=== PATIENT | male | born 1965 | race Caucasian/White ===

== ENCOUNTER 2016-08-30 11:19 | Emergency (ER) | payer OTHER ==
--- NOTE | 2016-08-30 14:33 | EDDOCDS ---
Nurse's Notes [facility] Name: Renaldo Syed Age: 51 yrs Sex: Male : 1965 Arrival Date: 08/30/2016 Time: 11:19 Bed PR Private MD: Other - Complete Info On Cds Diagnosis: Calcific tendinitis of left shoulder-or bursitis;Cervical disc disorder with radiculopathy, cervicothoracic region-affecting left arm Presentation: 08/30 11:25 Presenting complaint: Patient states: hurt for a long time- a while ago towels were hs1 dropped on it 7 mos while in [place]. Patient was supposed to have follow up with orthopedic doctor and they have cancelled apt 2 times. Patient concerned because they haven't rescheduled and pain is much worse. No imaging every reported by patient. Adult Sepsis Screening: The patient does not have new or worsening altered mentation. Patient's respiratory rate is less than 22. Systolic blood pressure is greater than 100. Patient has a qSOFA score of 0- Negative Sepsis Screen. Suicide/Homicide risk assessment- the patient denies having any suicidal and/or homicidal ideations and does not present with any other emotional, behavioral or mental health complaints. Status: Patient is not a insurance and financial services agent or dependent. Transition of care: patient was not received from another setting of care. 11:25 Acuity: BARBARA Level 4 hs1 11:25 Method Of Arrival: Walkin/Carried/Asstd hs1 Triage Assessment: 11:32 General: Appears uncomfortable, Behavior is appropriate for age, cooperative. Pain: hs1 Location: left hand and left arm Pain currently is 10 out of 10 on a pain scale. Pt Declines HIV testing. Neurological: No deficits noted. Respiratory: Airway is patent Respiratory effort is even, unlabored. Musculoskeletal: Range of motion limited in left shoulder. Historical: - Allergies: Acetaminophen (Hives); - Home Meds: 1. Toujeo SoloStar 300 unit/mL (1.5 mL) subcutaneous inpn 30 units in am and 25 units at night 2. oxycodone 30 mg Oral tab as needed ran out 2 days ago 3. depression medication unknown 4. Topamax 50 mg Oral tab 1 tab daily - PMHx: Diabetes - IDDM: controlled; hearniated discs; nueropathy; Migraines; - PSHx: none; - Social history: Smoking status: Patient uses tobacco products, heavy tobacco smoker. No barriers to communication noted, The patient speaks fluent Czech, Speaks appropriately for age. - Family history: Not pertinent. - : The pt / caregiver states he / she is not on anticoagulants. Home medication list is obtained from the patient. - Exposure Risk Screening:: None identified. Screenin:32 Screening information is obtained from the patient. Fall risk: No risks identified. mlb1 Assistance ADL's: requires no assistance with activities of daily living. Abuse/DV Screen: The patient / caregiver reports he/she is: not in a situation that causes fear, pain or injury. Nutritional screening: No deficits noted. Advance Directives: Currently, there is no health care proxy. home support is adequate. Assessment: 14:32 General: Appears in no apparent distress, Behavior is anxious, appropriate for age, mlb1 cooperative. Pain: Location: left arm Pain currently is 10 out of 10 on a pain scale. Musculoskeletal: Circulation, motion, and sensation intact Range of motion intact in all extremities. Vital Signs: 11:21 BP 128 / 88 RA Sitting (auto/reg); Pulse 83; Resp 18; Temp 98.1(O); Pulse Ox 100% on jrd R/A; Weight 96.62 kg (R); Height 6 ft. 0 in. (182.88 cm); Pain 10/10; 14:28 BP 147 / 84; Pulse 84; Resp 18; Temp 99.1(O); Pulse Ox 97% on R/A; Pain 10/10; ct3 11:21 Body Mass Index 28.89 (96.62 kg, 182.88 cm) [facility] Vitals: 11:21 Log In Time: August 30, 2016 at 11:00. [facility] ED Course: 11:20 Patient visited by Tj Santizo PCA. jrd 11:20 Patient moved to Waiting jrd 11:21 Other - Complete Info On Cds is Private Physician. jrd 11:23 Patient visited by Tj Santizo PCA. jrd 11:24 Patient moved to Pre RCE jrd 11:28 Triage Initiated hs1 12:52 Patient moved to Triage 2 ct3 13:10 Karen Craig PA-C is PHCP. dt4 13:10 Nithin Monterroso MD is Attending Physician. dt4 13:10 Patient visited by Karen Craig PA-C. dt4 13:49 Patient moved to TR1 ct3 13:59 Patient visited by Hui Lock PCA. ct3 14:18 [facility] is Referral Physician. dt4 14:19 [facility] Payment Agreement was scanned into [employer] and attached to record. mm15 14:21 Patient moved to PR1 / 25 ttb 14:29 Patient visited by Hui Lock PCA. ct3 14:32 No IV's were initiated during this patient's visit. No procedures done that require mlb1 assistance. 14:33 Patient visited by Aldo Balderas RN. mlb1 14:33 The patient / caregiver is instructed regarding the plan of care and ED course. mlb1 Order Results: There are currently no results for this order. Outcome: 14:19 Discharge ordered by Provider. dt4 14:32 Discharge Assessment: Patient awake, alert and oriented x 3. No cognitive and/or mlb1 functional deficits noted. Patient verbalized understanding of disposition instructions. patient administered narcotics - no. The following High Risk Discharge criteria are identified: None. Discharged to home ambulatory. Condition: good. Discharge instructions given to patient, Instructed on discharge instructions, follow up and referral plans. medication usage, Demonstrated understanding of instructions, medications, Pt was receptive of discharge instructions/ teaching. Prescriptions given X 2. No special radiology studies were completed. Property sent home with patient. 14:33 Patient left the ED. mlb1 Signatures: Aldo Balderas RN RN mlb1 Amanda Hawthorne RN RN hs1 Hui Lock PCA TRAVEL MANAGER ct3 Stella Caputo RN RN ttb Krystian Muñiz mm15 Karen Craig PA-C PA-C dt4 Tj Santzio PCA TRAVEL MANAGER jrd [facility] [place]
--- NOTE | 2016-08-30 14:33 | EDDOCDS ---
Physician Documentation [facility] Name: Renaldo Syed Age: 51 yrs Sex: Male : 1965 Arrival Date: 08/30/2016 Time: 11:19 Bed PR Private MD: Other - Complete Info On Cds Disposition: 08/30/16 14:19 Discharged to Home/Self Care. Impression: Calcific tendinitis of left shoulder - or bursitis, Cervical disc disorder with radiculopathy, cervicothoracic region - affecting left arm. - Condition is Stable. - Discharge Instructions: Cervical Radiculopathy, Calcific Tendinitis. - Prescriptions for Naprosyn 500 mg Oral Tablet - take 1 tablet by ORAL route every 12 hours As needed take with food; 30 tablet. Neurontin 300 mg Oral Capsule - take 1 capsule by ORAL route every 8 hours; 30 capsule. - Medication Reconciliation, Local Pharmacy Hours form. - Follow up: Emergency Department; When: As needed; Reason: Worsening of conditions. Follow up: [facility]; When: Call to arrange an appointment; Reason: Wound/Symptom Recheck, Recheck today's complaints, Continuance of care, To establish care. - Problem is new. - Symptoms are unchanged. Historical: - Allergies: Acetaminophen (Hives); - Home Meds: 1. Toujeo SoloStar 300 unit/mL (1.5 mL) subcutaneous inpn 30 units in am and 25 units at night 2. oxycodone 30 mg Oral tab as needed ran out 2 days ago 3. depression medication unknown 4. Topamax 50 mg Oral tab 1 tab daily - PMHx: Diabetes - IDDM: controlled; hearniated discs; nueropathy; Migraines; - PSHx: none; - Social history: Smoking status: Patient uses tobacco products, heavy tobacco smoker. No barriers to communication noted, The patient speaks fluent Azeri, Speaks appropriately for age. - Family history: Not pertinent. - : The pt / caregiver states he / she is not on anticoagulants. Home medication list is obtained from the patient. - Exposure Risk Screening:: None identified. Vital Signs: 08/30 11:21 BP 128 / 88 RA Sitting (auto/reg); Pulse 83; Resp 18; Temp 98.1(O); Pulse Ox 100% on jrd R/A; Weight 96.62 kg / 213.01 lbs (R); Height 6 ft. 0 in. (182.88 cm); Pain 10/10; 14:28 BP 147 / 84; Pulse 84; Resp 18; Temp 99.1(O); Pulse Ox 97% on R/A; Pain 10/10; ct3 11:21 Body Mass Index 28.89 (96.62 kg, 182.88 cm) jrd MDM: 13:44 Humerus Ordered. EDMS 14:06 Financial registration complete. lg 14:19 [facility] Payment Agreement was scanned into [employer] and attached to record. mm15 Signatures: Dispatcher [employer] EDMS Dewayne Lopez, Reg Reg Aldo Balderas RN RN mlb1 Amanda Hawthorne RN RN hs1 Krystian Muñiz mm15 Karen Craig PA-C PA-C dt4 The chart was reviewed and I authenticate all verbal orders and agree with the evaluation and treatment provided.Attachments: 14:19 [facility] Payment Agreement mm15 MTDD
--- NOTE | 2016-08-30 14:37 | REP ---
Left humerus: Two views. History: Left upper arm pain. Findings: Two views of the left humerus demonstrate normal alignment of the glenohumeral and acromioclavicular joints. No fracture or subluxation is seen. There is a large soft tissue calcific deposit superimposed on a greater tuberosity of the humeral head at the shoulder consistent with calcific tendonitis or bursitis. This is unchanged from the April 02, 2015 study of the shoulder. Impression: No acute bony abnormality. Large soft tissue calcific deposit again seen consistent with calcific tendonitis or bursitis. Signed by Elvis Francis MD 08/30/2016 03:06 P
--- NOTE | 2016-09-01 15:33 | EDDOCDS ---
Nurse's Notes [facility] Name: Renaldo Syed Age: 51 yrs Sex: Male : 1965 Arrival Date: 08/30/2016 Time: 11:19 Bed PR Private MD: Other - Complete Info On Cds Diagnosis: Calcific tendinitis of left shoulder-or bursitis;Cervical disc disorder with radiculopathy, cervicothoracic region-affecting left arm Presentation: 08/30 11:25 Presenting complaint: Patient states: hurt for a long time- a while ago towels were hs1 dropped on it 7 mos while in [place]. Patient was supposed to have follow up with orthopedic doctor and they have cancelled apt 2 times. Patient concerned because they haven't rescheduled and pain is much worse. No imaging every reported by patient. Adult Sepsis Screening: The patient does not have new or worsening altered mentation. Patient's respiratory rate is less than 22. Systolic blood pressure is greater than 100. Patient has a qSOFA score of 0- Negative Sepsis Screen. Suicide/Homicide risk assessment- the patient denies having any suicidal and/or homicidal ideations and does not present with any other emotional, behavioral or mental health complaints. Status: Patient is not a director of physiotherapy services or dependent. Transition of care: patient was not received from another setting of care. 11:25 Acuity: BARBARA Level 4 hs1 11:25 Method Of Arrival: Walkin/Carried/Asstd hs1 Triage Assessment: 11:32 General: Appears uncomfortable, Behavior is appropriate for age, cooperative. Pain: hs1 Location: left hand and left arm Pain currently is 10 out of 10 on a pain scale. Pt Declines HIV testing. Neurological: No deficits noted. Respiratory: Airway is patent Respiratory effort is even, unlabored. Musculoskeletal: Range of motion limited in left shoulder. Historical: - Allergies: Acetaminophen (Hives); - Home Meds: 1. Toujeo SoloStar 300 unit/mL (1.5 mL) subcutaneous inpn 30 units in am and 25 units at night 2. oxycodone 30 mg Oral tab as needed ran out 2 days ago 3. depression medication unknown 4. Topamax 50 mg Oral tab 1 tab daily - PMHx: Diabetes - IDDM: controlled; hearniated discs; nueropathy; Migraines; - PSHx: none; - Social history: Smoking status: Patient uses tobacco products, heavy tobacco smoker. No barriers to communication noted, The patient speaks fluent Nicaraguan, Speaks appropriately for age. - Family history: Not pertinent. - : The pt / caregiver states he / she is not on anticoagulants. Home medication list is obtained from the patient. - Exposure Risk Screening:: None identified. Screenin:32 Screening information is obtained from the patient. Fall risk: No risks identified. mlb1 Assistance ADL's: requires no assistance with activities of daily living. Abuse/DV Screen: The patient / caregiver reports he/she is: not in a situation that causes fear, pain or injury. Nutritional screening: No deficits noted. Advance Directives: Currently, there is no health care proxy. home support is adequate. Assessment: 14:32 General: Appears in no apparent distress, Behavior is anxious, appropriate for age, mlb1 cooperative. Pain: Location: left arm Pain currently is 10 out of 10 on a pain scale. Musculoskeletal: Circulation, motion, and sensation intact Range of motion intact in all extremities. Vital Signs: 11:21 BP 128 / 88 RA Sitting (auto/reg); Pulse 83; Resp 18; Temp 98.1(O); Pulse Ox 100% on jrd R/A; Weight 96.62 kg (R); Height 6 ft. 0 in. (182.88 cm); Pain 10/10; 14:28 BP 147 / 84; Pulse 84; Resp 18; Temp 99.1(O); Pulse Ox 97% on R/A; Pain 10/10; ct3 11:21 Body Mass Index 28.89 (96.62 kg, 182.88 cm) [facility] Vitals: 11:21 Log In Time: August 30, 2016 at 11:00. [facility] ED Course: 11:20 Patient visited by Tj Santizo PCA. jrd 11:20 Patient moved to Waiting jrd 11:21 Other - Complete Info On Cds is Private Physician. jrd 11:23 Patient visited by Tj Santizo PCA. jrd 11:24 Patient moved to Pre RCE jrd 11:28 Triage Initiated hs1 12:52 Patient moved to Triage 2 ct3 13:10 Karen Craig PA-C is PHCP. dt4 13:10 Nithin Monterroso MD is Attending Physician. dt4 13:10 Patient visited by Karen Craig PA-C. dt4 13:49 Patient moved to TR1 ct3 13:59 Patient visited by Hui Lock PCA. ct3 14:18 [facility] is Referral Physician. dt4 14:19 [facility] Payment Agreement was scanned into [employer] and attached to record. mm15 14:21 Patient moved to PR1 / 25 ttb 14:29 Patient visited by Hui Lock PCA. ct3 14:32 No IV's were initiated during this patient's visit. No procedures done that require mlb1 assistance. 14:33 Patient visited by lAdo Balderas RN. mlb1 14:33 The patient / caregiver is instructed regarding the plan of care and ED course. mlb1 14:40 Humerus Returned. EDMS 08/31 12:58 T-Sheet-- Draft Copy was scanned into [employer] and attached to record. gb 12:58 Radiology Report was scanned into [employer] and attached to record. gb Order Results: Radiology Order: Humerus Test: Humerus REASON FOR EXAMINATION: left upper arm pain; Left humerus: Two views.; ; History: Left upper arm pain.; ; Findings: Two views of the left humerus demonstrate normal alignment of the; glenohumeral and acromioclavicular joints. No fracture or subluxation is seen.; There is a large soft tissue calcific deposit superimposed on a greater; tuberosity of the humeral head at the shoulder consistent with calcific; tendonitis or bursitis. This is unchanged from the April 02, 2015 study of; the shoulder.; ; Impression:; ; No acute bony abnormality. Large soft tissue calcific deposit again seen; consistent with calcific tendonitis or bursitis.; ; ; Signed by; Elvis Francis MD 08/30/2016 03:06 P; Outcome: 08/30 14:19 Discharge ordered by Provider. dt4 14:32 Discharge Assessment: Patient awake, alert and oriented x 3. No cognitive and/or mlb1 functional deficits noted. Patient verbalized understanding of disposition instructions. patient administered narcotics - no. The following High Risk Discharge criteria are identified: None. Discharged to home ambulatory. Condition: good. Discharge instructions given to patient, Instructed on discharge instructions, follow up and referral plans. medication usage, Demonstrated understanding of instructions, medications, Pt was receptive of discharge instructions/ teaching. Prescriptions given X 2. No special radiology studies were completed. Property sent home with patient. 14:33 Patient left the ED. mlb1 Signatures: Dispatcher [employer] EDOR Zahraa Sanches, Reg Reg gb AndreyAldo watkins RN RN mlb1 Amanda Hawthorne RN RN hs1 Hui Lock, APPRENTICE PAINTER BRUSH APPRENTICE PAINTER BRUSH ct3 Stella Caputo RN RN ttb Krystian Muñiz mm15 Karen Craig, PAEnid PAGaelC dt4 Tj Santizo, APPRENTICE PAINTER BRUSH APPRENTICE PAINTER BRUSH jrd Chart Complete MTDD
--- NOTE | 2016-09-01 15:33 | EDDOCDS ---
Physician Documentation [facility] Name: Renaldo Syed Age: 51 yrs Sex: Male : 1965 Arrival Date: 08/30/2016 Time: 11:19 Bed PR Private MD: Other - Complete Info On Cds Disposition: 08/30/16 14:19 Discharged to Home/Self Care. Impression: Calcific tendinitis of left shoulder - or bursitis, Cervical disc disorder with radiculopathy, cervicothoracic region - affecting left arm. - Condition is Stable. - Discharge Instructions: Cervical Radiculopathy, Calcific Tendinitis. - Prescriptions for Naprosyn 500 mg Oral Tablet - take 1 tablet by ORAL route every 12 hours As needed take with food; 30 tablet. Neurontin 300 mg Oral Capsule - take 1 capsule by ORAL route every 8 hours; 30 capsule. - Medication Reconciliation, Local Pharmacy Hours form. - Follow up: Emergency Department; When: As needed; Reason: Worsening of conditions. Follow up: [facility]; When: Call to arrange an appointment; Reason: Wound/Symptom Recheck, Recheck today's complaints, Continuance of care, To establish care. - Problem is new. - Symptoms are unchanged. Historical: - Allergies: Acetaminophen (Hives); - Home Meds: 1. Toujeo SoloStar 300 unit/mL (1.5 mL) subcutaneous inpn 30 units in am and 25 units at night 2. oxycodone 30 mg Oral tab as needed ran out 2 days ago 3. depression medication unknown 4. Topamax 50 mg Oral tab 1 tab daily - PMHx: Diabetes - IDDM: controlled; hearniated discs; nueropathy; Migraines; - PSHx: none; - Social history: Smoking status: Patient uses tobacco products, heavy tobacco smoker. No barriers to communication noted, The patient speaks fluent Tajik, Speaks appropriately for age. - Family history: Not pertinent. - : The pt / caregiver states he / she is not on anticoagulants. Home medication list is obtained from the patient. - Exposure Risk Screening:: None identified. Vital Signs: 08/30 11:21 BP 128 / 88 RA Sitting (auto/reg); Pulse 83; Resp 18; Temp 98.1(O); Pulse Ox 100% on jrd R/A; Weight 96.62 kg / 213.01 lbs (R); Height 6 ft. 0 in. (182.88 cm); Pain 10/10; 14:28 BP 147 / 84; Pulse 84; Resp 18; Temp 99.1(O); Pulse Ox 97% on R/A; Pain 10/10; ct3 11:21 Body Mass Index 28.89 (96.62 kg, 182.88 cm) jrd MDM: 13:44 Humerus Ordered. EDMS 14:06 Financial registration complete. lg 14:19 [facility] Payment Agreement was scanned into [employer] and attached to record. mm15 08/31 12:58 T-Sheet-- Draft Copy was scanned into [employer] and attached to record. gb 12: Radiology Report was scanned into [employer] and attached to record. gb Signatures: Dispatcher [employer] EDID Zahraa Sanches, Reg Reg gb Dewayne Lopez, Reg Reg lg Aldo Balderas RN RN mlb1 Amanda Hawthorne RN RN hs1 Krystian Muñiz mm15 Karen Craig PA-C PAEnid dt4 The chart was reviewed and I authenticate all verbal orders and agree with the evaluation and treatment provided.Attachments: 08/30 14:19 [facility] Payment Agreement mm15 08/31 12:58 T-Sheet-- Draft Copy gb Chart Complete MTDD
--- NOTE | 2016-09-01 15:33 | EDDOCDS ---
Physician Documentation [facility] Name: Renaldo Syed Age: 51 yrs Sex: Male : 1965 Arrival Date: 08/30/2016 Time: 11:19 Bed PR Private MD: Other - Complete Info On Cds Disposition: 08/30/16 14:19 Discharged to Home/Self Care. Impression: Calcific tendinitis of left shoulder - or bursitis, Cervical disc disorder with radiculopathy, cervicothoracic region - affecting left arm. - Condition is Stable. - Discharge Instructions: Cervical Radiculopathy, Calcific Tendinitis. - Prescriptions for Naprosyn 500 mg Oral Tablet - take 1 tablet by ORAL route every 12 hours As needed take with food; 30 tablet. Neurontin 300 mg Oral Capsule - take 1 capsule by ORAL route every 8 hours; 30 capsule. - Medication Reconciliation, Local Pharmacy Hours form. - Follow up: Emergency Department; When: As needed; Reason: Worsening of conditions. Follow up: [facility]; When: Call to arrange an appointment; Reason: Wound/Symptom Recheck, Recheck today's complaints, Continuance of care, To establish care. - Problem is new. - Symptoms are unchanged. Historical: - Allergies: Acetaminophen (Hives); - Home Meds: 1. Toujeo SoloStar 300 unit/mL (1.5 mL) subcutaneous inpn 30 units in am and 25 units at night 2. oxycodone 30 mg Oral tab as needed ran out 2 days ago 3. depression medication unknown 4. Topamax 50 mg Oral tab 1 tab daily - PMHx: Diabetes - IDDM: controlled; hearniated discs; nueropathy; Migraines; - PSHx: none; - Social history: Smoking status: Patient uses tobacco products, heavy tobacco smoker. No barriers to communication noted, The patient speaks fluent Italian, Speaks appropriately for age. - Family history: Not pertinent. - : The pt / caregiver states he / she is not on anticoagulants. Home medication list is obtained from the patient. - Exposure Risk Screening:: None identified. Vital Signs: 08/30 11:21 BP 128 / 88 RA Sitting (auto/reg); Pulse 83; Resp 18; Temp 98.1(O); Pulse Ox 100% on jrd R/A; Weight 96.62 kg / 213.01 lbs (R); Height 6 ft. 0 in. (182.88 cm); Pain 10/10; 14:28 BP 147 / 84; Pulse 84; Resp 18; Temp 99.1(O); Pulse Ox 97% on R/A; Pain 10/10; ct3 11:21 Body Mass Index 28.89 (96.62 kg, 182.88 cm) jrd MDM: 13:44 Humerus Ordered. EDMS 14:06 Financial registration complete. lg 14:19 [facility] Payment Agreement was scanned into [employer] and attached to record. mm15 08/31 12:58 T-Sheet-- Draft Copy was scanned into [employer] and attached to record. gb 12: Radiology Report was scanned into [employer] and attached to record. gb Signatures: Dispatcher [employer] EDND Zahraa Sanches, Reg Reg gb Dewayne Lopez, Reg Reg lg Aldo Balderas RN RN mlb1 Amanda Hawthorne RN RN hs1 Krystian Muñiz mm15 Karen Craig PA-C PAEnid dt4 The chart was reviewed and I authenticate all verbal orders and agree with the evaluation and treatment provided.Attachments: 08/30 14:19 [facility] Payment Agreement mm15 08/31 12:58 T-Sheet-- Draft Copy gb Chart Complete MTDD
== END 2016-08-30 14:33 | disposition home or self-care (01) ==
LOC: M ED 11:19
DX: M54.12 Radiculopathy, cervical region (principal); M75.32 Calcific tendinitis of left shoulder; E10.9 Type 1 diabetes mellitus without complications; G43.909 Migraine, unspecified, not intractable, without status migrainosus; G62.9 Polyneuropathy, unspecified; M51.9 Unspecified thoracic, thoracolumbar and lumbosacral intervertebral disc disorder; Z79.899 Other long term (current) drug therapy; Z79.4 Long term (current) use of insulin; Z88.6 Allergy status to analgesic agent; F17.210 Nicotine dependence, cigarettes, uncomplicated

== ENCOUNTER 2018-08-10 11:46 | Emergency (ER) | payer OTHER ==
[~2018-08-10] VITALS: Ht 182.9 cm; Wt 104.5 kg
[2018-08-10] MEDS ORDERED: LEVOTAB10 (11:54)
[2018-08-10] MEDS ORDERED: BUPR300T34 (11:54)
[2018-08-10] MEDS ORDERED: TOUJ300I2 (11:54)
[2018-08-10 12:44] VITALS: BP 145/82
[2018-08-10] MEDS ORDERED: TRAM50TA2 PO (13:13)
[2018-08-10] MEDS ORDERED: KETO10TAB PO (13:13)
[2018-08-10] MEDS ORDERED: KETOROLAC TROMETHAMINE 10 MG TAB PO ONE (13:15)
[2018-08-10] MEDS ORDERED: MORPHINE 10 MG/ML 1ML VIAL (J2270) IM ONE (13:15)
== END 2018-08-10 13:42 | disposition home or self-care (01) ==
LOC: M ED 11:46
DX: M54.9 Dorsalgia, unspecified (principal); G89.29 Other chronic pain; I11.9 Hypertensive heart disease without heart failure; I25.10 Atherosclerotic heart disease of native coronary artery without angina pectoris; I25.2 Old myocardial infarction; G43.909 Migraine, unspecified, not intractable, without status migrainosus; Z95.5 Presence of coronary angioplasty implant and graft; Z88.8 Allergy status to other drugs, medicaments and biological substances; Z79.899 Other long term (current) drug therapy; Z79.4 Long term (current) use of insulin
CPT/HCPCS: 96372; 99283; J2270

== ENCOUNTER 2018-12-15 11:27 | Emergency (ER) | payer OTHER ==
[~2018-12-15] VITALS: Ht 182.9 cm; Wt 104.2 kg
[~2018-12-15 11:27] MED LIST: BUPR300T34; KETO10TAB PO; LEVOTAB10; TOUJ300I2 SC; TRAM50TA2 PO
[2018-12-15] MEDS ORDERED: KETOROLAC 30 MG/ML VIAL (J1885) IV ONE (12:30)
[2018-12-15] MEDS ORDERED: cefTRIAXone SOD 1 GM in D5W MINI-BAG PLUS 50 ML IV ONE (12:30)
[2018-12-15] MEDS ORDERED: ONDANSETRON 4MG/2ML VIAL (J2405) IV ONE (12:30)
[2018-12-15 12:32] LABS: BASO # 0.1 10^3/uL (0.0-0.2); BASO % 0.8 % (0.0-1.0); EOS # 0.2 10^3/uL (0.0-0.50); EOS % 2.2 % (0.0-3.0); HEMATOCRIT 45.5 % (42.0-52.0); HEMOGLOBIN 16.6 g/dl (13.5-17.5); LYMPH # 1.4 10^3/uL (1.5-4.5); LYMPH % 13.4 % (24.0-44.0); MEAN CORPUSCULAR HEMOGLOBIN 30.5 pg (27.0-33.0); MEAN CORPUSCULAR HGB CONC 36.5 g/dl (32.0-36.5); MEAN CORPUSCULAR VOLUME 83.6 fl (80.0-96.0); MONO # 0.7 10^3/uL (0.0-0.8); MONO % 6.6 % (0.0-5.0); NEUTROPHILS # 8.1 10^3/uL (1.8-7.7); NEUTROPHILS % 76.2 % (36.0-66.0); RED BLOOD COUNT 5.44 10^6/uL (4.30-6.10); WHITE BLOOD COUNT 10.6 10^3/uL (4.0-10.0)
[2018-12-15] MEDS ORDERED: VANCOMYCIN HCL 1,000 MG, VIAL MATE ADAPTER 1 EACH in D5W 250 ML IV ONE (13:00)
[2018-12-15 13:07] LABS: PLATELET COUNT, AUTOMATED 95 10^3/uL (150-450)
[2018-12-15 13:14] LABS: ALBUMIN 4.2 GM/DL (3.2-5.2); BILIRUBIN,DIRECT 0.3 MG/DL (0.0-0.2); BILIRUBIN,TOTAL 1.2 MG/DL (0.2-1.0); C REACTIVE PROTEIN QUANTITATIV 0.52 MG/DL (0.00-0.30); CALCIUM LEVEL 8.8 MG/DL (8.5-10.1); CREATININE FOR GFR 1.38 MG/DL (0.70-1.30); GLOMERULAR FILTRATION RATE 57.2 (>56); TOTAL PROTEIN 7.2 GM/DL (6.4-8.2)
[2018-12-15] MEDS ORDERED: NS 1,000 ML IV ONE ×2 (13:30→14:00)
[2018-12-15] MEDS ORDERED: MORPHINE 2 MG/ML 1ML SYRINGE (J2270) IV ONE (14:00)
[2018-12-15] MEDS ORDERED: oxyCODONE 5MG TAB PO ONE (17:30)
[2018-12-15 18:37] VITALS: BP 145/81
[2018-12-30] MEDS ORDERED: ASPI81TA26 PO (00:11)
[2018-12-30] MEDS ORDERED: METO25TA4 PO (00:17)
[2018-12-30] MEDS ORDERED: ATOR40TA75 PO (00:17)
[2019-01-16] MEDS ORDERED: OXYCO5TA PO (13:06)
== END 2018-12-15 18:57 | disposition home or self-care (01) ==
LOC: M ED 11:27
DX: S20.96XA Insect bite (nonvenomous) of unspecified parts of thorax, initial encounter (principal); Y92.9 Unspecified place or not applicable; Y93.9 Activity, unspecified; L03.90 Cellulitis, unspecified; E11.9 Type 2 diabetes mellitus without complications; I10 Essential (primary) hypertension; R51 Headache; F17.210 Nicotine dependence, cigarettes, uncomplicated; Z79.4 Long term (current) use of insulin
CPT/HCPCS: 80048; 80076; 83605; 85025; 85049; 85055; 86140; 87040; 96361; 96365; 96367; 96375; 99284; J0696; J1885; J2270; J2405; J3370

== ENCOUNTER 2018-12-26 08:08 | Inpatient (IN) | payer OTHER ==
[~2018-12-26] VITALS: Ht 182.9 cm; Wt 104.3 kg
[2018-12-26] MEDS ORDERED: NS 1,000 ML IV ONE ×4 (08:30→12:15)
[2018-12-26] MEDS ORDERED: ONDANSETRON 4MG/2ML VIAL (J2405) IV ONE (08:30)
[2018-12-26 08:52] LABS: BASO # 0.1 10^3/uL (0.0-0.2); BASO % 0.6 % (0.0-1.0); EOS % 0.2 % (0.0-3.0); HEMATOCRIT 44.5 % (42.0-52.0); LYMPH # 0.8 10^3/uL (1.5-4.5); LYMPH % 6.3 % (24.0-44.0); MEAN CORPUSCULAR HEMOGLOBIN 30.4 pg (27.0-33.0); MEAN CORPUSCULAR VOLUME 84.4 fl (80.0-96.0); MONO % 7.5 % (0.0-5.0); NEUTROPHILS # 10.9 10^3/uL (1.8-7.7); NEUTROPHILS % 84.6 % (36.0-66.0); RED BLOOD COUNT 5.27 10^6/uL (4.30-6.10); WHITE BLOOD COUNT 12.9 10^3/uL (4.0-10.0)
[2018-12-26] MEDS: MORPHINE 4 MG/ML 1ML VIAL/SYRINGE (J2270) IV PRN ×4 (08:53→21:34)
[2018-12-26 08:55] LABS: PLATELET COUNT, AUTOMATED 75 10^3/uL (150-450)
[2018-12-26 09:18] LABS: ALBUMIN 3.6 GM/DL (3.2-5.2); BILIRUBIN,DIRECT 0.3 MG/DL (0.0-0.2); BILIRUBIN,TOTAL 1.1 MG/DL (0.2-1.0); TOTAL PROTEIN 7.1 GM/DL (6.4-8.2)
[2018-12-26] MEDS ORDERED: ISOVUE-370 76% 100ML VIAL (Q9967) As Ordered ONE (09:18)
--- NOTE | 2018-12-26 09:38 | REP ---
CHEST, PORTABLE AP portable view of the chest was performed. There is no acute infiltrate or pulmonary edema. There is mild cardiomegaly. The mediastinal silhouette is unremarkable. Left costophrenic angle is not visualized. Electronically Signed by Neo Milton MD 12/30/2018 01:42 P
[2018-12-26] MEDS ORDERED: MORPHINE 4 MG/ML 1ML VIAL/SYRINGE (J2270) IV ONE (10:00)
--- NOTE | 2018-12-26 10:25 | REP ---
CT ABDOMEN AND PELVIS WITH IV CONTRAST: TECHNIQUE: Axial contrast enhanced images from the lung bases to the pubic symphysis using 100 mL Isovue 370 intravenous contrast material with multiplanar reformations. Visualized lung bases demonstrate no infiltrate. The liver demonstrates no mass. Multiple tiny gallstones are seen in the gallbladder without evidence of gallbladder wall edema or biliary dilatation. Spleen is unremarkable as are the adrenal glands and pancreas. There is on hydronephrosis bilaterally. There appears to be a small cyst in each kidney. There are several right intrarenal calculi less than 1 cm in diameter. There is mild atherosclerotic calcification of the abdominal aorta without aneurysm. There is no adenopathy, free air or free fluid. There is diffuse thickening of the ascending, transverse and descending colon compatible with colitis with mild surrounding pericolonic inflammation in the pericolonic fat. There also appears to be mild diffuse thickening of the terminal ileum. The appendix is not inflamed. Urinary bladder is unremarkable. No pelvic mass is seen. There are degenerative changes of the spine. IMPRESSION: Diffuse colitis involving the ascending, transverse and descending colon. There also appears to be thickening of the terminal ileum. No free air of free fluid. No evidence of appendicitis. Multiple tiny gallstones in the gallbladder without gallbladder wall edema or biliary dilatation. There are several subcentimeter intrarenal calculi within the right kidney without hydronephrosis bilaterally. Electronically Signed by Neo Milton MD 12/30/2018 01:43 P
[2018-12-26 10:56] LABS: VENOUS BASE EXCESS -3.8 (-2.0-2.0); VENOUS HCO3 21.4 MEQ/L (23.0-27.0); VENOUS O2 SATURATION 59.9 % (60.0-80.0); VENOUS PARTIAL PRESSURE CO2 39.4 mmHg (38.0-50.0); VENOUS PARTIAL PRESSURE O2 33.4 mmHg (30.0-50.0); VENOUS PH 7.352 UNITS (7.330-7.430); VENOUS STANDARD HCO3 20.4 MEQ/L; VENOUS TOTAL CO2 22.6 MEQ/L (24.0-28.0)
[2018-12-26 11:36] LABS: ACETONE/KETONE 5.74 MG/DL (<2.81); BLOOD UREA NITROGEN 12 MG/DL (7-18); CALCIUM LEVEL 7.2 MG/DL (8.5-10.1); CARBON DIOXIDE LEVEL 22 MEQ/L (21-32); CHLORIDE LEVEL 106 MEQ/L (98-107); CREATININE FOR GFR 1.23 MG/DL (0.70-1.30); GLOMERULAR FILTRATION RATE > 60.0 (>56); GLUCOSE, FASTING 253 MG/DL (70-100); POTASSIUM SERUM 3.8 MEQ/L (3.5-5.1); SODIUM LEVEL 137 MEQ/L (136-145)
[2018-12-26] MEDS: HumaLOG INSULIN (NovoLOG) PER UNIT SC SCH ×3 (12:00→21:00)
[2018-12-26] MEDS ORDERED: KETOROLAC 30 MG/ML VIAL (J1885) IV PRN (12:15)
[2018-12-26] MEDS: ENOXAPARIN 40 MG/0.4 ML SYRINGE (J1650) SC SCH (12:19)
[2018-12-26] MEDS: NS 1,000 ML IV SCH (12:22)
[2018-12-26] MEDS ORDERED: metroNIDAZOLE 500 MG in APPROPRIATE DILUENT 1 EA IV ONE (13:00)
[2018-12-26] MEDS ORDERED: GLUCAGON FOR INJ 1 MG VIAL (J1610) SC PRN (13:15)
[2018-12-26] MEDS ORDERED: DEXTROSE 50% 50 ML SYRINGE IV PRN (13:15)
[2018-12-26] MEDS ORDERED: GLUCOSE 4 GM CHEW TABLET PO PRN (13:15)
[2018-12-26] MEDS: PANTOPRAZOLE 40MG INJ (PROTONIX) (C9113) IV SCH (13:18)
[2018-12-26] MEDS: LEVEMIR (INSULIN DETEMIR) 1 UNITS/0.01ML SC SCH (13:29)
[2018-12-26 13:48] VITALS: BP 136/74
[2018-12-26] MEDS: CIPROFLOXACIN 400 MG in APPROPRIATE DILUENT 1 EA IV SCH (14:52)
[2018-12-26] MEDS: ONDANSETRON 4MG/2ML VIAL (J2405) IV PRN (21:34)
[2018-12-26] MEDS: metroNIDAZOLE 500 MG in APPROPRIATE DILUENT 1 EA IV SCH (21:34)
[2018-12-26 22:00] VITALS: BP 146/71
--- NOTE | 2018-12-26 22:21 | HPEPDOC ---
General Date of Admission Dec 26, 2018 at 12:01 Date of Service: Dec 26, 2018 Chief Complaint The patient is a 53-year-old male admitted with a reason for visit of Colitis Hyperglycemia. Source: Patient, RN/MD Severity: Moderate Associated Symptoms: Headaches, Nausea, Vomiting, Weakness History of Present Illness 53 year old male with PMH of Insulin dependent diabetes, Smoker, hypertension, hyperlipidemia, neuropathy, CAD with h/o AMI and stents in the past, migraines, chronic pain used to be on pain meds, anxiety/ADHD used to be on adderal moved to [facility] from [place] about 7 months ago and had been set up with a PCP in the [facility] however there was some issues regarding medications and he did not want to see the physician and so now has no PCP .Other than insulin he does not have any other medication at present. He presented to the ED with 7 days h/o abdominal pain diarrhea and about 5 days history of nausea and vomiting. The diarrhea is watery, without any blood in it. And he had been in the bathroom all night yesterday. His abdominal pain is crampy and sharp located all over the abdomen without any radiation. it s associated with nausea and vomiting. There is no hematemesis or yulisa or hematochezia. He has been unable to keep any food and liquids down. In the ED he had a ct abdomen which showed Diffuse colitis involving the ascending, transverse and descending colon. There also appears to be thickening of the terminal ileum. He was also hyperglycemic to 351. He was admitted for acute enterocolitis with hyperglycemia, dehydration. Home Medications Scheduled Insulin Glargine,Hum.rec.anlog (Juanita Mccloud) 300 Unit/Ml Inj, 55 UNITS SC DAILY, (Reported) PT STATES HE USES BID SOMETIMES, NOT SURE OF DOSE AND NEEDS NEW SCRIPT Allergies Coded Allergies: acetaminophen (Verified Allergy, Unknown, anaphylaxis, 12/15/18) Past Medical History Medical History Insulin dependent diabetes, hypertension, hyperlipidemia, neuropathy, CAD with h/o AMI and stents in the past, migraines, chronic pain used to be on pain meds, anxiety/ADHD Surgical History Cardiac stents Family History Significant Family History: Diabetes (mother) Social History * Smoker: current smoker, less than 1 pack/day Alcohol: Denies Drugs: denies A-FIB/CHADSVASC A-FIB History Current/History of A-Fib/PAF?: No Review of Systems Constitutional: Reports: Weakness, Fatigue; Denies: Chills, Fever, Night Sweats Eyes: Reports: Vision change (Has poor vision); Denies: Pain ENT: Reports: Head Aches Skin: Denies: Rash, Lesions, Breakdown Pulmonary: Denies: Dyspnea, Cough Cardiovascular: Denies: Chest Pain, Palpitations, Orthopnea, Paroxysmal Noc. Dyspnea, Lt Headedness Gastrointestinal: Reports: Nausea, Vomiting, Abdominal Pain, Diarrhea; Denies: Constipation, Melena, Hematochezia Genitourinary: Denies: Dysuria, Frequency, Incontinence, Retention Hematologic: Denies: Bruising, Bleeding Excessively Musculoskeletal: Reports: Leg Pain, Foot Pain Neurological: Denies: Weakness, Numbness, Change in speech, Confusion Psych: Reports: Anxiety Physical Examination General Exam: Positive: Alert, Cooperative, Moderate Distress Eye Exam: Positive: Conjunctiva & lids normal, EOMI; Negative: Sclera icteric ENT Exam: Positive: Atraumatic, Pharynx Normal Neck Exam: Positive: Supple; Negative: JVD, thyromegaly Chest Exam: Positive: Clear to auscultation, Normal air movement Heart Exam: Positive: Rate Normal, Regular Rhythm, Normal S1, Normal S2; Negative: Murmurs, Rubs Telemetry: Positive: No significant arrhythmia Abdomen Exam: Positive: BS Hypoactive (tinkling), Soft, Tenderness, Other (no guarding or rigidity or rebound tenderness) Extremity Exam: Negative: Clubbing, Cyanosis, Edema Skin Exam: Positive: Breakdown (some abrasions and superficial ulcers which looked like opened furuncles) Neuro Exam: Positive: Normal Speech, Strength at 5/5 X4 ext, Normal Tone, Sensation Intact Psych Exam: Positive: Anxiety, Memory Intact, Oriented x 3 Vital Signs Vital Signs Date Time Temp Pulse Resp B/P (MAP) Pulse Ox O2 Delivery O2 Flow Rate FiO2 12/26/18 21:34 20 12/26/18 13:48 98.0 78 136/74 (94) 97 12/26/18 13:30 Room Air Laboratory Data Labs 24H Laboratory Tests 2 12/26/18 08:20: Immature Granulocyte % (Auto) 0.8, White Blood Count 12.9H, Red Blood Count 5.27, Hemoglobin 16.0, Hematocrit 44.5, Mean Corpuscular Volume 84.4, Mean Corpuscular Hemoglobin 30.4, Mean Corpuscular Hemoglobin Concent 36.0, Red Cell Distribution Width 12.2, Platelet Count 75L, Neutrophils (%) (Auto) 84.6H, Ly mphocytes (%) (Auto) 6.3L, Monocytes (%) (Auto) 7.5H, Eosinophils (%) (Auto) 0.2, Basophils (%) (Auto) 0.6, Neutrophils # (Auto) 10.9H, Lymphocytes # (Auto) 0.8L, Monocytes # (Auto) 1.0H, Eosinophils # (Auto) 0.0, Basophils # (Auto) 0.1, Nucleated Red Blood Cells % (auto) 0.0, Immature Platelet Fraction 7.5, Urine Color YELLOW, Urine Appearance CLEAR, Urine pH 6.0, Urine Specific [place] 1.042, Urine Protein 1+H, Urine Glucose (UA) 3+H, Urine Ketones 1+H, Urine Blood 1+H, Urine Nitrite NEGATIVE, Urine Bilirubin NEGATIVE, Urine Urobilinogen 0.2, Urine Leukocyte Esterase NEGATIVE, Urine WBC (Auto) 0, Urine RBC (Auto) 0, Urine Hyaline Casts (Auto) 0, Urine Bacteria (Auto) NEGATIVE, Urine Squamous Epithelial Cells 0, Urine Mucus (Auto) SMALL, Urine Sperm (Auto) , Lactic Acid Level 1.3, Aspartate Amino Transf (AST/SGOT) 13, Alanine Aminotransferase (ALT/SGPT) 25, Alkaline Phosphatase 101, Total Bilirubin 1.1H, Direct Bilirubin 0.3H, Total Protein 7.1, Albumin 3.6, Albumin/Globulin Ratio 1.03, Lipase 214 12/26/18 08:37: POC Glucose (Misc Panel) 341H, POC Sodium (Misc Panel) 134L, POC Potassium (Misc Panel) 3.6, POC Chloride (Misc Panel) 100, POC Total CO2 (Misc Panel) 16.0L, POC Blood Urea Nitrogen (Misc Panel 13, POC Ionized Calcium (Misc Panel) 4.4L, POC Creatinine (Misc Panel) 1.2, POC Hematocrit (Misc Panel) 46.0 12/26/18 10:30: Blood Gas Bicarbonate Standard 20.4, Venous Blood pH 7.352, Venous Blood Partial Pressure CO2 39.4, Venous Blood Partial Pressure O2 33.4, Venous Blood Total Carbon Dioxide 22.6L, Venous Blood HCO3 21.4L, Venous Blood Oxygen Saturation 59.9L, Venous Blood Base Excess -3.8L, Anion Gap 9, Glomerular Filtration Rate > 60.0, Blood Urea Nitrogen 12, Creatinine 1.23, Sodium Level 137, Potassium Level 3.8, Chloride Level 106, Carbon Dioxide Level 22, Calcium Level 7.2L, B- Hydroxybutyrate 5.74H 12/26/18 13:24: Bedside Glucose (Misc Panel) 202H 12/26/18 16:52: Bedside Glucose (Misc Panel) 171H 12/26/18 20:44: Bedside Glucose (Misc Panel) 169H CBC/BMP Laboratory Tests 12/26/18 08:20 Red Blood Count 5.27, Mean Corpuscular Volume 84.4, Mean Corpuscular Hemoglobin 30.4, Mean Corpuscular Hemoglobin Concent 36.0, Red Cell Distribution Width 12.2, Neutrophils (%) (Auto) 84.6 H, Lymphocytes (%) (Auto) 6.3 L, Monocytes (%) (Auto) 7.5 H, Eosinophils (%) (Auto) 0.2, Basophils (%) (Auto) 0.6, Neutrophils # (Auto) 10.9 H, Lymphocytes # (Auto) 0.8 L, Monocytes # (Auto) 1.0 H, Eosinophils # (Auto) 0.0, Basophils # (Auto) 0.1 12/26/18 10:30 Calcium Level 7.2 L Microbiology Microbiology 12/26/18 Blood Culture, Received Pending 12/26/18 Blood Culture, Received Pending 12/26/18 Gastrointestinal Tract Panel (PCR), Received Pending 12/26/18 Gastrointestinal Tract Panel (PCR), Received Pending Assessment/Plan 53 year old male with PMH of Insulin diabetes, Smoker, hypertension, hyperlipidemia, neuropathy, CAD with h/o AMI and stents in the past, migraines, chronic pain used to be on pain meds, anxiety/ADHD used to be on adderal moved to [facility] from [place] about 7 months ago and had been set up with a PCP in the [facility] however there was some issues regarding medications and he did not want to see the physician and so now has no PCP .Other than insulin he does not have any other medication at present. He presented to the ED with 7 days h/o abdominal pain diarrhea and about 5 days history of nausea and vomiting. The diarrhea is watery, without any blood in it. And he had been in the bathroom all night yesterday. His abdominal pain is crampy and sharp located all over the abdomen without any radiation. it s associated with nausea and vomiting. There is no hematemesis or yulisa or hematochezia. He has been unable to keep any food and liquids down. In the ED he had a ct abdomen which showed Diffuse colitis involving the ascending, transverse and descending colon. There also appears to be thickening of the terminal ileum. He was also hyperglycemic to 351. He was admitted for acute enterocolitis with hyperglycemia, dehydration. Acute Enterocolitis GI panel cipro and flagyl IVF, clear liquids. Morphine, toradol, zofran Insulin dependent diabetes with hyperglycemia levemir , lispro as per sliding scale No DKA No acidosis in blood gas bicarb not low on repeat mild elevation in acetone probably from not eating much for past severeal days. initial low bicarb due to diarrhea and NAGMA. Dehydration will continue IVF. H/o hypertension now blood pressure normal probably due to hypovolemia and dehydration. Migraines. says having an attack will give toradol, zofran. CAD with h/o stents not on asa or plavix now. says was on ASA will start when able to take po. DVT prophylaxis ordered. Plan / VTE VTE Prophylaxis Ordered?: Yes TTAIANA WEBB MD Dec 26, 2018 22:21
[2018-12-27] MEDS: CIPROFLOXACIN 400 MG in APPROPRIATE DILUENT 1 EA IV SCH ×2 (01:14→14:08)
[2018-12-27] MEDS: oxyCODONE 5MG TAB PO PRN ×4 (01:15→23:15)
[2018-12-27] MEDS: MORPHINE 4 MG/ML 1ML VIAL/SYRINGE (J2270) IV PRN ×4 (02:21→18:15)
[2018-12-27] MEDS: metroNIDAZOLE 500 MG in APPROPRIATE DILUENT 1 EA IV SCH ×3 (03:57→20:08)
[2018-12-27] MEDS: NS 1,000 ML IV SCH ×2 (03:57→08:54)
[2018-12-27 06:00] VITALS: BP 151/77
[2018-12-27] MEDS: ONDANSETRON 4MG/2ML VIAL (J2405) IV PRN (06:37)
[2018-12-27 06:45] LABS: BASO # 0.1 10^3/uL (0.0-0.2); BASO % 0.6 % (0.0-1.0); EOS # 0.2 10^3/uL (0.0-0.50); EOS % 2.9 % (0.0-3.0); HEMATOCRIT 35.8 % (42.0-52.0); LYMPH # 1.5 10^3/uL (1.5-4.5); LYMPH % 18.9 % (24.0-44.0); MEAN CORPUSCULAR HEMOGLOBIN 30.4 pg (27.0-33.0); MEAN CORPUSCULAR HGB CONC 35.2 g/dl (32.0-36.5); MEAN CORPUSCULAR VOLUME 86.5 fl (80.0-96.0); MONO # 1.1 10^3/uL (0.0-0.8); NEUTROPHILS % 63.2 % (36.0-66.0); RED BLOOD COUNT 4.14 10^6/uL (4.30-6.10)
[2018-12-27 06:48] LABS: PLATELET COUNT, AUTOMATED 77 10^3/uL (150-450)
[2018-12-27 06:49] LABS: HEMOGLOBIN 12.6 g/dl (13.5-17.5)
[2018-12-27 07:04] LABS: BLOOD UREA NITROGEN 8 MG/DL (7-18); CALCIUM LEVEL 7.8 MG/DL (8.5-10.1); CARBON DIOXIDE LEVEL 23 MEQ/L (21-32); CHLORIDE LEVEL 109 MEQ/L (98-107); CREATININE FOR GFR 1.18 MG/DL (0.70-1.30); GLOMERULAR FILTRATION RATE > 60.0 (>56); GLUCOSE, FASTING 115 MG/DL (70-100); POTASSIUM SERUM 3.4 MEQ/L (3.5-5.1); SODIUM LEVEL 138 MEQ/L (136-145)
[2018-12-27] MEDS: HumaLOG INSULIN (NovoLOG) PER UNIT SC SCH ×4 (07:30→20:16)
[2018-12-27] MEDS: ENOXAPARIN 40 MG/0.4 ML SYRINGE (J1650) SC SCH (08:53)
[2018-12-27] MEDS: VANCOMYCIN ORAL SOL 250MG/5ML ORAL SYRINGE PO SCH ×3 (08:54→18:15)
[2018-12-27] MEDS: ASPIRIN 81 MG ENTERIC TAB PO SCH (08:54)
[2018-12-27] MEDS: LEVEMIR (INSULIN DETEMIR) 1 UNITS/0.01ML SC SCH (08:55)
--- NOTE | 2018-12-27 10:59 | IPNPDOC ---
Subjective Date Seen The patient was seen on 12/27/18. Subjective Chief Complaint/HPI Continues to have diarrhea, nausea and abdominal pain. , No bood in stools, continues to have severe headache which he thinks is his migraine. No appetite yet. Objective Physical Examination General Exam: Positive: Alert, Cooperative, Moderate Distress Eye Exam: Positive: Conjunctiva & lids normal, EOMI; Negative: Sclera icteric ENT Exam: Positive: Atraumatic, Pharynx Normal Neck Exam: Positive: Supple; Negative: JVD, thyromegaly Chest Exam: Positive: Clear to auscultation, Normal air movement Heart Exam: Positive: Rate Normal, Regular Rhythm, Normal S1, Normal S2; Negative: Murmurs, Rubs Telemetry: Positive: No significant arrhythmia Abdomen Exam: Positive: BS Hypoactive (tinkling), Soft, Tenderness, Other (no guarding or rigidity or rebound tenderness) Extremity Exam: Negative: Clubbing, Cyanosis, Edema Skin Exam: Positive: Breakdown (some abrasions and superficial ulcers which loo ked like opened furuncles) Neuro Exam: Positive: Normal Speech, Strength at 5/5 X4 ext, Normal Tone, Sensation Intact Psych Exam: Positive: Anxiety, Memory Intact, Oriented x 3 Assessment /Plan Assessment 53 year old male with PMH of Insulin diabetes, Smoker, hypertension, hyperlipidemia, neuropathy, CAD with h/o AMI and stents in the past, migraines, chronic pain used to be on pain meds, anxiety/ADHD used to be on adderal moved to [facility] from [place] about 7 months ago and had been set up with a PCP in the [facility] however there was some issues regarding medications and he did not want to see the physician and so now has no PCP .Other than insulin he does not have any other medication at present. He presented to the ED with 7 days h/o abdominal pain diarrhea and about 5 days history of nausea and vomiting. The diarrhea is watery, without any blood in it. And he had been in the bathroom all night yesterday. His abdominal pain is crampy and sharp located all over the abdomen without any radiation. it s associated with nausea and vomiting. There is no hematemesis or yulisa or hematochezia. He has been unable to keep any food and liquids down. In the ED he had a ct abdomen which showed Diffuse colitis involving the ascending, transverse and descending colon. There also appears to be thickening of the terminal ileum. He was also hyperglycemic to 351. He was admitted for acute enterocolitis with hyperglycemia, dehydration. Acute Enterocolitis GI panel : campylobacter and c diff po vancomycin cipro and flagyl IVF, clear liquids. Morphine, oxycodone zofran hypokalemia potassium in IVF. Insulin dependent diabetes with hyperglycemia levemir , lispro as per sliding scale Dehydration will continue IVF till eating po. H/o hypertension now blood pressure normal probably due to hypovolemia and dehydration. Migraines. says having an attack will give imitrex, toradol, benadryl and reglan once. CAD with h/o stents not on asa or plavix now. says was on ASA will start when able to take po. DVT prophylaxis ordered. Plan/VTE VTE Prophylaxis Ordered?: Yes VS, I&O, 24H, Fishbone Vital Signs/I&O Vital Signs Date Time Temp Pulse Resp B/P (MAP) Pulse Ox O2 Delivery O2 Flow Rate FiO2 12/27/18 09:25 20 12/27/18 06:00 98.0 72 151/77 (101) 98 12/26/18 13:30 Room Air I&O- Last 24 Hours up to 6 AM 12/27/18 06:00 Intake Total 4960 ml Output Total 650 ml Balance 4310 ml Laboratory Data 24H LABS Laboratory Tests 2 12/26/18 13:24: Bedside Glucose (Misc Panel) 202H 12/26/18 16:52: Bedside Glucose (Misc Panel) 171H 12/26/18 20:44: Bedside Glucose (Misc Panel) 169H 12/27/18 06:28: Immature Granulocyte % (Auto) 0.4, White Blood Count 8.0, Red Blood Count 4.14L, Hemoglobin 12.6#L, Hematocrit 35.8L, Mean Corpuscular Volume 86.5, Mean Corpuscular Hemoglobin 30.4, Mean Corpuscular Hemoglobin Concent 35.2, Red Cell Distribution Width 12.2, Platelet Count 77L, Neutrophils (%) (Auto) 63.2, Lympho cytes (%) (Auto) 18.9L, Monocytes (%) (Auto) 14.0H, Eosinophils (%) (Auto) 2.9, Basophils (%) (Auto) 0.6, Neutrophils # (Auto) 5.0, Lymphocytes # (Auto) 1.5, Monocytes # (Auto) 1.1H, Eosinophils # (Auto) 0.2, Basophils # (Auto) 0.1, Nucleated Red Blood Cells % (auto) 0.0, Anion Gap 6L, Glomerular Filtration Rate > 60.0, Blood Urea Nitrogen 8, Creatinine 1.18, Sodium Level 138, Potassium Level 3.4L, Chloride Level 109H, Carbon Dioxide Level 23, Calcium Level 7.8L CBC/BMP Laboratory Tests 12/27/18 06:28 Red Blood Count 4.14 L, Mean Corpuscular Volume 86.5, Mean Corpuscular H emoglobin 30.4, Mean Corpuscular Hemoglobin Concent 35.2, Red Cell Distribution Width 12.2, Neutrophils (%) (Auto) 63.2, Lymphocytes (%) (Auto) 18.9 L, Monocytes (%) (Auto) 14.0 H, Eosinophils (%) (Auto) 2.9, Basophils (%) (Auto) 0.6, Neutrophils # (Auto) 5.0, Lymphocytes # (Auto) 1.5, Monocytes # (Auto) 1.1 H, Eosinophils # (Auto) 0.2, Basophils # (Auto) 0.1, Calcium Level 7.8 L Microbiology Microbiology 12/26/18 Blood Culture - Preliminary, Resulted No growth after 24 hours . All specim... 12/26/18 Blood Culture - Preliminary, Resulted No growth after 24 hours . All specim... 12/26/18 Gastrointestinal Tract Panel (PCR) - Final, Complete Campylobacter Clostridium Difficile A/B TATIANA WEBB MD Dec 27, 2018 10:59
[2018-12-27] MEDS ORDERED: KETOROLAC 30 MG/ML VIAL (J1885) IV ONE (11:00)
[2018-12-27] MEDS ORDERED: METOCLOPRAMIDE INJ 10MG/2ML VIAL (J2765) IV ONE (11:00)
[2018-12-27] MEDS ORDERED: diphenhydrAMINE INJ 50MG/ML VIAL (J1200) IV ONE (11:00)
[2018-12-27] MEDS ORDERED: SUMAtriptan SUCCINATE 6 MG/0.5 ML VIAL SC ONE (12:00)
[2018-12-27] MEDS: PANTOPRAZOLE 40MG INJ (PROTONIX) (C9113) IV SCH (12:13)
[2018-12-27] MEDS: KCL 40MEQ in NS 1000ML 1,000 ML IV SCH ×2 (12:14→20:08)
[2018-12-27 14:00] VITALS: BP 138/73
[2018-12-27 22:00] VITALS: BP 146/69
[2018-12-28] MEDS: VANCOMYCIN ORAL SOL 250MG/5ML ORAL SYRINGE PO SCH ×5 (00:14→23:16)
[2018-12-28] MEDS: MORPHINE 4 MG/ML 1ML VIAL/SYRINGE (J2270) IV PRN ×4 (00:15→19:53)
[2018-12-28] MEDS: CIPROFLOXACIN 400 MG in APPROPRIATE DILUENT 1 EA IV SCH ×2 (01:11→14:36)
[2018-12-28] MEDS: metroNIDAZOLE 500 MG in APPROPRIATE DILUENT 1 EA IV SCH ×3 (05:36→22:39)
[2018-12-28] MEDS: KCL 40MEQ in NS 1000ML 1,000 ML IV SCH ×2 (05:37→14:37)
[2018-12-28 06:00] VITALS: BP 137/66
[2018-12-28 06:06] LABS: BASO # 0.1 10^3/uL (0.0-0.2); BASO % 0.9 % (0.0-1.0); EOS # 0.2 10^3/uL (0.0-0.50); EOS % 4.5 % (0.0-3.0); HEMATOCRIT 38.3 % (42.0-52.0); HEMOGLOBIN 13.2 g/dl (13.5-17.5); LYMPH # 1.3 10^3/uL (1.5-4.5); LYMPH % 25.2 % (24.0-44.0); MEAN CORPUSCULAR HEMOGLOBIN 29.9 pg (27.0-33.0); MEAN CORPUSCULAR HGB CONC 34.5 g/dl (32.0-36.5); MEAN CORPUSCULAR VOLUME 86.7 fl (80.0-96.0); MONO # 0.7 10^3/uL (0.0-0.8); MONO % 13.3 % (0.0-5.0); NEUTROPHILS # 2.9 10^3/uL (1.8-7.7); NEUTROPHILS % 55.3 % (36.0-66.0); PLATELET COUNT, AUTOMATED 106 10^3/uL (150-450); RED BLOOD COUNT 4.42 10^6/uL (4.30-6.10); WHITE BLOOD COUNT 5.3 10^3/uL (4.0-10.0)
[2018-12-28 06:19] LABS: BLOOD UREA NITROGEN 6 MG/DL (7-18); CALCIUM LEVEL 7.9 MG/DL (8.5-10.1); CARBON DIOXIDE LEVEL 25 MEQ/L (21-32); CHLORIDE LEVEL 111 MEQ/L (98-107); CREATININE FOR GFR 1.11 MG/DL (0.70-1.30); GLOMERULAR FILTRATION RATE > 60.0 (>56); GLUCOSE, FASTING 105 MG/DL (70-100); POTASSIUM SERUM 3.6 MEQ/L (3.5-5.1); SODIUM LEVEL 142 MEQ/L (136-145)
[2018-12-28] MEDS: LEVEMIR (INSULIN DETEMIR) 1 UNITS/0.01ML SC SCH (07:49)
[2018-12-28] MEDS: HumaLOG INSULIN (NovoLOG) PER UNIT SC SCH ×4 (08:44→21:00)
[2018-12-28] MEDS: ENOXAPARIN 40 MG/0.4 ML SYRINGE (J1650) SC SCH (08:45)
[2018-12-28] MEDS: ASPIRIN 81 MG ENTERIC TAB PO SCH (08:45)
[2018-12-28] MEDS ORDERED: PERCOCET 5MG/325MG TAB PO PRN (10:00)
--- NOTE | 2018-12-28 10:02 | IPNPDOC ---
Subjective Date Seen The patient was seen on 12/28/18. Subjective Chief Complaint/HPI Still having diarrhea, still says having severe abdominal pain and requiring IVF morphine every 4 hours on the dot. However says he would like to try some solid food. No fever or chills, no abdominal distension. Objective Physical Examination General Exam: Positive: Alert, Cooperative, Moderate Distress Eye Exam: Positive: Conjunctiva & lids normal, EOMI; Negative: Sclera icteric ENT Exam: Positive: Atraumatic, Pharynx Normal Neck Exam: Positive: Supple; Negative: JVD, thyromegaly Chest Exam: Positive: Clear to auscultation, Normal air movement Heart Exam: Positive: Rate Normal, Regular Rhythm, Normal S1, Normal S2; Negative: Murmurs, Rubs Telemetry: Positive: No significant arrhythmia Abdomen Exam: Positive: BS Hyperactive, Soft, Tenderness, Other (no guarding or rigidity or rebound tenderness) Extremity Exam: Negative: Clubbing, Cyanosis, Edema Skin Exam: Positive: Breakdown (some abrasions and superficial ulcers which looked like opened furuncles) Neuro Exam: Positive: Normal Speech, Strength at 5/5 X4 ext, Normal Tone, Sensation Intact Psych Exam: Positive: Anxiety, Memory Intact, Oriented x 3 Assessment /Plan Assessment 53 year old male with PMH of Insulin diabetes, Smoker, hypertension, hyp erlipidemia, neuropathy, CAD with h/o AMI and stents in the past, migraines, chronic pain used to be on pain meds, anxiety/ADHD used to be on adderal moved to [facility] from [place] about 7 months ago and had been set up with a PCP in the [facility] however there was some issues regarding medications and he did not want to see the physician and so now has no PCP .Other than insulin he does not have any other medication at present. He presented to the ED with 7 days h/o abdominal pain diarrhea and about 5 days history of nausea and vomiting. The diarrhea is watery, without any blood in it. And he had been in the bathroom all night yesterday. His abdominal pain is crampy and sharp located all over the abdomen without any radiation. it s associated with nausea and vomiting. There is no hematemesis or yulisa or hematochezia. He has been unable to keep any food and liquids down. In the ED he had a ct abdomen which showed Diffuse colitis involving the ascending, transverse and descending colon. There also appears to be thickening of the terminal ileum. He was also hyperglycemic to 351. He was admitted for acute enterocolitis with hyperglycemia, dehydration. Acute Enterocolitis GI panel : campylobacter and c diff po vancomycin cipro and flagyl Morphine, oxycodone zofran want to try solid food will give soft diet. If pain worsens then will go back to clear liquids. hypokalemia resolved. Insulin dependent diabetes with hyperglycemia levemir , lispro as per sliding scale Dehydration will continue IVF till eating po. H/o hypertension now blood pressure normal probably due to hypovolemia and dehydration. Migraines. says having an attack will give imitrex, toradol, benadryl and reglan once. CAD with h/o stents not on asa or plavix now. says was on ASA will start when able to take po. DVT prophylaxis ordered. Plan/VTE VTE Prophylaxis Ordered?: Yes VS, I&O, 24H, Fishbone Vital Signs/I&O Vital Signs Date Time Temp Pulse Resp B/P (MAP) Pulse Ox O2 Delivery O2 Flow Rate FiO2 12/28/18 06:15 19 12/28/18 06:00 96.9 66 137/66 (89) 98 12/26/18 13:30 Room Air I&O- Last 24 Hours up to 6 AM 12/28/18 06:00 Intake Total 4580 ml Output Total 2175 ml Balance 2405 ml Laboratory Data 24H LABS Laboratory Tests 2 12/27/18 11:34: Bedside Glucose (Misc Panel) 100 12/27/18 16:30: Bedside Glucose (Misc Panel) 111H 12/27/18 20:15: Bedside Glucose (Misc Panel) 137H 12/28/18 05:31: Immature Granulocyte % (Auto) 0.8, White Blood Count 5.3, Red Blood Count 4.42, Hemoglobin 13.2L, Hematocrit 38.3L, Mean Corpuscular Volume 86.7, Mean Corpuscular Hemoglobin 29.9, Mean Corpuscular Hemoglobin Concent 34.5, Red Cell Distribution Width 12.1, Platelet Count 106L, Neutrophils (%) (Auto) 55.3, Lymphocytes (%) (Auto) 25.2, Monocytes (%) (Auto) 13.3H, Eosinophils (%) (Auto) 4.5H, Basophils (%) (Auto) 0.9, Neutrophils # (Auto) 2.9, Lymphocytes # (Auto) 1.3L, Monocytes # (Auto) 0.7, Eosinophils # (Auto) 0.2, Basophils # (Auto) 0.1, Nucleated Red Blood Cells % (auto) 0.0, Anion Gap 6L, Glomerular Filtration Rate > 60.0, Blood Urea Nitrogen 6L, Creatinine 1.11, Sodium Level 142, Potassium Level 3.6, Chloride Level 111H, Carbon Dioxide Level 25, Calcium Level 7.9L CBC/BMP Laboratory Tests 12/28/18 05:31 Red Blood Count 4.42, Mean Corpuscular Volume 86.7, Mean Corpuscular Hemoglobin 29.9, Mean Corpuscular Hemoglobin Concent 34.5, Red Cell Distribution Width 12.1, Neutrophils (%) (Auto) 55.3, Lymphocytes (%) (Auto) 25.2, Monocytes (%) (Auto) 13.3 H, Eosinophils (%) (Auto) 4.5 H, Basophils (%) (Auto) 0.9, Neutrophils # (Auto) 2.9, Lymphocytes # (Auto) 1.3 L, Monocytes # (Auto) 0.7, Eosinophils # (Auto) 0.2, Basophils # (Auto) 0.1, Calcium Level 7.9 L Microbiology Microbiology 12/26/18 Blood Culture - Preliminary, Resulted No growth after 24 hours . All specim... 12/26/18 Blood Culture - Preliminary, Resulted No Growth after 48 hours. All Specime... 12/26/18 Gastrointestinal Tract Panel (PCR) - Final, Complete Campylobacter Clostridium Difficile A/B TATIANA WEBB MD Dec 28, 2018 10:02
[2018-12-28] MEDS: FAMOTIDINE 20 MG TAB PO SCH ×2 (10:45→22:39)
[2018-12-28 14:00] VITALS: BP 148/66
[2018-12-28] MEDS: PERCOCET 5MG/325MG TAB PO PRN ×2 (14:37→23:17)
[2018-12-28 22:00] VITALS: BP 141/83
[2018-12-29] MEDS: CIPROFLOXACIN 400 MG in APPROPRIATE DILUENT 1 EA IV SCH ×2 (02:26→14:26)
[2018-12-29] MEDS: KCL 40MEQ in NS 1000ML 1,000 ML IV SCH ×2 (02:26→09:51)
[2018-12-29] MEDS: metroNIDAZOLE 500 MG in APPROPRIATE DILUENT 1 EA IV SCH ×2 (04:01→12:56)
[2018-12-29] MEDS: VANCOMYCIN ORAL SOL 250MG/5ML ORAL SYRINGE PO SCH ×2 (05:20→12:56)
[2018-12-29] MEDS: PERCOCET 5MG/325MG TAB PO PRN (05:21)
[2018-12-29 06:00] VITALS: BP 146/66
[2018-12-29 06:26] LABS: BASO # 0.1 10^3/uL (0.0-0.2); BASO % 1.2 % (0.0-1.0); EOS # 0.3 10^3/uL (0.0-0.50); EOS % 5.1 % (0.0-3.0); HEMATOCRIT 39.1 % (42.0-52.0); HEMOGLOBIN 13.5 g/dl (13.5-17.5); LYMPH # 1.4 10^3/uL (1.5-4.5); LYMPH % 25.4 % (24.0-44.0); MEAN CORPUSCULAR HGB CONC 34.5 g/dl (32.0-36.5); MEAN CORPUSCULAR VOLUME 86.9 fl (80.0-96.0); MONO # 0.7 10^3/uL (0.0-0.8); MONO % 11.8 % (0.0-5.0); NEUTROPHILS # 3.1 10^3/uL (1.8-7.7); NEUTROPHILS % 55.3 % (36.0-66.0); PLATELET COUNT, AUTOMATED 141 10^3/uL (150-450); WHITE BLOOD COUNT 5.7 10^3/uL (4.0-10.0)
[2018-12-29 06:46] LABS: BLOOD UREA NITROGEN 7 MG/DL (7-18); CALCIUM LEVEL 8.3 MG/DL (8.5-10.1); CARBON DIOXIDE LEVEL 25 MEQ/L (21-32); CHLORIDE LEVEL 110 MEQ/L (98-107); CREATININE FOR GFR 1.03 MG/DL (0.70-1.30); GLOMERULAR FILTRATION RATE > 60.0 (>56); GLUCOSE, FASTING 169 MG/DL (70-100); POTASSIUM SERUM 4.2 MEQ/L (3.5-5.1); SODIUM LEVEL 140 MEQ/L (136-145)
[2018-12-29] MEDS: LEVEMIR (INSULIN DETEMIR) 1 UNITS/0.01ML SC SCH (07:20)
[2018-12-29] MEDS: HumaLOG INSULIN (NovoLOG) PER UNIT SC SCH ×2 (07:30→12:55)
[2018-12-29] MEDS: ASPIRIN 81 MG ENTERIC TAB PO SCH (09:15)
[2018-12-29] MEDS: FAMOTIDINE 20 MG TAB PO SCH (09:15)
[2018-12-29] MEDS: ENOXAPARIN 40 MG/0.4 ML SYRINGE (J1650) SC SCH (09:15)
[2018-12-29] MEDS: ONDANSETRON 4MG/2ML VIAL (J2405) IV PRN (09:18)
[2018-12-29] MEDS: MORPHINE 4 MG/ML 1ML VIAL/SYRINGE (J2270) IV PRN ×2 (09:59→14:49)
--- NOTE | 2018-12-29 11:15 | IPNPDOC ---
Subjective Date Seen The patient was seen on 12/29/18. Subjective Chief Complaint/HPI Still nauseous though no more vomiting, continues to have crampy abdominal pain though diarrhea has slowed down . Still unable to eat solid food. No fever or chills. Objective Physical Examination General Exam: Positive: Alert, Cooperative, Moderate Distress Eye Exam: Positive: Conjunctiva & lids normal, EOMI; Negative: Sclera icteric ENT Exam: Positive: Atraumatic, Pharynx Normal Neck Exam: Positive: Supple; Negative: JVD, thyromegaly Chest Exam: Positive: Clear to auscultation, Normal air movement Heart Exam: Positive: Rate Normal, Regular Rhythm, Normal S1, Normal S2; Negative: Murmurs, Rubs Abdomen Exam: Positive: BS Hyperactive, Soft, Tenderness, Other (no guarding or rigidity or rebound tenderness) Extremity Exam: Negative: Clubbing, Cyanosis, Edema Skin Exam: Positive: Breakdown (some abrasions and superficial ulcers which looked like opened furuncles) Neuro Exam: Positive: Normal Speech, Strength at 5/5 X4 ext, Normal Tone, Sensation Intact Psych Exam: Positive: Anxiety, Memory Intact, Oriented x 3 Assessment /Plan Assessment 53 year old male with PMH of Insulin diabetes, Smoker, hypertension, hyperlipidemia, neuropathy, CAD with h/o AMI and stents in the past, migraines, chronic pain used to be on pain meds, anxiety/ADHD used to be on adderal moved to [facility] from [place] about 7 months ago and had been set up with a PCP in the [facility] however there was some issues regarding medications and he did not want to see the physician and so now has no PCP .Other than insulin he does not have any other medication at present. He presented to the ED with 7 days h/o abdominal pain diarrhea and about 5 days history of nausea and vomiting. The diarrhea is watery, without any blood in it. And he had been in the bathroom all night yesterday. His abdominal pain is crampy and sharp located all over the abdomen without any radiation. it s associated with nausea and vomiting. There is no hematemesis or yulisa or hematochezia. He has been unable to keep any food and liquids down. In the ED he had a ct abdomen which showed Diffuse colitis involving the ascending, transverse and descending colon. There also appears to be thickening of the terminal ileum. He was also hyperglycemic to 351. He was admitted for acute enterocolitis with hyperglycemia, dehydration. Acute Enterocolitis GI panel : campylobacter and c diff po vancomycin cipro and flagyl Morphine, oxycodone zofran want to try solid food will give soft diet. If pain worsens then will go back to clear liquids. hypokalemia replaced. Insulin dependent diabetes with hyperglycemia levemir , lispro as per sliding scale Dehydration will continue IVF till eating po. H/o hypertension now blood pressure normal probably due to hypovolemia and dehydration. Migraines. acute attack resolved. CAD with h/o stents not on asa or plavix now. says was on ASA will start when able to take po. DVT prophylaxis ordered. Plan/VTE VTE Prophylaxis Ordered?: Yes VS, I&O, 24H, Fishbone Vital Signs/I&O Vital Signs Date Time Temp Pulse Resp B/P (MAP) Pulse Ox O2 Delivery O2 Flow Rate FiO2 12/29/18 10:09 18 12/29/18 06:00 98.1 61 146/66 (92) 100 12/26/18 13:30 Room Air I&O- Last 24 Hours up to 6 AM 12/29/18 06:00 Intake Total 1570 ml Output Total 3300 ml Balance -1730 ml Laboratory Data 24H LABS Laboratory Tests 2 12/28/18 12:08: Bedside Glucose (Misc Panel) 175H 12/28/18 16:49: Bedside Glucose (Misc Panel) 134H 12/28/18 20:37: Bedside Glucose (Misc Panel) 219H 12/29/18 05:53: Immature Granulocyte % (Auto) 1.2, White Blood Count 5.7, Red Blood Count 4.50, Hemoglobin 13.5, Hematocrit 39.1L, Mean Corpuscular Volume 86.9, Mean Corpuscular Hemoglobin 30.0, Mean Corpuscular Hemoglobin Concent 34.5, Red Cell Distribution Width 12.1, Platelet Count 141L, Neutrophils (%) (Auto) 55.3, Lymphocytes (%) (Auto) 25.4, Monocytes (%) (Auto) 11.8H, Eosinophils (%) (Auto) 5.1H, Basophils (%) (Auto) 1.2H, Neutrophils # (Auto) 3.1, Lymphocytes # (Auto) 1.4L, Monocytes # (Auto) 0.7, Eosinophils # (Auto) 0.3, Basophils # (Auto) 0.1, Nucleated Red Blood Cells % (auto) 0.0, Anion Gap 5L, Glomerular Filtration Rate > 60.0, Blood Urea Nitrogen 7, Creatinine 1.03, Sodium Level 140, Potassium Level 4.2, Chloride Level 110H, Carbon Dioxide Level 25, Calcium Level 8.3L CBC/BMP Laboratory Tests 12/29/18 05:53 Red Blood Count 4.50, Mean Corpuscular Volume 86.9, Mean Corpuscular Hemoglobin 30.0, Mean Corpuscular Hemoglobin Concent 34.5, Red Cell Distribution Width 12.1, Neutrophils (%) (Auto) 55.3, Lymphocytes (%) (Auto) 25.4, Monocytes (%) (Auto) 11.8 H, Eosinophils (%) (Auto) 5.1 H, Basophils (%) (Auto) 1.2 H, Neutrophils # (Auto) 3.1, Lymphocytes # (Auto) 1.4 L, Monocytes # (Auto) 0.7, Eosinophils # (Auto) 0.3, Basophils # (Auto) 0.1, Calcium Level 8.3 L Microbiology Microbiology 12/26/18 Blood Culture - Preliminary, Resulted No Growth after 72 hours. All specime... 12/26/18 Blood Culture - Preliminary, Resulted No Growth after 72 hours. All specime... 12/26/18 Gastrointestinal Tract Panel (PCR) - Final, Complete Campylobacter Clostridium Difficile A/B TATIANA WEBB MD Dec 29, 2018 11:14
[2018-12-29 14:00] VITALS: BP 150/73
[2018-12-29] MEDS ORDERED: AZIT500T2 PO (15:25)
[2018-12-29] MEDS ORDERED: VANC250C3 PO (15:25)
[2018-12-29] MEDS ORDERED: PERCOCET PO (15:25)
[2018-12-30] MEDS ORDERED: ASPI81TA26 PO (00:11)
[2018-12-30] MEDS ORDERED: METO25TA4 PO (00:17)
[2018-12-30] MEDS ORDERED: ATOR40TA75 PO (00:17)
--- NOTE | 2018-12-30 00:19 | DS.PDOC ---
Discharge Summary General Date of Admission Dec 26, 2018 at 12:01 Date of Discharge 03/31/19 Discharge Summary PROCEDURES PERFORMED DURING STAY: [None]. DISCHARGE DIAGNOSES: Camplylobacter enterocolitis c diff colitis. Insulin dependent diabetes with neuropathy CAD s/p stents obesity Hyperlipidemia Hypertension Migraines. COMPLICATIONS/CHIEF COMPLAINT: Colitis Hyperglycemia. HISTORY OF PRESENT ILLNESS: please history and physical HOSPITAL COURSE: 53 year old male with PMH of Insulin diabetes, Smoker, hypertension, hyperlipidemia, neuropathy, CAD with h/o AMI and stents in the past, migraines, chronic pain used to be on pain meds, anxiety/ADHD used to be on adderal moved to [facility] from [place] about 7 months ago and had been set up with a PCP in the [facility] however there was some issues regarding medications and he did not want to see the physician and so now has no PCP .Other than insulin he does not have any other medication at present. He presented to the ED with 7 days h/o abdominal pain diarrhea and about 5 days history of nausea and vomiting. The diarrhea is watery, without any blood in it. And he had been in the bathroom all night yesterday. His abdominal pain is crampy and sharp located all over the abdomen without any radiation. it s associated with nausea and vomiting. There is no hematemesis or yulisa or hematochezia. He has been unable to keep any food and liquids down. In the ED he had a ct abdomen which showed Diffuse colitis involving the ascending, transverse and descending colon. There also appears to be thickening of the terminal ileum. He was also hyperglycemic to 351. He was admitted for acute enterocolitis with hyperglycemia, dehydration. Today patient tolerated breakfast and regular lunch . However pateint continued to complain of abdominal pain and asking of percocet every 6 hours on maddi dot. In the afternoon he wanted to leave the hospital premises to smoke. I said he could not leave the hospital premises . [place] [facility] [place] or staff. However he was adamant about going out to smoke and so he signed out AMA. I sent prescriptions for antibiotics and pain meds to his preferred pharmacy. Acute Enterocolitis GI panel : campylobacter and c diff po vancomycin received 3 days of ciprofloxacin still with diarrhea and abdominal pain . Given azithromycin on discharge. percocet prn. tolerated lunch hypokalemia replaced. Insulin dependent diabetes with hyperglycemia continue home medication Dehydration resolved Hypertension ran out of meds will start on metoprolol due to his history of CAD and stents. Migraines. acute attack resolved. CAD with h/o stents started aspirin. No on statin or betablocker as he ran out. Does not have a primary at present. Will try to set him with one. He fought with his primary at [facility] so did not go back there will send a months supply to his pharmacy. DISCHARGE MEDICATIONS: Please see below. ALLERGIES: Please see below. PHYSICAL EXAMINATION ON DISCHARGE: VITAL SIGNS: Please see below. General Exam: Positive: Alert, Cooperative, Moderate Distress Eye Exam: Positive: Conjunctiva & lids normal, EOMI; Negative: Sclera icteric ENT Exam: Positive: Atraumatic, Pharynx Normal Neck Exam: Positive: Supple; Negative: JVD, thyromegaly Chest Exam: Positive: Clear to auscultation, Normal air movement Heart Exam: Positive: Rate Normal, Regular Rhythm, Normal S1, Normal S2; Negative: Murmurs, Rubs Abdomen Exam: Positive: BS Hyperactive, Soft, Tenderness, Other (no guarding or rigidity or rebound tenderness) Extremity Exam: Negative: Clubbing, Cyanosis, Edema Skin Exam: Positive: Breakdown (some abrasions and superficial ulcers which looked like opened furuncles) Neuro Exam: Positive: Normal Speech, Strength at 5/5 X4 ext, Normal Tone, Sensation Intact Psych Exam: Positive: Anxiety, Memory Intact, Oriented x 3 LABORATORY DATA: Please see below. ACTIVITY: [As tolerated]. DIET: Grant diet, low roughage, no fat. DISPOSITION: 07 Against Medical Advice. DISCHARGE INSTRUCTIONS: PMD in 2 weeks DISCHARGE CONDITION: [Stable]. TIME SPENT ON DISCHARGE: 40 minutes. Vital Signs/I&Os Vital Signs Date Time Temp Pulse Resp B/P (MAP) Pulse Ox O2 Delivery O2 Flow Rate FiO2 12/29/18 14:59 18 12/29/18 14:00 97.4 70 150/73 (98) 98 12/26/18 13:30 Room Air I&O- Last 24 Hours up to 6 AM 12/29/18 06:00 Intake Total 1570 ml Output Total 3300 ml Balance -1730 ml Laboratory Data Labs 24H Laboratory Tests 2 12/29/18 05:53: Immature Granulocyte % (Auto) 1.2, White Blood Count 5.7, Red Blood Count 4.50, Hemoglobin 13.5, Hematocrit 39.1L, Mean Corpuscular Volume 86.9, Mean Corpuscular Hemoglobin 30.0, Mean Corpuscular Hemoglobin Concent 34.5, Red Cell Distribution Width 12.1, Platelet Count 141L, Neutrophils (%) (Auto) 55.3, Lymphocytes (%) (Auto) 25.4, Monocytes (%) (Auto) 11.8H, Eosinophils (%) (Auto) 5.1H, Basophils (%) (Auto) 1.2H, Neutrophils # (Auto) 3.1, Lymphocytes # (Auto) 1.4L, Monocytes # (Auto) 0.7, Eosinophils # (Auto) 0.3, Basophils # (Auto) 0.1, Nucleated Red Blood Cells % (auto) 0.0, Anion Gap 5L, Glomerular Filtration Rate > 60.0, Blood Urea Nitrogen 7, Creatinine 1.03, Sodium Level 140, Potassium Level 4.2, Chloride Level 110H, Carbon Dioxide Level 25, Calcium Level 8.3L 12/29/18 11:42: Bedside Glucose (Misc Panel) 155H CBC/BMP Laboratory Tests 12/29/18 05:53 Red Blood Count 4.50, Mean Corpuscular Volume 86.9, Mean Corpuscular Hemoglobin 30.0, Mean Corpuscular Hemoglobin Concent 34.5, Red Cell Distribution Width 12.1, Neutrophils (%) (Auto) 55.3, Lymphocytes (%) (Auto) 25.4, Monocytes (%) (Auto) 11.8 H, Eosinophils (%) (Auto) 5.1 H, Basophils (%) (Auto) 1.2 H, Neutrophils # (Auto) 3.1, Lymphocytes # (Auto) 1.4 L, Monocytes # (Auto) 0.7, Eosinophils # (Auto) 0.3, Basophils # (Auto) 0.1, Calcium Level 8.3 L FSBS Laboratory Tests Test 12/29/18 11:42 Range/Units Bedside Glucose (Misc Panel) 155 70-105 MG/DL Microbiology Microbiology 12/26/18 Blood Culture - Preliminary, Resulted No Growth after 72 hours. All specime... 12/26/18 Blood Culture - Preliminary, Resulted No Growth after 72 hours. All specime... 12/26/18 Gastrointestinal Tract Panel (PCR) - Final, Complete Campylobacter Clostridium Difficile A/B Discharge Medications Scheduled Azithromycin (Azithromycin) 500 Mg Tablet, 1 TAB PO DAILY Insulin Glargine,Hum.rec.anlog ([place] Solostar) 300 Unit/Ml Inj, 55 UNITS SC DAILY, (Reported) PT STATES HE USES BID SOMETIMES, NOT SURE OF DOSE AND NEEDS NEW SCRIPT Vancomycin Hcl (Vancomycin HCl) 250 Mg Capsule, 250 MG PO QID Scheduled PRN Oxycodone/Acetaminophen (Oxycodone-Acetaminophen 5-325) 1 Each Tablet, 1-2 TAB PO Q12HP PRN for SEVERE PAIN (PS 8-10) Allergies Coded Allergies: acetaminophen (Verified Allergy, Unknown, anaphylaxis, 12/15/18) TATIANA WEBB MD Dec 30, 2018 00:19
== END 2018-12-29 15:15 | disposition left against medical advice (07) | DRG 248 ==
LOC: M ED 08:08 → M ED INP 12:01 → M MSPAV 13:49
PROVIDERS: ADMIT Internal Medicine Nephrology; ATTEND Internal Medicine Nephrology
DX: A04.5 Campylobacter enteritis (principal); E11.40 Type 2 diabetes mellitus with diabetic neuropathy, unspecified; E11.65 Type 2 diabetes mellitus with hyperglycemia; I25.10 Atherosclerotic heart disease of native coronary artery without angina pectoris; Z95.2 Presence of prosthetic heart valve; G43.909 Migraine, unspecified, not intractable, without status migrainosus; I10 Essential (primary) hypertension; E78.5 Hyperlipidemia, unspecified; E66.9 Obesity, unspecified; F17.200 Nicotine dependence, unspecified, uncomplicated; I25.2 Old myocardial infarction; Z79.4 Long term (current) use of insulin; E87.6 Hypokalemia; Z88.6 Allergy status to analgesic agent; E86.0 Dehydration; A04.72 Enterocolitis due to Clostridium difficile, not specified as recurrent

== ENCOUNTER 2019-01-11 03:22 | Inpatient (IN) | payer OTHER ==
[~2019-01-11] VITALS: Ht 182.9 cm; Wt 100.0 kg
[~2019-01-11 03:22] MED LIST changes: +ASPI81TA26 PO; +ATOR40TA75 PO; +AZIT500T2 PO; +METO25TA4 PO; +PERCOCET PO; +VANC250C3 PO
[2019-01-11] MEDS ORDERED: NS 1,000 ML IV ONE ×2 (06:30→08:15)
[2019-01-11] MEDS ORDERED: MORPHINE 4 MG/ML 1ML VIAL/SYRINGE (J2270) IV ONE (06:30)
[2019-01-11] MEDS ORDERED: ONDANSETRON 4MG/2ML VIAL (J2405) IV ONE (06:30)
[2019-01-11 07:28] LABS: VENOUS BASE EXCESS -3.1 (-2.0-2.0); VENOUS HCO3 16.8 MEQ/L (23.0-27.0); VENOUS O2 SATURATION 97.7 % (60.0-80.0); VENOUS PARTIAL PRESSURE O2 85.2 mmHg (30.0-50.0); VENOUS PH 7.543 UNITS (7.330-7.430); VENOUS STANDARD HCO3 21.9 MEQ/L; VENOUS TOTAL CO2 17.4 MEQ/L (24.0-28.0)
[2019-01-11 07:38] LABS: BASO # 0.1 10^3/uL (0.0-0.2); EOS # 0.2 10^3/uL (0.0-0.50); EOS % 2.6 % (0.0-3.0); HEMATOCRIT 38.4 % (42.0-52.0); LYMPH # 1.1 10^3/uL (1.5-4.5); LYMPH % 13.4 % (24.0-44.0); MEAN CORPUSCULAR HEMOGLOBIN 29.8 pg (27.0-33.0); MEAN CORPUSCULAR HGB CONC 36.5 g/dl (32.0-36.5); MEAN CORPUSCULAR VOLUME 81.7 fl (80.0-96.0); MONO # 0.7 10^3/uL (0.0-0.8); MONO % 8.1 % (0.0-5.0); NEUTROPHILS # 6.1 10^3/uL (1.8-7.7); WHITE BLOOD COUNT 8.2 10^3/uL (4.0-10.0)
[2019-01-11 08:02] LABS: ACETONE/KETONE 11.87 MG/DL (<2.81); ALBUMIN 3.3 GM/DL (3.2-5.2); ALT/SGPT 25 U/L (12-78); BILIRUBIN,DIRECT 0.2 MG/DL (0.0-0.2); BILIRUBIN,TOTAL 1.2 MG/DL (0.2-1.0); BLOOD UREA NITROGEN 17 MG/DL (7-18); CALCIUM LEVEL 8.4 MG/DL (8.5-10.1); CARBON DIOXIDE LEVEL 18 MEQ/L (21-32); CHLORIDE LEVEL 104 MEQ/L (98-107); CREATININE FOR GFR 1.11 MG/DL (0.70-1.30); GLOMERULAR FILTRATION RATE > 60.0 (>56); GLUCOSE, FASTING 331 MG/DL (70-100); LIPASE 426 U/L (73-393); POTASSIUM SERUM 3.3 MEQ/L (3.5-5.1); SODIUM LEVEL 135 MEQ/L (136-145); TOTAL PROTEIN 6.5 GM/DL (6.4-8.2)
[2019-01-11] MEDS ORDERED: KCL 10MEQ/100ML SWI (KRUN) 10 MEQ in APPROPRIATE DILUENT 1 EA IV ONE (08:15)
[2019-01-11] MEDS ORDERED: ISOVUE-370 76% 100ML VIAL (Q9967) As Ordered ONE (08:18)
[2019-01-11] MEDS ORDERED: METOCLOPRAMIDE INJ 10MG/2ML VIAL (J2765) IV ONE (08:45)
--- NOTE | 2019-01-11 09:04 | REP ---
CT of the abdomen and pelvis with IV contrast, without bowel contrast: Comparison is 12/26/2018. The visualized lung dillard are unremarkable. The hepatic parenchyma is homogeneous. There are gallbladder calculi as previously. There is no gallbladder wall thickening, pericholecystic fluid or biliary duct dilatation, as previously. The pancreas and spleen are normal size and unremarkable. The adrenals are unremarkable. There are nonobstructive right renal calculi. This is unchanged. There are small bilateral Bosniak type 1 simple renal cortical cysts bilaterally, unchanged. There are no renal masses. There is no hydronephrosis. The abdominal aorta is unremarkable. There is no periaortic adenopathy or mass. There is diffuse colonic wall thickening from cecum to rectosigmoid colon as previously compatible with colitis in the appropriate clinical setting. This is unchanged. There is no ascites. There is no mesenteric adenopathy. Pelvis: The appendix is unremarkable. The bladder is unremarkable. There is no pelvic adenopathy or ascites. Impression: Diffuse wall thickening of the colon from cecum to rectosigmoid colon compatible with colitis in the appropriate clinical setting. This is unchanged from the comparison study. There is no ascites or adenopathy. There are gallbladder calculi without evidence of acute cholecystitis or biliary duct dilatation. This is unchanged. There are nonobstructive right renal calculi. This is unchanged. There are bilateral renal cortical simple cysts. This is unchanged. Electronically Signed by Neo Barrera MD 01/11/2019 08:55 A
[2019-01-11 09:50] LABS: APPEARANCE, URINE CLEAR (CLEAR); BACTERIA, URINE AUTO NEGATIVE (NEGATIVE); BILIRUBIN, URINE AUTO NEGATIVE (NEGATIVE); BLOOD, URINE BLOOD NEGATIVE (NEGATIVE); COLOR, URINE YELLOW (YELLOW); GLUCOSE, URINE (UA) AUTO 3+ mg/dL (NEGATIVE); KETONE, URINE AUTO 1+ mg/dL (NEGATIVE); LEUKOCYTE ESTERASE, URINE AUTO NEGATIVE (NEGATIVE); NITRITE, URINE AUTO NEGATIVE (NEGATIVE); PROTEIN, URINE AUTO NEGATIVE (NEGATIVE); RBC, URINE AUTO 1 /HPF (0-3); SQUAMOUS EPITHELIAL CELL UR AU 0 /HPF (0-6); UROBILINOGEN, URINE AUTO 0.2 mg/dL (0.0-2.0); WBC, URINE AUTO 0 /HPF (0-3)
[2019-01-11] MEDS ORDERED: ATOR40TA75 PO (11:22)
[2019-01-11] MEDS ORDERED: METO25TA4 PO (11:22)
[2019-01-11] MEDS ORDERED: ASPI81TA26 PO (11:23)
[2019-01-11] MEDS ORDERED: DEXTROSE 50% 50 ML SYRINGE IV PRN (12:00)
[2019-01-11] MEDS ORDERED: MORPHINE 4 MG/ML 1ML VIAL/SYRINGE (J2270) IV PRN ×2 (12:00→19:15)
[2019-01-11] MEDS ORDERED: GLUCAGON FOR INJ 1 MG VIAL (J1610) SC PRN (12:00)
[2019-01-11] MEDS ORDERED: GLUCOSE 4 GM CHEW TABLET PO PRN (12:00)
[2019-01-11] MEDS ORDERED: ONDANSETRON 4MG/2ML VIAL (J2405) IV PRN (12:00)
--- NOTE | 2019-01-11 12:08 | HPEPDOC ---
[facility] Medical History & Physical Date of Admission Jan 11, 2019 Date of Service: Jan 11, 2019 History and Physical CHIEF COMPLAINT: Nausea/vomiting/abdominal pain HISTORY OF PRESENT ILLNESS: Patient is a 53 year old Male with PMH recent c.diff colitis, HTN, IDDM, HLD, CAD, Migraines and chronic pain presented to the ER complaining of severe nausea/vomiting and abdominal pain worsening for the past 2 days. He was admit renato earlier in the month for initial complaints and was treated for C. diff colitis but left AMA to go smoke and have not completed course of treatment for c. diff. He stated that symptoms was better when he went home initially but now symptoms had recurred. Also reports fever, chills, n/v in addition to non bloody diarrhea. Recently moved here but had not established with a PMD yet. BS also noted to be elevated, he did not take his insulin yesterday or today because he ran out of the needles for it. Used to be on Oxycodone for chronic pain but have been taken off of it. PAST MEDICAL HISTORY: Refer to [facility] PAST SURGICAL HISTORY: Stent placement. SOCIAL HISTORY: Smoke <1ppd. Denies alcohol or drug use. FAMILY HISTORY: Mother-DM. ALLERGIES: Please see below. REVIEW OF SYSTEMS: 10 point review of system negative except as stated in HPI HOME MEDICATIONS: Please see below. PHYSICAL EXAMINATION: General: Alert, mild distress. Eyes: Normal sclera, EOMI, SUNITHA HENT: Atraumatic, neck supple, moist mucous membranes Cardiovascular: Normal rate, normal rhythm. Pulmonary: Clear to auscultation b/l, no wheezing GI: Soft, mild generalized tenderness. BS normoactive. distended. Skin: Warm and dry Neuro: CN grossly intact. No focal deficits. Strengths equal b/l. Psych: oriented x 3 LABORATORY DATA: See below. IMAGING: CT abdomen/pelvis- Impression: Diffuse wall thickening of the colon from cecum to rectosigmoid colon compatible with colitis in the appropriate clinical setting. This is unchanged from the comparison study. There is no ascites or adenopathy. There are gallbladder calculi without evidence of acute cholecystitis or biliary duct dilatation. This is unchanged. There are nonobstructive right renal calculi. This is unchanged. There are bilateral renal cortical simple cysts. This is unchanged. MICROBIOLOGY: Please see below. ASSESSMENT AND PLAN: 1. Colitis - hx recent c. diff without treatment completion. - Start PO vancomycin. CT findings noted. - f/u GI panel. Consider adding fluoroquinolone as well. - contact isolation. - Pain control. 2. IDDM - BS elevated, no acidosis. - Repeat BMP stat. Levemir 40 units ordered for now and resume normal equivalent home dose tomorrow. - Accuchecks + ISS. 3. HTN - Resume home medications. 4. CAD - Resume home medications. - No chest pain. 5. Migraines and chronic pain - Will use opiate for the time given acute abdominal pain. - Will taper off prior to discharge. DVT ppx: Lovenox and SCD Code status: Full code Vital Signs Vital Signs Date Time Temp Pulse Resp B/P (MAP) Pulse Ox O2 Delivery O2 Flow Rate FiO2 01/11/19 08:37 82 98 01/11/19 08:30 128/56 (80) 01/11/19 07:23 16 01/11/19 04:05 99.2 Room Air Laboratory Data Labs 24H Laboratory Tests 2 01/11/19 05:43: Immature Granulocyte % (Auto) 0.9, White Blood Count 8.2, Red Blood Count 4.70, Hemoglobin 14.0, Hematocrit 38.4L, Mean Corpuscular Volume 81.7, Mean Corpuscular Hemoglobin 29.8, Mean Corpuscular Hemoglobin Concent 36.5, Red Cell Distribution Width 12.2, Platelet Count , Neutrophils (%) (Auto) 74.0H, Lymphocytes (%) (Auto) 13.4L, Monocytes (%) (Auto) 8.1H, Eosinophils (%) (Auto) 2.6, Basophils (%) (Auto) 1.0, Neutrophils # (Auto) 6.1, Lymphocytes # (Auto) 1.1L, Monocytes # (Auto) 0.7, Eosinophils # (Auto) 0.2, Basophils # (Auto) 0.1, Nucleated Red Blood Cells % (auto) 0.0, Anion Gap 13, Glomerular Filtration Rate > 60.0, Calcium Level 8.4L, Aspartate Amino Transf (AST/SGOT) 13, Alanine Aminotransferase (ALT/SGPT) 25, Alkaline Phosphatase 96, Total Bilirubin 1.2H, Direct Bilirubin 0.2, Total Protein 6.5, Albumin 3.3, Albumin/Globulin Ratio 1.03, Lipase 426H, B-Hydroxybutyrate 11.87H 01/11/19 07:19: Blood Gas Bicarbonate Standard 21.9, Venous Blood pH 7.543H, Venous Blood Partial Pressure CO2 20.0L, Venous Blood Partial Pressure O2 85.2H, Venous Blood Total Carbon Dioxide 17.4L, Venous Blood HCO3 16.8L, Venous Blood Oxygen Saturation 97.7H, Venous Blood Base Excess -3.1L 01/11/19 07:55: Bedside Glucose (Misc Panel) 349H 01/11/19 09:34: Bedside Glucose (Misc Panel) 262H 01/11/19 09:36: Urine Appearance CLEAR, Urine Color YELLOW, Urine pH 6.0, Urine Specific Bagley 1.030, Urine Protein NEGATIVE, Urine Glucose (UA) 3+H, Urine Ketones 1+H, Urine Urobilinogen 0.2, Urine Bilirubin NEGATIVE, Urine Leukocyte Esterase NEGATIVE, Urine Blood NEGATIVE, Urine Nitrite NEGATIVE, Urine WBC (Auto) 0, Urine RBC (Auto) 1, Urine Hyaline Casts (Auto) 0, Urine Bacteria (Auto) NEGATIVE, Urine Squamous Epithelial Cells 0, Urine Sperm (Auto) CBC/BMP Laboratory Tests 01/11/19 05:43 Red Blood Count 4.70, Mean Corpuscular Volume 81.7, Mean Corpuscular Hemoglobin 29.8, Mean Corpuscular Hemoglobin Concent 36.5, Red Cell Distribution Width 12.2, Neutrophils (%) (Auto) 74.0 H, Lymphocytes (%) (Auto) 13.4 L, Monocytes (%) (Auto) 8.1 H, Eosinophils (%) (Auto) 2.6, Basophils (%) (Auto) 1.0, Neutrophils # (Auto) 6.1, Lymphocytes # (Auto) 1.1 L, Monocytes # (Auto) 0.7, Eosinophils # (Auto) 0.2, Basophils # (Auto) 0.1 Microbiology Microbiology 01/11/19 Gastrointestinal Tract Panel (PCR), Received Pending Home Medications Scheduled Aspirin (Aspirin EC) 81 Mg Tablet.dr, 81 MG PO DAILY Atorvastatin Calcium (Atorvastatin Calcium) 40 Mg Tablet, 40 MG PO DAILY NEW MED, WAITING TO BE P/U Insulin Glargine,Hum.rec.anlog (Toujeo Max Solostar) 300 Unit/Ml Inj, 55 UNITS SC DAILY PT STATES WILL USE DAILY IN THE MORNING AND IF BS IS STILL HIGH A SECOND DOSE PRN Metoprolol Tartrate (Metoprolol Tartrate) 25 Mg Tablet, 25 MG PO BID NEW MED, WAITING TO BE P/U Allergies Coded Allergies: acetaminophen (Verified Allergy, Unknown, anaphylaxis, 12/15/18) A-FIB/CHADSVASC A-FIB History Current/History of A-Fib/PAF?: No MEL DE LA GARZA MD Jan 11, 2019 12:08
[2019-01-11] MEDS ORDERED: LEVEMIR (INSULIN DETEMIR) 1 UNITS/0.01ML SC ONE (12:15)
[2019-01-11 13:15] VITALS: BP 128/72
[2019-01-11] MEDS: HumaLOG INSULIN (NovoLOG) PER UNIT SC SCH ×3 (13:36→21:00)
[2019-01-11 13:37] LABS: BLOOD UREA NITROGEN 13 MG/DL (7-18); CALCIUM LEVEL 7.8 MG/DL (8.5-10.1); CARBON DIOXIDE LEVEL 19 MEQ/L (21-32); CHLORIDE LEVEL 108 MEQ/L (98-107); CREATININE FOR GFR 1.02 MG/DL (0.70-1.30); GLOMERULAR FILTRATION RATE > 60.0 (>56); GLUCOSE, FASTING 301 MG/DL (70-100); POTASSIUM SERUM 3.4 MEQ/L (3.5-5.1); SODIUM LEVEL 136 MEQ/L (136-145)
[2019-01-11] MEDS: ASPIRIN 81 MG ENTERIC TAB PO SCH (13:37)
[2019-01-11] MEDS: VANCOMYCIN ORAL SOL 250MG/5ML ORAL SYRINGE PO SCH ×3 (16:18→23:44)
[2019-01-11] MEDS: oxyCODONE 5MG TAB PO PRN (16:23)
[2019-01-11 18:00] VITALS: BP 128/71
[2019-01-11] MEDS: METOPROLOL TART 25 MG TABLET PO SCH (20:44)
[2019-01-11] MEDS: MORPHINE 4 MG/ML 1ML VIAL/SYRINGE (J2270) IV PRN (20:44)
[2019-01-11 22:00] VITALS: BP 134/65
[2019-01-12 02:00] VITALS: BP 110/57
[2019-01-12] MEDS: VANCOMYCIN ORAL SOL 250MG/5ML ORAL SYRINGE PO SCH ×4 (05:08→23:15)
[2019-01-12] MEDS: oxyCODONE 5MG TAB PO PRN ×3 (05:09→18:55)
[2019-01-12 06:00] VITALS: BP 130/72
[2019-01-12 06:47] LABS: HEMATOCRIT 38.3 % (42.0-52.0); HEMOGLOBIN 13.5 g/dl (13.5-17.5); MEAN CORPUSCULAR HEMOGLOBIN 29.7 pg (27.0-33.0); MEAN CORPUSCULAR HGB CONC 35.2 g/dl (32.0-36.5); MEAN CORPUSCULAR VOLUME 84.4 fl (80.0-96.0); RED BLOOD COUNT 4.54 10^6/uL (4.30-6.10); WHITE BLOOD COUNT 5.2 10^3/uL (4.0-10.0)
[2019-01-12 06:48] LABS: PLATELET COUNT, AUTOMATED 98 10^3/uL (150-450)
[2019-01-12 07:07] LABS: BLOOD UREA NITROGEN 10 MG/DL (7-18); CALCIUM LEVEL 8.2 MG/DL (8.5-10.1); CARBON DIOXIDE LEVEL 23 MEQ/L (21-32); CHLORIDE LEVEL 108 MEQ/L (98-107); CREATININE FOR GFR 0.87 MG/DL (0.70-1.30); GLOMERULAR FILTRATION RATE > 60.0 (>56); GLUCOSE, FASTING 114 MG/DL (70-100); POTASSIUM SERUM 3.2 MEQ/L (3.5-5.1); SODIUM LEVEL 139 MEQ/L (136-145)
[2019-01-12] MEDS ORDERED: POTASSIUM CHLORIDE 10 MEQ SR TABLET PO ONE (09:00)
[2019-01-12] MEDS: ENOXAPARIN 40 MG/0.4 ML SYRINGE (J1650) SC SCH (09:00)
[2019-01-12] MEDS: HumaLOG INSULIN (NovoLOG) PER UNIT SC SCH ×4 (09:03→21:10)
[2019-01-12] MEDS: ATORVASTATIN 20 MG TAB PO SCH (09:03)
[2019-01-12] MEDS: LEVEMIR (INSULIN DETEMIR) 1 UNITS/0.01ML SC SCH (09:03)
[2019-01-12] MEDS: ASPIRIN 81 MG ENTERIC TAB PO SCH (09:04)
[2019-01-12] MEDS: METOPROLOL TART 25 MG TABLET PO SCH ×2 (09:04→21:09)
[2019-01-12 10:00] VITALS: BP 114/61
--- NOTE | 2019-01-12 12:20 | IPNPDOC ---
Date Seen The patient was seen on 01/12/19. Progress Note SUBJECTIVE: Patient still complains of abdominal pain and generalized pain. Has been asking for pain medications as much as he could. Otherwise no acute events overnight. OBJECTIVE PHYSICAL EXAMINATION: VITAL SIGNS: Please see below. General: Alert, mild distress. Eyes: Normal sclera, EOMI, SUNITHA HENT: Atraumatic, neck supple, moist mucous membranes Cardiovascular: Normal rate, normal rhythm. Pulmonary: Clear to auscultation b/l, no wheezing GI: Soft, mild generalized tenderness. BS normoactive. distended. Skin: Warm and dry Neuro: CN grossly intact. No focal deficits. Strengths equal b/l. Psych: oriented x 3 LABORATORY DATA, IMAGING STUDIES, MICROBIOLOGY: Please see below. ASSESSMENT AND PLAN: 1. Colitis - hx recent c. diff without treatment completion. - GI + C. diff and EPEC. - Start PO vancomycin and supportive care. CT findings noted. - contact isolation. - Pain control. 2. IDDM - BS elevated, no acidosis. - Repeat BMP stat. Levemir 40 units ordered for now and resume normal equivalent home dose tomorrow. - Accuchecks + ISS. 3. HTN - Resume home medications. 4. CAD - Resume home medications. - No chest pain. 5. Migraines and chronic pain - Will use opiate for the time given acute abdominal pain. - Will taper off prior to discharge. DVT ppx: Lovenox and SCD Code status: Full code VS, I&O, 24H, Fishbone Vital Signs/I&O Vital Signs Date Time Temp Pulse Resp B/P (MAP) Pulse Ox O2 Delivery O2 Flow Rate FiO2 01/12/19 12:06 18 01/12/19 10:00 97.0 73 114/61 (78) 97 01/11/19 04:05 Room Air I&O- Last 24 Hours up to 6 AM 01/12/19 06:00 Intake Total 3700 ml Balance 3700 ml Laboratory Data 24H LABS Laboratory Tests 2 01/11/19 12:50: Anion Gap 9, Glomerular Filtration Rate > 60.0, Blood Urea Nitrogen 13, Creatinine 1.02, Sodium Level 136, Potassium Level 3.4L, Chloride Level 108H, Carbon Dioxide Level 19L, Calcium Level 7.8L 01/11/19 13:10: Bedside Glucose (Misc Panel) 293H 01/11/19 18:11: Bedside Glucose (Misc Panel) 204H 01/11/19 20:06: Bedside Glucose (Misc Panel) 192H 01/12/19 06:11: Nucleated Red Blood Cells % (auto) 0.0, Immature Platelet Fraction 6.8, Anion Gap 8, Glomerular Filtration Rate > 60.0, Blood Urea Nitrogen 10, Creatinine 0.87, Sodium Level 139, Potassium Level 3.2L, Chloride Level 108H, Carbon Dioxide Level 23, Calcium Level 8.2L 01/12/19 11:42: Bedside Glucose (Misc Panel) 255H CBC/BMP Laboratory Tests 01/11/19 12:50 Calcium Level 7.8 L 01/12/19 06:11 Calcium Level 8.2 L, Red Blood Count 4.54, Mean Corpuscular Volume 84.4, Mean Corpuscular Hemoglobin 29.7, Mean Corpuscular Hemoglobin Concent 35.2, Red Cell Distribution Width 12.5 Microbiology Microbiology 01/11/19 Gastrointestinal Tract Panel (PCR) - Final, Complete Clostridium Difficile A/B Enteropathogenic E.coli MEL DE LA GARZA MD Jan 12, 2019 12:20
[2019-01-12 14:00] VITALS: BP 112/62
[2019-01-12 18:00] VITALS: BP 121/60
[2019-01-12 22:00] VITALS: BP 155/65
[2019-01-12] MEDS: MORPHINE 4 MG/ML 1ML VIAL/SYRINGE (J2270) IV PRN (23:15)
[2019-01-13 02:00] VITALS: BP 116/84
[2019-01-13] MEDS: oxyCODONE 5MG TAB PO PRN ×2 (03:27→12:29)
[2019-01-13] MEDS: VANCOMYCIN ORAL SOL 250MG/5ML ORAL SYRINGE PO SCH ×3 (05:34→17:41)
[2019-01-13 06:00] VITALS: BP 109/60
[2019-01-13 06:21] LABS: HEMATOCRIT 40.9 % (42.0-52.0); HEMOGLOBIN 14.5 g/dl (13.5-17.5); MEAN CORPUSCULAR HEMOGLOBIN 30.3 pg (27.0-33.0); MEAN CORPUSCULAR HGB CONC 35.5 g/dl (32.0-36.5); MEAN CORPUSCULAR VOLUME 85.4 fl (80.0-96.0); PLATELET COUNT, AUTOMATED 123 10^3/uL (150-450); RED BLOOD COUNT 4.79 10^6/uL (4.30-6.10); WHITE BLOOD COUNT 6.2 10^3/uL (4.0-10.0)
[2019-01-13 06:42] LABS: BLOOD UREA NITROGEN 10 MG/DL (7-18); CALCIUM LEVEL 8.4 MG/DL (8.5-10.1); CARBON DIOXIDE LEVEL 25 MEQ/L (21-32); CHLORIDE LEVEL 106 MEQ/L (98-107); CREATININE FOR GFR 0.96 MG/DL (0.70-1.30); GLOMERULAR FILTRATION RATE > 60.0 (>56); GLUCOSE, FASTING 174 MG/DL (70-100); POTASSIUM SERUM 3.7 MEQ/L (3.5-5.1); SODIUM LEVEL 137 MEQ/L (136-145)
[2019-01-13] MEDS: LEVEMIR (INSULIN DETEMIR) 1 UNITS/0.01ML SC SCH (08:14)
[2019-01-13] MEDS: ENOXAPARIN 40 MG/0.4 ML SYRINGE (J1650) SC SCH (08:15)
[2019-01-13] MEDS: HumaLOG INSULIN (NovoLOG) PER UNIT SC SCH ×4 (08:15→21:02)
[2019-01-13] MEDS: METOPROLOL TART 25 MG TABLET PO SCH ×2 (08:15→21:01)
[2019-01-13] MEDS: ATORVASTATIN 20 MG TAB PO SCH (08:15)
[2019-01-13] MEDS: ASPIRIN 81 MG ENTERIC TAB PO SCH (08:15)
[2019-01-13 10:00] VITALS: BP 136/78
--- NOTE | 2019-01-13 13:34 | IPNPDOC ---
Date Seen The patient was seen on 01/13/19. Progress Note SUBJECTIVE: Patient reports finally feeling better today. Abdominal pain persistent but better than prior. Asked for nicotine patch here and upon discharge to help with smoking cessation. OBJECTIVE PHYSICAL EXAMINATION: VITAL SIGNS: Please see below. General: Alert, mild distress. Eyes: Normal sclera, EOMI, SUNITHA HENT: Atraumatic, neck supple, moist mucous membranes Cardiovascular: Normal rate, normal rhythm. Pulmonary: Clear to auscultation b/l, no wheezing GI: Soft, mild generalized tenderness. BS normoactive. distended. Skin: Warm and dry Neuro: CN grossly intact. No focal deficits. Strengths equal b/l. Psych: oriented x 3 LABORATORY DATA, IMAGING STUDIES, MICROBIOLOGY: Please see below. ASSESSMENT AND PLAN: 1. Colitis - hx recent c. diff without treatment completion. - GI + C. diff and EPEC. - Start PO vancomycin and supportive care. CT findings noted. - contact isolation. - Pain control. 2. IDDM - c/w home dose Levemir. - Accuchecks + ISS. 3. HTN - Resume home medications. 4. CAD - Resume home medications. - No chest pain. 5. Migraines and chronic pain - Will use opiate for the time given acute abdominal pain. - Will taper off prior to discharge. DVT ppx: Lovenox and SCD Code status: Full code VS, I&O, 24H, Fishbone Vital Signs/I&O Vital Signs Date Time Temp Pulse Resp B/P (MAP) Pulse Ox O2 Delivery O2 Flow Rate FiO2 01/13/19 12:29 18 01/13/19 10:00 96.7 64 136/78 (97) 97 01/11/19 04:05 Room Air I&O- Last 24 Hours up to 6 AM 01/13/19 06:00 Intake Total 2040 ml Output Total 700 ml Balance 1340 ml Laboratory Data 24H LABS Laboratory Tests 2 01/12/19 16:44: Bedside Glucose (Misc Panel) 313H 01/12/19 20:16: Bedside Glucose (Misc Panel) 257H 01/13/19 06:04: Nucleated Red Blood Cells % (auto) 0.0, Anion Gap 6L, Glomerular Filtration Rate > 60.0, Blood Urea Nitrogen 10, Creatinine 0.96, Sodium Level 137, Potassium Level 3.7, Chloride Level 106, Carbon Dioxide Level 25, Calcium Level 8.4L 01/13/19 12:00: Bedside Glucose (Misc Panel) 315H CBC/BMP Laboratory Tests 01/13/19 06:04 Red Blood Count 4.79, Mean Corpuscular Volume 85.4, Mean Corpuscular Hemoglobin 30.3, Mean Corpuscular Hemoglobin Concent 35.5, Red Cell Distribution Width 12.4, Calcium Level 8.4 L Microbiology Microbiology 01/11/19 Gastrointestinal Tract Panel (PCR) - Final, Complete Clostridium Difficile A/B Enteropathogenic E.coli MEL DE LA GARZA MD Jan 13, 2019 13:34
[2019-01-13 14:00] VITALS: BP 147/74
[2019-01-13] MEDS: NICOTINE 14 MG/24 HR TRANSDERMAL TD SCH (16:14)
[2019-01-13 18:00] VITALS: BP 141/76
[2019-01-13 22:00] VITALS: BP 125/73
[2019-01-14] MEDS: VANCOMYCIN ORAL SOL 250MG/5ML ORAL SYRINGE PO SCH ×4 (00:22→18:11)
[2019-01-14] MEDS: oxyCODONE 5MG TAB PO PRN ×4 (00:44→20:55)
[2019-01-14 02:00] VITALS: BP 123/74
[2019-01-14 06:00] VITALS: BP 146/76
[2019-01-14 06:27] LABS: HEMATOCRIT 41.1 % (42.0-52.0); HEMOGLOBIN 14.2 g/dl (13.5-17.5); MEAN CORPUSCULAR HEMOGLOBIN 29.2 pg (27.0-33.0); MEAN CORPUSCULAR HGB CONC 34.5 g/dl (32.0-36.5); MEAN CORPUSCULAR VOLUME 84.6 fl (80.0-96.0); PLATELET COUNT, AUTOMATED 148 10^3/uL (150-450); RED BLOOD COUNT 4.86 10^6/uL (4.30-6.10); WHITE BLOOD COUNT 6.4 10^3/uL (4.0-10.0)
[2019-01-14 06:54] LABS: BLOOD UREA NITROGEN 12 MG/DL (7-18); CALCIUM LEVEL 8.8 MG/DL (8.5-10.1); CARBON DIOXIDE LEVEL 27 MEQ/L (21-32); CHLORIDE LEVEL 106 MEQ/L (98-107); CREATININE FOR GFR 1.08 MG/DL (0.70-1.30); GLOMERULAR FILTRATION RATE > 60.0 (>56); GLUCOSE, FASTING 187 MG/DL (70-100); POTASSIUM SERUM 3.8 MEQ/L (3.5-5.1); SODIUM LEVEL 139 MEQ/L (136-145)
[2019-01-14] MEDS: ATORVASTATIN 20 MG TAB PO SCH (08:15)
[2019-01-14] MEDS: ASPIRIN 81 MG ENTERIC TAB PO SCH (08:15)
[2019-01-14] MEDS: METOPROLOL TART 25 MG TABLET PO SCH ×2 (08:16→20:54)
[2019-01-14] MEDS: NICOTINE 14 MG/24 HR TRANSDERMAL TD SCH (08:16)
[2019-01-14] MEDS: ENOXAPARIN 40 MG/0.4 ML SYRINGE (J1650) SC SCH (08:16)
[2019-01-14] MEDS: LEVEMIR (INSULIN DETEMIR) 1 UNITS/0.01ML SC SCH (08:17)
[2019-01-14] MEDS: HumaLOG INSULIN (NovoLOG) PER UNIT SC SCH ×4 (08:17→20:54)
[2019-01-14 10:00] VITALS: BP 133/75
--- NOTE | 2019-01-14 11:39 | IPNPDOC ---
Date Seen The patient was seen on 01/14/19. Progress Note SUBJECTIVE: Patient states that he is in pain again today. Back pain and abdominal pain, back pain is normally chronic. No other complaints, no acute events reported. OBJECTIVE PHYSICAL EXAMINATION: VITAL SIGNS: Please see below. General: Alert, mild distress. Eyes: Normal sclera, EOMI, SUNITHA HENT: Atraumatic, neck supple, moist mucous membranes Cardiovascular: Normal rate, normal rhythm. Pulmonary: Clear to auscultation b/l, no wheezing GI: Soft, mild generalized tenderness. BS normoactive. distended. Skin: Warm and dry Neuro: CN grossly intact. No focal deficits. Strengths equal b/l. Psych: oriented x 3 LABORATORY DATA, IMAGING STUDIES, MICROBIOLOGY: Please see below. ASSESSMENT AND PLAN: 1. Colitis - hx recent c. diff without treatment completion. - GI + C. diff and EPEC. - Start PO vancomycin and supportive care. CT findings noted. - contact isolation. - Pain control. 2. IDDM - c/w home dose Levemir. - Accuchecks + ISS. 3. HTN - Resume home medications. 4. CAD - Resume home medications. - No chest pain. 5. Migraines and chronic pain - Will use opiate for the time given acute abdominal pain. - Will taper off prior to discharge. DVT ppx: Lovenox and SCD Code status: Full code VS, I&O, 24H, Fishbone Vital Signs/I&O Vital Signs Date Time Temp Pulse Resp B/P (MAP) Pulse Ox O2 Delivery O2 Flow Rate FiO2 01/14/19 10:00 97.6 60 18 133/75 (94) 97 01/11/19 04:05 Room Air I&O- Last 24 Hours up to 6 AM 01/14/19 06:00 Intake Total 1820 ml Balance 1820 ml Laboratory Data 24H LABS Laboratory Tests 2 01/13/19 12:00: Bedside Glucose (Misc Panel) 315H 01/13/19 17:15: Bedside Glucose (Misc Panel) 241H 01/13/19 20:27: Bedside Glucose (Misc Panel) 270H 01/14/19 05:57: Nucleated Red Blood Cells % (auto) 0.0, Anion Gap 6L, Glomerular Filtration Rate > 60.0, Blood Urea Nitrogen 12, Creatinine 1.08, Sodium Level 139, Potassium Level 3.8, Chloride Level 106, Carbon Dioxide Level 27, Calcium Level 8.8 CBC/BMP Laboratory Tests 01/14/19 05:57 Red Blood Count 4.86, Mean Corpuscular Volume 84.6, Mean Corpuscular Hemoglobin 29.2, Mean Corpuscular Hemoglobin Concent 34.5, Red Cell Distribution Width 12.6, Calcium Level 8.8 Microbiology Microbiology 01/11/19 Gastrointestinal Tract Panel (PCR) - Final, Complete Clostridium Difficile A/B Enteropathogenic E.coli MEL DE LA GARZA MD Jan 14, 2019 11:39
[2019-01-14 14:00] VITALS: BP 134/74
[2019-01-14 18:00] VITALS: BP 142/83
[2019-01-14] MEDS: MORPHINE 4 MG/ML 1ML VIAL/SYRINGE (J2270) IV PRN (18:11)
[2019-01-14 22:00] VITALS: BP 139/75
[2019-01-15] MEDS: VANCOMYCIN ORAL SOL 250MG/5ML ORAL SYRINGE PO SCH ×4 (00:22→17:39)
[2019-01-15 02:00] VITALS: BP 132/70
[2019-01-15 06:00] VITALS: BP 137/74
[2019-01-15 06:32] LABS: HEMATOCRIT 39.3 % (42.0-52.0); HEMOGLOBIN 13.9 g/dl (13.5-17.5); MEAN CORPUSCULAR HEMOGLOBIN 29.8 pg (27.0-33.0); MEAN CORPUSCULAR HGB CONC 35.4 g/dl (32.0-36.5); MEAN CORPUSCULAR VOLUME 84.2 fl (80.0-96.0); PLATELET COUNT, AUTOMATED 154 10^3/uL (150-450); RED BLOOD COUNT 4.67 10^6/uL (4.30-6.10); WHITE BLOOD COUNT 6.9 10^3/uL (4.0-10.0)
[2019-01-15 06:58] LABS: BLOOD UREA NITROGEN 11 MG/DL (7-18); CALCIUM LEVEL 8.4 MG/DL (8.5-10.1); CARBON DIOXIDE LEVEL 26 MEQ/L (21-32); CHLORIDE LEVEL 106 MEQ/L (98-107); CREATININE FOR GFR 1.01 MG/DL (0.70-1.30); GLOMERULAR FILTRATION RATE > 60.0 (>56); GLUCOSE, FASTING 168 MG/DL (70-100); POTASSIUM SERUM 3.5 MEQ/L (3.5-5.1); SODIUM LEVEL 138 MEQ/L (136-145)
[2019-01-15] MEDS: oxyCODONE 5MG TAB PO PRN ×2 (11:19→17:39)
[2019-01-15] MEDS: ATORVASTATIN 20 MG TAB PO SCH (11:19)
[2019-01-15] MEDS: METOPROLOL TART 25 MG TABLET PO SCH ×2 (11:19→21:18)
[2019-01-15] MEDS: ASPIRIN 81 MG ENTERIC TAB PO SCH (11:19)
[2019-01-15] MEDS: ENOXAPARIN 40 MG/0.4 ML SYRINGE (J1650) SC SCH (11:20)
[2019-01-15] MEDS: LEVEMIR (INSULIN DETEMIR) 1 UNITS/0.01ML SC SCH (11:21)
[2019-01-15] MEDS: NICOTINE 14 MG/24 HR TRANSDERMAL TD SCH (11:21)
[2019-01-15] MEDS: HumaLOG INSULIN (NovoLOG) PER UNIT SC SCH ×4 (11:22→21:19)
[2019-01-15] MEDS ORDERED: VANC125C3 PO (13:11)
--- NOTE | 2019-01-15 13:18 | IPNPDOC ---
Date Seen The patient was seen on 01/15/19. Progress Note SUBJECTIVE: Patient reports still having pain, overall better than on presentation but has intermittent episodes of pain still. BS fluctuates throughout the day but has been running high on regular diet. Increased home dose 55 units to 65 units Lantus-> Levemir. OBJECTIVE PHYSICAL EXAMINATION: VITAL SIGNS: Please see below. General: Alert, mild distress. Eyes: Normal sclera, EOMI, SUNITHA HENT: Atraumatic, neck supple, moist mucous membranes Cardiovascular: Normal rate, normal rhythm. Pulmonary: Clear to auscultation b/l, no wheezing GI: Soft, mild generalized tenderness. BS normoactive. distended. Skin: Warm and dry Neuro: CN grossly intact. No focal deficits. Strengths equal b/l. Psych: oriented x 3 LABORATORY DATA, IMAGING STUDIES, MICROBIOLOGY: Please see below. ASSESSMENT AND PLAN: 1. Colitis - hx recent c. diff without treatment completion. - GI + C. diff and EPEC. - Start PO vancomycin and supportive care. CT findings noted. - contact isolation. - Pain control. 2. IDDM - Lantus 55 units daily home dose. Increased to 65 units daily here of levemir. - Accuchecks + ISS. 3. HTN - Resume home medications. 4. CAD - Resume home medications. - No chest pain. 5. Migraines and chronic pain - Will use opiate for the time given acute abdominal pain. - Will taper off prior to discharge. DVT ppx: Lovenox and SCD Code status: Full code VS, I&O, 24H, Fishbone Vital Signs/I&O Vital Signs Date Time Temp Pulse Resp B/P (MAP) Pulse Ox O2 Delivery O2 Flow Rate FiO2 01/15/19 11:19 20 01/15/19 11:19 64 137/74 01/15/19 06:00 97.4 98 01/11/19 04:05 Room Air I&O- Last 24 Hours up to 6 AM 01/15/19 06:00 Intake Total 1840 ml Balance 1840 ml Laboratory Data 24H LABS Laboratory Tests 2 01/14/19 16:34: Bedside Glucose (Misc Panel) 237H 01/14/19 20:11: Bedside Glucose (Misc Panel) 282H 01/15/19 05:47: Nucleated Red Blood Cells % (auto) 0.0, Anion Gap 6L, Glomerular Filtration Rate > 60.0, Blood Urea Nitrogen 11, Creatinine 1.01, Sodium Level 138, Potassium Level 3.5, Chloride Level 106, Carbon Dioxide Level 26, Calcium Level 8.4L 01/15/19 11:42: Bedside Glucose (Misc Panel) 330H CBC/BMP Laboratory Tests 01/15/19 05:47 Red Blood Count 4.67, Mean Corpuscular Volume 84.2, Mean Corpuscular Hemoglobin 29.8, Mean Corpuscular Hemoglobin Concent 35.4, Red Cell Distribution Width 12.3, Calcium Level 8.4 L Microbiology Microbiology 01/11/19 Gastrointestinal Tract Panel (PCR) - Final, Complete Clostridium Difficile A/B Enteropathogenic E.coli MEL DE LA GARZA MD Jan 15, 2019 13:18
--- NOTE | 2019-01-15 13:22 | IPNPDOC ---
Date Seen The patient was seen on 01/15/19. Progress Note SUBJECTIVE: Patient states that he feels well. Continues to deny any complaints. Was cleared by Psych yesterday, 1:1 sitter discontinued. OBJECTIVE PHYSICAL EXAMINATION: General: No acute distress, Alert. Eyes: Normal sclera, EOMI, SUNITHA HENT: Atraumatic, neck supple, moist mucous membranes Cardiovascular: Normal rate, normal rhythm. Pulmonary: Clear to auscultation b/l, no wheezing GI: Soft, nontender, nondistended Skin: Warm and dry Neuro: CN grossly intact. No focal deficits. Strengths equal b/l. Psych: oriented x 3 LABORATORY DATA, IMAGING STUDIES, MICROBIOLOGY: Please see below. IMAGING: IMPRESSION: Progressive necrotizing pneumonia right upper lobe. Improved left lower lobe consolidation. 9 mm spiculated nodule right lower lobe unchanged. There is a smaller spiculated nodule elsewhere in the right lower lobe 6 mm in diameter also unchanged. There is no CT evidence of pulmonary embolus. There is mediastinal and right hilar lymphadenopathy, probably reactive. Biopsy pathology- Left lung mass, CT guided core biopsies: Several fibrotic soft tissue cores with entrapped alveolar structures and mixed inflammatory infiltrates, likely represent an inflammatory pseudotumor. See note. ASSESSMENT AND PLAN: 1. Pneumonia - RUL necrosis likely 2/2 Pneumonia, aspiration PNA suspected given chronic heavy alcohol use. - Few Mycobacterium noted on AFB sputum. In setting of no recent travel history or known TB exposure, findings may also be atypical mycobacterium. - Quantiferon negative. Pending PCR, was sent to state lab. - Airborne isolation at this time. - HIV negative. - c/w Levaquin for now. 2. Chronic alcohol and drug - [facility] protocol. Monitor for withdrawal. - Nicotine patch. 3. Hyponatremia - resolved after 1 day of low rate IVF resuscitation. - Likely hypotonic hypovolemic hyponatremia. - Serum osmo 276. - Appear dry and malnourished, heavy alcohol use. - Encourage fluid intake. 4. Depression/SI - Psych cleared. No active SI. - can be discharged home once medically cleared. VS, I&O, 24H, Fishbone Vital Signs/I&O Vital Signs Date Time Temp Pulse Resp B/P (MAP) Pulse Ox O2 Delivery O2 Flow Rate FiO2 01/15/19 11:19 20 01/15/19 11:19 64 137/74 01/15/19 06:00 97.4 98 01/11/19 04:05 Room Air I&O- Last 24 Hours up to 6 AM 01/15/19 05:59 Intake Total 1790 ml Balance 1790 ml Laboratory Data 24H LABS Laboratory Tests 2 01/14/19 16:34: Bedside Glucose (Misc Panel) 237H 01/14/19 20:11: Bedside Glucose (Misc Panel) 282H 01/15/19 05:47: Nucleated Red Blood Cells % (auto) 0.0, Anion Gap 6L, Glomerular Filtration Rate > 60.0, Blood Urea Nitrogen 11, Creatinine 1.01, Sodium Level 138, Potassium Level 3.5, Chloride Level 106, Carbon Dioxide Level 26, Calcium Level 8.4L 01/15/19 11:42: Bedside Glucose (Misc Panel) 330H CBC/BMP Laboratory Tests 01/15/19 05:47 Red Blood Count 4.67, Mean Corpuscular Volume 84.2, Mean Corpuscular Hemoglobin 29.8, Mean Corpuscular Hemoglobin Concent 35.4, Red Cell Distribution Width 12 .3, Calcium Level 8.4 L Microbiology Microbiology 01/11/19 Gastrointestinal Tract Panel (PCR) - Final, Complete Clostridium Difficile A/B Enteropathogenic E.coli MEL DE LA GARZA MD Jan 15, 2019 13:22
[2019-01-15] MEDS ORDERED: LEVEMIR (INSULIN DETEMIR) 1 UNITS/0.01ML SC ONE (13:30)
[2019-01-15 14:00] VITALS: BP 126/62
[2019-01-15] MEDS: MORPHINE 4 MG/ML 1ML VIAL/SYRINGE (J2270) IV PRN ×2 (15:39→21:30)
[2019-01-15 22:00] VITALS: BP 138/62
[2019-01-16] MEDS: VANCOMYCIN ORAL SOL 250MG/5ML ORAL SYRINGE PO SCH ×3 (00:15→12:00)
[2019-01-16 06:00] VITALS: BP 132/60
[2019-01-16] MEDS: MORPHINE 4 MG/ML 1ML VIAL/SYRINGE (J2270) IV PRN (06:18)
[2019-01-16] MEDS ORDERED: LEVEMIR (INSULIN DETEMIR) 1 UNITS/0.01ML SC SCH (09:00)
[2019-01-16] MEDS: HumaLOG INSULIN (NovoLOG) PER UNIT SC SCH ×3 (09:22→12:02)
[2019-01-16] MEDS: ASPIRIN 81 MG ENTERIC TAB PO SCH (09:22)
[2019-01-16] MEDS: ATORVASTATIN 20 MG TAB PO SCH (09:22)
[2019-01-16] MEDS: ENOXAPARIN 40 MG/0.4 ML SYRINGE (J1650) SC SCH (09:23)
[2019-01-16] MEDS: NICOTINE 14 MG/24 HR TRANSDERMAL TD SCH (09:23)
[2019-01-16 09:24] VITALS: BP 134/68
[2019-01-16] MEDS: METOPROLOL TART 25 MG TABLET PO SCH (09:24)
[2019-01-16 09:37] LABS: HEMATOCRIT 39.5 % (42.0-52.0); HEMOGLOBIN 13.9 g/dl (13.5-17.5); MEAN CORPUSCULAR HEMOGLOBIN 29.1 pg (27.0-33.0); MEAN CORPUSCULAR HGB CONC 35.2 g/dl (32.0-36.5); MEAN CORPUSCULAR VOLUME 82.6 fl (80.0-96.0); PLATELET COUNT, AUTOMATED 174 10^3/uL (150-450); RED BLOOD COUNT 4.78 10^6/uL (4.30-6.10); WHITE BLOOD COUNT 8.2 10^3/uL (4.0-10.0)
[2019-01-16 09:58] LABS: BLOOD UREA NITROGEN 11 MG/DL (7-18); CALCIUM LEVEL 8.6 MG/DL (8.5-10.1); CARBON DIOXIDE LEVEL 26 MEQ/L (21-32); CHLORIDE LEVEL 105 MEQ/L (98-107); CREATININE FOR GFR 1.07 MG/DL (0.70-1.30); GLOMERULAR FILTRATION RATE > 60.0 (>56); GLUCOSE, FASTING 223 MG/DL (70-100); POTASSIUM SERUM 3.7 MEQ/L (3.5-5.1); SODIUM LEVEL 138 MEQ/L (136-145)
[2019-01-16] MEDS: oxyCODONE 5MG TAB PO PRN (12:03)
[2019-01-16] MEDS ORDERED: OXYCO5TA PO (13:06)
[2019-01-16] MEDS ORDERED: NICO21DI37 TOP (14:04)
--- NOTE | 2019-01-16 22:40 | IPNPDOC ---
Subjective Date Seen The patient was seen on 01/16/19. Subjective Chief Complaint/HPI 53m with chronic back pain p/w recurrent c diff colitis. Pt reports he has been improving but his pain is only controlled with iv morphine and not oxycodone. He reports he wants to leave now. He is not interested in having the morphine reordered he just wants to leave. General: Reports: Normal Appetite; Denies: Chills, Night Sweats, Fatigue, Malaise Constitutional: Denies: Chills, Fever, Night Sweats Eyes: Denies: Pain, Vision change ENT: Denies: Head Aches, Ear Pain, Dysphagia Skin: Denies: Rash, Lesions, Breakdown Pulmonary: Denies: Dyspnea, Cough Cardiovascular: Denies: Chest Pain, Palpitations, Orthopnea, Paroxysmal Noc. Dyspnea, Lt Headedness Gastrointestinal: Reports: Abdominal Pain, Diarrhea Genitourinary: Denies: Dysuria, Frequency, Incontinence, Retention Hematologic: Denies: Bruising, Bleeding Excessively Musculoskeletal: Reports: Back Pain Neurological: Denies: Weakness, Numbness, Change in speech, Confusion Psych: Reports: Mood Normal; Denies: Depression, Memory Issues Objective Physical Examination General Exam: Positive: Alert, No Acute Distress; Negative: Cooperative Eye Exam: Positive: PERRLA, Conjunctiva & lids normal, EOMI; Negative: Sclera icteric ENT Exam: Positive: Atraumatic, Mucous membr. moist/pink, Pharynx Normal Neck Exam: Positive: Supple; Negative: JVD, thyromegaly Chest Exam: Positive: Clear to auscultation, Normal air movement Heart Exam: Positive: Rate Normal, Regular Rhythm, Normal S1, Normal S2; Negative: Murmurs, Rubs Abdomen Exam: Positive: Normal bowel sounds, Soft; Negative: Tenderness, Hepatospenomegaly Extremity Exam: Positive: Normal pulses; Negative: Clubbing, Cyanosis, Edema Skin Exam: Positive: Nl turgor and temperature; Negative: Rash, Breakdown Neuro Exam: Positive: Normal Gait, Normal Speech, Cranial Nerves 3-12 NL, Refle xes 2+ Psych Exam: Positive: Mental status NL, Mood NL, Oriented x 3 Assessment /Plan Assessment 53m p/w recurrent c diff due to noncompliance with vanco after long discussion with pt we agreed that he would be discharged today Vancomycin is waiting at his pharmacy of choice which was confirmed by nursing he requests 30 mg oxycodone as he used to take I advised him I am not comfortable with this and suggested he find a pain mgmt doctor in the mean time I have given him a five day supply of 10mg oxycodone pt dced home Plan/VTE VTE Prophylaxis Ordered?: No (dced) VS, I&O, 24H, Fishbone Vital Signs/I&O Vital Signs Date Time Temp Pulse Resp B/P (MAP) Pulse Ox O2 Delivery O2 Flow Rate FiO2 01/16/19 09:24 77 134/68 01/16/19 06:28 17 01/16/19 06:00 97.0 97 01/11/19 04:05 Room Air I&O- Last 24 Hours up to 6 AM 01/16/19 06:00 Intake Total 2330 ml Balance 2330 ml Laboratory Data 24H LABS Laboratory Tests 2 01/16/19 08:46: Bedside Glucose (Misc Panel) 148H 01/16/19 09:18: Nucleated Red Blood Cells % (auto) 0.0, Anion Gap 7L, Glomerular Filtration Rate > 60.0, Blood Urea Nitrogen 11, Creatinine 1.07, Sodium Level 138, Potassium Level 3.7, Chloride Level 105, Carbon Dioxide Level 26, Calcium Level 8.6 01/16/19 11:28: Bedside Glucose (Misc Panel) 423H CBC/BMP Laboratory Tests 01/16/19 09:18 Red Blood Count 4.78, Mean Corpuscular Volume 82.6, Mean Corpuscular Hemoglobin 29.1, Mean Corpuscular Hemoglobin Concent 35.2, Red Cell Distribution Width 12.2, Calcium Level 8.6 Microbiology Microbiology 01/11/19 Gastrointestinal Tract Panel (PCR) - Final, Complete Clostridium Difficile A/B Enteropathogenic E.coli DEANNA CAPONE MD Jan 16, 2019 22:40
== END 2019-01-16 14:41 | disposition home or self-care (01) | DRG 248 ==
LOC: M ED 03:22 → M ED INP 11:50 → M MSPAV 13:08
PROVIDERS: ADMIT Student in an Organized Health Care Education/Training Program; ATTEND Hospitalist
DX: A04.72 Enterocolitis due to Clostridium difficile, not specified as recurrent (principal); E11.40 Type 2 diabetes mellitus with diabetic neuropathy, unspecified; I10 Essential (primary) hypertension; I25.10 Atherosclerotic heart disease of native coronary artery without angina pectoris; Z79.4 Long term (current) use of insulin; G43.909 Migraine, unspecified, not intractable, without status migrainosus; Z79.82 Long term (current) use of aspirin; Z88.6 Allergy status to analgesic agent

== ENCOUNTER 2019-01-21 10:29 | Emergency (ER) | payer OTHER ==
[~2019-01-21] VITALS: Ht 182.9 cm; Wt 99.8 kg
[~2019-01-21 10:29] MED LIST changes: -AZIT500T2 PO; +AZIT500T5 PO; -BUPR300T34; +BUPR300T92; +NICO21DI37 TOP; +OXYCO5TA PO; +VANC125C3 PO
[2019-01-21] MEDS ORDERED: ALBUTEROL SULFATE 2.5 MG/0.5 ML INH NEB SOLN INH ONE (11:45)
--- NOTE | 2019-01-21 11:49 | REP ---
REASON: Dyspnea. COMPARISON: None. There is cardiomegaly. The lung dillard are clear and the pleural angles are sharp. The imaged osseous structures are within normal limits. IMPRESSION: Cardiomegaly without evidence of acute cardiopulmonary disease. Electronically Signed by Javan Solorio DO 01/21/2019 04:08 P
[2019-01-21 11:55] LABS: BASO # 0.1 10^3/uL (0.0-0.2); BASO % 1.1 % (0.0-1.0); EOS # 0.4 10^3/uL (0.0-0.50); EOS % 3.8 % (0.0-3.0); HEMOGLOBIN 14.4 g/dl (13.5-17.5); LYMPH # 1.9 10^3/uL (1.5-4.5); LYMPH % 18.6 % (24.0-44.0); MEAN CORPUSCULAR HGB CONC 35.1 g/dl (32.0-36.5); MEAN CORPUSCULAR VOLUME 85.4 fl (80.0-96.0); MONO # 0.8 10^3/uL (0.0-0.8); MONO % 7.8 % (0.0-5.0); NEUTROPHILS # 6.9 10^3/uL (1.8-7.7); NEUTROPHILS % 67.5 % (36.0-66.0); PLATELET COUNT, AUTOMATED 166 10^3/uL (150-450); WHITE BLOOD COUNT 10.2 10^3/uL (4.0-10.0)
[2019-01-21] MEDS ORDERED: oxyCODONE 5MG TAB PO ONE ×2 (12:15→12:30)
[2019-01-21 12:30] LABS: BLOOD UREA NITROGEN 9 MG/DL (7-18); CALCIUM LEVEL 9.3 MG/DL (8.5-10.1); CARBON DIOXIDE LEVEL 25 MEQ/L (21-32); CHLORIDE LEVEL 105 MEQ/L (98-107); CK-MB VALUE MASS < 1.0 NG/ML (<3.6); CPK CREATINE PHOSPHOKINASE 130 U/L (39-308); CREATININE FOR GFR 1.22 MG/DL (0.70-1.30); GLOMERULAR FILTRATION RATE > 60.0 (>56); GLUCOSE, FASTING 307 MG/DL (70-100); MB/CK RELATIVE INDEX 0.77 (< OR =4); POTASSIUM SERUM 3.9 MEQ/L (3.5-5.1); SODIUM LEVEL 137 MEQ/L (136-145); TROPONIN I < 0.02 NG/ML (< 0.10)
[2019-01-21] MEDS ORDERED: NS 1,000 ML IV ONE (12:30)
[2019-01-21] MEDS ORDERED: ISOVUE-370 76% 100ML VIAL (Q9967) As Ordered ONE (12:36)
--- NOTE | 2019-01-21 13:42 | REP ---
Clinical: Acute shortness of breath with elevated D-dimer levels. Technique: Axial contrast enhanced images from the thoracic inlet to the upper abdomen with multiplanar re-formations using pulmonary embolus protocol. 100 ml Isovue 370 intravenous contrast material administered without complication. Findings: Satisfactory enhancement of the pulmonary vasculature is achieved and no filling defects are identified to suggest pulmonary embolus. Thoracic aorta is normal and without aneurysm or dissection. Heart and pericardium grossly unremarkable. Bilateral lung dillard are clear and without acute consolidation, effusion, or pneumothorax. Tracheobronchial tree is patent. No adenopathy. Musculoskeletal structures without focal osseous abnormality. Impression: No evidence for pulmonary embolus. No acute mediastinal or pleuroparenchymal process appreciated. Electronically Signed by Jian Looney MD 01/21/2019 01:34 P
--- NOTE | 2019-01-21 14:01 | ECGEPIP ---
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 Order Number: [id number] Reading MD: Goran Multani Measurements Intervals [place] Rate: 77 P: 52 VT: 157 QRS: QRSD: 101 T: 14 QT: 405 QTc: 461 Interpretive Statements SINUS RHYTHM NONSPECIFIC T-WAVE ABNORMALITY which represents interval change from tracing done 04-02-15 Prolonged QT interval Delayed anterior R wave progression Electronically Signed on 01-21-2019 14:01:41 EDT by Goran Multani
[2019-01-21] MEDS ORDERED: ASPI81TA85 PO (14:03)
[2019-01-21] MEDS ORDERED: OXYC10TA12 PO (14:03)
[2019-01-21] MEDS ORDERED: METO25TA4 PO (14:03)
[2019-01-21] MEDS ORDERED: ATOR40TA75 PO (14:03)
[2019-01-21] MEDS ORDERED: [UNRECOGNIZED DRUG - CODE] XX (14:03)
[2019-01-21] MEDS ORDERED: BENZ200C70 PO (14:03)
[2019-01-21 14:10] VITALS: BP 156/83
== END 2019-01-21 14:35 | disposition home or self-care (01) ==
LOC: M ED 10:29
DX: R05 Cough (principal); R06.02 Shortness of breath; I10 Essential (primary) hypertension; E11.9 Type 2 diabetes mellitus without complications; K21.9 Gastro-esophageal reflux disease without esophagitis; Z95.5 Presence of coronary angioplasty implant and graft; Z79.899 Other long term (current) drug therapy; Z79.4 Long term (current) use of insulin; Z79.01 Long term (current) use of anticoagulants; Z88.8 Allergy status to other drugs, medicaments and biological substances; Z87.891 Personal history of nicotine dependence
CPT/HCPCS: 36415; 71046; 71275; 80048; 82550; 82553; 85025; 85379; 93005; 94640; 99284; Q9967

== ENCOUNTER 2019-01-27 10:08 | Inpatient (IN) | payer OTHER ==
[~2019-01-27] VITALS: Ht 182.9 cm; Wt 100.5 kg
[~2019-01-27 10:08] MED LIST changes: +ASPI81TA85 PO; +AZIT500T2 PO; -AZIT500T5 PO; +BENZ200C70 PO; +BUPR300T34; -BUPR300T92; +OXYC10TA12 PO; +[UNRECOGNIZED DRUG - CODE] XX
[2019-01-27] MEDS ORDERED: ASPIRIN 81 MG CHEW TABLET PO ONE (10:30)
[2019-01-27 11:06] LABS: BASO # 0.1 10^3/uL (0.0-0.2); EOS # 0.3 10^3/uL (0.0-0.50); EOS % 3.2 % (0.0-3.0); HEMATOCRIT 39.5 % (42.0-52.0); HEMOGLOBIN 14.1 g/dl (13.5-17.5); LYMPH # 1.5 10^3/uL (1.5-4.5); MEAN CORPUSCULAR HEMOGLOBIN 30.3 pg (27.0-33.0); MEAN CORPUSCULAR HGB CONC 35.7 g/dl (32.0-36.5); MEAN CORPUSCULAR VOLUME 84.8 fl (80.0-96.0); MONO # 0.6 10^3/uL (0.0-0.8); MONO % 6.8 % (0.0-5.0); NEUTROPHILS # 6.2 10^3/uL (1.8-7.7); NEUTROPHILS % 71.2 % (36.0-66.0); PLATELET COUNT, AUTOMATED 114 10^3/uL (150-450); RED BLOOD COUNT 4.66 10^6/uL (4.30-6.10); WHITE BLOOD COUNT 8.7 10^3/uL (4.0-10.0)
[2019-01-27 11:15] LABS: INR 1.05; PROTHROMBIN TIME 13.4 SECONDS (11.8-14.0)
[2019-01-27 11:17] LABS: PARTIAL THROMBOPLASTIN TIME 72.8 SECONDS (25.0-38.4)
--- NOTE | 2019-01-27 11:37 | REP ---
CHEST, TWO VIEWS: Two views of the chest are performed and compared to a prior study 01/21/2019. There is no acute infiltrate or pulmonary edema. The heart is not enlarged. The mediastinal silhouette is unchanged. There are mild degenerative changes of the spine. IMPRESSION: No acute pulmonary disease. Electronically Signed by Neo Milton MD 01/28/2019 09:44 A
[2019-01-27 11:43] LABS: ALBUMIN 3.7 GM/DL (3.2-5.2); ALT/SGPT 28 U/L (12-78); BILIRUBIN,DIRECT 0.3 MG/DL (0.0-0.2); BILIRUBIN,TOTAL 1.2 MG/DL (0.2-1.0); BLOOD UREA NITROGEN 10 MG/DL (7-18); CALCIUM LEVEL 8.3 MG/DL (8.5-10.1); CARBON DIOXIDE LEVEL 23 MEQ/L (21-32); CHLORIDE LEVEL 103 MEQ/L (98-107); CK-MB VALUE MASS 1.1 NG/ML (<3.6); CPK CREATINE PHOSPHOKINASE 98 U/L (39-308); CREATININE FOR GFR 1.36 MG/DL (0.70-1.30); FREE T4 1.07 NG/DL (0.76-1.46); GLOMERULAR FILTRATION RATE 58.1 (>56); GLUCOSE, FASTING 477 MG/DL (70-100); LIPASE 190 U/L (73-393); MB/CK RELATIVE INDEX 1.12 (< OR =4); POTASSIUM SERUM 3.7 MEQ/L (3.5-5.1); SODIUM LEVEL 137 MEQ/L (136-145); TOTAL PROTEIN 6.9 GM/DL (6.4-8.2); TROPONIN I < 0.02 NG/ML (< 0.10)
[2019-01-27] MEDS ORDERED: ISOVUE-370 76% 100ML VIAL (Q9967) As Ordered ONE ×2 (11:52→12:02)
[2019-01-27] MEDS ORDERED: HumuLIN R (REGULAR) INSULIN (NovoLIN R) **100U/ML** PER UNIT IV ONE (12:00)
[2019-01-27] MEDS ORDERED: oxyCODONE 5MG TAB PO ONE (12:00)
--- NOTE | 2019-01-27 12:45 | REP ---
CT ANGIOGRAM CHEST: TECHNIQUE: Axial contrast enhanced images from the thoracic inlet to the upper abdomen using 100 mL Isovue 370 intravenous contrast material with multiplanar reformations. There is a filling defect in the pulmonary arterial branch supplying the apical segment of the right upper lobe, consistent with a focal pulmonary embolism. No other pulmonary emboli are seen. The thoracic aorta is normal in caliber with no dissection. The heart is normal in size. No significant mediastinal, hilar, or chest wall lymphadenopathy is seen. There is no pleural or pericardial effusion. No infiltrate is seen in either lung. Visualized upper abdominal structures are unremarkable. There are mild degenerative changes of the spine. IMPRESSION: Focal pulmonary embolism in the pulmonary artery branch supplying the apical segment of the right upper lobe. No other acute findings. Electronically Signed by Neo Milton MD 01/28/2019 09:53 A
[2019-01-27] MEDS ORDERED: OXYC-517 PO (12:49)
[2019-01-27] MEDS ORDERED: NICO1DIS11 TD (12:49)
[2019-01-27] MEDS ORDERED: VANC125C3 PO (12:49)
[2019-01-27] MEDS ORDERED: BENZ200C70 PO (12:49)
[2019-01-27] MEDS ORDERED: BENZONATATE 100 MG CAP PO PRN (14:45)
[2019-01-27] MEDS ORDERED: DEXTROSE 50% 50 ML SYRINGE IV PRN (15:00)
[2019-01-27] MEDS ORDERED: GLUCOSE 4 GM CHEW TABLET PO PRN (15:00)
[2019-01-27] MEDS ORDERED: NICOTINE 21MG/24HR 1 EA TRANSDERMAL TD ONE (15:00)
[2019-01-27] MEDS ORDERED: LEVEMIR (INSULIN DETEMIR) 1 UNITS/0.01ML SC ONE (15:00)
[2019-01-27] MEDS ORDERED: GLUCAGON FOR INJ 1 MG VIAL (J1610) SC PRN (15:00)
--- NOTE | 2019-01-27 15:51 | HPEPDOC ---
General Date of Admission Jan 27, 2019 at 14:34 Date of Service: Jan 27, 2019 Chief Complaint The patient is a 53-year-old male admitted with a reason for visit of Chronic Pain,Pulmonary Embolism. History of Present Illness 53m hx diabetes, chronic back pain (formerly on 30mg oxycodone, then weaned off and switched to medical marijuana over a year ago, currently not taking anything), recent admissions for c diff colitis, discharged with a short supply of oxycodone, now presents back to the ER apparently for chest pain. In the ED a repeat CTA was performed and is read as a possible small segmental pe. Pt reports no new symptoms. He has his chronic back pain, his chronic headaches, and pleuritic pain when he coughs that has been present for weeks and is what prompted the CTA last week. He reports he came to the ER because he finished the prescription for oxycodone and was unable to get it refilled. Home Medications Scheduled Aspirin (Aspirin EC) 81 Mg Tablet.dr, 81 MG PO DAILY, (Reported) Atorvastatin Calcium (Atorvastatin Calcium) 40 Mg Tablet, 40 MG PO DAILY, (Reported) Insulin Glargine,Hum.rec.anlog (Toujeo Max Solostar) 300 Unit/Ml Inj, 55 UNITS SC DAILY, (Reported) Metoprolol Tartrate (Metoprolol Tartrate) 25 Mg Tablet, 25 MG PO BID, (Reported) Nicotine (Nicotine Patch) 21 Mg/24 Hr Patch.td24, 21 MG TD DAILY, (Reported) Vancomycin Hcl (Vancomycin HCl) 125 Mg Capsule, 125 MG PO QID, (Reported) Scheduled PRN Benzonatate (Benzonatate) 200 Mg Capsule, 200 MG PO TID PRN for COUGH, (Reported) Oxycodone HCl (Oxycodone HCl) 5 Mg Tablet, 10 MG PO Q6H PRN for PAIN, (Reported) Allergies Coded Allergies: acetaminophen (Verified Allergy, Unknown, anaphylaxis, 12/15/18) Past Medical History Medical History diabetes, c diff, chronic pain Family History Significant Family History: No pertinent family hx Social History * Smoker: quit less than 1 year Alcohol: Denies Drugs: denies A-FIB/CHADSVASC A-FIB History Current/History of A-Fib/PAF?: No Current PO Anticoag Therapy: Yes Review of Systems Constitutional: Reports: Fatigue; Denies: Chills, Fever, Night Sweats Eyes: Denies: Pain, Vision change ENT: Reports: Head Aches; Denies: Ear Pain, Dysphagia Skin: Denies: Rash, Lesions, Breakdown Pulmonary: Reports: Cough, Pleuritic Chest Pain; Denies: Dyspnea Cardiovascular: Denies: Chest Pain, Palpitations, Orthopnea, Paroxysmal Noc. Dyspnea, Lt Headedness Gastrointestinal: Denies: Nausea, Vomiting, Abdominal Pain, Diarrhea Genitourinary: Denies: Dysuria, Frequency, Incontinence, Retention Hematologic: Denies: Bruising, Bleeding Excessively Musculoskeletal: Reports: Back Pain; Denies: Neck Pain, Joint Pain, Muscle Pain, Spasms Neurological: Denies: Weakness, Numbness, Change in speech, Confusion Psych: Reports: Mood Normal; Denies: Depression, Memory Issues Physical Examination General Exam: Positive: Alert, Cooperative, No Acute Distress Eye Exam: Positive: PERRLA, Conjunctiva & lids normal, EOMI; Negative: Sclera icteric ENT Exam: Positive: Atraumatic, Mucous membr. moist/pink, Pharynx Normal Neck Exam: Positive: Supple; Negative: JVD, thyromegaly Chest Exam: Positive: Clear to auscultation, Normal air movement Heart Exam: Positive: Rate Normal, Regular Rhythm, Normal S1, Normal S2; Negative: Murmurs, Rubs Abdomen Exam: Positive: Normal bowel sounds, Soft; Negative: Tenderness, Hepatospenomegaly Extremity Exam: Positive: Normal pulses; Negative: Clubbing, Cyanosis, Edema Skin Exam: Positive: Nl turgor and temperature; Negative: Breakdown, Lesion Neuro Exam: Positive: Normal Gait, Normal Speech, Cranial Nerves 3-12 NL, Reflexes 2+ Psych Exam: Positive: Mental status NL, Mood NL, Oriented x 3 Vital Signs Vital Signs Date Time Temp Pulse Resp B/P (MAP) Pulse Ox O2 Delivery O2 Flow Rate FiO2 01/27/19 14:15 69 123/62 (82) 98 Room Air 01/27/19 12:46 20 01/27/19 10:30 96.9 Laboratory Data Labs 24H Laboratory Tests 2 01/27/19 10:45: Immature Granulocyte % (Auto) 0.8, White Blood Count 8.7, Red Blood Count 4.66, Hemoglobin 14.1, Hematocrit 39.5L, Mean Corpuscular Volume 84.8, Mean Corpuscular Hemoglobin 30.3, Mean Corpuscular Hemoglobin Concent 35.7, Red Cell Distribution Width 12.8, Platelet Count 114L, Neutrophils (%) (Auto) 71.2H, Lymphocytes (%) (Auto) 17.0L, Monocytes (%) (Auto) 6.8H, Eosinophils (%) (Auto) 3.2H, Basophils (%) (Auto) 1.0, Neutrophils # (Auto) 6.2, Lymphocytes # (Auto) 1.5, Monocytes # (Auto) 0.6, Eosinophils # (Auto) 0.3, Basophils # (Auto) 0.1, Nucleated Red Blood Cells % (auto) 0.0, Prothrombin Time 13.4, Prothromb Time International Ratio 1.05, Activated Partial Thromboplast Time 72.8H, Anion Gap 11, Glomerular Filtration Rate 58.1, Calcium Level 8.3L, Aspartate Amino Transf (AST/SGOT) 18, Alanine Aminotransferase (ALT/SGPT) 28, Alkaline Phosphatase 111, Total Bilirubin 1.2H, Direct Bilirubin 0.3H, Total Creatine Kinase 98, Creatine Kinase MB 1.1, Creatine Kinase MB Relative Index 1.12, Troponin I < 0.02, Total Protein 6.9, Albumin 3.7, Albumin/Globulin Ratio 1.16, Lipase 190, Thyroid Stimulating Hormone (TSH) 1.950, Free Thyroxine 1.07 01/27/19 13:13: Bedside Glucose (Misc Panel) 366H CBC/BMP Laboratory Tests 01/27/19 10:45 Red Blood Count 4.66, Mean Corpuscular Volume 84.8, Mean Corpuscular Hemoglobin 30.3, Mean Corpuscular Hemoglobin Concent 35.7, Red Cell Distribution Width 12.8, Neutrophils (%) (Auto) 71.2 H, Lymphocytes (%) (Auto) 17.0 L, Monocytes (%) (Auto) 6.8 H, Eosinophils (%) (Auto) 3.2 H, Basophils (%) (Auto) 1.0, Neutrophils # (Auto) 6.2, Lymphocytes # (Auto) 1.5, Monocytes # (Auto) 0.6, Eosinophils # (Auto) 0.3, Basophils # (Auto) 0.1 Assessment/Plan 53m p/w possible segmental pe segmental PE will start eliquis unclear if his symptoms are attributable to this especially with the negative CTA last week no evidence of heart strain hemodynamically stable PESI class 1 will consult pulmonary regarding continuing treatment Pain concern patient is exhibiting drug seeking behavior will continue oral pain meds only for now pain management to consult discussed with FLEET DISPATCH MANAGER Leanne Diabetes poorly controlled nonadherent to insulin regimen diabetic diet finger sticks sliding scale continue long acting likely needs prandial C diff continue vanco orally Plan / VTE VTE Prophylaxis Ordered?: Yes DEANNA CAPONE MD Jan 27, 2019 15:51
[2019-01-27] MEDS: APIXABAN 5 MG TAB (ELIQUIS) PO SCH ×2 (16:20→20:53)
[2019-01-27] MEDS: ATORVASTATIN 20 MG TAB PO SCH (16:20)
[2019-01-27] MEDS: oxyCODONE 5MG TAB PO PRN ×2 (16:20→20:57)
--- NOTE | 2019-01-27 16:50 | ECGEPIP ---
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
[2019-01-27] MEDS: HumaLOG INSULIN (NovoLOG) PER UNIT SC SCH (17:50)
[2019-01-27] MEDS: VANCOMYCIN ORAL SOL 250MG/5ML ORAL SYRINGE PO SCH ×2 (18:00→23:38)
[2019-01-27 18:15] VITALS: BP 137/75
[2019-01-27] MEDS: METOPROLOL TART 25 MG TABLET PO SCH (20:53)
[2019-01-27 22:00] VITALS: BP 143/71
[2019-01-28] MEDS: oxyCODONE 5MG TAB PO PRN ×5 (01:29→23:25)
[2019-01-28] MEDS: guaiFENesin/CODEINE SYRUP 5 ML UDC PO SCH ×2 (01:58→05:50)
[2019-01-28] MEDS: VANCOMYCIN ORAL SOL 250MG/5ML ORAL SYRINGE PO SCH ×4 (05:58→23:24)
[2019-01-28 06:00] VITALS: BP 124/73
[2019-01-28 06:04] LABS: HEMATOCRIT 40.7 % (42.0-52.0); HEMOGLOBIN 14.1 g/dl (13.5-17.5); MEAN CORPUSCULAR HEMOGLOBIN 29.6 pg (27.0-33.0); MEAN CORPUSCULAR HGB CONC 34.6 g/dl (32.0-36.5); MEAN CORPUSCULAR VOLUME 85.5 fl (80.0-96.0); PLATELET COUNT, AUTOMATED 111 10^3/uL (150-450); RED BLOOD COUNT 4.76 10^6/uL (4.30-6.10); WHITE BLOOD COUNT 8.2 10^3/uL (4.0-10.0)
[2019-01-28 06:30] LABS: BLOOD UREA NITROGEN 11 MG/DL (7-18); CALCIUM LEVEL 8.4 MG/DL (8.5-10.1); CARBON DIOXIDE LEVEL 26 MEQ/L (21-32); CHLORIDE LEVEL 108 MEQ/L (98-107); CREATININE FOR GFR 1.13 MG/DL (0.70-1.30); GLOMERULAR FILTRATION RATE > 60.0 (>56); GLUCOSE, FASTING 141 MG/DL (70-100); POTASSIUM SERUM 3.3 MEQ/L (3.5-5.1); SODIUM LEVEL 136 MEQ/L (136-145)
[2019-01-28] MEDS: HumaLOG INSULIN (NovoLOG) PER UNIT SC SCH ×3 (07:28→18:01)
[2019-01-28] MEDS ORDERED: POTASSIUM CHLORIDE 10 MEQ SR TABLET PO ONE (07:30)
[2019-01-28] MEDS: ASPIRIN 81 MG ENTERIC TAB PO SCH (07:39)
[2019-01-28] MEDS: ATORVASTATIN 20 MG TAB PO SCH (07:39)
[2019-01-28] MEDS: APIXABAN 5 MG TAB (ELIQUIS) PO SCH ×2 (07:39→20:43)
[2019-01-28] MEDS: METOPROLOL TART 25 MG TABLET PO SCH ×2 (07:40→20:43)
[2019-01-28 08:00] VITALS: BP 120/72
[2019-01-28 08:02] LABS: MAGNESIUM LEVEL 1.9 MG/DL (1.8-2.4)
[2019-01-28] MEDS: guaiFENesin/CODEINE SYRUP 5 ML UDC PO PRN ×2 (08:44→20:43)
--- NOTE | 2019-01-28 10:27 | IPNPDOC ---
Text Note Date of Service The patient was seen on 01/28/19. NOTE Subjective: Patient seen and examined at bedside. Complains of headache, sore throat, chest pain, abdominal pain, leg pain, foot pain, productive cough and shortness of breath. He states all his pains are chronic. Objective: General: NAD, lying comfortably in bed HEENT: NC/AT, EOMI, PERRL Lungs: CTA B/L Heart: +S1S2, RRR Abd: obese, soft, NT, +BS Ext: no edema A/P: 53m PMHx diabetes, chronic back pain (formerly on 30mg oxycodone, then weaned off and switched to medical marijuana over a year ago, currently not taking anything), recent admissions for c diff colitis, discharged with a short supply of oxycodone, returns to ER for chest pain. In the ED repeat CTA read as a possible small segmental PE. Pt reports no new symptoms. He has his chronic back pain, his chronic headaches, and pleuritic pain when he coughs that has been present for weeks and is what prompted the CTA last week. He reports he came to the ER because he finished the prescription for oxycodone and was unable to get it refilled. #PE - pulm c/s pending - a/c with Eliquis - LE dopplers pending #chronic pain - concern patient is exhibiting drug seeking behavior - pain management c/s pending #hypokalemia - replete as needed, check mag #DLP - statin therapy, aspirin #hyperbilirubinemia - continue to follow #IDDM - poorly controlled - nonadherent to insulin regimen - carb consistent diet #C diff - continue vanco orally #nicotine abuse - nicotine replacement therapy #non-compliance #DVT prophylaxis - as above on Eliquis VS,Fishbone, I+O VS, Fishbone, I+O Laboratory Tests 01/27/19 10:45 Red Blood Count 4.66, Mean Corpuscular Volume 84.8, Mean Corpuscular Hemoglobin 30.3, Mean Corpuscular Hemoglobin Concent 35.7, Red Cell Distribution Width 12.8, Neutrophils (%) (Auto) 71.2 H, Lymphocytes (%) (Auto) 17.0 L, Monocytes (%) (Auto) 6.8 H, Eosinophils (%) (Auto) 3.2 H, Basophils (%) (Auto) 1.0, Neutrophils # (Auto) 6.2, Lymphocytes # (Auto) 1.5, Monocytes # (Auto) 0.6, Eosinophils # (Auto) 0.3, Basophils # (Auto) 0.1 01/28/19 05:14 Red Blood Count 4.76, Mean Corpuscular Volume 85.5, Mean Corpuscular Hemoglobin 29.6, Mean Corpuscular Hemoglobin Concent 34.6, Red Cell Distribution Width 12.9, Calcium Level 8.4 L Vital Signs Date Time Temp Pulse Resp B/P (MAP) Pulse Ox O2 Delivery O2 Flow Rate FiO2 01/28/19 07:40 60 120/72 01/28/19 06:29 18 01/28/19 06:00 97.5 99 01/27/19 17:45 Room Air I&O- Last 24 Hours up to 6 AM 01/28/19 06:00 Intake Total 365 ml Output Total 300 ml Balance 65 ml PAULA SENA MD Jan 28, 2019 10:27
[2019-01-28 10:54] LABS: ALBUMIN 3.3 GM/DL (3.2-5.2); ALT/SGPT 24 U/L (12-78); BILIRUBIN,DIRECT 0.2 MG/DL (0.0-0.2); BILIRUBIN,TOTAL 0.7 MG/DL (0.2-1.0); TOTAL PROTEIN 6.7 GM/DL (6.4-8.2)
[2019-01-28 14:00] VITALS: BP 134/78
--- NOTE | 2019-01-28 17:28 | CR ---
DATE OF CONSULTATION: 01/28/2019 REFERRING PHYSICIAN: Dr. Dean HISTORY OF PRESENT ILLNESS: Renaldo is a 53-year-old gentleman who was admitted for cough and pain yesterday. History of recent admission for and treated for colitis. Continues to have generalized body pain. Chief area of pain is abdomen with radiation into the lower back area. Pain is aggravated with coughing. He is agitated but pleasant. Feels as though there is confusion on his diagnosis. He is back and forth to this area with most recent return a few months ago. Reporting chronic lower extremity neuropathy type complaints. History of insulin-dependent diabetes mellitus. Finds medicine somewhat helpful at reducing his pain, that is currently receiving, which is oxycodone 10 mg every 4 hours as needed. Vague historian. He may have been receiving narcotic pain medicines as recent as 3 or 4 months ago in [place]. PAST MEDICAL HISTORY: Diabetes. Clostridium difficile. Chronic pain. SOCIAL HISTORY: States he quit smoking 3 weeks ago. Denies illicit drug use. Not clear on his current living situation. Denies use of alcohol. REVIEW OF SYSTEMS: Reporting normal urination and bowel movements. Otherwise 11-point review of systems as stated in HPI. PHYSICAL EXAMINATION: Awake, alert, frustrated at times during interview. Vital signs: Temperature 97.6, pulse 64, respirations 18, blood pressure 134/78, oxygen saturation is 100%. Cardiac: S1, S2, normal rate and rhythm. Respiratory: Lung sounds with some wheezing and rhonchi throughout. Abdomen is tender with palpation all x4 quadrants. Bowel sounds present times four quadrants. Extremities: Free moving. No edema. Reports decreased sensation to light touch lower extremities and feet. Lower extremities warm to touch. Normal coloration. ASSESSMENT: 1. Chronic low back pain. 2. Acute abdominal pain. PLAN: The patient's main problem is getting established with primary care and keeping followup appointments. I did advise him that nobody would be prescribing any narcotic or recommending chronic narcotic pain medication without being established with a primary care provider. He seems a bit like it is not his fault. Possibly [facility] could evaluate for needs in the community to help assist him with appointments. I would recommend a trial of gabapentin 300 mg twice a day. Recommend a trial of tramadol 50 mg two tablets twice a day. Recommend changing oxycodone to 5 mg strength and using this every 6 hours as needed for severe pain episodes only. Thank you for allowing us to evaluate your patient, Renaldo Syed. If you have any questions or concerns, please do not hesitate to contact me. Sincerely, Leanne Shell, Family Nurse Practitioner [facility]
--- NOTE | 2019-01-28 18:26 | CR ---
DATE OF CONSULTATION: 01/28/[address] Dean to evaluate Mr. Syed for pulmonary embolism. NOTE: The resident on the pulmonary service first went up to evaluate Mr. Syed. Resident, Dr. Karley Romero, went to evaluate the patient after she had extensively reviewed the reports. When she went into the room, she tried ask him questions which she did not want to answer stating it was in his chart and he did not see why he needed to answer questions more than one time. He refused to allow her to examine him. He asked her to leave the room. When I went up to evaluate exam as the attending on the pulmonary service, once I introduced myself, he refused to even answer a question. He just stared straight ahead. I told him that the reason pulmonary was consulted was to make certain that we felt that this was a true pulmonary emboli (PE), as well as to help determine whether further evaluation was necessary and whether this was a provoked or unprovoked deep vein thrombosis (DVT). This would alter along recommendation would be for anticoagulation. I discussed this with him, he still refused to answer. I explain that we would asked different questions then the admitting provider because again we are trying to determine whether it was provoked or unprovoked. He again refused to answer. I discussed with him that in that case we could not offer any recommendations and that I would speak to his primary attending and that their options would be to consider a hematology consult, no consult or transfer him to another facility where he may accept a pulmonary consultation. He simply said after that I want to speak to my doctor. The interaction with me was not hostile, but it was clear that he was not going to offer any information or allow a consultation to be done. He was rude to the resident physician. At this point, the pulmonary service will sign off. I do not feel it is appropriate to reconsult this given interaction with two individual providers at two different times with similar refusal of the consultation. I had reviewed his CT pulmonary angiogram 01/27/2019 with the resident and I agree with radiology's read. I discussed the above information with Dr. Jain. I recommended he may want to consider doing bilateral lower extremity Dopplers to make certain there is no further clot. At this point, I cannot give him any direction as to whether this is considered an unprovoked or provoked PE. Given no further information, it has to be considered an unprovoked PE, which would be lifetime anticoagulation. At the very least, he needs 3 months of anticoagulation, and then a decision can be made at that point as to whether or not lifetime is indicated. Again, he could consider a hematology consultation or possibly transfer to another facility if pulmonary consultation was indicated. I also discussed with him the pulmonary service would sign off at this time. edited: 01/29/2019 0754 jad ACE
--- NOTE | 2019-01-28 19:22 | REP ---
Duplex extremity venous ultrasound: Bilateral lower extremities. History: Evaluate for DVT. Findings: The deep veins are anechoic and fully compressible from the groin to the popliteal fossa in the left and right lower extremity. Color flow imaging is homogeneous. Spectral Doppler interrogation demonstrates intact respiratory variation in flow and normal manual augmentation of flow. There is no evidence of deep vein thrombosis. Impression: Negative bilateral lower extremity duplex venous ultrasound. No evidence of deep vein thrombosis. Electronically Signed by Elvis Francis MD 01/28/2019 07:14 P
[2019-01-28] MEDS ORDERED: HumaLOG INSULIN (NovoLOG) PER UNIT SC SCH (21:00)
[2019-01-28 22:00] VITALS: BP 125/66
[2019-01-29] MEDS: VANCOMYCIN ORAL SOL 250MG/5ML ORAL SYRINGE PO SCH (05:29)
[2019-01-29] MEDS: oxyCODONE 5MG TAB PO PRN (05:35)
[2019-01-29 06:00] VITALS: BP 124/62
[2019-01-29] MEDS ORDERED: GABAPENTIN 300 MG CAP PO SCH (09:00)
[2019-01-29 09:58] LABS: HEMOGLOBIN 13.9 g/dl (13.5-17.5); MEAN CORPUSCULAR HEMOGLOBIN 29.7 pg (27.0-33.0); MEAN CORPUSCULAR HGB CONC 34.8 g/dl (32.0-36.5); MEAN CORPUSCULAR VOLUME 85.5 fl (80.0-96.0); PLATELET COUNT, AUTOMATED 100 10^3/uL (150-450); RED BLOOD COUNT 4.68 10^6/uL (4.30-6.10)
[2019-01-29] MEDS ORDERED: oxyCODONE 5MG TAB PO PRN (10:00)
[2019-01-29 10:07] LABS: DRVV SCREEN 204.4 SEC
[2019-01-29 10:22] LABS: PTT LUPUS TYPE ANTICOAG SCREEN 4.9 (0-1.2)
[2019-01-29] MEDS: APIXABAN 5 MG TAB (ELIQUIS) PO SCH (10:25)
[2019-01-29] MEDS: ATORVASTATIN 20 MG TAB PO SCH (10:25)
[2019-01-29] MEDS: ASPIRIN 81 MG ENTERIC TAB PO SCH (10:25)
[2019-01-29 10:26] VITALS: BP 124/62
[2019-01-29] MEDS: METOPROLOL TART 25 MG TABLET PO SCH (10:26)
[2019-01-29] MEDS: HumaLOG INSULIN (NovoLOG) PER UNIT SC SCH (10:27)
[2019-01-29] MEDS ORDERED: TRAM50TA2 PO (10:28)
[2019-01-29] MEDS ORDERED: GABA-843 PO (10:28)
[2019-01-29] MEDS ORDERED: OXYCO5TA PO (10:28)
[2019-01-29] MEDS ORDERED: ELIQ5TAB PO (10:28)
[2019-01-29 10:30] LABS: BLOOD UREA NITROGEN 10 MG/DL (7-18); CALCIUM LEVEL 8.2 MG/DL (8.5-10.1); CARBON DIOXIDE LEVEL 26 MEQ/L (21-32); CHLORIDE LEVEL 103 MEQ/L (98-107); GLOMERULAR FILTRATION RATE > 60.0 (>56); GLUCOSE, FASTING 310 MG/DL (70-100); SODIUM LEVEL 137 MEQ/L (136-145)
[2019-01-29] MEDS ORDERED: traMADol 50 MG TAB PO PRN (10:30)
[2019-01-29 10:32] LABS: DRVV CONFIRM 70.9 SEC; LUPUS CONFIRM RATIO 1.8
[2019-01-29 10:36] LABS: NORMALIZED RATIO 2.72 (0.00-1.20)
[2019-01-29] MEDS: guaiFENesin/CODEINE SYRUP 5 ML UDC PO PRN (10:40)
--- NOTE | 2019-01-29 15:44 | DS.PDOC ---
Discharge Summary General Date of Admission Jan 27, 2019 at 14:34 Date of Discharge 01/29/19 Specialist/Consultants Involve: Luly AGUILA MD Specialist/Consultants Involve Leanne Shell Discharge Summary PROCEDURES PERFORMED DURING STAY: [None]. ADMITTING DIAGNOSES: 1. PE SECONDARY DIAGNOSES: 1. Chronic pain 2. DLP 3. IDDM 4. CDiff 5. nicotine abuse 6. non-compliance COMPLICATIONS/CHIEF COMPLAINT: Chronic Pain,Pulmonary Embolism. HISTORY OF PRESENT ILLNESS: 53 yo male with PMHx diabetes, chronic back pain (formerly on 30mg oxycodone, then weaned off and switched to medical marijuana over a year ago, currently not taking anything), recent admissions for c diff colitis, discharged with a short supply of oxycodone, returned to ER for chest pain. In the ED repeat CTA read as a possible small segmental PE. Pt reported no new symptoms. He has chronic back pain, chronic headaches, and pleuritic pain when he coughs that has been present for weeks and is what prompted the CTA last week. He reported he came to the ER because he finished the prescription for oxycodone and was unable to get it refilled. HOSPITAL COURSE: Patient admitted for further evaluation and treatment. Seen in consultation by pulmonology for DVT, but patient refused examination. Also seen by pain management, with further adjustments to his pain medications. No other significant events while inpatient. Discharged home with outpatient follow up. DISCHARGE MEDICATIONS: Please see below. ALLERGIES: Please see below. PHYSICAL EXAMINATION ON DISCHARGE: VITAL SIGNS: Please see below. General: NAD, lying comfortably in bed HEENT: NC/AT, EOMI, PERRL Lungs: CTA B/L Heart: +S1S2, RRR Abd: obese, soft, NT, +BS Ext: no edema LABORATORY DATA: Please see below. ACTIVITY: [As tolerated]. DIET: carb consistent DISPOSITION: 01 Home, Self-Care. DISCHARGE INSTRUCTIONS: 1. Follow up PCP in 3-5 days - follow up results of laboratory studies. 2. Follow up pain management as scheduled. 3. Follow up pulmonology in 3-10 days or as scheduled. DISCHARGE CONDITION: [Stable]. TIME SPENT ON DISCHARGE: 35 minutes. Vital Signs/I&Os Vital Signs Date Time Temp Pulse Resp B/P (MAP) Pulse Ox O2 Delivery O2 Flow Rate FiO2 01/29/19 11:12 16 01/29/19 10:26 58 124/62 01/29/19 06:00 98.6 98 01/27/19 17:45 Room Air I&O- Last 24 Hours up to 6 AM 01/29/19 06:00 Intake Total 1660 ml Balance 1660 ml Laboratory Data Labs 24H Laboratory Tests 2 01/28/19 16:27: Lupus Anticoag Normalized Ratio 2.72H, Lupus Anticoag DRVVT Screen Ratio 4.9H 01/28/19 16:50: Bedside Glucose (Misc Panel) 266H 01/28/19 20:30: Bedside Glucose (Misc Panel) 319H 01/29/19 06:21: Bedside Glucose (Misc Panel) 253H 01/29/19 09:43: Nucleated Red Blood Cells % (auto) 0.0, Anion Gap 8, Glomerular Filtration Rate > 60.0, Blood Urea Nitrogen 10, Creatinine 1.20, Sodium Level 137, Potassium Level 4.0#, Chloride Level 103, Carbon Dioxide Level 26, Calcium Level 8.2L 01/29/19 11:50: Bedside Glucose (Misc Panel) 312H CBC/BMP Laboratory Tests 01/29/19 09:43 Red Blood Count 4.68, Mean Corpuscular Volume 85.5, Mean Corpuscular Hemoglobin 29.7, Mean Corpuscular Hemoglobin Concent 34.8, Red Cell Distribution Width 13.0, Calcium Level 8.2 L FSBS Laboratory Tests Test 01/28/19 16:50 01/28/19 20:30 01/29/19 06:21 01/29/19 11:50 Range/Units Bedside Glucose (Misc Panel) 266 319 253 312 70-105 MG/DL Discharge Medications Scheduled Apixaban (Eliquis) 5 Mg Tablet, 10 MG PO BID Aspirin (Aspirin EC) 81 Mg Tablet.dr, 81 MG PO DAILY, (Reported) Atorvastatin Calcium (Atorvastatin Calcium) 40 Mg Tablet, 40 MG PO DAILY, (Reported) Gabapentin (Gabapentin) 300 Mg Capsule, 300 MG PO BID Insulin Glargine,Hum.rec.anlog (Toujeo Max Solostar) 300 Unit/Ml Inj, 55 UNITS SC DAILY, (Reported) Metoprolol Tartrate (Metoprolol Tartrate) 25 Mg Tablet, 25 MG PO BID, (Reported) Nicotine (Nicotine Patch) 21 Mg/24 Hr Patch.td24, 21 MG TD DAILY, (Reported) Vancomycin Hcl (Vancomycin HCl) 125 Mg Capsule, 125 MG PO QID, (Reported) Scheduled PRN Benzonatate (Benzonatate) 200 Mg Capsule, 200 MG PO TID PRN for COUGH, (R eported) Oxycodone HCl (Oxycodone HCl) 5 Mg Tablet, 5 MG PO Q6H PRN for PAIN Tramadol HCl (Tramadol HCl) 50 Mg Tablet, 100 MG PO Q12HP PRN for PAIN Allergies Coded Allergies: acetaminophen (Verified Allergy, Unknown, anaphylaxis, 12/15/18) PAULA SENA MD Jan 29, 2019 15:44
== END 2019-01-29 12:03 | disposition home or self-care (01) | DRG 134 ==
LOC: M ED 11:06 → M ED INP 14:34 → M MSPAV 18:18
PROVIDERS: ADMIT Hospitalist; ATTEND Internal Medicine
DX: I26.99 Other pulmonary embolism without acute cor pulmonale (principal); E11.65 Type 2 diabetes mellitus with hyperglycemia; M54.5 Low back pain; R51 Headache; G89.29 Other chronic pain; E80.6 Other disorders of bilirubin metabolism; E87.6 Hypokalemia; R07.81 Pleurodynia; Z79.82 Long term (current) use of aspirin; Z79.4 Long term (current) use of insulin; Z79.899 Other long term (current) drug therapy; Z88.6 Allergy status to analgesic agent; Z87.891 Personal history of nicotine dependence; Z91.14 Patient's other noncompliance with medication regimen

== ENCOUNTER → 2019-02-28 | Outpatient (REF) | payer OTHER ==
[~2019-02-28] MED LIST changes: +ELIQ5TAB PO; +GABA-843 PO; +NICO1DIS11 TD; +OXYC-517 PO
== END ==
LOC: M SFHCPLAZ 13:34
PROVIDERS: ATTEND Family Medicine
DX: M54.5 Low back pain (principal)

== ENCOUNTER 2019-04-16 18:32 | Emergency (ER) | payer OTHER ==
[~2019-04-16] VITALS: Ht 182.9 cm; Wt 98.2 kg
[2019-04-16 18:33] VITALS: BP 139/66
[2019-04-16] MEDS ORDERED: LIDOCAINE 5% (LIDODERM) PATCH TD ONE (19:15)
[2019-04-16] MEDS: KETOROLAC 60 MG/2 ML VIAL (J1885) IM ONE ×2 (19:22→19:30)
[2019-04-16] MEDS ORDERED: **NOTE PATIENT COMMENT** MISC XX SCH (21:00)
== END 2019-04-16 20:31 | disposition home or self-care (01) ==
LOC: M ED 18:32
DX: M54.9 Dorsalgia, unspecified (principal); G89.29 Other chronic pain; E11.9 Type 2 diabetes mellitus without complications; I10 Essential (primary) hypertension; F17.200 Nicotine dependence, unspecified, uncomplicated; Z79.4 Long term (current) use of insulin; Z79.82 Long term (current) use of aspirin; Z79.899 Other long term (current) drug therapy; Z88.8 Allergy status to other drugs, medicaments and biological substances

== ENCOUNTER 2019-05-13 13:03 | Inpatient (IN) | payer OTHER ==
[~2019-05-13] VITALS: Ht 182.9 cm; Wt 93.7 kg
[~2019-05-13 13:03] MED LIST changes: -AZIT500T2 PO; +AZIT500T5 PO
[2019-05-13] MEDS ORDERED: BASA100I (13:13)
[2019-05-13] MEDS ORDERED: NS 1,000 ML IV ONE (13:30)
[2019-05-13] MEDS ORDERED: HumuLIN R (REGULAR) INSULIN (NovoLIN R) **100U/ML** PER UNIT IV ONE (13:30)
[2019-05-13 13:44] LABS: VENOUS BASE EXCESS -1.5 (-2.0-2.0); VENOUS HCO3 22.2 MEQ/L (23.0-27.0); VENOUS O2 SATURATION 87.7 % (60.0-80.0); VENOUS PARTIAL PRESSURE CO2 34.8 mmHg (38.0-50.0); VENOUS PARTIAL PRESSURE O2 52.5 mmHg (30.0-50.0); VENOUS PH 7.423 UNITS (7.330-7.430); VENOUS TOTAL CO2 23.3 MEQ/L (24.0-28.0)
[2019-05-13 13:50] LABS: BASO # 0.1 10^3/uL (0.0-0.2); BASO % 0.9 % (0.0-1.0); EOS # 0.2 10^3/uL (0.0-0.5); EOS % 2.2 % (0.0-3.0); HEMATOCRIT 41.9 % (42.0-52.0); HEMOGLOBIN 15.6 g/dl (13.5-17.5); LYMPH # 1.5 10^3/uL (1.5-5.0); LYMPH % 16.2 % (24.0-44.0); MEAN CORPUSCULAR HEMOGLOBIN 30.6 pg (27.0-33.0); MEAN CORPUSCULAR VOLUME 82.2 fl (80.0-96.0); MONO # 0.6 10^3/uL (0.0-0.8); MONO % 6.1 % (0.0-5.0); NEUTROPHILS # 6.6 10^3/uL (1.5-8.5); NEUTROPHILS % 73.6 % (36.0-66.0)
[2019-05-13 14:14] LABS: OSMOLALITY SERUM 308 MOSM/KG (275-295)
[2019-05-13 14:15] LABS: MEAN CORPUSCULAR HGB CONC 37.2 g/dl (32.0-36.5)
[2019-05-13 14:16] LABS: PLATELET COUNT, AUTOMATED 20 10^3/uL (150-450)
[2019-05-13 14:28] LABS: ACETONE/KETONE 1.77 MG/DL (<2.81); ALBUMIN 3.9 GM/DL (3.2-5.2); ALT/SGPT 22 U/L (12-78); BILIRUBIN,DIRECT 0.3 MG/DL (0.0-0.2); BILIRUBIN,TOTAL 1.3 MG/DL (0.2-1.0); BLOOD UREA NITROGEN 14 MG/DL (7-18); CALCIUM LEVEL 8.8 MG/DL (8.5-10.1); CARBON DIOXIDE LEVEL 25 MEQ/L (21-32); CHLORIDE LEVEL 100 MEQ/L (98-107); CK-MB VALUE MASS 1.5 NG/ML (<3.6); CPK CREATINE PHOSPHOKINASE 81 U/L (39-308); CREATININE FOR GFR 1.31 MG/DL (0.70-1.30); GLOMERULAR FILTRATION RATE > 60.0 (>56); GLUCOSE, FASTING 559 MG/DL (70-100); LIPASE 342 U/L (73-393); MB/CK RELATIVE INDEX 1.85 (< OR =4); PHOSPHORUS LEVEL 2.9 MG/DL (2.5-4.9); POTASSIUM SERUM 3.9 MEQ/L (3.5-5.1); SODIUM LEVEL 133 MEQ/L (136-145); TOTAL PROTEIN 7.3 GM/DL (6.4-8.2); TROPONIN I < 0.02 NG/ML (< 0.10)
[2019-05-13] MEDS ORDERED: PERCOCET 5MG/325MG TAB PO ONE (14:30)
--- NOTE | 2019-05-13 14:41 | ECGEPIP ---
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
[2019-05-13] MEDS ORDERED: oxyCODONE 5MG TAB PO ONE (14:45)
--- NOTE | 2019-05-13 15:30 | REP ---
CHEST, SINGLE VIEW: Single view of the chest is performed and compared to prior study of 01/27/2019. There is no acute infiltrate. There is mild cardiomegaly. Mediastinal silhouette is unremarkable and unchanged. IMPRESSION: No acute infiltrate or pulmonary edema. Mild cardiomegaly. Electronically Signed by Neo Milton MD 05/14/2019 12:27 P
[2019-05-13] MEDS ORDERED: OXYC-517 PO (15:39)
[2019-05-13] MEDS ORDERED: ELIQ5TAB PO (15:40)
[2019-05-13] MEDS ORDERED: MORPHINE 2 MG/ML 1ML VIAL (J2270) IV ONE (16:00)
[2019-05-13] MEDS ORDERED: ONDANSETRON 4MG/2ML VIAL (J2405) IV ONE (16:00)
[2019-05-13 16:40] LABS: VENOUS BASE EXCESS -1.7 (-2.0-2.0); VENOUS HCO3 23.3 MEQ/L (23.0-27.0); VENOUS O2 SATURATION 82.8 % (60.0-80.0); VENOUS PARTIAL PRESSURE CO2 40.6 mmHg (38.0-50.0); VENOUS PARTIAL PRESSURE O2 48.3 mmHg (30.0-50.0); VENOUS PH 7.377 UNITS (7.330-7.430); VENOUS STANDARD HCO3 22.7 MEQ/L; VENOUS TOTAL CO2 24.6 MEQ/L (24.0-28.0)
[2019-05-13] MEDS ORDERED: HumaLOG INSULIN (NovoLOG) PER UNIT SC SCH ×2 (17:30→21:00)
[2019-05-13] MEDS ORDERED: LEVEMIR (INSULIN DETEMIR) 1 UNITS/0.01ML SC SCH (18:15)
[2019-05-13] MEDS ORDERED: GLUCOSE 4 GM CHEW TABLET PO PRN (18:15)
[2019-05-13] MEDS ORDERED: oxyCODONE 5MG TAB PO PRN (18:15)
[2019-05-13] MEDS ORDERED: DEXTROSE 50% 50 ML SYRINGE IV PRN (18:15)
[2019-05-13] MEDS ORDERED: GLUCAGON FOR INJ 1 MG VIAL (J1610) SC PRN (18:15)
[2019-05-13] MEDS ORDERED: MORPHINE 4 MG/ML 1ML VIAL/SYRINGE (J2270) IV PRN (18:15)
--- NOTE | 2019-05-13 18:19 | HPEPDOC ---
[facility] Medical History & Physical Date of Admission May 13, 2019 Date of Service: May 13, 2019 History and Physical CHIEF COMPLAINT: hyperglycemia HISTORY OF PRESENT ILLNESS: Patient is a 54M with PMH IDDM, chronic back pain, c. diff colitis, CAD, chronic migraine, DVT/PE on Eliquis was sent into the ER when found to have hyperglycemia in 600-700s. Patient reported that his Toujeo that he have been taking for many years is no longer by his insurance and he has been working with his PMD to adjust to a new regimen but it did not make him feel good and unable to obtain an insulin that works therefore he has not been taking a regimen that makes him feel sick but cannot remember what it was. In ER, he was also found to have a platelet of 20 but denies any complaints of bleeding. He complains of of chronic back pain and headache but otherwise reported no other complaints. PAST MEDICAL HISTORY: Refer to [facility] PAST SURGICAL HISTORY: Stents placement SOCIAL HISTORY: Denies tobacco, alcohol or illicit drug use. FAMILY HISTORY: Mother- DM ALLERGIES: Please see below. REVIEW OF SYSTEMS: 10 point review of system negative except as stated in HPI HOME MEDICATIONS: Please see below. PHYSICAL EXAMINATION: General: No acute distress, Alert Eyes: Normal sclera, EOMI, SUNITHA HENT: Atraumatic, neck supple, moist mucous membranes Cardiovascular: Normal rate, normal rhythm. Pulmonary: Clear to auscultation b/l, no wheezing GI: Soft, nontender, nondistended Skin: Warm and dry Neuro: CN grossly intact. No focal deficits. Strengths equal b/l. Psych: oriented x 3 LABORATORY DATA: See below. IMAGING: CXR- IMPRESSION: No acute infiltrate or pulmonary edema. Mild cardiomegaly. MICROBIOLOGY: Please see below. ASSESSMENT AND PLAN: 1. IDDM - BS elevated, no acidosis. - Repeat BMP stat. Levemir 40 units ordered for now and resume normal equivalent home dose tomorrow. - Accuchecks + ISS. 2. Thrombocytopenia - Platelet 20 on presentation. Noted to have been low 70s-160s. - Repeat Platelet level to r/o platelet clumping and lab error. - No recent viral illness, no changes in medications recently to suggest medication induced. - No evidence of bleeding. Patient hesitant about testing for HIV, wants to see what the repeat levels are first. - Hematology/Oncology consulted. Suspicious for possible rheumatological etiology. Recent rheum workup in January + ELBA and cardiolipin IgG and IgM. - F/u repeat levels. Consider Rheum consult. 3. HTN - Resume home medications. 4. CAD - Resume home medications. - No chest pain. 5. Migraines and chronic pain - Will use opiate for the time given acute abdominal pain. - Will taper off prior to discharge. 6. DVT/PE - Will resume Eliquis at this time as patient has no evidence of bleeding and recent history of clots. 7. Chronic back pain and Migraine - Has been on multiple different medications, reportedly on oxycodone at home. - start oxycodone 5mg PRN for pain with morphine for breakthrough. DVT ppx: Eliquis and SCD Code status: Full code Vital Signs Vital Signs Date Time Temp Pulse Resp B/P (MAP) Pulse Ox O2 Delivery O2 Flow Rate FiO2 05/13/19 17:03 79 05/13/19 17:02 20 05/13/19 16:33 98 05/13/19 16:15 156/73 (100) 05/13/19 13:03 96.8 Room Air Laboratory Data Labs 24H Laboratory Tests 2 05/13/19 13:12: Bedside Glucose (Misc Panel) > 600*H 05/13/19 13:23: Bedside Glucose (Misc Panel) > 600*H 05/13/19 13:34: Immature Granulocyte % (Auto) 1.0, Neutrophils (%) (Auto) 73.6H, Lymphocytes (%) (Auto) 16.2L, Monocytes (%) (Auto) 6.1H, Eosinophils (%) (Auto) 2.2, Basophils (%) (Auto) 0.9, Neutrophils # (Auto) 6.6, Lymphocytes # (Auto) 1.5, Monocytes # (Auto) 0.6, Eosinophils # (Auto) 0.2, Basophils # (Auto) 0.1, Nucleated Red Blood Cells % (auto) 0.0, Immature Platelet Fraction 15.2H, Blood Gas Bicarbonate Standard 23.0, Venous Blood pH 7.423, Venous Blood Partial Pressure CO2 34.8L, Venous Blood Partial Pressure O2 52.5H, Venous Blood Total Carbon Dioxide 23.3L, Venous Blood HCO3 22.2L, Venous Blood Oxygen Saturation 87.7H, Venous Blood Base Excess -1.5, Anion Gap 8, Glomerular Filtration Rate > 60.0, Osmolality 308H, Calcium Level 8.8, Phosphorus Level 2.9, Magnesium Level 2.0, Total Bilirubin 1.3H, Direct Bilirubin 0.3H, Aspartate Amino Transf (AST/SGOT) 9, Alanine Aminotransferase (ALT/SGPT) 22, Alkaline Phosphatase 123H, Total Creatine Kinase 81, Creatine Kinase MB 1.5, Creatine Kinase MB Relative Index 1. 85, Troponin I < 0.02, Total Protein 7.3, Albumin 3.9, Albumin/Globulin Ratio 1.15, Lipase 342, B-Hydroxybutyrate 1.77 05/13/19 14:41: Bedside Glucose (Misc Panel) 343H 05/13/19 16:03: Bedside Glucose (Misc Panel) 339H 05/13/19 16:29: Blood Gas Bicarbonate Standard 22.7, Venous Blood pH 7.377, Venous Blood Partial Pressure CO2 40.6, Venous Blood Partial Pressure O2 48.3, Venous Blood Total Carbon Dioxide 24.6, Venous Blood HCO3 23.3, Venous Blood Oxygen Saturation 82.8H, Venous Blood Base Excess -1.7 05/13/19 16:30: Urine Color STRAW, Urine Appearance CLEAR, Urine pH 7.0, Urine Specific [place] 1.030, Urine Protein NEGATIVE, Urine Glucose (UA) 3+H, Urine Ketones NEGATIVE, Urine Blood 2+H, Urine Nitrite NEGATIVE, Urine Bilirubin NEGATIVE, Urine Urobilinogen 0.2, Urine Leukocyte Esterase NEGATIVE, Urine WBC (Auto) 0, Urine RBC (Auto) 30H, Urine Hyaline Casts (Auto) 0, Urine Bacteria (Auto) NEGATIVE, Urine Squamous Epithelial Cells 0, Urine Sperm (Auto) 05/13/19 17:10: Bedside Glucose (Misc Panel) 290H CBC/BMP Laboratory Tests 05/13/19 13:34 Microbiology Microbiology 05/13/19 Blood Culture, Received Pending 05/13/19 Blood Culture, Received Pending Home Medications Scheduled Apixaban (Eliquis) 5 Mg Tablet, 5 MG PO BID Aspirin (Aspirin EC) 81 Mg Tablet.dr, 81 MG PO DAILY Insulin Glargine,Hum.rec.anlog (Toujeo Max Solostar) 300 Unit/Ml Inj, 55 UNITS SC DAILY Scheduled PRN Oxycodone HCl (Oxycodone HCl) 5 Mg Tablet, 10 MG PO Q6H PRN for PAIN Allergies Coded Allergies: acetaminophen (Verified Allergy, Severe, anaphylaxis, 04/16/19) A-FIB/CHADSVASC A-FIB History Current/History of A-Fib/PAF?: No MEL DE LA GARZA MD May 13, 2019 18:19
[2019-05-13 19:18] LABS: BASO # 0.1 10^3/uL (0.0-0.2); EOS # 0.3 10^3/uL (0.0-0.5); EOS % 3.1 % (0.0-3.0); HEMATOCRIT 37.6 % (42.0-52.0); HEMOGLOBIN 13.7 g/dl (13.5-17.5); LYMPH # 2.5 10^3/uL (1.5-5.0); LYMPH % 27.3 % (24.0-44.0); MEAN CORPUSCULAR HGB CONC 36.4 g/dl (32.0-36.5); MEAN CORPUSCULAR VOLUME 82.3 fl (80.0-96.0); MONO # 0.6 10^3/uL (0.0-0.8); MONO % 6.1 % (0.0-5.0); NEUTROPHILS # 5.7 10^3/uL (1.5-8.5); NEUTROPHILS % 61.7 % (36.0-66.0); RED BLOOD COUNT 4.57 10^6/uL (4.30-6.10); WHITE BLOOD COUNT 9.2 10^3/uL (4.0-10.0)
[2019-05-13 19:38] LABS: HEMOGLOBIN A1c 11.2 %
[2019-05-13 19:40] LABS: PLATELET COUNT, AUTOMATED 23 10^3/uL (150-450)
[2019-05-13 22:58] VITALS: BP 175/84
--- NOTE | 2019-05-14 07:46 | DS.PDOC ---
Discharge Summary General Date of Admission May 13, 2019 at 18:00 Date of Discharge 05/14/19 Discharge Summary AMA NOTE /DISCHARGE SUMMARY ADMITTING DIAGNOSES: 1. IDDM 2. Thrombocytopenia 3. HTN 4. CAD 5. Migraines 6. DVT/PE 7. Chronic backpain DISCHARGE DIAGNOSES: 1. IDDM 2. Thrombocytopenia 3. HTN 4. CAD 5. Migraines 6. DVT/PE 7. Chronic backpain HOSPITAL COURSE: Patient is 54M was sent to the hospital for hyperglycemia as BS was noted to be in 600-700s range due to recent medication changes. He was also found to be thrombocytopenia with platelet of 20 on admission and was admitted for further evaluation and BS control. He noted to have left AMA shortly after admission overnight, unsure what exactly happened but suspect that it may be due to pain medications not getting the dose he wants. Vital Signs/I&Os Vital Signs Date Time Temp Pulse Resp B/P (MAP) Pulse Ox O2 Delivery O2 Flow Rate FiO2 05/13/19 22:58 97.8 76 18 175/84 (114) 97 Room Air Laboratory Data Labs 24H Laboratory Tests 2 05/13/19 13:12: Bedside Glucose (Misc Panel) > 600*H 05/13/19 13:23: Bedside Glucose (Misc Panel) > 600*H 05/13/19 13:34: Immature Granulocyte % (Auto) 1.0, Neutrophils (%) (Auto) 73.6H, Lymphocytes (%) (Auto) 16.2L, Monocytes (%) (Auto) 6.1H, Eosinophils (%) (Auto) 2.2, Basophils (%) (Auto) 0.9, Neutrophils # (Auto) 6.6, Lymphocytes # (Auto) 1.5, Monocytes # (Auto) 0.6, Eosinophils # (Auto) 0.2, Basophils # (Auto) 0.1, Nucleated Red Blood Cells % (auto) 0.0, Immature Platelet Fraction 15.2H, Blood Gas Bicarbonate Standard 23.0, Venous Blood pH 7.423, Venous Blood Partial Pressure CO2 34.8L, Venous Blood Partial Pressure O2 52.5H, Venous Blood Total Carbon Dioxide 23.3L, Venous Blood HCO3 22.2L, Venous Blood Oxygen Saturation 87.7H, Venous Blood Base Excess -1.5, Anion Gap 8, Glomerular Filtration Rate > 60.0, Estimated Mean Plasma Glucose 275H, Hemoglobin A1c 11.2, Osmolality 308H, Calcium Level 8.8, Phosphorus Level 2.9, Magnesium Level 2.0, Total Bilirubin 1.3H, Direct Bilirubin 0.3H, Aspartate Amino Transf (AST/SGOT) 9, Alanine Aminotransferase (ALT/SGPT) 22, Alkaline Phosphatase 123H, Total Creatine Kinase 81, Creatine Kinase MB 1.5, Creatine Kinase MB Relative Index 1.85, Troponin I < 0.02, Total Protein 7.3, Albumin 3.9, Albumin/Globulin Ratio 1.15, Lipase 342, B-Hydroxybutyrate 1.77 05/13/19 14:41: Bedside Glucose (Misc Panel) 343H 05/13/19 16:03: Bedside Glucose (Misc Panel) 339H 05/13/19 16:29: Blood Gas Bicarbonate Standard 22.7, Venous Blood pH 7.377, Venous Blood Partial Pressure CO2 40.6, Venous Blood Partial Pressure O2 48.3, Venous Blood Total Carbon Dioxide 24.6, Venous Blood HCO3 23.3, Venous Blood Oxygen Saturation 82.8H, Venous Blood Base Excess -1.7 05/13/19 16:30: Urine Color STRAW, Urine Appearance CLEAR, Urine pH 7.0, Urine Specific [place] 1.030, Urine Protein NEGATIVE, Urine Glucose (UA) 3+H, Urine Ketones NEGATIVE, Urine Blood 2+H, Urine Nitrite NEGATIVE, Urine Bilirubin NEGATIVE, Urine Urobilinogen 0.2, Urine Leukocyte Esterase NEGATIVE, Urine WBC (Auto) 0, Urine RBC (Auto) 30H, Urine Hyaline Casts (Auto) 0, Urine Bacteria (Auto) NEGATIVE, Urine Squamous Epithelial Cells 0, Urine Sperm (Auto) 05/13/19 17:10: Bedside Glucose (Misc Panel) 290H 05/13/19 18:15: Bedside Glucose (Misc Panel) 288H 05/13/19 19:03: Immature Granulocyte % (Auto) 0.8, Neutrophils (%) (Auto) 61.7, Lymphocytes (%) (Auto) 27.3, Monocytes (%) (Auto) 6.1H, Eosinophils (%) (Auto) 3.1H, Basophils (%) (Auto) 1.0, Neutrophils # (Auto) 5.7, Lymphocytes # (Auto) 2.5, Monocytes # (Auto) 0.6, Eosinophils # (Auto) 0.3, Basophils # (Auto) 0.1, Nucleated Red Blood Cells % (auto) 0.0 05/13/19 22:49: Bedside Glucose (Misc Panel) 237H CBC/BMP Laboratory Tests 05/13/19 13:34 05/13/19 19:03 FSBS Laboratory Tests Test 05/13/19 13:12 05/13/19 13:23 05/13/19 14:41 05/13/19 16:03 Range/Units Bedside Glucose (Misc Panel) > 600 > 600 343 339 70-105 MG/DL Test 05/13/19 17:10 05/13/19 18:15 05/13/19 22:49 Range/Units Bedside Glucose (Misc Panel) 290 288 237 70-105 MG/DL Microbiology Microbiology 05/13/19 Blood Culture, Received Pending 05/13/19 Blood Culture, Received Pending Discharge Medications Scheduled Apixaban (Eliquis) 5 Mg Tablet, 5 MG PO BID, (Reported) Aspirin (Aspirin EC) 81 Mg Tablet.dr, 81 MG PO DAILY, (Reported) Insulin Glargine,Hum.rec.anlog (Toujeo Max Solostar) 300 Unit/Ml Inj, 55 UNITS SC DAILY, (Reported) Scheduled PRN Oxycodone HCl (Oxycodone HCl) 5 Mg Tablet, 10 MG PO Q6H PRN for PAIN, (Reported) Allergies Coded Allergies: acetaminophen (Verified Allergy, Severe, anaphylaxis, 04/16/19) MEL DE LA GARZA MD May 14, 2019 07:45
[2019-05-14] MEDS ORDERED: ASPIRIN 81 MG ENTERIC TAB PO SCH (09:00)
== END 2019-05-13 23:10 | disposition left against medical advice (07) | DRG 420 ==
LOC: M ED 13:03 → M ED INP 18:00 → M MS4PR 22:50
PROVIDERS: ADMIT Student in an Organized Health Care Education/Training Program; ATTEND Student in an Organized Health Care Education/Training Program
DX: E11.65 Type 2 diabetes mellitus with hyperglycemia (principal); D69.6 Thrombocytopenia, unspecified; I10 Essential (primary) hypertension; I25.10 Atherosclerotic heart disease of native coronary artery without angina pectoris; G43.909 Migraine, unspecified, not intractable, without status migrainosus; M54.5 Low back pain; Z91.018 Allergy to other foods; Z86.711 Personal history of pulmonary embolism; Z86.718 Personal history of other venous thrombosis and embolism; Z79.82 Long term (current) use of aspirin; Z79.4 Long term (current) use of insulin; Z88.8 Allergy status to other drugs, medicaments and biological substances; Z88.6 Allergy status to analgesic agent

== ENCOUNTER 2019-06-23 09:34 | Emergency (ER) | payer OTHER ==
[~2019-06-23] VITALS: Ht 182.9 cm; Wt 95.0 kg
[~2019-06-23 09:34] MED LIST changes: +BASA100I
[2019-06-23] MEDS ORDERED: ATOR40TA75 (09:53)
[2019-06-23] MEDS ORDERED: METO1TAB87 (09:53)
[2019-06-23] MEDS ORDERED: CYCL10TA (09:53)
[2019-06-23] MEDS ORDERED: AMIT10TA (09:53)
[2019-06-23] MEDS ORDERED: MORPHINE 10 MG/ML 1ML VIAL (J2270) IM ONE (10:15)
[2019-06-23 10:45] LABS: HEMATOCRIT 47.1 % (42.0-52.0); HEMOGLOBIN 16.3 g/dl (13.5-17.5); MEAN CORPUSCULAR HEMOGLOBIN 29.7 pg (27.0-33.0); MEAN CORPUSCULAR HGB CONC 34.6 g/dl (32.0-36.5); MEAN CORPUSCULAR VOLUME 85.8 fl (80.0-96.0); RED BLOOD COUNT 5.49 10^6/uL (4.30-6.10); WHITE BLOOD COUNT 7.3 10^3/uL (4.0-10.0)
[2019-06-23 10:51] LABS: PLATELET COUNT, AUTOMATED 21 10^3/uL (150-450)
[2019-06-23 10:56] LABS: APPEARANCE, URINE CLEAR (CLEAR); BACTERIA, URINE AUTO NEGATIVE (NEGATIVE); BILIRUBIN, URINE AUTO NEGATIVE (NEGATIVE); BLOOD, URINE BLOOD 1+ (NEGATIVE); COLOR, URINE YELLOW (YELLOW); GLUCOSE, URINE (UA) AUTO 3+ mg/dL (NEGATIVE); KETONE, URINE AUTO NEGATIVE (NEGATIVE); LEUKOCYTE ESTERASE, URINE AUTO NEGATIVE (NEGATIVE); MUCUS, URINE SMALL (NEGATIVE); NITRITE, URINE AUTO NEGATIVE (NEGATIVE); PROTEIN, URINE AUTO 1+ mg/dL (NEGATIVE); RBC, URINE AUTO 4 /HPF (0-3); SPECIFIC GRAVITY URINE AUTO 1.023 (1.002-1.035); SQUAMOUS EPITHELIAL CELL UR AU 0 /HPF (0-6); UROBILINOGEN, URINE AUTO 0.2 mg/dL (0.0-2.0); WBC, URINE AUTO 3 /HPF (0-3)
--- NOTE | 2019-06-23 10:56 | REP ---
Clinical: Trauma. Technique: Frontal view of the chest with four views of the left hemithorax. Findings: Frontal view of the chest demonstrates no acute cardiopulmonary process. Multiple views of the left hemithorax demonstrates no obvious acute rib fracture or pathology. Impression: Normal left rib series Electronically Signed by Jian Looney MD 06/23/2019 10:47 A
[2019-06-23 11:03] LABS: BLOOD UREA NITROGEN 12 MG/DL (7-18); CALCIUM LEVEL 8.9 MG/DL (8.5-10.1); CARBON DIOXIDE LEVEL 25 MEQ/L (21-32); CHLORIDE LEVEL 105 MEQ/L (98-107); CREATININE FOR GFR 1.17 MG/DL (0.70-1.30); GLOMERULAR FILTRATION RATE > 60.0 (>56); GLUCOSE, FASTING 237 MG/DL (70-100); POTASSIUM SERUM 4.2 MEQ/L (3.5-5.1); SODIUM LEVEL 140 MEQ/L (136-145)
[2019-06-23 11:23] LABS: INR 1.05; PROTHROMBIN TIME 13.4 SECONDS (11.8-14.0)
[2019-06-23] MEDS ORDERED: NS 1,000 ML IV ONE (11:30)
[2019-06-23] MEDS: HYDROMORPHONE HCL 0.5 MG/ 0.5 ML SYRINGE (J1170 PER 1) IV PRN ×2 (11:36→12:06)
[2019-06-23 11:46] LABS: ALBUMIN 4.1 GM/DL (3.2-5.2); ALT/SGPT 30 U/L (12-78); BILIRUBIN,DIRECT 0.3 MG/DL (0.0-0.2); BILIRUBIN,TOTAL 1.3 MG/DL (0.2-1.0); TOTAL PROTEIN 7.6 GM/DL (6.4-8.2)
[2019-06-23] MEDS ORDERED: ISOVUE-370 76% 100ML VIAL (Q9967) As Ordered ONE (12:02)
--- NOTE | 2019-06-23 12:35 | REP ---
Clinical: Trauma. Technique: Axial contrast enhanced images from the lung bases to the pubic symphysis using 100 ml Isovue 370 intravenous contrast material with coronal and sagittal re-formations. Comparison: 12/26/2018. Findings: Lung bases are clear. Visualized heart and pericardium normal. No evidence for solid organ injury. Liver, spleen, pancreas, and bilateral adrenal glands are normal. Cholelithiasis noted without acute cholecystitis. Kidneys demonstrate few bilateral cysts and nonobstructing right renal calculi up to 5 mm. The enteric system is without obstruction or acute inflammatory process. Normal terminal ileum and appendix identified in the right lower quadrant. Scattered sigmoid diverticula noted without acute diverticulitis. Pelvis demonstrates normal bladder and age appropriate prostate/seminal vesicles. No ascites. No free air. No adenopathy. Abdominal aorta and vasculature without evidence for injury. Musculoskeletal structures demonstrate degenerative changes without evidence for acute injury Impression: 1. No evidence for solid organ injury or acute abdominopelvic pathology. 2. Cholelithiasis. 3. Nephrolithiasis and few bilateral renal cysts. 4. Sigmoid diverticula without acute diverticulitis. 5. No ascites. No free air. No adenopathy. No focal stranding. Electronically Signed by Jian Looney MD 06/23/2019 12:27 P
--- NOTE | 2019-06-23 12:39 | REP ---
Clinical: Trauma. Technique: Axial contrast enhanced images from the thoracic inlet to the upper abdomen with coronal and sagittal re-formations using 100 ml Isovue 370 intravenous contrast material. Comparison: 01/27/2019. Findings: The bilateral lung dillard are well-aerated and clear. No consolidation/contusion, effusion, or pneumothorax. No significant nodule or mass lesion. Tracheobronchial tree is patent. Mediastinum demonstrates normal thoracic aorta and pulmonary vasculature. Atherosclerotic changes to the coronary arteries noted without cardiomegaly or pericardial effusion. No significant axillary, hilar, or mediastinal adenopathy. Musculoskeletal structures are intact without evidence for acute injury. Impression: No acute mediastinal or pleuroparenchymal process. No evidence for acute thoracic trauma/injury. Electronically Signed by Jian Looney MD 06/23/2019 12:30 P
[2019-06-23 12:56] VITALS: BP 145/77
[2019-06-23 13:51] LABS: PLTBLUE- EDTA FREE CALC 9 K/mm3 (172-450)
[2019-06-23 13:52] LABS: PLTBLUE- EDTA FREE MACHINE 8 10^3/uL (172-450)
== END 2019-06-23 14:09 | disposition left against medical advice (07) ==
LOC: M ED 09:34
DX: R07.81 Pleurodynia (principal); D69.6 Thrombocytopenia, unspecified; Z53.21 Procedure and treatment not carried out due to patient leaving prior to being seen by health care provider; W01.10XA Fall on same level from slipping, tripping and stumbling with subsequent striking against unspecified object, initial encounter; Y92.9 Unspecified place or not applicable; Y93.9 Activity, unspecified; Y99.9 Unspecified external cause status; E11.9 Type 2 diabetes mellitus without complications; I25.10 Atherosclerotic heart disease of native coronary artery without angina pectoris; I10 Essential (primary) hypertension; Z86.711 Personal history of pulmonary embolism; F17.200 Nicotine dependence, unspecified, uncomplicated; K80.20 Calculus of gallbladder without cholecystitis without obstruction; N20.0 Calculus of kidney; N28.1 Cyst of kidney, acquired; K57.30 Diverticulosis of large intestine without perforation or abscess without bleeding; Z79.82 Long term (current) use of aspirin; Z79.01 Long term (current) use of anticoagulants; Z79.4 Long term (current) use of insulin; Z79.899 Other long term (current) drug therapy; Z88.6 Allergy status to analgesic agent
CPT/HCPCS: 71101; 71260; 74177; 80048; 80076; 81001; 85027; 85049; 85055; 85610; 85730; 86850; 86870; 86900; 86901; 96361; 96372; 96374; 99283; J1170; J2270; Q9967

== ENCOUNTER → 2019-07-04 | Outpatient (CLI) | payer OTHER ==
[~2019-07-04] MED LIST changes: +AMIT10TA; +ATOR40TA75; +CYCL10TA; +METO1TAB87
--- NOTE | 2019-07-05 02:27 | ECWPNPC ---
PATIENT NAME: ELIZABETH REED : 1965 GENDER: MALE VISIT DATE: 07/04/2019 DISCHARGE DATE: 07/04/19 0000 VISIT LOCKED DATE TIME: PHYSICIAN: JESSICA AARON RESOURCE: JESSICA AARON REASON FOR APPOINTMENT 1. CHRONIC PAIN- CAN''T SEE WELL, NEEDS HELP W/ PACKET, CAME EARLY HISTORY OF PRESENT ILLNESS NEW PATIENT CONSULT: 54 Y/O MALE REFERRED BY MARVIN GRIGGS DO,[facility] GME RESIDENT TO EVALUATE CHRONIC PAIN.HE IS ASKING FOR ADDERAL AND PAIN MEDICATIONS.STATES HE IS OUT OF MEDICATION-OXYCODONE 5MG PRESCRIBED BY [facility] HE HAS BEEN OVERTAKING BECAUSE THEY DONT WORK ONE AT A TIME.WAS SEEN IN ER AT BEGINING OF THE MONTH AND SIGNED HIMSELF OUT AMA BECAUSE HE HAS DOGS AT HOME A NOONE TO TAKE CARE OF THEM.HE STATES HE HAS ABNORMAL BLOOD TEST THAT THEY WANTED TO ADMIT HIM FOR .HE DOESNT HAVE ANY PLANS ON FOLLOWING UP WITH THIS.BECAME FRUSTRATED WHEN I INFORMED HIM THAT I WOULDNT BE PRESCRIBING MEDIATIONS TODAY I DIDNT FEEL HE WAS MEDICALLY STABLE.INFORMED HIM THAT I WOULDNT RECOMMEND USING NARCOTIC PAIN MEDICATION BUT COULD LOOK AT ALTENATIVES TO NARCOTICS ONCE HE IS MEDICALLY STABLE.INFORMED HIM THAT I DONT PRESCRIBE ADDERALL.HE STAES HE DOESNT WANT ANY INJECTIONS OR TRIALS WITH NON NARCOTIC PAIN MEDICATION.TALKED BRIEFLY ABOUT [facility] WHICH HE STATES HE IS NOT INTERESTED IN A REFFERAL AND WILL TALK TO HIS DOCTOR.AT THIS POINT PATIENT STATES "THIS IS A WASTE OF TIME" AND WALKED OUT OF CLINIC. WHEN DID YOUR PAIN FIRST START? . BRIEFLY DESCRIBE HOW YOUR PAIN STARTED? . HOW DOES YOUR PAIN CHANGE WITH TIME? . DOES YOUR PAIN AWAKEN YOU FROM SLEEP? . HOW MANY HOURS OF SLEEP DO YOU NORMALLY GET? . ANY DIAGNOSTIC TESTING? . FACILITY WHERE TESTS WERE DONE? ____. PAIN TREATMENT TREATMENT YES CANCER HAVE YOU EVER HAD ANY TYPE OF CANCER?NO NO. PAIN SCREENING: PATIENT HAS A COMPLAINT OF ACUTE OR CHRONIC PAIN :YES FALL RISK SCREENING: SCREENING : NO FALLS IN THE PAST YEAR. [place] INVENTORY: QUESTIONNAIRE ASSESSEDTBD SCORE VALUE CALCULATED TBD CURRENT MEDICATIONS TAKING TOCOMFORT PATEL SOLOSTAR 300 UNIT/ML SOLUTION PEN-INJECTOR DIRECTED SUBCUTANEOUS 57 UNITS ONCE A DAY TAKING OXYCODONE HCL 5 MG TABLET 1 TABLET NEEDED ORALLY EVERY 6 HRS FOR SEVERE PAIN MDD: 20 MG, NOTES: STATES HE IS OUT NOT-TAKING ASPIRIN 81 81 MG TABLET DELAYED RELEASE 1 TABLET ORALLY ONCE A DAY NOT-TAKING BD PEN NEEDLE MICRO U/F 32G X 6 MM MISCELLANEOUS DIRECTED DIRECTED DIRECTED NOT-TAKING OXYCODONE HCL 5 MG CAPSULE 1 CAPSULE NEEDED ORALLY EVERY 6 HRS NEEDED FOR SEVERE PAIN NOT-TAKING BASAGLAR KWIKPEN 100 UNIT/ML SOLUTION PEN-INJECTOR 55 UNITS SUBCUTANEOUS EVERY NIGHT NOT-TAKING AMITRIPTYLINE HCL 10 MG TABLET 1 TABLET AT BEDTIME ORALLY ONCE A DAY NOT-TAKING CYCLOBENZAPRINE HCL 10 MG TABLET 1 TABLET NEEDED ORALLY THREE TIMES A DAY UNKNOWN ELIQUIS 5 MG TABLET DIRECTED ORALLY TWICE PER DAY UNKNOWN ATORVASTATIN CALCIUM 40 MG TABLET 1 TABLET ORALLY ONCE A DAY UNKNOWN GABAPENTIN 300 MG CAPSULE 1 CAPSULE ORALLY TWICE A DAY UNKNOWN METOPROLOL TARTRATE 25 MG TABLET 1 TABLET WITH FOOD ORALLY TWICE A DAY UNKNOWN NICOTINE STEP 1 21 MG/24HR PATCH 24 HOUR 1 PATCH TO SKIN TRANSDERMAL ONCE A DAY UNKNOWN VANCOMYCIN HCL 125 MG CAPSULE 1 CAPSULE ORALLY EVERY 6 HRS UNKNOWN BENZONATATE 200 MG CAPSULE 1 CAPSULE ORALLY THREE TIMES A DAY UNKNOWN LIPITOR 80 MG TABLET 1 TABLET ORALLY ONCE A DAY UNKNOWN TRAMADOL HCL 50 MG TABLET 1 TABLET NEEDED ORALLY EVERY 6 HOURS UNKNOWN METFORMIN HCL 500 MG TABLET 1 TABLET WITH A MEAL ORALLY TWICE A DAY UNKNOWN TRULICITY 0.75 MG/0.5ML SOLUTION PEN-INJECTOR DIRECTED SUBCUTANEOUS ONCE A WEEK UNKNOWN ONETOUCH TEST - MEDICATION LIST REVIEWED AND RECONCILED WITH THE PATIENT PAST MEDICAL HISTORY CHRONIC PAIN SYNDROME - LOW BACK AND NECK DIABETES WITH DIABETIC NEUROPATHY HTN CAD 4 CARDIAC STENTS HEADACHES NARCOTIC DEPENDENCE QUESTION RECENT SUBSEGMENTAL PE ALLERGIES TYLENOL: TOUNGE SWELLING, RASH SURGICAL HISTORY CARDIAC STENTS-2013 FAMILY HISTORY FATHER: 63 YRS, DIAGNOSED WITH OTHER SPECIFIED CONDITIONS INFLUENCING HEALTH STATUS MOTHER: ALIVE, DIABETES 2 SON(S) , 1 DAUGHTER(S) . FATHER: OF CAD AT AGE 62PATERNAL GP: CAD IN 40SMOTHER: DM, PACEMAKERSISTER: STROKES MULTIPLESISTER: DMSON BLOOD CLOT LEG. SOCIAL HISTORY GENERAL: TOBACCO USE ARE YOU A:CURRENT SMOKER ARE YOU INTERESTED IN QUITTING?NOT READY TO QUIT COUNSELED THE PATIENT ON SMOKING EFFECTS, EDUCATION [id number]/10/2019 HOW MANY CIGARETTES A DAY DO YOU SMOKE?6-10 HOW SOON AFTER YOU WAKE UP DO YOU SMOKE YOUR FIRST CIGARETTE?6-30 MIN HOW OFTEN DO YOU SMOKE CIGARETTES?EVERY DAY PATIENT COUNSELED ON THE DANGERS OF TOBACCO USE AND URGED TO QUIT:07/01/2019 SMOKING CESSATION INFORMATION GIVEN06/06/2019 VAPORNO E-CIGARETTENO HIV / HEP-C SCREENING HIV TEST OFFERED TO PATIENT:YES DATE OFFERED:01/31/2019 TEST ACCEPTED:NO HEP-C TEST OFFERED TO PATIENT:YES DATE OFFERED:01/31/2019 REASON:PATIENT DECLINED TEST ACCEPTED:NO REASON:PATIENT DECLINED BROCHURE PROVIDED TO PATIENTYES OTHERS AT HOME: NONE. HOUSING: OWNS HOME. EDUCATION LEVEL OF EDUCATION:NOT FINISHED HIGH SCHOOL DIET: REGULAR. LANGUAGE LANGUAGES SPOKEN:KAZAKH DOMESTIC VIOLENCE STATUS:SINGLE DO YOU FEEL SAFE IN YOUR ENVIRONMENT?YES RECREATIONAL DRUG USE DRUG USE?NO PATIENT DENIES ABUSE OR MISSUSED OF ANY MEDICATION DENIES PATIENT DENIES USE OF ANY ILLEGAL SUBSTANCE INCLUDING MARIJUANA OR COCAINE DENIES EXERCISE: NO REGULAR EXERCISE. PATIENT: ____. LEARNING BARRIERS / SPECIAL NEEDS HEARING IMPAIRED?NO VISION IMPAIRED?NO PAIN CLINIC PFS, CLERGY, PUBLIC HEALTH REFERRALS PFS REFERRAL NEEDED?NO CLERGY REFERRAL NEEDED?NO PUBLIC HEALTH REFERRAL NEEDED?NO WAS THE PROVIDER NOTIFIED OF ANY PERTINENT INFO?YES HAS THE PATIENT BEEN EDUCATED REGARDING HIS/HER PLAN OF CARE?YES HAS THE PATIENT BEEN EDUCATED REGARDING PAIN, THE RISK FOR PAIN, THE IMPORTANCE OF EFFECTIVE PAIN MANAGEMENT, AND THE PAIN ASSESSMENT PROCESS?YES CLERGY REFERRAL NEEDED?NO WAS THE PROVIDER NOTIFIED OF ANY PERTINENT INFO?NO PFS REFERRAL NEEDED?NO PUBLIC HEALTH REFERRAL NEEDED?NO LATEX QUESTIONNAIRE LATEX ALLERGY : HAVE YOU EVER DEVELOPED ANY TYPE OF REACTION AFTER HANDLING LATEX PRODUCTS SUCH RUBBER GLOVES, CONDOMS, DIAPHRAGMS, BALLOONS, SOCKS, OR UNDERWEAR?NO LATEX ALLERGY : HAVE YOU EVER DEVELOPED ANY TYPE OF REACTION DURING OR AFTER DENTAL APPOINTMENT, VAGINAL/RECTAL EXAMINATION, SURGICAL PROCEDURE, OR ANY OTHER EXPOSURE?NO LATEX RISK : HAVE YOU EVER HAD ANY DIFFICULTY BREATHING OR HIVES AFTER EATING OR HANDLING ANY FRUITS, OR VEGETABLES; SUCH KIWI, BANANAS, STONE FRUITS, OR CHESTNUTSNO LATEX RISK : DO YOU HAVE A PREVIOUS PERSONAL HISTORY OF MORE THAN NINE SURGERIES, SPINA BIFIDA, OR REPEATED CATHERIZATIONS? NO LATEX RISK : ARE YOU FREQUENTLY EXPOSED TO LATEX PRODUCTS IN YOUR OCCUPATION?NO DATE ASKED : 07/01/2019 CAFFEINE CAFFEINE USE?YES HOW OFTEN AND HOW MUCH? 2-3 CUPS PER DAY ADVANCE DIRECTIVE ADVANCE DIRECTIVE DISCUSSED WITH PATIENT:NO PATIENT STATES HE HAS NO ADVANCED DIRECTIVES AND DECLINES INFORMATION AT THIS TIME 07/01/19 1442 [facility] VOODOO VOODOO NO TEMPLE BELIEFS THAT WOULD IMPACT HEALTH CARE. MARITAL STATUS: - BUT HAS NOT SEEN IN 13 YEARS. ALCOHOL SCREENING DID YOU HAVE A DRINK CONTAINING ALCOHOL IN THE PAST YEAR?YES HOW OFTEN DID YOU HAVE A DRINK CONTAINING ALCOHOL IN THE PAST YEAR?NEVER (0 POINTS) HOW MANY DRINKS DID YOU HAVE ON A TYPICAL DAY WHEN YOU WERE DRINKING IN THE PAST YEAR?1 OR 2 (0 POINTS) HOW OFTEN DID YOU HAVE SIX OR MORE DRINKS ON ONE OCCASION IN THE PAST YEAR?NEVER (0 POINTS) POINTS0 INTERPRETATIONNEGATIVE OCCUPATION: DISABLED. SEXUAL HX HAD SEX IN THE LAST 12 MONTHS (VAGINAL, ORAL, OR ANAL)?NO HAVE YOU EVER HAD AN STD?NO AT LEAST 1 PACK A DAY SINCE AGE 16PRE APPOINTMENT PHONE CALL COMPLETED 07/01/19 1442 [facility]. HOSPITALIZATION/MAJOR DIAGNOSTIC PROCEDURE PE AND CDIFF 01/2019 HYPERGLYCEMIA 05/13/19 SEEN IN ER AT [facility] LEFT AMA 06/23/19 REVIEW OF SYSTEMS REVIEWED BY: PROVIDER: . CONSTITUTIONAL: ANY CHANGE IN YOUR MEDICAL CONDITION? NO . CHILLS NO . FEVER NO . INFECTION: DO YOU HAVE NEW INFECTIONS? NO . DO YOU HAVE HISTORY OF MRSA? NO . MUSCULOSKELETAL: ANY NEW PATTERNS OF PAIN OR NUMBNESS? BOTH ARMS AND FEET GO NUMB . SYTEMIC LUPUS NO . GASTROENTEROLOGY: ANY NEW CHANGE IN BOWEL CONTROL? NO . BARRETTS ESOPHAGUS NO . CIRRHOSIS NO . HEPATITIS NO . LIVER FAILURE NO . ACID REFLUX NO . UNEXPLAINED WEIGHT LOSS NO . GENITOURINARY: ANY NEW CHANGE IN BLADDER CONTROL? NO . IS THERE A CHANCE YOU COULD BE ? NO . HEMATOLOGY/LYMPH: DO YOU TAKE ANY BLOOD THINNERS? (FOR EXAMPLE- COUMADIN, PLAVIX, AGGRENOX, PLATEL, PRADAXA, OR XARELTO) ELEQUIS IS ON LIST BUT PT IS NOT SURE HE IS STILL TAKING . WHEN WAS YOUR LAST DOSE? DATE: TIME: . LOW PLATELET COUNT NO . SICKLE CELL DISEASE NO . VON WILLIEBRANDS NO . FACTOR V LEIDEN NO . THALLASEMIA NO . ANEMIA NO . EASY BRUISING NO . NEUROLOGY: HAVE YOU FALLEN IN THE PAST 12 MONTHS? PT STATES HE FALLS ALL THE TIME 2 WEEK AGO IN ER . ANY NEW EXTREMITY NUMBNESS OR WEAKNESS? NO . HEAD INJURY NO . DEMENTIA NO . CEREBRAL PALSY NO . MULTIPLE SCLEROSIS NO . DIZZINESS NO . HEADACHE NO . STROKES NO . VERTIGO NO . CARDIOLOGY: DO YOU HAVE A PACEMAKER OR DEFIBRILLATOR? NO . ANGINA NO . HEART ATTACK PT STATES HE HAS 4 STENTS IN HEART FROM 2013 . HEART SURGERY NO . CONGESTIVE HEART FAILURE/FLUID OVERLOAD NO . CHEST PAIN NO . HIGH BLOOD PRESSURE NO . IRREGULAR HEART BEAT NO . RESPIRATORY: HAVE YOU BEEN SICK IN THE PAST WEEK? NO . FEVER NO . FLU LIKE SYMPTOMS? NO . CPAP NO . BYPAP NO . ASTHMA NO . EMPHYSEMA NO . CHRONIC LUNG DISEASES NO . SHORTNESS OF BREATH ON EXERTION NO . DO YOU USE ANY TYPE OF TOBACCO (SMOKE, SMOKELESS, CHEW)? YES . COUGH NO . SNORING NO . INTEGUMENTARY: DO YOU HAVE ANY RASHES OR OPEN SORES? NO . ALLERGIC/IMMUNO: ARE YOU ALLERGIC TO IV DYE? NO . ANY NEW ALLERGIES? NO . PSYCHIATRIC: DO YOU HAVE THOUGHTS OF HURTING YOURSELF OR SOMEONE ELSE? NO . ARE YOU ABUSED, NEGLECTED, OR IN AN UNSAFE ENVIRONMENT? NO . ENDOCRINOLOGY: ARE YOU DIABETIC? YES PT STATES HE SEES "DOUBLE BECAUSE OF DIABETES" . THYROID DISORDER NO . OTHER: DO YOU NEED ANY PRESCRIPTIONS? PT IS STATING HE IS OUT OF MEDICATIONS AND WAS "TOLD WHEN I COME HERE I WILL GET 10MG OXY'S THT IS THE ONLY THING THAT WORKS" . IF YES, PLEASE LIST: ____ . ANY NEW PROBLEMS WITH YOUR MEDICATIONS? NO . WHEN DID YOU LAST EAT? ____ . WHEN DID YOU LAST DRINK? ____ . WHAT DID YOU LAST DRINK? ____ . NAME OF PERSON DRIVING YOU HOME? ____ . DO YOU HAVE ANY OTHER QUESTIONS OR CONCERNS NO . VITAL SIGNS WT 232.4 LBS, HT 72 IN, BMI 31.52 INDEX, BP 155/81 MM HG, HR 83 /MIN, RR 20 /MIN, TEMP 96.9 F, OXYGEN SAT % 99%, SAFE IN ENV? (Y/N) YES, NA INITIALS [place] 10:07. ASSESSMENTS OTHER CHRONIC PAIN - G89.29 (PRIMARY) PROCEDURE CODES FA211 ESTABILISHED PATIENT [facility] CHARGE DISPOSITION & COMMUNICATION FOLLOW UP LEFT WITHOUT CHECKING OUT ELECTRONICALLY SIGNED BY JESSICA CHIN, ELSY ON 07/04/2019 AT 11:05 AM EST DISCLAIMER : THIS IS A VISIT SUMMARY EXTRACTED FROM THE [employer] CHART. IT IS NOT A COPY OF THE [employer] PROGRESS NOTE. MALKA
== END ==
LOC: M PAIN 10:30
PROVIDERS: ATTEND Nurse Practitioner Family
DX: G89.29 Other chronic pain (principal); E11.40 Type 2 diabetes mellitus with diabetic neuropathy, unspecified; I10 Essential (primary) hypertension; F17.210 Nicotine dependence, cigarettes, uncomplicated; Z88.6 Allergy status to analgesic agent; Z91.81 History of falling; Z79.4 Long term (current) use of insulin; Z79.899 Other long term (current) drug therapy

== ENCOUNTER 2020-01-07 10:10 | Emergency (ER) | payer OTHER ==
[~2020-01-07] VITALS: Ht 182.9 cm; Wt 97.1 kg
[~2020-01-07 10:10] MED LIST changes: -ASPI81TA85 PO; +ASPI81TA86 PO; -BUPR300T34; +BUPR300T92; +CYCL-707; -CYCL10TA
[2020-01-07 10:41] LABS: BASO # 0.1 10^3/uL (0.0-0.2); BASO % 0.9 % (0.0-1.0); EOS # 0.2 10^3/uL (0.0-0.5); EOS % 2.3 % (0.0-3.0); HEMATOCRIT 50.6 % (42.0-52.0); HEMOGLOBIN 18.3 g/dl (13.5-17.5); LYMPH # 1.9 10^3/uL (1.5-5.0); LYMPH % 18.9 % (24.0-44.0); MEAN CORPUSCULAR HEMOGLOBIN 29.8 pg (27.0-33.0); MEAN CORPUSCULAR HGB CONC 36.2 g/dl (32.0-36.5); MEAN CORPUSCULAR VOLUME 82.3 fl (80.0-96.0); MONO # 0.7 10^3/uL (0.0-0.8); MONO % 6.6 % (0.0-5.0); NEUTROPHILS % 70.4 % (36.0-66.0); RED BLOOD COUNT 6.15 10^6/uL (4.30-6.10)
[2020-01-07 10:47] LABS: PLATELET COUNT, AUTOMATED 61 10^3/uL (150-450)
[2020-01-07] MEDS ORDERED: NS 1,000 ML IV ONE (11:00)
[2020-01-07 11:09] LABS: ALBUMIN 4.1 GM/DL (3.2-5.2); ALT/SGPT 30 U/L (12-78); BILIRUBIN,DIRECT 0.2 MG/DL (0.0-0.2); BILIRUBIN,TOTAL 1.1 MG/DL (0.2-1.0); BLOOD UREA NITROGEN 16 MG/DL (7-18); CALCIUM LEVEL 8.8 MG/DL (8.5-10.1); CARBON DIOXIDE LEVEL 21 MEQ/L (21-32); CHLORIDE LEVEL 105 MEQ/L (98-107); CREATININE FOR GFR 1.14 MG/DL (0.70-1.30); GLOMERULAR FILTRATION RATE > 60.0 (>56); GLUCOSE, FASTING 404 MG/DL (70-100); LIPASE 140 U/L (73-393); POTASSIUM SERUM 3.9 MEQ/L (3.5-5.1); SODIUM LEVEL 135 MEQ/L (136-145); TOTAL PROTEIN 7.8 GM/DL (6.4-8.2)
[2020-01-07] MEDS ORDERED: ONDANSETRON 4MG/2ML VIAL IV ONE (11:15)
[2020-01-07] MEDS ORDERED: MORPHINE 4 MG/ML 1ML VIAL/SYRINGE (J2270) IV ONE (11:15)
--- NOTE | 2020-01-07 12:35 | REP ---
CT ABDOMEN AND PELVIS WITHOUT IV OR ORAL CONTRAST: Renal stone protocol. HISTORY: Left flank pain. Comparison CT study June 23, 2019. CT FINDINGS: Preliminary digital fruit grading supervisor radiograph demonstrates an unremarkable bowel gas pattern. The lung bases are clear on axial CT images. The liver and spleen are homogeneous in texture. There are small faintly calcified gallstones layering in the dependent portion the gallbladder. No abnormality is noted in the pancreas. Normal adrenal glands are seen. No retroperitoneal mass or adenopathy is observed. There is a 2.0 cm cyst in the right kidney. There is an intrarenal calculus 5 mm in diameter in the right lower pole. No hydronephrosis is seen. No left renal calculus is seen. There are multiple other smaller calcifications in the upper pole collecting system of the right kidney. There is one additional 6-7 mm calculus in the upper pole collecting system. No ureteral stone is seen. No bladder calculus is observed. There are dystrophic calcifications in the prostate gland. Seminal vesicles are unremarkable. Small and large intestinal bowel loops are unremarkable. A normal appendix is seen in the right lower quadrant. IMPRESSION: Intrarenal nephrolithiasis right kidney without hydronephrosis. No ureteral calculus on either side. There are dystrophic calcifications in the prostate. There is a small right renal cyst measuring 2.0 cm in diameter. Otherwise negative. Electronically Signed by Elvis Francis MD 01/07/2020 05:13 P
[2020-01-07] MEDS ORDERED: LIDOCAINE 5% (LIDODERM) PATCH TD ONE (13:00)
[2020-01-07 14:10] VITALS: BP 156/65
[2020-01-07 14:25] LABS: HEMOGLOBIN A1c 10.5 %
[2020-01-07] MEDS ORDERED: **NOTE PATIENT COMMENT** MISC XX SCH (21:00)
== END 2020-01-07 14:27 | disposition left against medical advice (07) ==
LOC: M ED 10:10
DX: R10.9 Unspecified abdominal pain (principal); R51 Headache; N20.0 Calculus of kidney; E11.65 Type 2 diabetes mellitus with hyperglycemia; G89.29 Other chronic pain; Z53.21 Procedure and treatment not carried out due to patient leaving prior to being seen by health care provider; N42.0 Calculus of prostate; I25.2 Old myocardial infarction; N28.1 Cyst of kidney, acquired; I11.9 Hypertensive heart disease without heart failure; K21.9 Gastro-esophageal reflux disease without esophagitis; E78.5 Hyperlipidemia, unspecified; E11.21 Type 2 diabetes mellitus with diabetic nephropathy; Z95.5 Presence of coronary angioplasty implant and graft; K52.9 Noninfective gastroenteritis and colitis, unspecified; M54.5 Low back pain; Z86.711 Personal history of pulmonary embolism; Z86.718 Personal history of other venous thrombosis and embolism; F32.9 Major depressive disorder, single episode, unspecified; F17.200 Nicotine dependence, unspecified, uncomplicated; Z79.01 Long term (current) use of anticoagulants; Z79.82 Long term (current) use of aspirin; Z79.4 Long term (current) use of insulin; Z79.899 Other long term (current) drug therapy; Z88.6 Allergy status to analgesic agent
CPT/HCPCS: 74176; 80048; 80076; 81001; 83036; 83690; 85025; 85049; 85055; 87086; 96361; 96374; 96375; 99283; J2270; J2405

== ENCOUNTER → 2020-02-19 | Outpatient (REF) | payer OTHER ==
[2020-04-02 08:21] LABS: BASO # 0.1 10^3/uL (0.0-0.2); BASO % 1.2 % (0.0-1.0); EOS # 0.2 10^3/uL (0.0-0.5); EOS % 3.1 % (0.0-3.0); HEMATOCRIT 44.9 % (42.0-52.0); HEMOGLOBIN 15.1 g/dl (13.5-17.5); LYMPH # 1.7 10^3/uL (1.5-5.0); LYMPH % 24.1 % (24.0-44.0); MEAN CORPUSCULAR HEMOGLOBIN 29.8 pg (27.0-33.0); MEAN CORPUSCULAR HGB CONC 33.6 g/dl (32.0-36.5); MEAN CORPUSCULAR VOLUME 88.6 fl (80.0-96.0); MONO # 0.6 10^3/uL (0.0-0.8); MONO % 8.6 % (0.0-5.0); NEUTROPHILS # 4.2 10^3/uL (1.5-8.5); NEUTROPHILS % 61.1 % (36.0-66.0); RED BLOOD COUNT 5.07 10^6/uL (4.30-6.10); WHITE BLOOD COUNT 6.9 10^3/uL (4.0-10.0)
[2020-04-02 08:22] LABS: PLATELET COUNT, AUTOMATED 37 10^3/uL (150-450)
[2020-04-02 11:16] LABS: ALBUMIN 3.8 GM/DL (3.2-5.2); ALT/SGPT 22 U/L (12-78); BLOOD UREA NITROGEN 9 MG/DL (7-18); CALCIUM LEVEL 8.7 MG/DL (8.5-10.1); CARBON DIOXIDE LEVEL 27 MEQ/L (21-32); CHLORIDE LEVEL 107 MEQ/L (98-107); CHOLESTEROL LEVEL 186 MG/DL (<200); CREATININE FOR GFR 1.08 MG/DL (0.70-1.30); GLOMERULAR FILTRATION RATE > 60.0 (>56); GLUCOSE, FASTING 176 MG/DL (70-100); HDL CHOLESTEROL 30 MG/DL (>40); LDL CHOLESTEROL 92 MG/DL (<100); NON-HDL-C 156 MG/DL; POTASSIUM SERUM 5.9 MEQ/L (3.5-5.1); SODIUM LEVEL 139 MEQ/L (136-145); TOTAL 25(OH) VITAMIN D 29.1 NG/ML (30.0-100.0); TOTAL PROTEIN 7.4 GM/DL (6.4-8.2); TRIGLYCERIDES LEVEL 320 MG/DL (<150)
[2020-04-02 11:52] LABS: HEMOGLOBIN A1c 10.5 %
== END ==
LOC: M LAB REF 15:52
PROVIDERS: ATTEND Physician Assistant
DX: G44.89 Other headache syndrome (principal); E78.5 Hyperlipidemia, unspecified; I25.10 Atherosclerotic heart disease of native coronary artery without angina pectoris; R39.11 Hesitancy of micturition; E11.65 Type 2 diabetes mellitus with hyperglycemia; H53.9 Unspecified visual disturbance

== ENCOUNTER → 2020-02-24 | Outpatient (REF) | payer OTHER ==
[2020-04-07 11:02] LABS: MAU/CREAT RATIO 87.9 MCG/MG (0.0-30.0)
== END ==
LOC: M LAB REF 07:23
PROVIDERS: ATTEND Physician Assistant
DX: E78.5 Hyperlipidemia, unspecified (principal); R39.11 Hesitancy of micturition; H53.9 Unspecified visual disturbance; G44.89 Other headache syndrome

== ENCOUNTER → 2020-04-15 | Outpatient (REF) | payer OTHER, MEDICAID | LOC: M LAB REF 19:03 | PROVIDERS: ATTEND Physician Assistant | DX: E78.5 Hyperlipidemia, unspecified (principal); I25.10 Atherosclerotic heart disease of native coronary artery without angina pectoris; R39.11 Hesitancy of micturition; E11.65 Type 2 diabetes mellitus with hyperglycemia; H53.9 Unspecified visual disturbance; G44.89 Other headache syndrome ==

== ENCOUNTER → 2020-08-11 | Outpatient (REF) | payer OTHER, MEDICAID ==
[~2020-08-11] MED LIST changes: +GABA-282 PO; -GABA-843 PO
== END ==
LOC: M LAB REF 15:45
PROVIDERS: ATTEND Family Medicine Addiction Medicine
DX: M54.5 Low back pain (principal)

== ENCOUNTER → 2020-12-16 | Outpatient (REF) | payer OTHER, MEDICAID ==
[~2020-12-16] MED LIST changes: -AMIT10TA; +AMIT10TA7
== END ==
LOC: M LAB REF 15:56
PROVIDERS: ATTEND Physician Assistant
DX: Z51.81 Encounter for therapeutic drug level monitoring (principal); Z79.891 Long term (current) use of opiate analgesic

== ENCOUNTER → 2021-05-18 | Outpatient (CLI) | payer MEDICAID, OTHER ==
--- NOTE | 2021-05-18 16:50 | REP ---
INDICATION: PLEURODYNIA. COMPARISON: 06/23/2019 TECHNIQUE: Four views of the left ribs with frontal view of the chest FINDINGS: The frontal view of the chest is unchanged from the prior exam showing cardiomegaly but no evidence of acute cardiopulmonary disease. Multiple views of the left ribs show a fracture of the 5th rib representing a change from the prior exam. No additional fractures are identified. IMPRESSION: Left 5th rib fracture. Frontal view of the chest unchanged from the prior exam. <Electronically signed by Javan Solorio > 05/18/21 [id number]
== END ==
LOC: M RAD 12:07
PROVIDERS: ATTEND Physician Assistant
DX: S22.31XA Fracture of one rib, right side, initial encounter for closed fracture (principal); X58.XXXA Exposure to other specified factors, initial encounter; Y92.9 Unspecified place or not applicable; Y99.9 Unspecified external cause status; Y93.9 Activity, unspecified

== ENCOUNTER 2021-05-26 07:36 | Inpatient (IN) | payer OTHER ==
[~2021-05-26] VITALS: Ht 182.9 cm; Wt 94.6 kg
[2021-05-26] MEDS ORDERED: ONDANSETRON 4MG/2ML VIAL IV ONE (08:00)
[2021-05-26] MEDS: MORPHINE 4 MG/ML 1ML VIAL/SYRINGE (J2270) IV PRN ×2 (08:13→08:56)
[2021-05-26] MEDS: NS 1,000 ML IV SCH ×2 (08:16→13:25)
[2021-05-26 08:22] LABS: BASO # 0.1 10^3/uL (0.0-0.2); BASO % 0.6 % (0.0-1.0); EOS # 0.2 10^3/uL (0.0-0.5); EOS % 1.3 % (0.0-3.0); HEMATOCRIT 46.3 % (42.0-52.0); HEMOGLOBIN 16.8 g/dl (13.5-17.5); LYMPH # 1.6 10^3/uL (1.5-5.0); LYMPH % 11.3 % (24.0-44.0); MEAN CORPUSCULAR HEMOGLOBIN 29.8 pg (27.0-33.0); MEAN CORPUSCULAR HGB CONC 36.3 g/dl (32.0-36.5); MEAN CORPUSCULAR VOLUME 82.1 fl (80.0-96.0); MONO # 0.8 10^3/uL (0.0-0.8); MONO % 5.9 % (2.0-8.0); NEUTROPHILS # 11.4 10^3/uL (1.5-8.5); NEUTROPHILS % 80.4 % (36.0-66.0); PLATELET COUNT, AUTOMATED 106 10^3/uL (150-450); RED BLOOD COUNT 5.64 10^6/uL (4.30-6.10); WHITE BLOOD COUNT 14.2 10^3/uL (4.0-10.0)
[2021-05-26 08:52] LABS: ALBUMIN 3.9 GM/DL (3.2-5.2); ALT/SGPT 25 U/L (12-78); BILIRUBIN,DIRECT 0.3 MG/DL (0.0-0.2); BILIRUBIN,TOTAL 1.5 MG/DL (0.2-1.0); BLOOD UREA NITROGEN 15 MG/DL (7-18); CALCIUM LEVEL 8.9 MG/DL (8.5-10.1); CARBON DIOXIDE LEVEL 18 MEQ/L (21-32); CHLORIDE LEVEL 107 MEQ/L (98-107); CREATININE FOR GFR 1.21 MG/DL (0.70-1.30); GLOMERULAR FILTRATION RATE > 60.0 (>56); GLUCOSE, FASTING 347 MG/DL (70-100); LIPASE 295 U/L (73-393); NT-PRO BNP 79 PG/ML (<125); POTASSIUM SERUM 3.3 MEQ/L (3.5-5.1); SODIUM LEVEL 136 MEQ/L (136-145); TOTAL PROTEIN 7.5 GM/DL (6.4-8.2)
[2021-05-26] MEDS ORDERED: LIDOCAINE 5% (LIDODERM) PATCH TD SCH (09:00)
[2021-05-26] MEDS ORDERED: ISOVUE-370 76% 100ML VIAL As Ordered ONE (09:05)
[2021-05-26] MEDS: HYDROMORPHONE HCL 0.5 MG/ 0.5 ML SYRINGE (J1170 PER 1) IV PRN ×2 (10:15→12:37)
[2021-05-26] MEDS ORDERED: HumuLIN R (REGULAR) INSULIN (NovoLIN R) **100U/ML** PER UNIT IV ONE (11:00)
[2021-05-26] MEDS ORDERED: METOCLOPRAMIDE INJ 10MG/2ML VIAL (J2765 PER 1) IV ONE (14:30)
[2021-05-26 15:32] LABS: RSV AMPLIFICATION NEGATIVE (NEGATIVE)
[2021-05-26] MEDS ORDERED: ONDANSETRON 4MG/2ML VIAL IV PRN (15:35)
[2021-05-26] MEDS ORDERED: DEXTROSE 50% 50 ML SYRINGE IV PRN (15:35)
[2021-05-26] MEDS ORDERED: POTASSIUM CHLORIDE 10MEQ SR TABLET PO ONE (15:35)
[2021-05-26] MEDS ORDERED: MORPHINE 2 MG/ML 1ML VIAL (J2270) IV PRN (15:35)
[2021-05-26] MEDS ORDERED: GLUCOSE 4GM CHEW TABLET PO PRN (15:35)
[2021-05-26] MEDS ORDERED: NS 1,000 ML IV SCH (15:35)
[2021-05-26] MEDS ORDERED: MAALOX 30 ML SUSP *UDC PO PRN (15:35)
[2021-05-26] MEDS ORDERED: GLUCAGON INJ 1MG VIAL SC PRN (15:35)
[2021-05-26] MEDS ORDERED: MOM 30ML SUSPENSION UDC PO PRN (15:35)
[2021-05-26] MEDS ORDERED: HOME MED LIST COMPLETE! XX SCH (16:15)
[2021-05-26] MEDS ORDERED: ADDE30TA PO (16:15)
[2021-05-26] MEDS ORDERED: ADDE10TA PO (16:15)
[2021-05-26] MEDS ORDERED: ADME100I SC (16:15)
[2021-05-26] MEDS ORDERED: TERA1CAP3 PO (16:15)
[2021-05-26] MEDS ORDERED: OXYC20TA2 PO (16:15)
[2021-05-26] MEDS ORDERED: NITR0.4S14 SL (16:15)
[2021-05-26] MEDS ORDERED: ATOR1TAB21 PO (16:15)
[2021-05-26] MEDS ORDERED: cefTRIAXone SOD 1 GM in D5W MINI-BAG PLUS 50 ML IV SCH (17:00)
[2021-05-26] MEDS ORDERED: NITROGLYCERIN 0.4 MG SUBL TABLET SL PRN (17:10)
[2021-05-26] MEDS ORDERED: HumaLOG INSULIN (NovoLOG) PER UNIT SC SCH ×2 (17:30→21:00)
[2021-05-26 18:00] VITALS: BP 125/59
[2021-05-26] MEDS ORDERED: metroNIDAZOLE 500 MG in IV 1 EA IV SCH (18:00)
[2021-05-26] MEDS ORDERED: APIXABAN 5 MG TAB (ELIQUIS) PO SCH (21:00)
[2021-05-26] MEDS ORDERED: **NOTE PATIENT COMMENT** MISC XX SCH (21:00)
[2021-05-26] MEDS ORDERED: DOCUSATE SODIUM 100MG CAPSULE PO SCH (21:00)
[2021-05-27] MEDS ORDERED: LEVEMIR (INSULIN DETEMIR) 1 UNITS/0.01ML SC SCH (09:00)
[2021-05-27] MEDS ORDERED: ATORVASTATIN 20 MG TAB PO SCH (09:00)
[2021-05-27] MEDS ORDERED: AMPHETAMINE/DEXTROAMPHETAMINE 5 MG *ER* CAPSULE (ADDERALL XR) PO SCH (09:00)
[2021-05-27] MEDS ORDERED: ASPIRIN 81MG ENTERIC TABLET PO SCH (09:00)
[2021-05-27] MEDS ORDERED: TERAZOSIN 1 MG CAP PO SCH (09:00)
[2021-05-27] MEDS ORDERED: ADDERALL 5 MG TAB PO SCH (16:00)
== END 2021-05-26 18:44 | disposition left against medical advice (07) | DRG 249 ==
LOC: M ED 07:36 → M ED INP 15:32 → UNDODISIN 15:32 → M ED INP 15:52
PROVIDERS: ADMIT Internal Medicine; ATTEND Internal Medicine
DX: R19.7 Diarrhea, unspecified (principal); D69.6 Thrombocytopenia, unspecified; R11.2 Nausea with vomiting, unspecified; E11.9 Type 2 diabetes mellitus without complications; S22.32XA Fracture of one rib, left side, initial encounter for closed fracture; I10 Essential (primary) hypertension; G43.909 Migraine, unspecified, not intractable, without status migrainosus; I25.10 Atherosclerotic heart disease of native coronary artery without angina pectoris; Z95.2 Presence of prosthetic heart valve; Z86.718 Personal history of other venous thrombosis and embolism; Z86.711 Personal history of pulmonary embolism; Z79.01 Long term (current) use of anticoagulants; M54.50 Low back pain, unspecified; W18.30XA Fall on same level, unspecified, initial encounter; Y92.009 Unspecified place in unspecified non-institutional (private) residence as the place of occurrence of the external cause; Z79.899 Other long term (current) drug therapy; Z79.82 Long term (current) use of aspirin; Z88.6 Allergy status to analgesic agent

== ENCOUNTER → 2022-09-06 | Outpatient (REF) | payer OTHER ==
[~2022-09-06] MED LIST changes: +ADDE10TA PO; +ADDE30TA PO; +ADME100I SC; +ATOR1TAB21 PO; +NITR0.4S14 SL; +OXYC20TA2 PO; +TERA1CAP3 PO
[2022-09-09 06:08] LABS: CREATININE, URINE 19.4 mg/dL (20.0-300.0)
== END ==
LOC: M LAB REF 16:17
PROVIDERS: ATTEND Physician Assistant
DX: Z79.899 Other long term (current) drug therapy (principal)

== ENCOUNTER 2022-09-19 11:15 | Inpatient (IN) | payer OTHER ==
[~2022-09-19] VITALS: Ht 182.9 cm; Wt 100.1 kg
[2022-09-19 12:04] LABS: BASO # 0.1 10^3/uL (0.0-0.2); BASO % 0.9 % (0.0-1.0); EOS # 0.3 10^3/uL (0.0-0.5); EOS % 2.3 % (0.0-3.0); HEMOGLOBIN 15.8 g/dl (13.5-17.5); LYMPH # 1.8 10^3/uL (1.5-5.0); MEAN CORPUSCULAR HEMOGLOBIN 29.6 pg (27.0-33.0); MEAN CORPUSCULAR HGB CONC 35.9 g/dl (32.0-36.5); MEAN CORPUSCULAR VOLUME 82.6 fl (80.0-96.0); MONO # 0.8 10^3/uL (0.0-0.8); MONO % 6.9 % (2.0-8.0); NEUTROPHILS # 8.2 10^3/uL (1.5-8.5); NEUTROPHILS % 73.4 % (36.0-66.0); RED BLOOD COUNT 5.33 10^6/uL (4.30-6.10); WHITE BLOOD COUNT 11.2 10^3/uL (4.0-10.0)
[2022-09-19 12:05] LABS: PLATELET COUNT, AUTOMATED 40 10^3/uL (150-450)
[2022-09-19 12:32] LABS: LIPASE 192 U/L (12-53)
[2022-09-19 12:36] LABS: ALBUMIN 3.8 G/DL (3.2-5.2); ALKALINE PHOSPHATASE 103 U/L (46-116); ALT/SGPT 20 U/L (7.0-40); AST/SGOT 10 U/L (<34); BILIRUBIN,DIRECT 0.3 MG/DL (<0.4); BILIRUBIN,TOTAL 1.1 MG/DL (0.3-1.2); BLOOD UREA NITROGEN 16 MG/DL (9-23); CALCIUM LEVEL 9.3 MG/DL (8.5-10.1); CARBON DIOXIDE LEVEL 24 MMOL/L (20-31); CHLORIDE LEVEL 102 MMOL/L (98-107); CREATININE FOR GFR 1.12 MG/DL (0.70-1.30); GLOMERULAR FILTRATION RATE > 60.0 (>56); POTASSIUM SERUM 3.8 MMOL/L (3.5-5.1); SODIUM LEVEL 134 MMOL/L (136-145)
[2022-09-19 12:38] LABS: GLUCOSE, FASTING 535 MG/DL (60-100)
[2022-09-19] MEDS ORDERED: HumuLIN R (REGULAR) INSULIN (NovoLIN R) **100U/ML** PER UNIT IV ONE (13:10)
[2022-09-19] MEDS ORDERED: MORPHINE 4 MG/ML 1ML VIAL IV ONE ×4 (13:10→19:15)
[2022-09-19] MEDS ORDERED: NS 1,000 ML IV ONE (13:10)
[2022-09-19] MEDS ORDERED: ONDANSETRON 4MG 2ML VIAL IV ONE (13:10)
[2022-09-19] MEDS ORDERED: MORPHINE 10 MG/ML 1ML VIAL IM ONE (13:30)
[2022-09-19 13:33] LABS: VENOUS BASE EXCESS -3.9 (-2.0-2.0); VENOUS HCO3 19.3 MEQ/L (23.0-27.0); VENOUS O2 SATURATION 94.2 % (60.0-80.0); VENOUS PARTIAL PRESSURE CO2 30.8 mmHg (38.0-50.0); VENOUS PARTIAL PRESSURE O2 68.2 mmHg (30.0-50.0); VENOUS PH 7.414 UNITS (7.330-7.430); VENOUS STANDARD HCO3 21.2 MEQ/L; VENOUS TOTAL CO2 20.2 MEQ/L (24.0-28.0)
[2022-09-19] MEDS ORDERED: ISOVUE-370 76% 100ML VIAL As Ordered ONE (14:01)
[2022-09-19 14:16] LABS: ETHYL ALCOHOL (ETHANOL) 0.004 % (0.000-0.010)
[2022-09-19 14:18] LABS: ACETONE/KETONE 0.3 MMOL/L (0.02-0.27); PHOSPHORUS LEVEL 3.3 MG/DL (2.5-4.9)
[2022-09-19 14:21] LABS: HEMOGLOBIN A1c 11.2 % (4.0-6.0)
[2022-09-19 14:22] LABS: CK-MB VALUE MASS 2.1 NG/ML (<3.6); MB/CK RELATIVE INDEX 1.72 (< OR =4)
[2022-09-19 15:26] LABS: TOTAL PROTEIN 6.9 G/DL (5.7-8.2)
[2022-09-19 15:54] LABS: CK-MB VALUE MASS 1.4 NG/ML (<3.6); MB/CK RELATIVE INDEX 1.72 (< OR =4)
[2022-09-19 17:01] LABS: RSV AMPLIFICATION NEGATIVE (NEGATIVE)
[2022-09-19] MEDS ORDERED: ALBU8.5H PO (17:41)
[2022-09-19] MEDS ORDERED: HYDR12.55 PO (17:41)
[2022-09-19] MEDS ORDERED: STEG5TAB PO (17:41)
[2022-09-19] MEDS ORDERED: GABA-1171 PO (17:43)
[2022-09-19] MEDS ORDERED: NYST-13 TOP (17:43)
[2022-09-19] MEDS ORDERED: NYST1POW9 TOP (17:43)
[2022-09-19] MEDS ORDERED: LR 1,000 ML IV SCH (17:45)
[2022-09-19] MEDS ORDERED: MED REC COMMENT (17:46)
[2022-09-19] MEDS ORDERED: GLUCAGON INJ 1MG VIAL SC PRN (17:50)
[2022-09-19] MEDS ORDERED: GLUCOSE 4GM CHEW TABLET PO PRN (17:50)
[2022-09-19] MEDS ORDERED: DEXTROSE 50% 50ML SYRINGE IV PRN (17:50)
[2022-09-19] MEDS ORDERED: HOME MED LIST COMPLETE! XX SCH (17:50)
[2022-09-19] MEDS ORDERED: ALBUTEROL 90 MCG/ACT 8GM HFA INHALER INH PRN (18:00)
[2022-09-19] MEDS ORDERED: INSULIN LISPRO (NovoLOG) PER UNIT SC SCH (18:00)
[2022-09-19] MEDS ORDERED: CIPROFLOXACIN 400 MG in IV 1 EA IV SCH (18:00)
[2022-09-19] MEDS ORDERED: NITROGLYCERIN 0.4MG SUBL TABLET SL PRN (18:00)
[2022-09-19] MEDS ORDERED: ONDANSETRON 4MG 2ML VIAL IV SCH (19:00)
[2022-09-19 19:07] LABS: ERYTHROCYTE SEDIMENTATION RATE 11 mm/hr (0-20)
[2022-09-19 19:14] LABS: HEPATITIS B SURFACE ANTIGEN NEGATIVE (NEGATIVE)
[2022-09-19 19:27] LABS: HIV 1&2 SCREEN CENTAUR NEGATIVE (NEGATIVE)
[2022-09-19 19:35] LABS: HEPATITIS B CORE ANTIBODY IGM NEGATIVE (NEGATIVE)
[2022-09-19] MEDS ORDERED: MORPHINE 4 MG/ML 1ML VIAL IV PRN (20:00)
[2022-09-19] MEDS ORDERED: metroNIDAZOLE 500 MG in IV 1 EA IV SCH (20:00)
[2022-09-19] MEDS ORDERED: LEVEMIR (INSULIN DETEMIR) 1 UNITS/0.01ML SC SCH (21:00)
[2022-09-19] MEDS ORDERED: GABAPENTIN 100 MG CAP PO SCH (21:00)
[2022-09-19] MEDS ORDERED: LACTOBACILLUS ACIDOPHILUS CAP (BACID) PO SCH (21:00)
[2022-09-19 21:29] VITALS: BP 148/72
[2022-09-20] MEDS ORDERED: TERAZOSIN 1 MG CAP PO SCH (09:00)
[2022-09-20] MEDS ORDERED: ATORVASTATIN 20 MG TAB PO SCH (09:00)
[2022-09-20] MEDS ORDERED: APIXABAN 5 MG TAB (ELIQUIS) PO SCH (09:00)
[2022-09-20] MEDS ORDERED: ADDERALL 5 MG TAB PO SCH (09:00)
== END 2022-09-19 22:50 | disposition left against medical advice (07) | DRG 282 ==
LOC: M ED 11:15 → M ED INP 17:55 → M PCU 21:20
PROVIDERS: ADMIT Internal Medicine; ATTEND Internal Medicine
DX: K85.90 Acute pancreatitis without necrosis or infection, unspecified (principal); E11.51 Type 2 diabetes mellitus with diabetic peripheral angiopathy without gangrene; D69.6 Thrombocytopenia, unspecified; E11.65 Type 2 diabetes mellitus with hyperglycemia; G43.909 Migraine, unspecified, not intractable, without status migrainosus; I25.10 Atherosclerotic heart disease of native coronary artery without angina pectoris; I25.2 Old myocardial infarction; Z95.2 Presence of prosthetic heart valve; J45.909 Unspecified asthma, uncomplicated; Z79.01 Long term (current) use of anticoagulants; M54.59 Other low back pain; F90.9 Attention-deficit hyperactivity disorder, unspecified type; Z86.711 Personal history of pulmonary embolism; Z86.718 Personal history of other venous thrombosis and embolism; A09 Infectious gastroenteritis and colitis, unspecified; I10 Essential (primary) hypertension; Z79.899 Other long term (current) drug therapy; Z79.82 Long term (current) use of aspirin; Z79.4 Long term (current) use of insulin; Z88.6 Allergy status to analgesic agent; F17.200 Nicotine dependence, unspecified, uncomplicated

== ENCOUNTER → 2022-10-16 | Outpatient (REF) | payer OTHER ==
[~2022-10-16] MED LIST changes: +ALBU8.5H PO; +GABA-1171 PO; +HYDR12.55 PO; +MED REC COMMENT; +NYST-13 TOP; +NYST1POW9 TOP; +STEG5TAB PO
[2022-10-16 16:59] LABS: LIPASE 77 U/L (12-53)
[2022-10-16 17:01] LABS: AMYLASE 49 U/L (30-118)
[2022-10-16 17:06] LABS: BASO # 0.1 10^3/uL (0.0-0.2); BASO % 1.1 % (0.0-1.0); EOS # 0.2 10^3/uL (0.0-0.5); EOS % 2.3 % (0.0-3.0); HEMATOCRIT 47.1 % (42.0-52.0); HEMOGLOBIN 16.1 g/dl (13.5-17.5); LYMPH # 1.7 10^3/uL (1.5-5.0); LYMPH % 21.3 % (24.0-44.0); MEAN CORPUSCULAR HEMOGLOBIN 28.8 pg (27.0-33.0); MEAN CORPUSCULAR HGB CONC 34.2 g/dl (32.0-36.5); MEAN CORPUSCULAR VOLUME 84.3 fl (80.0-96.0); MONO # 0.7 10^3/uL (0.0-0.8); MONO % 8.3 % (2.0-8.0); NEUTROPHILS # 5.4 10^3/uL (1.5-8.5); NEUTROPHILS % 66.6 % (36.0-66.0); RED BLOOD COUNT 5.59 10^6/uL (4.30-6.10); WHITE BLOOD COUNT 8.2 10^3/uL (4.0-10.0)
[2022-10-16 17:16] LABS: ALBUMIN 4.4 G/DL (3.2-5.2); ALKALINE PHOSPHATASE 125 U/L (46-116); ALT/SGPT 25 U/L (7.0-40); AST/SGOT 14 U/L (<34); BILIRUBIN,TOTAL 1.5 MG/DL (0.3-1.2); BLOOD UREA NITROGEN 13 MG/DL (9-23); CALCIUM LEVEL 9.2 MG/DL (8.5-10.1); CARBON DIOXIDE LEVEL 27 MMOL/L (20-31); CHLORIDE LEVEL 98 MMOL/L (98-107); CHOLESTEROL LEVEL 214 MG/DL (<200); CREATININE FOR GFR 1.08 MG/DL (0.70-1.30); GLOMERULAR FILTRATION RATE > 60.0 (>56); GLUCOSE, FASTING 459 MG/DL (60-100); HDL CHOLESTEROL 38.9 MG/DL (>40); LDL CHOLESTEROL 116.1 MG/DL (<100); NON-HDL-C 175.1 MG/DL; POTASSIUM SERUM 4.1 MMOL/L (3.5-5.1); SODIUM LEVEL 133 MMOL/L (136-145); TOTAL PROTEIN 7.7 G/DL (5.7-8.2); TRIGLYCERIDES LEVEL 295 MG/DL (<150)
[2022-10-16 17:17] LABS: PLATELET COUNT, AUTOMATED 49 10^3/uL (150-450)
[2022-10-16 17:54] LABS: CREATININE, URINE 55.4 MG/DL
[2022-10-16 18:18] LABS: MAU/CREAT RATIO 772.5 MCG/MG (0.0-30.0)
== END ==
LOC: M LAB REF 16:17
PROVIDERS: ATTEND Physician Assistant
DX: E11.40 Type 2 diabetes mellitus with diabetic neuropathy, unspecified (principal); K85.90 Acute pancreatitis without necrosis or infection, unspecified; K52.9 Noninfective gastroenteritis and colitis, unspecified

== ENCOUNTER → 2023-01-11 | Outpatient (REF) | payer OTHER ==
[2023-01-11 18:18] LABS: CREATININE, URINE 123.3 MG/DL; MAU/CREAT RATIO 267.6 MCG/MG (0.0-30.0)
== END ==
LOC: M LAB REF 16:22
PROVIDERS: ATTEND Physician Assistant
DX: E11.65 Type 2 diabetes mellitus with hyperglycemia (principal)

== ENCOUNTER 2023-03-17 08:18 | Emergency (ER) | payer OTHER ==
[~2023-03-17] VITALS: Ht 182.9 cm; Wt 90.1 kg
[2023-03-17 08:18] VITALS: TEMP 98.2
[2023-03-17 09:11] LABS: BASO # 0.1 10^3/uL (0.0-0.2); BASO % 0.9 % (0.0-1.0); EOS # 0.3 10^3/uL (0.0-0.5); EOS % 2.6 % (0.0-3.0); HEMOGLOBIN 11.9 g/dl (13.5-17.5); LYMPH # 1.9 10^3/uL (1.5-5.0); LYMPH % 18.8 % (24.0-44.0); MEAN CORPUSCULAR HEMOGLOBIN 29.3 pg (27.0-33.0); MEAN CORPUSCULAR HGB CONC 36.1 g/dl (32.0-36.5); MEAN CORPUSCULAR VOLUME 81.3 fl (80.0-96.0); MONO # 0.7 10^3/uL (0.0-0.8); MONO % 7.2 % (2.0-8.0); NEUTROPHILS % 68.5 % (36.0-66.0); PLATELET COUNT, AUTOMATED 105 10^3/uL (150-450); RED BLOOD COUNT 4.06 10^6/uL (4.30-6.10); WHITE BLOOD COUNT 10.2 10^3/uL (4.0-10.0)
[2023-03-17 09:23] LABS: INR 1.01
[2023-03-17 09:24] LABS: PARTIAL THROMBOPLASTIN TIME 43.2 SECONDS (24.8-34.2)
[2023-03-17 09:28] LABS: THYROID STIMULATING HORMONE 2.712 uIU/ML (0.55-4.78)
[2023-03-17 09:29] LABS: FREE T4 1.05 NG/DL (0.89-1.76)
[2023-03-17 09:32] LABS: ALKALINE PHOSPHATASE 91 U/L (46-116); ALT/SGPT 13 U/L (7.0-40); AST/SGOT 38 U/L (<34); BILIRUBIN,DIRECT 0.2 MG/DL (<0.4); BILIRUBIN,TOTAL 0.7 MG/DL (0.3-1.2); BLOOD UREA NITROGEN 10 MG/DL (9-23); CALCIUM LEVEL 8.5 MG/DL (8.5-10.1); CARBON DIOXIDE LEVEL 22 MMOL/L (20-31); CHLORIDE LEVEL 102 MMOL/L (98-107); CK-MB VALUE MASS < 1.0 NG/ML (<3.6); CPK CREATINE PHOSPHOKINASE 90 U/L (46-171); CREATININE FOR GFR 0.97 MG/DL (0.70-1.30); GLOMERULAR FILTRATION RATE > 60.0 (>56); GLUCOSE, FASTING 434 MG/DL (60-100); LIPASE 80 U/L (12-53); MB/CK RELATIVE INDEX 1.11 (< OR =4); POTASSIUM SERUM 4.1 MMOL/L (3.5-5.1); SODIUM LEVEL 135 MMOL/L (136-145); TOTAL PROTEIN 6.1 G/DL (5.7-8.2)
[2023-03-17] MEDS: MORPHINE 4 MG/ML 1ML VIAL IV PRN ×2 (09:54→10:48)
[2023-03-17 10:39] VITALS: BP 153/85
[2023-03-17 11:38] LABS: MB/CK RELATIVE INDEX 1.78 (< OR =4)
[2023-03-17] MEDS ORDERED: ISOVUE-370 76% 100ML VIAL As Ordered ONE (12:26)
[2023-03-17] MEDS ORDERED: KETOROLAC 30 MG/ML 1ML VIAL IV ONE (14:10)
[2023-03-17] MEDS ORDERED: oxyCODONE 5MG TAB PO ONE (14:10)
[2023-03-17 15:11] VITALS: O2SAT 98
== END 2023-03-17 15:14 | disposition home or self-care (01) ==
LOC: M ED 08:18
DX: R07.89 Other chest pain (principal); K80.20 Calculus of gallbladder without cholecystitis without obstruction; I25.10 Atherosclerotic heart disease of native coronary artery without angina pectoris; I25.2 Old myocardial infarction; E11.9 Type 2 diabetes mellitus without complications; F90.9 Attention-deficit hyperactivity disorder, unspecified type; Z95.5 Presence of coronary angioplasty implant and graft; Z86.711 Personal history of pulmonary embolism; Z86.718 Personal history of other venous thrombosis and embolism; F17.200 Nicotine dependence, unspecified, uncomplicated; K76.0 Fatty (change of) liver, not elsewhere classified; R16.1 Splenomegaly, not elsewhere classified; Z79.82 Long term (current) use of aspirin; Z79.4 Long term (current) use of insulin; Z79.899 Other long term (current) drug therapy; Z88.6 Allergy status to analgesic agent
CPT/HCPCS: 70450; 71045; 71275; 72125; 80048; 80076; 82550; 82553; 83690; 84439; 84443; 85025; 85610; 85730; 93005; 93041; 94760; 96374; 96375; 96376; 99285; J1885; Q9967

== ENCOUNTER 2023-05-02 12:31 | Emergency (ER) | payer OTHER ==
[~2023-05-02] VITALS: Ht 182.9 cm; Wt 86.8 kg
[~2023-05-02 12:31] MED LIST changes: +ASPE4PAD TOP; +MENT118S2 TP; +METH-1165 PO; +REGL10TA6 PO
[2023-05-02 13:26] LABS: BASO # 0.1 10^3/uL (0.0-0.2); BASO % 0.8 % (0.0-1.0); EOS # 0.1 10^3/uL (0.0-0.5); EOS % 0.9 % (0.0-3.0); HEMATOCRIT 35.5 % (42.0-52.0); LYMPH # 1.3 10^3/uL (1.5-5.0); LYMPH % 16.5 % (24.0-44.0); MEAN CORPUSCULAR HEMOGLOBIN 29.7 pg (27.0-33.0); MEAN CORPUSCULAR VOLUME 81.2 fl (80.0-96.0); MONO # 0.7 10^3/uL (0.0-0.8); MONO % 8.4 % (2.0-8.0); NEUTROPHILS # 5.7 10^3/uL (1.5-8.5); PLATELET COUNT, AUTOMATED 102 10^3/uL (150-450); RED BLOOD COUNT 4.37 10^6/uL (4.30-6.10); WHITE BLOOD COUNT 7.8 10^3/uL (4.0-10.0)
[2023-05-02 13:28] LABS: MEAN CORPUSCULAR HGB CONC 36.6 g/dl (32.0-36.5)
[2023-05-02] MEDS ORDERED: NITROGLYCERIN 0.4MG SUBL TABLET SL PRN (13:30)
[2023-05-02] MEDS ORDERED: ASPIRIN 81MG CHEW TABLET PO ONE (13:30)
[2023-05-02] MEDS ORDERED: HumuLIN R (REGULAR) INSULIN (NovoLIN R) **100U/ML** PER UNIT IV ONE (13:30)
[2023-05-02] MEDS: MORPHINE 4 MG/ML 1ML VIAL IV PRN ×2 (13:41→14:13)
[2023-05-02] MEDS ORDERED: ISOVUE-370 76% 100ML VIAL As Ordered ONE (13:42)
[2023-05-02 13:53] LABS: CK-MB VALUE MASS < 1.0 NG/ML (<3.6)
[2023-05-02 13:54] LABS: ETHYL ALCOHOL (ETHANOL) < 0.003 % (0.000-0.010)
[2023-05-02 13:55] LABS: ACETAMINOPHEN LEVEL < 2.0 UG/ML (10.0-20.0); SALICYLATE LEVEL < 3.0 MG/DL (<30)
[2023-05-02 13:57] LABS: THYROID STIMULATING HORMONE 0.482 uIU/ML (0.55-4.78)
[2023-05-02 14:06] LABS: HEMOGLOBIN A1c 11.5 % (4.0-6.0)
[2023-05-02 14:06] LABS: ALBUMIN 3.6 G/DL (3.2-5.2); ALKALINE PHOSPHATASE 94 U/L (46-116); ALT/SGPT 10 U/L (7.0-40); AST/SGOT 14 U/L (<34); BILIRUBIN,DIRECT 0.5 MG/DL (<0.4); BILIRUBIN,TOTAL 1.7 MG/DL (0.3-1.2); BLOOD UREA NITROGEN 14 MG/DL (9-23); CALCIUM LEVEL 8.7 MG/DL (8.5-10.1); CARBON DIOXIDE LEVEL 26 MMOL/L (20-31); CHLORIDE LEVEL 95 MMOL/L (98-107); CPK CREATINE PHOSPHOKINASE 55 U/L (46-171); CREATININE FOR GFR 0.98 MG/DL (0.70-1.30); GLOMERULAR FILTRATION RATE > 60.0 (>56); GLUCOSE, FASTING 419 MG/DL (60-100); MB/CK RELATIVE INDEX 1.81 (< OR =4); POTASSIUM SERUM 4.5 MMOL/L (3.5-5.1); SODIUM LEVEL 127 MMOL/L (136-145); TOTAL PROTEIN 6.8 G/DL (5.7-8.2)
[2023-05-02 14:10] LABS: INR 1.18; PROTHROMBIN TIME 14.7 SECONDS (12.5-14.5)
[2023-05-02 14:12] LABS: PARTIAL THROMBOPLASTIN TIME 82.4 SECONDS (24.8-34.2)
[2023-05-02] MEDS ORDERED: hydroCHLOROthiazide 12.5 MG CAPSULE PO ONE (14:15)
[2023-05-02] MEDS ORDERED: lisinopriL 5 MG TAB PO ONE (14:15)
[2023-05-02 14:17] VITALS: BP 160/70
[2023-05-02 14:36] LABS: RSV AMPLIFICATION NEGATIVE (NEGATIVE)
[2023-05-02] MEDS ORDERED: LISI5TAB11 (14:41)
[2023-05-02] MEDS ORDERED: OXYMETAZOLINE 0.05% NASAL SPRAY (AFRIN) ONE (14:50)
[2023-05-02] MEDS ORDERED: KETOROLAC 30 MG/ML 1ML VIAL IV ONE (14:50)
[2023-05-02 15:07] LABS: CK-MB VALUE MASS < 1.0 NG/ML (<3.6)
[2023-05-02 15:09] LABS: CPK CREATINE PHOSPHOKINASE 53 U/L (46-171); MB/CK RELATIVE INDEX 1.88 (< OR =4)
[2023-05-02 15:15] VITALS: BP 153/70; O2SAT 100
[2023-05-02 15:36] VITALS: TEMP 97.2
== END 2023-05-02 15:38 | disposition home or self-care (01) ==
LOC: M ED 12:31
DX: R07.9 Chest pain, unspecified (principal); H65.01 Acute serous otitis media, right ear; R51.9 Headache, unspecified; R00.1 Bradycardia, unspecified; I44.4 Left anterior fascicular block; E11.9 Type 2 diabetes mellitus without complications; I10 Essential (primary) hypertension; E78.5 Hyperlipidemia, unspecified; I25.2 Old myocardial infarction; K21.9 Gastro-esophageal reflux disease without esophagitis; F90.9 Attention-deficit hyperactivity disorder, unspecified type; Z86.718 Personal history of other venous thrombosis and embolism; Z87.442 Personal history of urinary calculi; Z79.01 Long term (current) use of anticoagulants; Z88.6 Allergy status to analgesic agent; Z79.52 Long term (current) use of systemic steroids; Z79.02 Long term (current) use of antithrombotics/antiplatelets; Z79.891 Long term (current) use of opiate analgesic; Z79.811 Long term (current) use of aromatase inhibitors; Z79.4 Long term (current) use of insulin; Z79.899 Other long term (current) drug therapy
CPT/HCPCS: 70450; 71045; 71275; 80047; 80048; 80076; 80143; 82077; 82140; 82550; 82553; 83036; 83605; 84443; 85025; 85610; 85730; 87631; 93005; 93041; 94760; 96374; 96375; 99284; J1815; J1885; Q9967

== ENCOUNTER 2023-05-05 14:27 | Inpatient (IN) | payer OTHER ==
[2023-05-05] VITALS (10 sets, daily range): BP systolic 101–159; BP diastolic 57–73; TEMP 97; O2SAT 100
[~2023-05-05] VITALS: Ht 170.2 cm; Wt 86.8 kg
[2023-05-05] MEDS: PANTOPRAZOLE 40MG VIAL IV SCH (09:00)
[~2023-05-05 14:27] MED LIST changes: +LISI5TAB11
[2023-05-05] MEDS ORDERED: LORazepam 2 MG/ML 1ML VIAL IV STA (15:15)
[2023-05-05] MEDS ORDERED: ISOVUE-370 76% 100ML VIAL As Ordered ONE (15:23)
[2023-05-05] MEDS ORDERED: LABETALOL 100MG/20ML VIAL As Ordered ONE (15:27)
[2023-05-05] MEDS ORDERED: levETIRAcetam INJection 1,000 MG in D5W 100 ML IV ONE (15:30)
[2023-05-05 15:43] LABS: BASO # 0.1 10^3/uL (0.0-0.2); BASO % 0.6 % (0.0-1.0); EOS # 0.2 10^3/uL (0.0-0.5); EOS % 1.7 % (0.0-3.0); HEMATOCRIT 37.3 % (42.0-52.0); HEMOGLOBIN 13.5 g/dl (13.5-17.5); LYMPH # 1.4 10^3/uL (1.5-5.0); LYMPH % 16.1 % (24.0-44.0); MEAN CORPUSCULAR HEMOGLOBIN 29.7 pg (27.0-33.0); MEAN CORPUSCULAR HGB CONC 36.2 g/dl (32.0-36.5); MEAN CORPUSCULAR VOLUME 82.2 fl (80.0-96.0); MONO # 0.6 10^3/uL (0.0-0.8); MONO % 6.4 % (2.0-8.0); NEUTROPHILS # 6.5 10^3/uL (1.5-8.5); NEUTROPHILS % 74.7 % (36.0-66.0); PLATELET COUNT, AUTOMATED 122 10^3/uL (150-450); RED BLOOD COUNT 4.54 10^6/uL (4.30-6.10); WHITE BLOOD COUNT 8.7 10^3/uL (4.0-10.0)
[2023-05-05] MEDS ORDERED: SUCCINYLCHOLINE INJ 200MG/10ML VIAL IV ONE (15:55)
[2023-05-05] MEDS ORDERED: propofoL 1,000 MG in IV 1 EA IV SCH (15:55)
[2023-05-05] MEDS ORDERED: ETOMIDATE INJ 20MG/10ML VIAL IV ONE (15:55)
[2023-05-05 16:09] LABS: ALBUMIN 3.8 G/DL (3.2-5.2); ALKALINE PHOSPHATASE 87 U/L (46-116); ALT/SGPT 10 U/L (7.0-40); AST/SGOT < 8 U/L (<34); BILIRUBIN,DIRECT 0.4 MG/DL (<0.4); BILIRUBIN,TOTAL 1.4 MG/DL (0.3-1.2); BLOOD UREA NITROGEN 15 MG/DL (9-23); CALCIUM LEVEL 8.9 MG/DL (8.5-10.1); CARBON DIOXIDE LEVEL 26 MMOL/L (20-31); CHLORIDE LEVEL 99 MMOL/L (98-107); CK-MB VALUE MASS 1.2 NG/ML (<3.6); CPK CREATINE PHOSPHOKINASE 76 U/L (46-171); CREATININE FOR GFR 1.09 MG/DL (0.70-1.30); GLOMERULAR FILTRATION RATE > 60.0 (>56); GLUCOSE, FASTING 333 MG/DL (60-100); MB/CK RELATIVE INDEX 1.57 (< OR =4); POTASSIUM SERUM 3.8 MMOL/L (3.5-5.1); SODIUM LEVEL 132 MMOL/L (136-145)
[2023-05-05 16:10] LABS: RSV AMPLIFICATION NEGATIVE (NEGATIVE)
[2023-05-05 16:13] LABS: THYROID STIMULATING HORMONE 0.853 uIU/ML (0.55-4.78)
[2023-05-05] MEDS ORDERED: MIDAZOLAM 100MG/100ML-0.9%NACL 100 MG in IV 1 EA IV SCH ×2 (16:35→18:00)
[2023-05-05 16:49] LABS: ABG BASE EXCESS -4.2 (-2.0-2.0); ABG HCO3 19.6 MMOL/L (22.0-26.0); ABG PARTIAL PRESSURE CO2 32.3 mmHg (35.0-45.0); ABG PARTIAL PRESSURE O2 210.8 mmHg (75.0-100.0); ABG TOTAL CO2 20.6 MMOL/L (22.0-29.0); ABG pH (ARTERIAL) 7.402 UNITS (7.350-7.450)
[2023-05-05 17:12] LABS: AMPHETAMINES LEVEL URINE NEGATIVE (NEGATIVE); BARBITURATES URINE NEGATIVE (NEGATIVE); BENZODIAZEPINES URINE NEGATIVE (NEGATIVE); COCAINE METABOLITE URINE NEGATIVE (NEGATIVE)
[2023-05-05 17:13] LABS: CANNABINOIDS URINE NEGATIVE (NEGATIVE); METHADONE URINE NEGATIVE (NEGATIVE); OPIATES URINE NEGATIVE (NEGATIVE); PHENCYCLIDINE URINE NEGATIVE (NEGATIVE)
[2023-05-05] MEDS ORDERED: NITR0.4S14 SL (17:45)
[2023-05-05] MEDS ORDERED: METH-1165 PO (17:45)
[2023-05-05] MEDS ORDERED: LIDO1ADH10 TOP (17:45)
[2023-05-05] MEDS ORDERED: METO10TA2 PO (17:45)
[2023-05-05] MEDS ORDERED: MENT118S2 TOP (17:45)
[2023-05-05] MEDS ORDERED: STEG5TAB PO (17:45)
[2023-05-05] MEDS ORDERED: MED HIST COMMENT (17:48)
[2023-05-05] MEDS ORDERED: HOME MED LIST COMPLETE! XX SCH (17:50)
[2023-05-05] MEDS ORDERED: NS 1,000 ML IV ONE (18:00)
[2023-05-05] MEDS: propofoL 1,000 MG in IV 1 EA IV SCH ×3 (18:29→23:45)
[2023-05-05] MEDS: APIXABAN 5 MG TAB (ELIQUIS) PO SCH (23:45)
[2023-05-06] VITALS (50 sets, daily range): BP systolic 82–167; BP diastolic 50–71; TEMP 96.2–98; O2SAT 98–100
[2023-05-06] MEDS: propofoL 1,000 MG in IV 1 EA IV SCH ×9 (05:39→22:52)
[2023-05-06 05:50] LABS: ABG BASE EXCESS 0.5 (-2.0-2.0); ABG HCO3 24.6 MMOL/L (22.0-26.0); ABG O2 SATURATION 99.2 % (95.0-99.0); ABG PARTIAL PRESSURE CO2 37.6 mmHg (35.0-45.0); ABG PARTIAL PRESSURE O2 174.4 mmHg (75.0-100.0); ABG TOTAL CO2 25.7 MMOL/L (22.0-29.0); ABG pH (ARTERIAL) 7.433 UNITS (7.350-7.450)
[2023-05-06 05:56] LABS: BASO # 0.1 10^3/uL (0.0-0.2); BASO % 0.8 % (0.0-1.0); EOS # 0.2 10^3/uL (0.0-0.5); EOS % 1.8 % (0.0-3.0); HEMATOCRIT 35.7 % (42.0-52.0); HEMOGLOBIN 12.5 g/dl (13.5-17.5); LYMPH # 1.3 10^3/uL (1.5-5.0); LYMPH % 14.5 % (24.0-44.0); MEAN CORPUSCULAR HEMOGLOBIN 29.3 pg (27.0-33.0); MEAN CORPUSCULAR VOLUME 83.8 fl (80.0-96.0); MONO # 0.7 10^3/uL (0.0-0.8); MONO % 7.9 % (2.0-8.0); NEUTROPHILS # 6.8 10^3/uL (1.5-8.5); NEUTROPHILS % 74.7 % (36.0-66.0); PLATELET COUNT, AUTOMATED 116 10^3/uL (150-450); RED BLOOD COUNT 4.26 10^6/uL (4.30-6.10); WHITE BLOOD COUNT 9.1 10^3/uL (4.0-10.0)
[2023-05-06 06:04] LABS: INR 1.13; PROTHROMBIN TIME 14.2 SECONDS (12.5-14.5)
[2023-05-06 06:09] LABS: CK-MB VALUE MASS 1.2 NG/ML (<3.6)
[2023-05-06 06:12] LABS: ALBUMIN 3.5 G/DL (3.2-5.2); ALKALINE PHOSPHATASE 78 U/L (46-116); ALT/SGPT < 9 U/L (7.0-40); AST/SGOT 12 U/L (<34); BILIRUBIN,TOTAL 1.1 MG/DL (0.3-1.2); BLOOD UREA NITROGEN 13 MG/DL (9-23); CALCIUM LEVEL 8.5 MG/DL (8.5-10.1); CARBON DIOXIDE LEVEL 25 MMOL/L (20-31); CHLORIDE LEVEL 103 MMOL/L (98-107); CPK CREATINE PHOSPHOKINASE 55 U/L (46-171); CREATININE FOR GFR 0.98 MG/DL (0.70-1.30); GLOMERULAR FILTRATION RATE > 60.0 (>56); GLUCOSE, FASTING 287 MG/DL (60-100); PHOSPHORUS LEVEL 3.7 MG/DL (2.5-4.9); POTASSIUM SERUM 3.8 MMOL/L (3.5-5.1); SODIUM LEVEL 137 MMOL/L (136-145); TOTAL PROTEIN 6.4 G/DL (5.7-8.2)
[2023-05-06 06:23] LABS: MAGNESIUM LEVEL 2.1 MG/DL (1.8-2.4)
[2023-05-06 06:29] LABS: MB/CK RELATIVE INDEX 2.18 (< OR =4)
[2023-05-06] MEDS: APIXABAN 5 MG TAB (ELIQUIS) PO SCH ×2 (08:34→20:02)
[2023-05-06] MEDS: PANTOPRAZOLE 40MG VIAL IV SCH (08:35)
[2023-05-06] MEDS ORDERED: NS 1,000 ML IV ONE ×2 (14:30→16:05)
[2023-05-06] MEDS: NS 1,000 ML IV SCH (17:07)
[2023-05-07] VITALS (38 sets, daily range): BP systolic 117–190; BP diastolic 59–112; TEMP 97–100.6; O2SAT 88–100
[2023-05-07] MEDS: NS 1,000 ML IV SCH ×3 (03:03→23:12)
[2023-05-07] MEDS: propofoL 1,000 MG in IV 1 EA IV SCH ×3 (03:03→12:43)
[2023-05-07 04:47] LABS: BASO # 0.1 10^3/uL (0.0-0.2); BASO % 0.5 % (0.0-1.0); EOS # 0.1 10^3/uL (0.0-0.5); EOS % 1.1 % (0.0-3.0); HEMOGLOBIN 12.1 g/dl (13.5-17.5); LYMPH # 1.5 10^3/uL (1.5-5.0); LYMPH % 14.4 % (24.0-44.0); MEAN CORPUSCULAR HEMOGLOBIN 29.5 pg (27.0-33.0); MEAN CORPUSCULAR HGB CONC 34.6 g/dl (32.0-36.5); MEAN CORPUSCULAR VOLUME 85.4 fl (80.0-96.0); MONO # 0.9 10^3/uL (0.0-0.8); NEUTROPHILS # 7.8 10^3/uL (1.5-8.5); NEUTROPHILS % 74.7 % (36.0-66.0); PLATELET COUNT, AUTOMATED 111 10^3/uL (150-450); WHITE BLOOD COUNT 10.4 10^3/uL (4.0-10.0)
[2023-05-07 05:52] LABS: ABG BASE EXCESS -2.2 (-2.0-2.0); ABG HCO3 22.7 MMOL/L (22.0-26.0); ABG O2 SATURATION 98.8 % (95.0-99.0); ABG PARTIAL PRESSURE CO2 39.6 mmHg (35.0-45.0); ABG STANDARD HCO3 22.7 MMOL/L. (22.0-26.0); ABG pH (ARTERIAL) 7.377 UNITS (7.350-7.450)
[2023-05-07 05:57] LABS: ALBUMIN 2.8 G/DL (3.2-5.2); ALKALINE PHOSPHATASE 66 U/L (46-116); ALT/SGPT < 9 U/L (7.0-40); AST/SGOT 16 U/L (<34); BILIRUBIN,TOTAL 1.3 MG/DL (0.3-1.2); BLOOD UREA NITROGEN 13 MG/DL (9-23); CALCIUM LEVEL 7.8 MG/DL (8.5-10.1); CARBON DIOXIDE LEVEL 24 MMOL/L (20-31); CHLORIDE LEVEL 107 MMOL/L (98-107); CREATININE FOR GFR 0.96 MG/DL (0.70-1.30); GLOMERULAR FILTRATION RATE > 60.0 (>56); GLUCOSE, FASTING 205 MG/DL (60-100); POTASSIUM SERUM 3.4 MMOL/L (3.5-5.1); SODIUM LEVEL 139 MMOL/L (136-145); TOTAL PROTEIN 5.5 G/DL (5.7-8.2)
[2023-05-07 05:58] LABS: MAGNESIUM LEVEL 1.9 MG/DL (1.8-2.4)
[2023-05-07] MEDS ORDERED: POTASSIUM CHLORIDE 10% LIQ 20MEQ/15ML UDC PO ONE (06:35)
[2023-05-07] MEDS: APIXABAN 5 MG TAB (ELIQUIS) PO SCH ×2 (08:10→19:10)
[2023-05-07] MEDS: PANTOPRAZOLE 40MG VIAL IV SCH (08:10)
[2023-05-07] MEDS: hydrALAZINE 20MG/ML 1ML VIAL IV PRN ×2 (09:56→15:06)
[2023-05-07] MEDS ORDERED: KETOROLAC 30 MG/ML 1ML VIAL IV ONE ×2 (10:10→23:05)
[2023-05-07] MEDS ORDERED: ACETAMINOPHEN *IV* 1,000 MG in IV 1 EA IV ONE (11:00)
[2023-05-07] MEDS: IPRATROPIUM 0.5MG/ALBUTEROL 2.5MG INH SOL UD 3ML (DUONEB) NEB SCH ×4 (11:33→23:17)
[2023-05-07] MEDS ORDERED: ASPIRIN 300 MG SUPP PR ONE (12:20)
[2023-05-07] MEDS ORDERED: ENALAPRILAT INJ 2.5MG/2ML VIAL IV ONE (13:00)
[2023-05-07] MEDS ORDERED: ENALAPRILAT INJ 2.5MG/2ML VIAL IV PRN (16:20)
[2023-05-07] MEDS: KETOROLAC 30 MG/ML 1ML VIAL IV PRN (16:54)
[2023-05-07] MEDS ORDERED: INSULIN LISPRO (NovoLOG) PER UNIT SC SCH (17:30)
[2023-05-07] MEDS: PIPERACILLIN/TAZOBACTAM SOD 3.375 GM in D5W MINI-BAG PLUS 50 ML IV SCH (17:40)
[2023-05-07] MEDS ORDERED: GLUCAGON INJ 1MG VIAL SC PRN (18:20)
[2023-05-07] MEDS ORDERED: GLUCOSE 4GM CHEW TABLET PO PRN (18:20)
[2023-05-07] MEDS ORDERED: DEXTROSE 50% 50ML SYRINGE IV PRN (18:20)
[2023-05-07] MEDS: MORPHINE 2 MG/ML 1ML VIAL IV PRN (18:47)
[2023-05-07] MEDS: INSULIN LISPRO (NovoLOG) PER UNIT SC SCH ×2 (18:55→23:11)
[2023-05-08] VITALS (8 sets, daily range): BP systolic 116–154; BP diastolic 56–76; TEMP 97.9–99.5; O2SAT 95–98
[2023-05-08] MEDS: MORPHINE 2 MG/ML 1ML VIAL IV PRN ×2 (00:57→08:35)
[2023-05-08] MEDS: PIPERACILLIN/TAZOBACTAM SOD 3.375 GM in D5W MINI-BAG PLUS 50 ML IV SCH (01:20)
[2023-05-08] MEDS: IPRATROPIUM 0.5MG/ALBUTEROL 2.5MG INH SOL UD 3ML (DUONEB) NEB SCH ×5 (03:29→20:27)
[2023-05-08 04:45] LABS: BASO # 0.1 10^3/uL (0.0-0.2); BASO % 0.5 % (0.0-1.0); EOS # 0.1 10^3/uL (0.0-0.5); EOS % 0.9 % (0.0-3.0); HEMATOCRIT 32.4 % (42.0-52.0); HEMOGLOBIN 11.3 g/dl (13.5-17.5); LYMPH # 1.5 10^3/uL (1.5-5.0); MEAN CORPUSCULAR HEMOGLOBIN 29.4 pg (27.0-33.0); MEAN CORPUSCULAR HGB CONC 34.9 g/dl (32.0-36.5); MEAN CORPUSCULAR VOLUME 84.2 fl (80.0-96.0); MONO # 0.7 10^3/uL (0.0-0.8); MONO % 6.1 % (2.0-8.0); NEUTROPHILS # 9.2 10^3/uL (1.5-8.5); NEUTROPHILS % 79.2 % (36.0-66.0); PLATELET COUNT, AUTOMATED 136 10^3/uL (150-450); RED BLOOD COUNT 3.85 10^6/uL (4.30-6.10); WHITE BLOOD COUNT 11.6 10^3/uL (4.0-10.0)
[2023-05-08 05:32] LABS: ALBUMIN 2.7 G/DL (3.2-5.2); ALKALINE PHOSPHATASE 64 U/L (46-116); ALT/SGPT < 9 U/L (7.0-40); AST/SGOT 14 U/L (<34); BILIRUBIN,TOTAL 1.4 MG/DL (0.3-1.2); BLOOD UREA NITROGEN 16 MG/DL (9-23); CARBON DIOXIDE LEVEL 21 MMOL/L (20-31); CHLORIDE LEVEL 112 MMOL/L (98-107); GLOMERULAR FILTRATION RATE > 60.0 (>56); GLUCOSE, FASTING 183 MG/DL (60-100); MAGNESIUM LEVEL 1.8 MG/DL (1.8-2.4); POTASSIUM SERUM 3.2 MMOL/L (3.5-5.1); SODIUM LEVEL 143 MMOL/L (136-145); TOTAL PROTEIN 5.3 G/DL (5.7-8.2)
[2023-05-08] MEDS: KETOROLAC 30 MG/ML 1ML VIAL IV PRN ×2 (05:50→17:52)
[2023-05-08] MEDS: INSULIN LISPRO (NovoLOG) PER UNIT SC SCH ×4 (06:25→21:00)
[2023-05-08] MEDS ORDERED: KCL 10MEQ/100ML SWI (KRUN) 10 MEQ in IV 1 EA IV SCH (07:00)
[2023-05-08] MEDS: GABAPENTIN 100 MG CAP PO SCH ×3 (09:00→20:41)
[2023-05-08] MEDS ORDERED: ENOXAPARIN 80MG/0.8ML SYRINGE (J1650 PER 10MG) SC SCH (09:00)
[2023-05-08] MEDS ORDERED: ASPIRIN 300 MG SUPP PR SCH (09:00)
[2023-05-08] MEDS ORDERED: POTASSIUM CHLORIDE 10MEQ SR TABLET PO ONE ×2 (10:30→13:00)
[2023-05-08] MEDS: PIPERACILLIN/TAZOBACTAM SOD 4.5 GM in D5W MINI-BAG PLUS 50 ML IV SCH ×3 (10:55→23:24)
[2023-05-08] MEDS: PANTOPRAZOLE 40MG VIAL IV SCH (10:55)
[2023-05-08] MEDS ORDERED: ENOXAPARIN 100MG/1ML SYRINGE (J1650 PER 10MG) SC SCH (11:10)
[2023-05-08] MEDS: ASPIRIN 81MG ENTERIC TABLET PO SCH (12:17)
[2023-05-08] MEDS: oxyCODONE 5MG TAB PO PRN ×2 (12:17→20:42)
[2023-05-08] MEDS: ENOXAPARIN 40MG/0.4ML SYRINGE (J1650 PER 10MG) SC SCH (12:18)
[2023-05-08] MEDS: ATORVASTATIN 20 MG TAB PO SCH (13:36)
[2023-05-08] MEDS: hydroCHLOROthiazide 12.5 MG CAPSULE PO SCH (13:36)
[2023-05-08] MEDS: ADDERALL 5 MG TAB PO SCH (14:41)
[2023-05-08] MEDS: TERAZOSIN 1 MG CAP PO SCH (16:09)
[2023-05-09] MEDS: IPRATROPIUM 0.5MG/ALBUTEROL 2.5MG INH SOL UD 3ML (DUONEB) NEB SCH ×7 (04:00→23:21)
[2023-05-09] MEDS: PIPERACILLIN/TAZOBACTAM SOD 4.5 GM in D5W MINI-BAG PLUS 50 ML IV SCH (05:27)
[2023-05-09] MEDS: oxyCODONE 5MG TAB PO PRN ×3 (05:27→23:45)
[2023-05-09 06:06] LABS: HEMATOCRIT 30.4 % (42.0-52.0); HEMOGLOBIN 10.4 g/dl (13.5-17.5); MEAN CORPUSCULAR HEMOGLOBIN 29.1 pg (27.0-33.0); MEAN CORPUSCULAR HGB CONC 34.2 g/dl (32.0-36.5); MEAN CORPUSCULAR VOLUME 85.2 fl (80.0-96.0); PLATELET COUNT, AUTOMATED 155 10^3/uL (150-450); RED BLOOD COUNT 3.57 10^6/uL (4.30-6.10); WHITE BLOOD COUNT 6.1 10^3/uL (4.0-10.0)
[2023-05-09 06:32] LABS: ALBUMIN 2.6 G/DL (3.2-5.2); ALKALINE PHOSPHATASE 58 U/L (46-116); ALT/SGPT < 9 U/L (7.0-40); AST/SGOT 11 U/L (<34); BILIRUBIN,TOTAL 0.7 MG/DL (0.3-1.2); BLOOD UREA NITROGEN 13 MG/DL (9-23); CALCIUM LEVEL 8.1 MG/DL (8.5-10.1); CARBON DIOXIDE LEVEL 23 MMOL/L (20-31); CHLORIDE LEVEL 107 MMOL/L (98-107); CREATININE FOR GFR 1.12 MG/DL (0.70-1.30); GLOMERULAR FILTRATION RATE > 60.0 (>56); GLUCOSE, FASTING 281 MG/DL (60-100); POTASSIUM SERUM 3.7 MMOL/L (3.5-5.1); SODIUM LEVEL 138 MMOL/L (136-145); TOTAL PROTEIN 5.2 G/DL (5.7-8.2)
[2023-05-09 06:34] VITALS: BP 175/80; TEMP 97.9; O2SAT 96
[2023-05-09] MEDS: METOCLOPRAMIDE 10MG TAB PO PRN (08:28)
[2023-05-09] MEDS: methocarbamoL 750 MG TAB PO SCH ×3 (08:29→21:01)
[2023-05-09] MEDS: hydroCHLOROthiazide 12.5 MG CAPSULE PO SCH (08:29)
[2023-05-09] MEDS: AUGMENTIN 875 MG TAB PO SCH ×2 (08:29→21:01)
[2023-05-09] MEDS: ASPIRIN 81MG ENTERIC TABLET PO SCH (08:29)
[2023-05-09] MEDS: TERAZOSIN 1 MG CAP PO SCH (08:29)
[2023-05-09] MEDS: ADDERALL 5 MG TAB PO SCH ×2 (08:29→12:51)
[2023-05-09] MEDS: LEVEMIR (INSULIN DETEMIR) 1 UNITS/0.01ML SC SCH (08:30)
[2023-05-09] MEDS: PANTOPRAZOLE 40MG VIAL IV SCH (08:30)
[2023-05-09] MEDS: INSULIN LISPRO (NovoLOG) PER UNIT SC SCH ×4 (08:30→20:37)
[2023-05-09] MEDS: ATORVASTATIN 20 MG TAB PO SCH (08:30)
[2023-05-09] MEDS: GABAPENTIN 100 MG CAP PO SCH ×3 (08:30→21:00)
[2023-05-09] MEDS: ENOXAPARIN 40MG/0.4ML SYRINGE (J1650 PER 10MG) SC SCH (08:31)
[2023-05-09] MEDS ORDERED: LEVEMIR (INSULIN DETEMIR) 1 UNITS/0.01ML SC SCH ×2 (09:00→21:00)
[2023-05-09] MEDS ORDERED: amLODIPine 5 MG TAB PO SCH (09:00)
[2023-05-09] MEDS ORDERED: ASPIRIN 81MG CHEW TABLET PO SCH (09:00)
[2023-05-09] MEDS ORDERED: SUMAtriptan SUCCINATE 6MG/0.5ML VIAL SC ONE (10:00)
[2023-05-09 11:25] VITALS: BP 168/86
[2023-05-09 14:45] VITALS: BP 170/86; TEMP 98.1; O2SAT 95
[2023-05-09] MEDS ORDERED: amLODIPine 5 MG TAB PO ONE (15:05)
[2023-05-09 15:44] VITALS: BP 170/86
[2023-05-09 20:04] VITALS: BP 180/98; TEMP 97.5; O2SAT 96
[2023-05-09] MEDS ORDERED: RAMELTEON 8 MG TAB (ROZEREM) PO SCH (21:00)
[2023-05-10] MEDS: IPRATROPIUM 0.5MG/ALBUTEROL 2.5MG INH SOL UD 3ML (DUONEB) NEB SCH ×2 (03:39→07:33)
[2023-05-10] MEDS: METOCLOPRAMIDE 10MG TAB PO PRN (05:06)
[2023-05-10] MEDS: KETOROLAC 30 MG/ML 1ML VIAL IV PRN (05:06)
[2023-05-10 05:43] LABS: HEMATOCRIT 34.8 % (42.0-52.0); MEAN CORPUSCULAR HEMOGLOBIN 29.1 pg (27.0-33.0); MEAN CORPUSCULAR HGB CONC 34.5 g/dl (32.0-36.5); MEAN CORPUSCULAR VOLUME 84.3 fl (80.0-96.0); PLATELET COUNT, AUTOMATED 202 10^3/uL (150-450); RED BLOOD COUNT 4.13 10^6/uL (4.30-6.10); WHITE BLOOD COUNT 5.7 10^3/uL (4.0-10.0)
[2023-05-10 06:08] LABS: ALBUMIN 3.1 G/DL (3.2-5.2); ALKALINE PHOSPHATASE 68 U/L (46-116); ALT/SGPT < 9 U/L (7.0-40); AST/SGOT 15 U/L (<34); BILIRUBIN,TOTAL 0.7 MG/DL (0.3-1.2); BLOOD UREA NITROGEN 8 MG/DL (9-23); CALCIUM LEVEL 8.6 MG/DL (8.5-10.1); CARBON DIOXIDE LEVEL 26 MMOL/L (20-31); CHLORIDE LEVEL 104 MMOL/L (98-107); GLOMERULAR FILTRATION RATE > 60.0 (>56); GLUCOSE, FASTING 118 MG/DL (60-100); POTASSIUM SERUM 3.6 MMOL/L (3.5-5.1); SODIUM LEVEL 138 MMOL/L (136-145); TOTAL PROTEIN 6.1 G/DL (5.7-8.2)
[2023-05-10 06:17] VITALS: BP 175/92; TEMP 97.7; O2SAT 96
[2023-05-10] MEDS ORDERED: AMLO1TAB25 PO (07:10)
[2023-05-10] MEDS ORDERED: HYDR-3490 PO (07:10)
[2023-05-10] MEDS ORDERED: AMOX875T2 PO (07:12)
[2023-05-10] MEDS: LEVEMIR (INSULIN DETEMIR) 1 UNITS/0.01ML SC SCH (08:49)
[2023-05-10] MEDS: PANTOPRAZOLE 40MG VIAL IV SCH (08:49)
[2023-05-10] MEDS: INSULIN LISPRO (NovoLOG) PER UNIT SC SCH ×2 (08:49→12:33)
[2023-05-10] MEDS: TERAZOSIN 1 MG CAP PO SCH (08:50)
[2023-05-10] MEDS: ENOXAPARIN 40MG/0.4ML SYRINGE (J1650 PER 10MG) SC SCH (08:50)
[2023-05-10] MEDS: ADDERALL 5 MG TAB PO SCH ×2 (08:51→12:32)
[2023-05-10] MEDS: ASPIRIN 81MG ENTERIC TABLET PO SCH (08:51)
[2023-05-10] MEDS: GABAPENTIN 100 MG CAP PO SCH (08:51)
[2023-05-10 08:52] VITALS: BP 131/71
[2023-05-10] MEDS: methocarbamoL 750 MG TAB PO SCH (08:52)
[2023-05-10] MEDS: AUGMENTIN 875 MG TAB PO SCH (08:52)
[2023-05-10] MEDS: ATORVASTATIN 20 MG TAB PO SCH (08:52)
[2023-05-10] MEDS ORDERED: CADEXOMER IODINE 10GM (IODOSORB) GEL TOP SCH (09:00)
[2023-05-10] MEDS ORDERED: SUMAtriptan SUCCINATE 6MG/0.5ML VIAL SC ONE (09:00)
[2023-05-10] MEDS ORDERED: amLODIPine 5 MG TAB PO SCH (09:00)
== END 2023-05-10 13:05 | disposition home or self-care (01) | DRG 53 ==
LOC: M ED 14:27 → M ED INP 17:14 → M ICU 19:08 → M MS5PR 05-08 13:52
PROVIDERS: ADMIT Internal Medicine Critical Care Medicine; ATTEND Internal Medicine Critical Care Medicine
PROC: 0BH17EZ Insertion of Endotracheal Airway into Trachea, Via Natural or Artificial Opening (ICD-10-PCS; principal; 2023-05-05)
PROC: 5A1945Z Respiratory Ventilation, 24-96 Consecutive Hours (ICD-10-PCS; 2023-05-05)
DX: G40.909 Epilepsy, unspecified, not intractable, without status epilepticus (principal); J69.0 Pneumonitis due to inhalation of food and vomit; D69.6 Thrombocytopenia, unspecified; I25.10 Atherosclerotic heart disease of native coronary artery without angina pectoris; I25.2 Old myocardial infarction; Z95.5 Presence of coronary angioplasty implant and graft; E11.9 Type 2 diabetes mellitus without complications; Z86.711 Personal history of pulmonary embolism; F19.90 Other psychoactive substance use, unspecified, uncomplicated; Z86.718 Personal history of other venous thrombosis and embolism; E87.6 Hypokalemia; F17.210 Nicotine dependence, cigarettes, uncomplicated; I10 Essential (primary) hypertension; G43.909 Migraine, unspecified, not intractable, without status migrainosus; M54.9 Dorsalgia, unspecified; G89.29 Other chronic pain; F90.9 Attention-deficit hyperactivity disorder, unspecified type; Z79.01 Long term (current) use of anticoagulants; Z79.82 Long term (current) use of aspirin; Z79.4 Long term (current) use of insulin; Z79.899 Other long term (current) drug therapy; Z88.8 Allergy status to other drugs, medicaments and biological substances; Z20.822 Contact with and (suspected) exposure to COVID-19

== ENCOUNTER 2023-06-25 12:32 | Emergency (ER) | payer MEDICAID, OTHER ==
[~2023-06-25 12:32] MED LIST changes: +AMLO1TAB25 PO; +AMOX875T2 PO; +HYDR-3490 PO; +LIDO1ADH10 TOP; +MED HIST COMMENT; +MENT118S2 TOP; +METO10TA2 PO
[2023-06-25 13:38] LABS: BASO # 0.1 10^3/uL (0.0-0.2); BASO % 0.7 % (0.0-1.0); EOS # 0.2 10^3/uL (0.0-0.5); HEMATOCRIT 37.1 % (42.0-52.0); HEMOGLOBIN 13.2 g/dl (13.5-17.5); LYMPH # 1.4 10^3/uL (1.5-5.0); LYMPH % 18.9 % (24.0-44.0); MEAN CORPUSCULAR HEMOGLOBIN 29.5 pg (27.0-33.0); MEAN CORPUSCULAR HGB CONC 35.6 g/dl (32.0-36.5); MEAN CORPUSCULAR VOLUME 82.8 fl (80.0-96.0); MONO # 0.5 10^3/uL (0.0-0.8); MONO % 7.1 % (2.0-8.0); NEUTROPHILS # 5.3 10^3/uL (1.5-8.5); RED BLOOD COUNT 4.48 10^6/uL (4.30-6.10); WHITE BLOOD COUNT 7.5 10^3/uL (4.0-10.0)
[2023-06-25 14:01] LABS: ALBUMIN 3.7 G/DL (3.2-5.2); ALKALINE PHOSPHATASE 85 U/L (46-116); ALT/SGPT 15 U/L (7.0-40); AST/SGOT 11 U/L (<34); BILIRUBIN,DIRECT 0.4 MG/DL (<0.4); BILIRUBIN,TOTAL 1.2 MG/DL (0.3-1.2); BLOOD UREA NITROGEN 12 MG/DL (9-23); CALCIUM LEVEL 8.7 MG/DL (8.5-10.1); CARBON DIOXIDE LEVEL 29 MMOL/L (20-31); CHLORIDE LEVEL 103 MMOL/L (98-107); CK-MB VALUE MASS < 1.0 NG/ML (<3.6); CPK CREATINE PHOSPHOKINASE 67 U/L (46-171); CREATININE FOR GFR 0.92 MG/DL (0.70-1.30); GLOMERULAR FILTRATION RATE > 60.0 (>56); GLUCOSE, FASTING 216 MG/DL (60-100); MB/CK RELATIVE INDEX 1.49 (< OR =4); POTASSIUM SERUM 3.8 MMOL/L (3.5-5.1); SODIUM LEVEL 136 MMOL/L (136-145); TOTAL PROTEIN 6.7 G/DL (5.7-8.2)
[2023-06-25 14:03] LABS: FREE T4 1.05 NG/DL (0.89-1.76); THYROID STIMULATING HORMONE 0.709 uIU/ML (0.55-4.78)
[2023-06-25 14:05] LABS: INR 1.09; PROTHROMBIN TIME 13.8 SECONDS (12.5-14.5)
[2023-06-25 14:07] LABS: PARTIAL THROMBOPLASTIN TIME 84.7 SECONDS (24.8-34.2)
[2023-06-25 14:10] LABS: RSV AMPLIFICATION NEGATIVE (NEGATIVE)
[2023-06-25 14:15] LABS: PLATELET COUNT, AUTOMATED 98 10^3/uL (150-450)
[2023-06-25] MEDS ORDERED: ONDANSETRON 4MG 2ML VIAL IV ONE (15:40)
[2023-06-25] MEDS ORDERED: MORPHINE 4 MG/ML 1ML VIAL IV ONE (15:40)
[2023-06-25] MEDS ORDERED: NS 1,000 ML IV ONE (15:40)
[2023-06-25] MEDS ORDERED: ISOVUE-370 76% 100ML VIAL As Ordered ONE (15:51)
[2023-06-25 16:11] LABS: LIPASE 46 U/L (12-53)
[2023-06-25 16:56] LABS: CK-MB VALUE MASS < 1.0 NG/ML (<3.6)
[2023-06-25 16:58] LABS: CPK CREATINE PHOSPHOKINASE 54 U/L (46-171); MB/CK RELATIVE INDEX 1.85 (< OR =4)
[2023-06-25] MEDS ORDERED: ONDA4TAB6 PO (17:43)
[2023-06-25] MEDS ORDERED: OMEP40CA4 PO (17:44)
[2023-06-25] MEDS ORDERED: oxyCODONE 5MG TAB PO ONE (17:50)
[2023-06-25 17:56] VITALS: BP 211/89; TEMP 98.2; O2SAT 99
== END 2023-06-25 18:33 | disposition home or self-care (01) ==
LOC: M ED 12:32
DX: R11.10 Vomiting, unspecified (principal); R07.9 Chest pain, unspecified; M54.50 Low back pain, unspecified; I10 Essential (primary) hypertension; R00.1 Bradycardia, unspecified; I44.4 Left anterior fascicular block; I25.2 Old myocardial infarction; E78.5 Hyperlipidemia, unspecified; E11.9 Type 2 diabetes mellitus without complications; F17.200 Nicotine dependence, unspecified, uncomplicated; Z88.6 Allergy status to analgesic agent; Z87.442 Personal history of urinary calculi; Z79.52 Long term (current) use of systemic steroids; Z79.891 Long term (current) use of opiate analgesic; Z79.83 Long term (current) use of bisphosphonates; Z79.899 Other long term (current) drug therapy
CPT/HCPCS: 70450; 71045; 71275; 72125; 74177; 80048; 80076; 82550; 82553; 83690; 84439; 84443; 85025; 85049; 85055; 85610; 85730; 87631; 93005; 93041; 94760; 96361; 96374; 99285; J2405; Q9967

== ENCOUNTER → 2023-08-29 | Outpatient (REF) | payer OTHER ==
[~2023-08-29] MED LIST changes: +OMEP40CA4 PO; +ONDA4TAB6 PO
[2023-08-29 17:35] LABS: CREATININE, URINE 60.2 MG/DL
[2023-08-29 17:36] LABS: MAU/CREAT RATIO 599.6 MCG/MG (0.0-30.0)
== END ==
LOC: M LAB REF 16:31
PROVIDERS: ATTEND Physician Assistant
DX: E11.40 Type 2 diabetes mellitus with diabetic neuropathy, unspecified (principal); Z79.899 Other long term (current) drug therapy

== ENCOUNTER → 2024-02-22 | Outpatient (CLI) | payer OTHER ==
[~2024-02-22] MED LIST changes: +BUPR-597; -BUPR300T92; +ONDA-282 PO; -ONDA4TAB6 PO
[2024-02-22 12:44] LABS: HEMATOCRIT 39.4 % (42.0-52.0); HEMOGLOBIN 13.9 g/dl (13.5-17.5); MEAN CORPUSCULAR HEMOGLOBIN 29.8 pg (27.0-33.0); MEAN CORPUSCULAR HGB CONC 35.3 g/dl (32.0-36.5); MEAN CORPUSCULAR VOLUME 84.4 fl (80.0-96.0); RED BLOOD COUNT 4.67 10^6/uL (4.30-6.10); WHITE BLOOD COUNT 5.7 10^3/uL (4.0-10.0)
[2024-02-22 12:49] LABS: PLATELET COUNT, AUTOMATED 89 10^3/uL (150-450)
[2024-02-22 13:03] LABS: HEMOGLOBIN A1c 6.2 % (4.0-6.0)
[2024-02-22 13:05] LABS: CREATININE, URINE 153.7 MG/DL
[2024-02-22 13:20] LABS: ALBUMIN 3.6 G/DL (3.2-5.2); BILIRUBIN,TOTAL 1.2 MG/DL (0.3-1.2); CALCIUM LEVEL 8.8 MG/DL (8.5-10.1); CHOLESTEROL RISK RATIO 5.13 (<5); CREATININE FOR GFR 1.46 MG/DL (0.70-1.30); GLOMERULAR FILTRATION RATE 52.6 (>56); HDL CHOLESTEROL 32.5 MG/DL (>40); LDL CHOLESTEROL 99.9 MG/DL (<100); NON-HDL-C 134.5 MG/DL; POTASSIUM SERUM 4.1 MMOL/L (3.5-5.1); TOTAL PROTEIN 6.4 G/DL (5.7-8.2)
[2024-02-22 13:20] LABS: MAU/CREAT RATIO 822.3 MCG/MG (0.0-30.0)
== END ==
LOC: M LAB 12:03
PROVIDERS: ATTEND Physician Assistant
DX: E11.65 Type 2 diabetes mellitus with hyperglycemia (principal); R10.9 Unspecified abdominal pain; R63.4 Abnormal weight loss

== ENCOUNTER 2024-03-07 16:37 | Emergency (ER) | payer OTHER ==
[2024-03-07] MEDS ORDERED: ISOVUE-370 76% 100ML VIAL As Ordered ONE (16:46)
[2024-03-07] MEDS ORDERED: VALT1TAB PO (17:49)
[2024-03-07] MEDS ORDERED: PRED10TA2 PO (17:49)
[2024-03-07] MEDS ORDERED: CLOP75TA99 PO (17:49)
[2024-03-07] MEDS ORDERED: ATOR1TAB21 PO (17:49)
[2024-03-07] MEDS ORDERED: ADME100I SC (17:49)
[2024-03-07] MEDS ORDERED: OMEP40CA4 PO (17:49)
[2024-03-07] MEDS ORDERED: AMLO1TAB25 PO (17:49)
[2024-03-07] MEDS ORDERED: TOUJ300I2 SC (17:49)
[2024-03-07] MEDS ORDERED: ASPI81TA26 PO (17:49)
[2024-03-07 17:59] LABS: BASO # 0.1 10^3/uL (0.0-0.2); BASO % 1.1 % (0.0-1.0); EOS # 0.3 10^3/uL (0.0-0.5); EOS % 3.9 % (0.0-3.0); HEMATOCRIT 37.7 % (42.0-52.0); HEMOGLOBIN 13.4 g/dl (13.5-17.5); LYMPH # 2.1 10^3/uL (1.5-5.0); LYMPH % 28.9 % (24.0-44.0); MEAN CORPUSCULAR HEMOGLOBIN 29.5 pg (27.0-33.0); MEAN CORPUSCULAR HGB CONC 35.5 g/dl (32.0-36.5); MONO # 0.7 10^3/uL (0.0-0.8); NEUTROPHILS # 4.1 10^3/uL (1.5-8.5); NEUTROPHILS % 56.7 % (36.0-66.0); PLATELET COUNT, AUTOMATED 149 10^3/uL (150-450); RED BLOOD COUNT 4.54 10^6/uL (4.30-6.10); WHITE BLOOD COUNT 7.2 10^3/uL (4.0-10.0)
[2024-03-07 18:06] LABS: INR 1.1; PARTIAL THROMBOPLASTIN TIME 98.8 SECONDS (24.8-34.2); PROTHROMBIN TIME 13.9 SECONDS (12.5-14.5)
[2024-03-07 18:11] VITALS: BP 176/78; TEMP 98.1; O2SAT 97
== END 2024-03-07 18:15 | disposition left against medical advice (07) ==
LOC: M ED 16:37
DX: G51.0 Bell's palsy (principal); I67.9 Cerebrovascular disease, unspecified; R00.1 Bradycardia, unspecified; I25.2 Old myocardial infarction; I10 Essential (primary) hypertension; E11.9 Type 2 diabetes mellitus without complications; E78.5 Hyperlipidemia, unspecified; F90.9 Attention-deficit hyperactivity disorder, unspecified type; K21.9 Gastro-esophageal reflux disease without esophagitis; F17.200 Nicotine dependence, unspecified, uncomplicated; F10.90 Alcohol use, unspecified, uncomplicated; Z86.711 Personal history of pulmonary embolism; Z87.442 Personal history of urinary calculi; Z88.6 Allergy status to analgesic agent; Z79.84 Long term (current) use of oral hypoglycemic drugs; Z79.52 Long term (current) use of systemic steroids; Z79.02 Long term (current) use of antithrombotics/antiplatelets; Z79.899 Other long term (current) drug therapy; Z53.9 Procedure and treatment not carried out, unspecified reason
CPT/HCPCS: 36415; 70450; 70496; 70498; 71045; 80047; 85025; 85610; 85730; 86618; 93005; 93041; 94760; 99285; Q9967

== ENCOUNTER 2024-05-03 06:04 | Emergency (ER) | payer OTHER ==
[~2024-05-03] VITALS: Ht 182.9 cm; Wt 81.8 kg
[~2024-05-03 06:04] MED LIST changes: +CLOP75TA99 PO; +GABA-1172 PO; -GABA-282 PO; +PRED10TA2 PO; +VALT1TAB PO; +VANC250C10 PO; -VANC250C3 PO
[2024-05-03 07:15] LABS: BASO # 0.1 10^3/uL (0.0-0.2); BASO % 0.6 % (0.0-1.0); EOS % 0.3 % (0.0-3.0); HEMOGLOBIN 11.9 g/dl (13.5-17.5); LYMPH % 10.6 % (24.0-44.0); MEAN CORPUSCULAR HEMOGLOBIN 29.1 pg (27.0-33.0); MEAN CORPUSCULAR VOLUME 83.1 fl (80.0-96.0); MONO # 0.7 10^3/uL (0.0-0.8); MONO % 7.8 % (2.0-8.0); NEUTROPHILS # 7.6 10^3/uL (1.5-8.5); NEUTROPHILS % 80.3 % (36.0-66.0); RED BLOOD COUNT 4.09 10^6/uL (4.30-6.10); WHITE BLOOD COUNT 9.5 10^3/uL (4.0-10.0)
[2024-05-03 07:31] LABS: PLATELET COUNT, AUTOMATED 99 10^3/uL (150-450)
[2024-05-03 07:34] LABS: CK-MB VALUE MASS 6.6 NG/ML (<3.6)
[2024-05-03 07:39] LABS: ETHYL ALCOHOL (ETHANOL) 0.004 % (0.000-0.010)
[2024-05-03 07:41] LABS: SALICYLATE LEVEL < 3.0 MG/DL (<30)
[2024-05-03 07:45] LABS: ALBUMIN 3.7 G/DL (3.2-5.2); ALKALINE PHOSPHATASE 90 U/L (46-116); ALT/SGPT 17 U/L (7.0-40); AST/SGOT 20 U/L (<34); BILIRUBIN,DIRECT 0.3 MG/DL (<0.4); BILIRUBIN,TOTAL 0.8 MG/DL (0.3-1.2); BLOOD UREA NITROGEN 18 MG/DL (9-23); CALCIUM LEVEL 9.4 MG/DL (8.3-10.6); CARBON DIOXIDE LEVEL 24 MMOL/L (20-31); CHLORIDE LEVEL 111 MMOL/L (98-107); CREATININE FOR GFR 1.59 MG/DL (0.70-1.30); GLOMERULAR FILTRATION RATE 47.5 (>49); GLUCOSE, FASTING 183 MG/DL (74-106); POTASSIUM SERUM 3.7 MMOL/L (3.5-5.1); SODIUM LEVEL 142 MMOL/L (136-145); TOTAL PROTEIN 6.5 G/DL (5.7-8.2)
[2024-05-03 07:55] LABS: LIPASE 41 U/L (12-53)
[2024-05-03] MEDS ORDERED: ISOVUE-370 76% 100ML VIAL As Ordered ONE (08:04)
[2024-05-03 08:15] LABS: CPK CREATINE PHOSPHOKINASE 313 U/L (46-171)
[2024-05-03 08:32] LABS: CK-MB VALUE MASS 8.1 NG/ML (<3.6)
[2024-05-03 08:34] LABS: MB/CK RELATIVE INDEX 2.58 (< OR =4)
[2024-05-03] MEDS ORDERED: CLOPIDOGREL 75 MG TAB PO SCH (09:00)
[2024-05-03] MEDS: ASPIRIN 81MG ENTERIC TABLET PO SCH (09:00)
[2024-05-03] MEDS ORDERED: ADDERALL 5 MG TAB PO ONE (09:15)
[2024-05-03] MEDS ORDERED: oxyCODONE 20MG CR TAB PO ONE (09:15)
[2024-05-03] MEDS ORDERED: oxyCODONE 10 MG CR TAB PO ONE (09:25)
[2024-05-03] MEDS: ADDERALL 5 MG TAB PO ONE (09:37)
[2024-05-03] MEDS: ASPIRIN 81MG CHEW TABLET PO ONE (09:37)
[2024-05-03] MEDS: oxyCODONE 5MG TAB PO ONE (09:38)
[2024-05-03] MEDS: GABAPENTIN 100 MG CAP PO ONE (09:40)
[2024-05-03 10:26] LABS: INR 1.12; PARTIAL THROMBOPLASTIN TIME 67.9 SECONDS (24.8-34.2); PROTHROMBIN TIME 14.1 SECONDS (12.5-14.5)
[2024-05-03 10:35] LABS: AMPHETAMINES LEVEL URINE NEGATIVE (NEGATIVE); BARBITURATES URINE NEGATIVE (NEGATIVE); BENZODIAZEPINES URINE NEGATIVE (NEGATIVE); COCAINE METABOLITE URINE NEGATIVE (NEGATIVE); METHADONE URINE NEGATIVE (NEGATIVE)
[2024-05-03 10:36] LABS: CANNABINOIDS URINE NEGATIVE (NEGATIVE); PHENCYCLIDINE URINE NEGATIVE (NEGATIVE)
[2024-05-03 10:37] LABS: CK-MB VALUE MASS 8.1 NG/ML (<3.6)
[2024-05-03 10:38] LABS: MB/CK RELATIVE INDEX 2.4 (< OR =4)
[2024-05-03 10:39] LABS: OPIATES URINE POSITIVE (NEGATIVE)
[2024-05-03] MEDS: INSULIN LISPRO (NovoLOG) PER UNIT SC SCH ×2 (12:00→21:36)
[2024-05-03] MEDS ORDERED: ASPI-226 PO (12:00)
[2024-05-03] MEDS ORDERED: AMLO1TAB25 PO (12:11)
[2024-05-03] MEDS ORDERED: TOUJ300I2 SC (12:11)
[2024-05-03] MEDS ORDERED: TOPI-21 PO (12:11)
[2024-05-03] MEDS ORDERED: INSUHUMDS SC (12:11)
[2024-05-03] MEDS ORDERED: OMEP40CA5 PO (12:11)
[2024-05-03] MEDS ORDERED: ADDE30TA PO (12:11)
[2024-05-03] MEDS ORDERED: CLOP75TA99 PO (12:11)
[2024-05-03] MEDS ORDERED: ATOR80TA59 PO (12:11)
[2024-05-03] MEDS ORDERED: HOME MED LIST COMPLETE! XX SCH (12:15)
[2024-05-03] MEDS: ONDANSETRON 4MG 2ML VIAL IV ONE (12:39)
[2024-05-03] MEDS ORDERED: GLUCAGON INJ 1MG VIAL SC PRN (13:50)
[2024-05-03] MEDS ORDERED: CARVedilol 3.125 MG TAB PO ONE (13:50)
[2024-05-03] MEDS ORDERED: ALBUTEROL 90 MCG/ACT 8GM HFA INHALER INH PRN (13:50)
[2024-05-03] MEDS ORDERED: GLUCOSE 4 GM CHEW PO PRN (13:50)
[2024-05-03] MEDS ORDERED: HEPARIN SOD (PORCINE) 5000UNITS/ML 1ML VIAL/SYRINGE SC SCH (14:05)
[2024-05-03] MEDS: ATORVASTATIN 20 MG TAB PO SCH (14:33)
[2024-05-03] MEDS: ADDERALL 5 MG TAB PO SCH (14:33)
[2024-05-03] MEDS: OMEPRAZOLE 20MG CAP PO SCH (14:34)
[2024-05-03] MEDS: TOPIRAMATE (TopAMAX) 25 MG TAB PO SCH (14:34)
[2024-05-03] MEDS: CARVedilol 6.25 MG TAB PO SCH (14:46)
[2024-05-03] MEDS ORDERED: LORazepam 2 MG TAB PO PRN (16:15)
[2024-05-03] MEDS: GABAPENTIN 100 MG CAP PO SCH (16:33)
[2024-05-03] MEDS: oxyCODONE 5MG TAB PO PRN (16:33)
[2024-05-03] MEDS: MULTIVITAMINS/MINERALS THERAP 1 TAB PO SCH (18:06)
[2024-05-03] MEDS: FOLIC ACID 1MG TAB PO SCH (18:06)
[2024-05-03] MEDS: ONDANSETRON 4MG 2ML VIAL IV PRN (18:09)
[2024-05-03] MEDS: NS 1,000 ML IV SCH (19:27)
[2024-05-03] MEDS: THIAMINE 100 MG TAB PO SCH (21:36)
[2024-05-03] MEDS: APIXABAN 5 MG TAB (ELIQUIS) PO SCH (21:36)
[2024-05-04] MEDS ORDERED: amLODIPine 5 MG TAB PO SCH (09:00)
[2024-05-04] MEDS: ADDERALL 5 MG TAB PO SCH (09:40)
[2024-05-04] MEDS: amLODIPine 5 MG TAB PO SCH (09:40)
[2024-05-04] MEDS: LEVEMIR (INSULIN DETEMIR) 1 UNITS/0.01ML SC SCH (09:43)
[2024-05-04] MEDS: DEXTROSE 50% 50ML SYRINGE IV PRN (12:35)
[2024-05-05 10:54] VITALS: BP 143/72
[2024-05-05] MEDS: LEVEMIR (INSULIN DETEMIR) 1 UNITS/0.01ML SC SCH (10:56)
[2024-05-05 11:02] VITALS: BP 143/72; TEMP 98.1; O2SAT 97
[2024-05-05] MEDS ORDERED: ASPI-226 PO (13:10)
[2024-05-05] MEDS ORDERED: AMLO1TAB25 PO (13:10)
[2024-05-05] MEDS ORDERED: CARV6.25 PO (13:10)
[2024-05-05] MEDS ORDERED: ATOR80TA59 PO (13:10)
[2024-05-05] MEDS ORDERED: TOUJ300I2 SC (13:10)
[2024-05-05] MEDS ORDERED: ELIQ5TAB PO (13:10)
== END 2024-05-05 13:30 | disposition home or self-care (01) ==
LOC: EDBD 06:04 → M ED 06:04
DX: R07.9 Chest pain, unspecified (principal); I44.4 Left anterior fascicular block; E11.65 Type 2 diabetes mellitus with hyperglycemia; F90.9 Attention-deficit hyperactivity disorder, unspecified type; G40.909 Epilepsy, unspecified, not intractable, without status epilepticus; N18.9 Chronic kidney disease, unspecified; G43.909 Migraine, unspecified, not intractable, without status migrainosus; M54.50 Low back pain, unspecified; F10.10 Alcohol abuse, uncomplicated; Z79.52 Long term (current) use of systemic steroids; Z79.82 Long term (current) use of aspirin; Z79.02 Long term (current) use of antithrombotics/antiplatelets; Z79.4 Long term (current) use of insulin; Z79.899 Other long term (current) drug therapy; Z86.79 Personal history of other diseases of the circulatory system; Z86.711 Personal history of pulmonary embolism; Z88.6 Allergy status to analgesic agent
CPT/HCPCS: 70544; 70547; 70551; 71045; 71275; 80048; 80076; 80143; 80307; 82077; 82550; 82553; 83690; 84484; 85025; 85049; 85055; 85610; 85730; 93005; 93041; 94760; 96374; 96375; 96376; 97161; 97530; 99285; J1815; J2405; Q9967

== ENCOUNTER 2024-05-08 21:47 | Observation (INO) | payer OTHER ==
[~2024-05-08] VITALS: Ht 182.9 cm; Wt 81.5 kg
[~2024-05-08 21:47] MED LIST changes: +ASPI-226 PO; +ATOR80TA59 PO; +CARV6.25 PO; +INSUHUMDS SC; +OMEP40CA5 PO; +TOPI-21 PO
[2024-05-08 22:31] LABS: VENOUS BASE EXCESS -3.7 (-2.0-2.0); VENOUS O2 SATURATION 90.4 % (60.0-80.0); VENOUS PARTIAL PRESSURE CO2 37.1 mmHg (38.0-50.0); VENOUS PARTIAL PRESSURE O2 58.4 mmHg (30.0-50.0); VENOUS PH 7.371 UNITS (7.330-7.430); VENOUS STANDARD HCO3 21.2 MMOL/L; VENOUS TOTAL CO2 22.2 MMOL/L (24.0-28.0)
[2024-05-08 22:37] LABS: BASO # 0.1 10^3/uL (0.0-0.2); BASO % 1.1 % (0.0-1.0); EOS # 0.3 10^3/uL (0.0-0.5); EOS % 4.7 % (0.0-3.0); HEMOGLOBIN 12.3 g/dl (13.5-17.5); LYMPH # 2.4 10^3/uL (1.5-5.0); LYMPH % 32.5 % (24.0-44.0); MEAN CORPUSCULAR HEMOGLOBIN 29.5 pg (27.0-33.0); MEAN CORPUSCULAR HGB CONC 35.1 g/dl (32.0-36.5); MEAN CORPUSCULAR VOLUME 83.9 fl (80.0-96.0); MONO # 0.7 10^3/uL (0.0-0.8); MONO % 9.7 % (2.0-8.0); NEUTROPHILS # 3.8 10^3/uL (1.5-8.5); NEUTROPHILS % 51.9 % (36.0-66.0); PLATELET COUNT, AUTOMATED 129 10^3/uL (150-450); RED BLOOD COUNT 4.17 10^6/uL (4.30-6.10); WHITE BLOOD COUNT 7.3 10^3/uL (4.0-10.0)
[2024-05-08 23:47] LABS: ALBUMIN 3.6 G/DL (3.2-5.2); BILIRUBIN,DIRECT 0.4 MG/DL (<0.4); BILIRUBIN,TOTAL 1.1 MG/DL (0.3-1.2); CALCIUM LEVEL 8.9 MG/DL (8.3-10.6); CREATININE FOR GFR 1.43 MG/DL (0.70-1.30); ETHYL ALCOHOL (ETHANOL) 0.004 % (0.000-0.010); GLOMERULAR FILTRATION RATE 53.7 (>49); POTASSIUM SERUM 3.5 MMOL/L (3.5-5.1); THYROID STIMULATING HORMONE 4.193 uIU/ML (0.55-4.78); TOTAL PROTEIN 6.7 G/DL (5.7-8.2)
[2024-05-08] MEDS: IPRATROPIUM 0.5MG/ALBUTEROL 2.5MG INH SOL UD 3ML (DUONEB) NEB ONE ×2 (23:48)
[2024-05-08 23:59] LABS: CK-MB VALUE MASS 3.2 NG/ML (<3.6)
[2024-05-09 00:05] LABS: MB/CK RELATIVE INDEX 1.33 (< OR =4)
[2024-05-09] MEDS ORDERED: ISOVUE-370 76% 100ML VIAL As Ordered ONE (00:28)
[2024-05-09 00:40] LABS: MAGNESIUM LEVEL 1.8 MG/DL (1.8-2.4)
[2024-05-09] MEDS: ALPRAZolam 0.5 MG TAB PO ONE (01:17)
[2024-05-09] MEDS: NS 1,000 ML IV ONE (01:18)
[2024-05-09 01:31] LABS: CK-MB VALUE MASS 2.3 NG/ML (<3.6)
[2024-05-09 01:37] LABS: MB/CK RELATIVE INDEX 0.96 (< OR =4)
[2024-05-09] MEDS ORDERED: HUMA100I5 INJ (03:36)
[2024-05-09] MEDS ORDERED: TOUJ300I2 INJ (03:36)
[2024-05-09] MEDS ORDERED: ELIQ5TAB PO (03:36)
[2024-05-09] MEDS ORDERED: HOME MED LIST COMPLETE! XX SCH (03:40)
[2024-05-09] MEDS ORDERED: ACETAMINOPHEN 325 MG TAB PO PRN (04:15)
[2024-05-09] MEDS ORDERED: ALBUTEROL 90 MCG/ACT 8GM HFA INHALER INH PRN (04:15)
[2024-05-09] MEDS ORDERED: oxyCODONE 5MG TAB PO PRN ×2 (04:15→04:50)
[2024-05-09] MEDS ORDERED: DEXTROSE 50% 50ML SYRINGE IV PRN (05:20)
[2024-05-09] MEDS ORDERED: GLUCAGON INJ 1MG VIAL SC PRN (05:20)
[2024-05-09] MEDS ORDERED: GLUCOSE 4 GM CHEW PO PRN (05:20)
[2024-05-09] MEDS ORDERED: NICOTINE 21MG/24HR 1 EA TRANSDERMAL TD PRN (05:30)
[2024-05-09] MEDS ORDERED: NICOTINE POLACRILEX 2 MG GUM PO PRN (05:30)
[2024-05-09 06:10] LABS: HEMATOCRIT 32.2 % (42.0-52.0); HEMOGLOBIN 11.2 g/dl (13.5-17.5); MEAN CORPUSCULAR HEMOGLOBIN 29.4 pg (27.0-33.0); MEAN CORPUSCULAR HGB CONC 34.8 g/dl (32.0-36.5); MEAN CORPUSCULAR VOLUME 84.5 fl (80.0-96.0); PLATELET COUNT, AUTOMATED 114 10^3/uL (150-450); RED BLOOD COUNT 3.81 10^6/uL (4.30-6.10)
[2024-05-09 06:30] VITALS: TEMP 97.6
[2024-05-09 06:41] LABS: HEMOGLOBIN A1c 6.4 % (4.0-6.0)
[2024-05-09 07:07] LABS: BLOOD UREA NITROGEN 15 MG/DL (9-23); CALCIUM LEVEL 8.5 MG/DL (8.3-10.6); CARBON DIOXIDE LEVEL 24 MMOL/L (20-31); CHLORIDE LEVEL 113 MMOL/L (98-107); CHOLESTEROL LEVEL 123 MG/DL (<200); CHOLESTEROL RISK RATIO 4.15 (<5); CREATININE FOR GFR 1.44 MG/DL (0.70-1.30); GLOMERULAR FILTRATION RATE 53.3 (>49); GLUCOSE, FASTING 161 MG/DL (74-106); HDL CHOLESTEROL 29.6 MG/DL (>40); LDL CHOLESTEROL 66.2 MG/DL (<100); NON-HDL-C 93.4 MG/DL; POTASSIUM SERUM 3.5 MMOL/L (3.5-5.1); SODIUM LEVEL 142 MMOL/L (136-145); TRIGLYCERIDES LEVEL 136 MG/DL (<150)
[2024-05-09 07:30] VITALS: BP 169/78; O2SAT 98
[2024-05-09] MEDS: INSULIN LISPRO (NovoLOG) PER UNIT SC SCH (07:46)
[2024-05-09 08:12] LABS: C REACTIVE PROTEIN QUANTITATIV < 0.40 MG/DL (<1.0)
[2024-05-09 08:15] LABS: ERYTHROCYTE SEDIMENTATION RATE 14 mm/hr (0-20)
[2024-05-09 08:21] LABS: PROCALCITONIN 0.13 ng/ml
[2024-05-09 08:28] LABS: AMPHETAMINES LEVEL URINE NEGATIVE (NEGATIVE); BENZODIAZEPINES URINE NEGATIVE (NEGATIVE)
[2024-05-09 08:29] LABS: BARBITURATES URINE NEGATIVE (NEGATIVE); CANNABINOIDS URINE NEGATIVE (NEGATIVE); COCAINE METABOLITE URINE NEGATIVE (NEGATIVE); METHADONE URINE NEGATIVE (NEGATIVE); PHENCYCLIDINE URINE NEGATIVE (NEGATIVE)
[2024-05-09 08:33] LABS: OPIATES URINE POSITIVE (NEGATIVE)
[2024-05-09] MEDS ORDERED: GABAPENTIN 100 MG CAP PO SCH (09:00)
[2024-05-09] MEDS: ASPIRIN 81MG CHEW TABLET PO SCH (09:05)
== END 2024-05-09 11:08 | disposition home or self-care (01) ==
LOC: M ED 21:47 → M ED INP 21:48
PROVIDERS: ADMIT Student in an Organized Health Care Education/Training Program; ATTEND Student in an Organized Health Care Education/Training Program
DX: R42 Dizziness and giddiness (principal); Z86.73 Personal history of transient ischemic attack (TIA), and cerebral infarction without residual deficits; R07.89 Other chest pain; Z86.711 Personal history of pulmonary embolism; N18.30 Chronic kidney disease, stage 3 unspecified; E11.9 Type 2 diabetes mellitus without complications; D64.9 Anemia, unspecified; F90.9 Attention-deficit hyperactivity disorder, unspecified type; M54.50 Low back pain, unspecified; F11.10 Opioid abuse, uncomplicated; I25.10 Atherosclerotic heart disease of native coronary artery without angina pectoris; I25.2 Old myocardial infarction; Z98.61 Coronary angioplasty status; Z79.01 Long term (current) use of anticoagulants; Z79.82 Long term (current) use of aspirin; Z79.4 Long term (current) use of insulin; Z88.8 Allergy status to other drugs, medicaments and biological substances; Z86.718 Personal history of other venous thrombosis and embolism
CPT/HCPCS: 36415; 70450; 70496; 70498; 71045; 80048; 80061; 80076; 80307; 81001; 82077; 82140; 82550; 82553; 82803; 83036; 83605; 83735; 84145; 84443; 84484; 85025; 85027; 85652; 86140; 87086; 87486; 87581; 87633; 87798; 93005; 93041; 93306; 94640; 94760; 96374; 97161; 99285; J1815; Q9967

== ENCOUNTER 2024-05-11 22:17 | Emergency (ER) | payer OTHER ==
[~2024-05-11] VITALS: Ht 182.9 cm; Wt 81.7 kg
[~2024-05-11 22:17] MED LIST changes: +HUMA100I5 INJ; +TOUJ300I2 INJ
[2024-05-11 22:22] VITALS: TEMP 98.3
[2024-05-11 22:34] VITALS: BP 153/97
[2024-05-11 23:22] LABS: BASO # 0.1 10^3/uL (0.0-0.2); BASO % 0.9 % (0.0-1.0); EOS # 0.5 10^3/uL (0.0-0.5); EOS % 4.1 % (0.0-3.0); HEMOGLOBIN 13.5 g/dl (13.5-17.5); LYMPH # 2.6 10^3/uL (1.5-5.0); LYMPH % 22.7 % (24.0-44.0); MEAN CORPUSCULAR HEMOGLOBIN 29.3 pg (27.0-33.0); MEAN CORPUSCULAR HGB CONC 34.6 g/dl (32.0-36.5); MEAN CORPUSCULAR VOLUME 84.8 fl (80.0-96.0); MONO # 0.9 10^3/uL (0.0-0.8); MONO % 7.7 % (2.0-8.0); NEUTROPHILS # 7.4 10^3/uL (1.5-8.5); NEUTROPHILS % 64.1 % (36.0-66.0); PLATELET COUNT, AUTOMATED 180 10^3/uL (150-450); WHITE BLOOD COUNT 11.6 10^3/uL (4.0-10.0)
[2024-05-11 23:37] LABS: INR 1.24; PROTHROMBIN TIME 15.3 SECONDS (12.5-14.5)
[2024-05-12 00:17] VITALS: O2SAT 98
[2024-05-12 00:19] LABS: ALBUMIN 4.1 G/DL (3.2-5.2); BILIRUBIN,DIRECT 0.3 MG/DL (<0.4); BILIRUBIN,TOTAL 0.7 MG/DL (0.3-1.2); CALCIUM LEVEL 9.5 MG/DL (8.3-10.6); CREATININE FOR GFR 1.4 MG/DL (0.70-1.30); MB/CK RELATIVE INDEX 1.36 (< OR =4); TOTAL PROTEIN 7.9 G/DL (5.7-8.2)
== END 2024-05-12 04:10 | disposition home or self-care (01) ==
LOC: M ED 22:17 → EDBD 22:17 → M ED 05-12 04:10
DX: R07.9 Chest pain, unspecified (principal); I44.4 Left anterior fascicular block; I45.10 Unspecified right bundle-branch block; R51.9 Headache, unspecified; E78.5 Hyperlipidemia, unspecified; K21.9 Gastro-esophageal reflux disease without esophagitis; N28.1 Cyst of kidney, acquired; E11.9 Type 2 diabetes mellitus without complications; F90.9 Attention-deficit hyperactivity disorder, unspecified type; I10 Essential (primary) hypertension; Z79.52 Long term (current) use of systemic steroids; Z79.01 Long term (current) use of anticoagulants; Z79.82 Long term (current) use of aspirin; Z79.4 Long term (current) use of insulin; Z79.899 Other long term (current) drug therapy

== ENCOUNTER 2024-06-02 16:37 | Emergency (ER) | payer OTHER ==
[~2024-06-02] VITALS: Ht 180.3 cm; Wt 150.0 kg
[~2024-06-02 16:37] MED LIST changes: +NYST1POW3 TOP; -NYST1POW9 TOP; -VANC250C10 PO; +VANC250C12 PO
[2024-06-02 16:53] VITALS: TEMP 96.8
[2024-06-02 18:18] LABS: BASO # 0.1 10^3/uL (0.0-0.2); BASO % 1.1 % (0.0-1.0); EOS # 0.2 10^3/uL (0.0-0.5); EOS % 4.2 % (0.0-3.0); HEMATOCRIT 34.4 % (42.0-52.0); HEMOGLOBIN 11.8 g/dl (13.5-17.5); LYMPH # 1.4 10^3/uL (1.5-5.0); LYMPH % 25.3 % (24.0-44.0); MEAN CORPUSCULAR HEMOGLOBIN 30.3 pg (27.0-33.0); MEAN CORPUSCULAR HGB CONC 34.3 g/dl (32.0-36.5); MEAN CORPUSCULAR VOLUME 88.4 fl (80.0-96.0); MONO # 0.6 10^3/uL (0.0-0.8); MONO % 9.7 % (2.0-8.0); NEUTROPHILS # 3.4 10^3/uL (1.5-8.5); NEUTROPHILS % 59.3 % (36.0-66.0); RED BLOOD COUNT 3.89 10^6/uL (4.30-6.10); WHITE BLOOD COUNT 5.7 10^3/uL (4.0-10.0)
[2024-06-02 18:19] LABS: PLATELET COUNT, AUTOMATED 98 10^3/uL (150-450)
[2024-06-02 18:30] VITALS: BP 169/79; O2SAT 99
[2024-06-02 18:34] LABS: INR 1.02; PARTIAL THROMBOPLASTIN TIME 93.5 SECONDS (24.8-34.2); PROTHROMBIN TIME 13.7 SECONDS (12.5-14.5)
[2024-06-02] MEDS ORDERED: ASPIRIN 81MG CHEW TABLET PO ONE (18:40)
[2024-06-02 18:46] LABS: CK-MB VALUE MASS < 1.0 NG/ML (<3.6)
[2024-06-02 18:53] LABS: LIPASE 24 U/L (12-53)
[2024-06-02 18:55] LABS: ALBUMIN 3.5 G/DL (3.2-5.2); ALKALINE PHOSPHATASE 93 U/L (40-129); ALT/SGPT 37 U/L (7.0-40); AST/SGOT 21 U/L (<34); BILIRUBIN,DIRECT 0.2 MG/DL (<0.4); BILIRUBIN,TOTAL 0.6 MG/DL (0.3-1.2); BLOOD UREA NITROGEN 19 MG/DL (9-23); CALCIUM LEVEL 9.2 MG/DL (8.3-10.6); CARBON DIOXIDE LEVEL 30 MMOL/L (20-31); CHLORIDE LEVEL 109 MMOL/L (98-107); CREATININE FOR GFR 1.36 MG/DL (0.70-1.30); GLOMERULAR FILTRATION RATE 56.9 (>49); GLUCOSE, FASTING 181 MG/DL (74-106); POTASSIUM SERUM 4.3 MMOL/L (3.5-5.1); SODIUM LEVEL 142 MMOL/L (136-145); TOTAL PROTEIN 6.6 G/DL (5.7-8.2)
[2024-06-02 18:57] LABS: CPK CREATINE PHOSPHOKINASE 96 U/L (46-171); MB/CK RELATIVE INDEX 1.04 (< OR =4); THYROID STIMULATING HORMONE 1.066 uIU/ML (0.55-4.78)
[2024-06-02 19:46] LABS: RSV AMPLIFICATION NEGATIVE (NEGATIVE)
== END 2024-06-02 19:15 | disposition left against medical advice (07) ==
LOC: M ED 16:37
DX: R06.02 Shortness of breath (principal); E11.9 Type 2 diabetes mellitus without complications; I25.2 Old myocardial infarction; G43.909 Migraine, unspecified, not intractable, without status migrainosus; F90.9 Attention-deficit hyperactivity disorder, unspecified type; G40.909 Epilepsy, unspecified, not intractable, without status epilepticus; M54.50 Low back pain, unspecified; Z86.79 Personal history of other diseases of the circulatory system; Z88.6 Allergy status to analgesic agent; Z79.52 Long term (current) use of systemic steroids; Z79.01 Long term (current) use of anticoagulants; Z79.4 Long term (current) use of insulin; Z79.899 Other long term (current) drug therapy

== ENCOUNTER 2024-06-02 22:21 | Emergency (ER) | payer OTHER ==
[~2024-06-02] VITALS: Ht 182.9 cm; Wt 84.0 kg
[~2024-06-02 22:21] MED LIST changes: -HUMA100I5 INJ; +HUMA100I5 SC; -TOUJ300I2 INJ
[2024-06-03] MEDS: oxyCODONE 5MG TAB PO ONE (01:01)
[2024-06-03 03:07] VITALS: BP 154/74; TEMP 97.3; O2SAT 99
== END 2024-06-03 03:30 | disposition home or self-care (01) ==
LOC: EDBD 22:21 → M ED 22:21
DX: S70.11XA Contusion of right thigh, initial encounter (principal); W19.XXXA Unspecified fall, initial encounter; M16.11 Unilateral primary osteoarthritis, right hip; M76.21 Iliac crest spur, right hip; F17.200 Nicotine dependence, unspecified, uncomplicated; M54.50 Low back pain, unspecified; I25.2 Old myocardial infarction; Y92.410 Unspecified street and highway as the place of occurrence of the external cause; Y93.89 Activity, other specified; Y99.9 Unspecified external cause status; Z79.52 Long term (current) use of systemic steroids; Z79.82 Long term (current) use of aspirin; Z79.01 Long term (current) use of anticoagulants; Z79.899 Other long term (current) drug therapy; Z79.4 Long term (current) use of insulin; Z88.6 Allergy status to analgesic agent

== ENCOUNTER 2024-06-07 23:57 | Observation (INO) | payer OTHER ==
[~2024-06-07] VITALS: Ht 170.2 cm; Wt 79.5 kg
[2024-06-08 00:32] LABS: BASO # 0.1 10^3/uL (0.0-0.2); BASO % 0.6 % (0.0-1.0); EOS # 0.1 10^3/uL (0.0-0.5); EOS % 0.7 % (0.0-3.0); HEMATOCRIT 36.7 % (42.0-52.0); LYMPH # 0.7 10^3/uL (1.5-5.0); LYMPH % 4.4 % (24.0-44.0); MEAN CORPUSCULAR HEMOGLOBIN 29.1 pg (27.0-33.0); MEAN CORPUSCULAR HGB CONC 32.7 g/dl (32.0-36.5); MEAN CORPUSCULAR VOLUME 88.9 fl (80.0-96.0); MONO # 1.3 10^3/uL (0.0-0.8); MONO % 8.1 % (2.0-8.0); NEUTROPHILS # 13.3 10^3/uL (1.5-8.5); NEUTROPHILS % 85.7 % (36.0-66.0); PLATELET COUNT, AUTOMATED 137 10^3/uL (150-450); RED BLOOD COUNT 4.13 10^6/uL (4.30-6.10); WHITE BLOOD COUNT 15.5 10^3/uL (4.0-10.0)
[2024-06-08 00:58] LABS: AMPHETAMINES LEVEL URINE NEGATIVE (NEGATIVE); BARBITURATES URINE NEGATIVE (NEGATIVE); CANNABINOIDS URINE NEGATIVE (NEGATIVE); COCAINE METABOLITE URINE NEGATIVE (NEGATIVE); METHADONE URINE NEGATIVE (NEGATIVE); PHENCYCLIDINE URINE NEGATIVE (NEGATIVE)
[2024-06-08 00:59] LABS: BENZODIAZEPINES URINE NEGATIVE (NEGATIVE)
[2024-06-08 01:01] LABS: ETHYL ALCOHOL (ETHANOL) < 0.003 % (0.000-0.010)
[2024-06-08 01:02] LABS: ALBUMIN 3.6 G/DL (3.2-5.2); ALKALINE PHOSPHATASE 109 U/L (40-129); ALT/SGPT 29 U/L (7.0-40); AST/SGOT 18 U/L (<34); BILIRUBIN,DIRECT 0.5 MG/DL (<0.4); BILIRUBIN,TOTAL 1.3 MG/DL (0.3-1.2); BLOOD UREA NITROGEN 23 MG/DL (9-23); CARBON DIOXIDE LEVEL 24 MMOL/L (20-31); CHLORIDE LEVEL 108 MMOL/L (98-107); CREATININE FOR GFR 1.48 MG/DL (0.70-1.30); GLOMERULAR FILTRATION RATE 51.6 (>49); GLUCOSE, FASTING 163 MG/DL (74-106); POTASSIUM SERUM 3.6 MMOL/L (3.5-5.1); SODIUM LEVEL 141 MMOL/L (136-145); TOTAL PROTEIN 6.9 G/DL (5.7-8.2)
[2024-06-08 01:04] LABS: THYROID STIMULATING HORMONE 0.591 uIU/ML (0.55-4.78)
[2024-06-08 01:05] LABS: OPIATES URINE POSITIVE (NEGATIVE)
[2024-06-08] MEDS ORDERED: HOME MED LIST COMPLETE! XX SCH (03:10)
[2024-06-08] MEDS ORDERED: GLUCOSE 4 GM CHEW PO PRN (04:10)
[2024-06-08] MEDS ORDERED: GLUCAGON INJ 1MG VIAL SC PRN (04:10)
[2024-06-08] MEDS ORDERED: ALBUTEROL 90 MCG/ACT 8GM HFA INHALER INH PRN (04:10)
[2024-06-08] MEDS ORDERED: MOM 30ML SUSPENSION UDC PO PRN (04:10)
[2024-06-08] MEDS ORDERED: DEXTROSE 50% 50ML SYRINGE IV PRN (04:10)
[2024-06-08 04:59] VITALS: BP 159/74; TEMP 98; O2SAT 99
[2024-06-08 06:36] LABS: ALBUMIN 3.1 G/DL (3.2-5.2); ALKALINE PHOSPHATASE 96 U/L (40-129); ALT/SGPT 25 U/L (7.0-40); AST/SGOT 14 U/L (<34); BILIRUBIN,DIRECT 0.5 MG/DL (<0.4); BILIRUBIN,TOTAL 1.3 MG/DL (0.3-1.2); CHOLESTEROL LEVEL 170 MG/DL (<200); CHOLESTEROL RISK RATIO 4.54 (<5); HDL CHOLESTEROL 37.4 MG/DL (>40); NON-HDL-C 132.6 MG/DL; TOTAL PROTEIN 6.1 G/DL (5.7-8.2); TRIGLYCERIDES LEVEL 83 MG/DL (<150)
[2024-06-08 06:58] LABS: HEMOGLOBIN A1c 6.1 % (4.0-6.0)
[2024-06-08 07:28] VITALS: BP 152/62; TEMP 97.5; O2SAT 97
[2024-06-08] MEDS: INSULIN LISPRO (NovoLOG) PER UNIT SC SCH ×2 (07:30→21:00)
[2024-06-08] MEDS ORDERED: INSULIN LISPRO (NovoLOG) PER UNIT SC SCH (09:00)
[2024-06-08] MEDS: VANCOMYCIN 750MG/150 ML IV BAG IV SCH (09:08)
[2024-06-08 09:23] LABS: BLOOD UREA NITROGEN 25 MG/DL (9-23); CALCIUM LEVEL 8.6 MG/DL (8.3-10.6); CARBON DIOXIDE LEVEL 25 MMOL/L (20-31); CHLORIDE LEVEL 109 MMOL/L (98-107); CREATININE FOR GFR 1.49 MG/DL (0.70-1.30); GLOMERULAR FILTRATION RATE 51.2 (>49); GLUCOSE, FASTING 159 MG/DL (74-106); POTASSIUM SERUM 3.6 MMOL/L (3.5-5.1); SODIUM LEVEL 140 MMOL/L (136-145)
[2024-06-08 09:50] LABS: HEPATITIS B SURFACE ANTIGEN NEGATIVE (NEGATIVE)
[2024-06-08] MEDS: LEVEMIR (INSULIN DETEMIR) 1 UNITS/0.01ML SC SCH (09:58)
[2024-06-08] MEDS: GABAPENTIN 100 MG CAP PO SCH (09:58)
[2024-06-08] MEDS: oxyCODONE 5MG TAB PO PRN (09:58)
[2024-06-08] MEDS: APIXABAN 5 MG TAB (ELIQUIS) PO SCH (09:59)
[2024-06-08] MEDS: TOPIRAMATE (TopAMAX) 25 MG TAB PO SCH (09:59)
[2024-06-08] MEDS: ASPIRIN 81MG ENTERIC TABLET PO SCH (09:59)
[2024-06-08 10:11] LABS: HEPATITIS C VIRUS ABY INDEX < 0.02 INDEX (<0.8)
[2024-06-08 10:12] LABS: HEPATITIS B CORE ANTIBODY IGM NEGATIVE (NEGATIVE)
[2024-06-08] MEDS ORDERED: FLEET ENEMA PR PRN (12:00)
[2024-06-08 12:37] VITALS: BP 150/72; TEMP 98.4; O2SAT 100
[2024-06-08] MEDS: ADDERALL 5 MG TAB PO SCH (13:16)
[2024-06-08] MEDS: SENOKOT S TAB PO SCH (13:16)
[2024-06-08] MEDS: MOM 30ML SUSPENSION UDC PO PRN (13:17)
[2024-06-08] MEDS: MAGNESIUM CITRATE 300ML BTL PO ONE (13:37)
[2024-06-08] MEDS: FUROSEMIDE 40MG/4ML VIAL IV ONE (14:02)
[2024-06-08 15:57] VITALS: BP 157/76; TEMP 98.4; O2SAT 100
[2024-06-08] MEDS: LIDOCAINE 5% (LIDODERM) PATCH TD SCH (17:37)
[2024-06-08 19:49] VITALS: BP 164/74; TEMP 97.3; O2SAT 100
[2024-06-08] MEDS ORDERED: VANCOMYCIN/WATER FOR INJ 1,000 MG in IV 1 EA IV SCH (22:05)
[2024-06-08] MEDS: VANCOMYCIN 2,000 MG/400 ML IV BAG *LOAD IV ONE (23:00)
[2024-06-08 23:36] VITALS: BP 168/80; TEMP 98.2; O2SAT 100
[2024-06-09] VITALS (7 sets, daily range): BP systolic 127–166; BP diastolic 73–85; TEMP 97.1–98.3; O2SAT 98–100
[2024-06-09 06:30] LABS: HEMATOCRIT 30.9 % (42.0-52.0); HEMOGLOBIN 10.7 g/dl (13.5-17.5); MEAN CORPUSCULAR HEMOGLOBIN 29.6 pg (27.0-33.0); MEAN CORPUSCULAR HGB CONC 34.6 g/dl (32.0-36.5); MEAN CORPUSCULAR VOLUME 85.6 fl (80.0-96.0); PLATELET COUNT, AUTOMATED 162 10^3/uL (150-450); RED BLOOD COUNT 3.61 10^6/uL (4.30-6.10); WHITE BLOOD COUNT 9.3 10^3/uL (4.0-10.0)
[2024-06-09 07:36] LABS: CALCIUM LEVEL 8.7 MG/DL (8.3-10.6); CREATININE FOR GFR 1.39 MG/DL (0.70-1.30); GLOMERULAR FILTRATION RATE 55.5 (>49)
[2024-06-09] MEDS: ATORVASTATIN 20 MG TAB PO SCH (09:06)
[2024-06-09] MEDS: MIRALAX *UNIT DOSE* 17GM PACKET PO SCH (09:06)
[2024-06-09 09:49] LABS: PROCALCITONIN 0.31 ng/ml
[2024-06-10] MEDS ORDERED: PANTOPRAZOLE 40MG VIAL IV STA (01:24)
[2024-06-10 04:00] VITALS: BP 131/59; TEMP 98.2; O2SAT 98
[2024-06-10 12:00] VITALS: BP 157/80; TEMP 98.8; O2SAT 96
[2024-06-10 19:54] VITALS: BP 157/84; TEMP 98.6; O2SAT 98
[2024-06-10] MEDS: NS 1,000 ML IV SCH (20:58)
[2024-06-11] MEDS: methocarbamoL 750 MG TAB PO PRN (01:00)
[2024-06-11] MEDS: RAMELTEON 8 MG TAB (ROZEREM) PO PRN (01:21)
[2024-06-11 04:00] VITALS: BP 141/67; TEMP 98.4; O2SAT 98
[2024-06-11 06:57] LABS: CALCIUM LEVEL 8.6 MG/DL (8.3-10.6); CREATININE FOR GFR 1.44 MG/DL (0.70-1.30); GLOMERULAR FILTRATION RATE 53.3 (>49); POTASSIUM SERUM 3.9 MMOL/L (3.5-5.1)
[2024-06-11 12:00] VITALS: BP 144/67; TEMP 98.2; O2SAT 99
[2024-06-12 04:00] VITALS: BP 168/75; TEMP 98.2; O2SAT 99
[2024-06-14 06:00] VITALS: BP 161/75; TEMP 97.9; O2SAT 99
[2024-06-14 13:30] VITALS: BP 150/60; TEMP 98.6; O2SAT 100
[2024-06-15 03:51] VITALS: BP 152/73; TEMP 97.7; O2SAT 99
[2024-06-16 06:36] VITALS: BP 155/71; TEMP 97.9; O2SAT 100
[2024-06-16] MEDS: LEVEMIR (INSULIN DETEMIR) 1 UNITS/0.01ML SC SCH (10:00)
[2024-06-17 03:10] VITALS: BP 127/55; TEMP 98.2; O2SAT 98
== END 2024-06-17 13:06 | disposition home health service (06) ==
LOC: M ED 23:57 → M ED INP 06-08 04:09 → INTOOBSV 06-08 04:09 → M PCU 06-08 04:54 → M MSPAV 06-09 19:54
PROVIDERS: ADMIT Internal Medicine; ATTEND Student in an Organized Health Care Education/Training Program
DX: G93.41 Metabolic encephalopathy (principal); E11.9 Type 2 diabetes mellitus without complications; I25.10 Atherosclerotic heart disease of native coronary artery without angina pectoris; I25.2 Old myocardial infarction; Z86.73 Personal history of transient ischemic attack (TIA), and cerebral infarction without residual deficits; Z86.711 Personal history of pulmonary embolism; Z86.718 Personal history of other venous thrombosis and embolism; G43.909 Migraine, unspecified, not intractable, without status migrainosus; F90.9 Attention-deficit hyperactivity disorder, unspecified type; D69.6 Thrombocytopenia, unspecified; Z79.82 Long term (current) use of aspirin; Z79.01 Long term (current) use of anticoagulants; Z79.4 Long term (current) use of insulin; Z79.899 Other long term (current) drug therapy; N18.30 Chronic kidney disease, stage 3 unspecified; Z88.8 Allergy status to other drugs, medicaments and biological substances
CPT/HCPCS: 36415; 70450; 71045; 72131; 73521; 80048; 80061; 80074; 80076; 80307; 81001; 82077; 82140; 83036; 83605; 83735; 84145; 84443; 85025; 85027; 87040; 87077; 87154; 87186; 93005; 93041; 94760; 97110; 97116; 97161; 97165; 97530; 97535; 99285; G0378; J1815; J3372

== ENCOUNTER 2024-07-13 06:49 | Emergency (ER) | payer OTHER ==
[~2024-07-13] VITALS: Ht 182.9 cm; Wt 80.0 kg
[2024-07-13 07:47] LABS: BASO # 0.1 10^3/uL (0.0-0.2); BASO % 0.9 % (0.0-1.0); EOS # 0.4 10^3/uL (0.0-0.5); HEMATOCRIT 37.5 % (42.0-52.0); HEMOGLOBIN 12.7 g/dl (13.5-17.5); LYMPH # 2.1 10^3/uL (1.5-5.0); LYMPH % 21.6 % (24.0-44.0); MEAN CORPUSCULAR HEMOGLOBIN 29.2 pg (27.0-33.0); MEAN CORPUSCULAR HGB CONC 33.9 g/dl (32.0-36.5); MEAN CORPUSCULAR VOLUME 86.2 fl (80.0-96.0); MONO # 0.7 10^3/uL (0.0-0.8); MONO % 7.4 % (2.0-8.0); NEUTROPHILS # 6.3 10^3/uL (1.5-8.5); NEUTROPHILS % 65.8 % (36.0-66.0); PLATELET COUNT, AUTOMATED 137 10^3/uL (150-450); RED BLOOD COUNT 4.35 10^6/uL (4.30-6.10); WHITE BLOOD COUNT 9.5 10^3/uL (4.0-10.0)
[2024-07-13 07:56] LABS: INR 1.11; PROTHROMBIN TIME 14.6 SECONDS (12.5-14.5)
[2024-07-13] MEDS: IPRATROPIUM 0.5MG/ALBUTEROL 2.5MG INH SOL UD 3ML (DUONEB) NEB ONE (08:06)
[2024-07-13 08:07] LABS: ETHYL ALCOHOL (ETHANOL) < 0.003 % (0.000-0.010)
[2024-07-13 08:09] LABS: SALICYLATE LEVEL < 3.0 MG/DL (<30)
[2024-07-13 08:14] LABS: ALBUMIN 3.8 G/DL (3.2-5.2); ALKALINE PHOSPHATASE 126 U/L (40-129); ALT/SGPT 45 U/L (7.0-40); AST/SGOT 45 U/L (<34); BILIRUBIN,DIRECT 0.2 MG/DL (<0.4); BILIRUBIN,TOTAL 0.6 MG/DL (0.3-1.2); BLOOD UREA NITROGEN 18 MG/DL (9-23); CALCIUM LEVEL 9.4 MG/DL (8.3-10.6); CARBON DIOXIDE LEVEL 26 MMOL/L (20-31); CHLORIDE LEVEL 108 MMOL/L (98-107); CK-MB VALUE MASS 1.5 NG/ML (<3.6); CPK CREATINE PHOSPHOKINASE 106 U/L (46-171); CREATININE FOR GFR 1.25 MG/DL (0.70-1.30); FREE T4 1.26 NG/DL (0.89-1.76); GLOMERULAR FILTRATION RATE > 60.0 (>49); GLUCOSE, FASTING 167 MG/DL (74-106); LIPASE 45 U/L (12-53); MB/CK RELATIVE INDEX 1.41 (< OR =4); POTASSIUM SERUM 4.5 MMOL/L (3.5-5.1); SODIUM LEVEL 142 MMOL/L (136-145); TOTAL PROTEIN 7.3 G/DL (5.7-8.2)
[2024-07-13] MEDS ORDERED: ISOVUE-370 76% 100ML VIAL As Ordered ONE (08:51)
[2024-07-13 09:26] LABS: CK-MB VALUE MASS 1.8 NG/ML (<3.6); MB/CK RELATIVE INDEX 2.5 (< OR =4)
[2024-07-13] MEDS: ONDANSETRON 4MG 2ML VIAL IV ONE (09:33)
[2024-07-13] MEDS: IBUPROFEN 600MG TAB PO ONE (09:35)
[2024-07-13] MEDS ORDERED: DOXY-441 PO (12:27)
[2024-07-13 12:43] VITALS: BP 153/83; TEMP 97.4; O2SAT 99
[2024-07-13] MEDS: DOXYCYCLINE HYCLATE 100MG TABLET PO ONE (12:52)
== END 2024-07-13 12:59 | disposition home or self-care (01) ==
LOC: M ED 06:49 → EDBD 06:49 → M ED 12:59
DX: R07.9 Chest pain, unspecified (principal); R06.00 Dyspnea, unspecified; J20.9 Acute bronchitis, unspecified; I44.4 Left anterior fascicular block; I45.4 Nonspecific intraventricular block; I10 Essential (primary) hypertension; E78.5 Hyperlipidemia, unspecified; F90.9 Attention-deficit hyperactivity disorder, unspecified type; F41.9 Anxiety disorder, unspecified; Z86.79 Personal history of other diseases of the circulatory system; Z86.711 Personal history of pulmonary embolism; Z86.718 Personal history of other venous thrombosis and embolism; Z87.891 Personal history of nicotine dependence; Z79.01 Long term (current) use of anticoagulants; Z88.6 Allergy status to analgesic agent; Z79.52 Long term (current) use of systemic steroids; Z79.82 Long term (current) use of aspirin; Z79.02 Long term (current) use of antithrombotics/antiplatelets; Z79.899 Other long term (current) drug therapy
CPT/HCPCS: 71045; 71275; 80048; 80076; 80143; 82077; 82550; 82553; 83690; 84439; 84443; 84484; 85025; 85610; 87486; 87581; 87633; 87798; 93005; 93041; 94640; 94760; 96374; 99285; J2405; Q9967

== ENCOUNTER 2024-07-21 15:43 | Emergency (ER) | payer OTHER ==
[~2024-07-21] VITALS: Ht 182.9 cm; Wt 77.3 kg
[~2024-07-21 15:43] MED LIST changes: +DOXY-441 PO
[2024-07-21 16:15] LABS: BASO # 0.1 10^3/uL (0.0-0.2); BASO % 1.5 % (0.0-1.0); EOS # 0.2 10^3/uL (0.0-0.5); EOS % 2.8 % (0.0-3.0); HEMATOCRIT 31.8 % (42.0-52.0); HEMOGLOBIN 11.2 g/dl (13.5-17.5); LYMPH # 1.7 10^3/uL (1.5-5.0); LYMPH % 23.5 % (24.0-44.0); MEAN CORPUSCULAR HEMOGLOBIN 29.2 pg (27.0-33.0); MEAN CORPUSCULAR HGB CONC 35.2 g/dl (32.0-36.5); MONO # 0.5 10^3/uL (0.0-0.8); MONO % 6.9 % (2.0-8.0); NEUTROPHILS # 4.8 10^3/uL (1.5-8.5); NEUTROPHILS % 64.8 % (36.0-66.0); PLATELET COUNT, AUTOMATED 150 10^3/uL (150-450); RED BLOOD COUNT 3.83 10^6/uL (4.30-6.10); WHITE BLOOD COUNT 7.4 10^3/uL (4.0-10.0)
[2024-07-21 16:31] LABS: INR 1.05
[2024-07-21 16:36] LABS: CK-MB VALUE MASS 1.1 NG/ML (<3.6)
[2024-07-21 16:42] LABS: LIPASE 48 U/L (12-53)
[2024-07-21 16:45] LABS: ALBUMIN 3.9 G/DL (3.2-5.2); ALKALINE PHOSPHATASE 105 U/L (40-129); ALT/SGPT 24 U/L (7.0-40); AST/SGOT 25 U/L (<34); BILIRUBIN,DIRECT 0.3 MG/DL (<0.4); BILIRUBIN,TOTAL 1.3 MG/DL (0.3-1.2); BLOOD UREA NITROGEN 15 MG/DL (9-23); CALCIUM LEVEL 9.2 MG/DL (8.3-10.6); CARBON DIOXIDE LEVEL 22 MMOL/L (20-31); CHLORIDE LEVEL 107 MMOL/L (98-107); CREATININE FOR GFR 1.13 MG/DL (0.70-1.30); GLOMERULAR FILTRATION RATE > 60.0 (>49); GLUCOSE, FASTING 134 MG/DL (74-106); POTASSIUM SERUM 3.8 MMOL/L (3.5-5.1); SODIUM LEVEL 142 MMOL/L (136-145); TOTAL PROTEIN 6.9 G/DL (5.7-8.2)
[2024-07-21 16:52] LABS: CPK CREATINE PHOSPHOKINASE 87 U/L (46-171); MB/CK RELATIVE INDEX 1.26 (< OR =4)
[2024-07-21] MEDS: MORPHINE 2 MG/ML 1ML VIAL IV PRN (17:00)
[2024-07-21] MEDS ORDERED: ISOVUE-370 76% 100ML VIAL As Ordered ONE (17:28)
[2024-07-21 17:44] LABS: CK-MB VALUE MASS < 1.0 NG/ML (<3.6)
[2024-07-21 17:48] LABS: CPK CREATINE PHOSPHOKINASE 63 U/L (46-171); MB/CK RELATIVE INDEX 1.58 (< OR =4)
[2024-07-21] MEDS: MAALOX 30 ML SUSP *UDC PO ONE (19:00)
[2024-07-21 19:14] LABS: CK-MB VALUE MASS 1.6 NG/ML (<3.6)
[2024-07-21 19:17] LABS: MB/CK RELATIVE INDEX 2.31 (< OR =4)
[2024-07-21 20:00] VITALS: BP 167/74; TEMP 97.6; O2SAT 100
== END 2024-07-21 20:10 | disposition home or self-care (01) ==
LOC: M ED 15:43 → EDBD 15:43 → M ED 20:10
DX: R07.89 Other chest pain (principal); R00.1 Bradycardia, unspecified; I25.119 Atherosclerotic heart disease of native coronary artery with unspecified angina pectoris; I25.2 Old myocardial infarction; E11.9 Type 2 diabetes mellitus without complications; F17.210 Nicotine dependence, cigarettes, uncomplicated; Z88.8 Allergy status to other drugs, medicaments and biological substances; Z79.51 Long term (current) use of inhaled steroids; Z79.01 Long term (current) use of anticoagulants; Z79.2 Long term (current) use of antibiotics; Z79.4 Long term (current) use of insulin; Z79.899 Other long term (current) drug therapy
CPT/HCPCS: 71045; 71275; 80047; 80048; 80076; 82550; 82553; 83690; 84484; 85025; 85610; 87486; 87581; 87633; 87798; 93005; 93041; 94760; 96374; 99285; Q9967

== ENCOUNTER 2024-07-22 02:14 | Emergency (ER) | payer OTHER ==
[~2024-07-22] VITALS: Ht 182.9 cm; Wt 72.6 kg
[2024-07-22 07:54] VITALS: BP 183/79
[2024-07-22] MEDS: CARVedilol 6.25 MG TAB PO ONE (07:54)
[2024-07-22] MEDS: APIXABAN 5 MG TAB (ELIQUIS) PO ONE (07:54)
[2024-07-22 08:56] VITALS: BP 189/95; TEMP 97.4; O2SAT 98
== END 2024-07-22 08:58 | disposition home or self-care (01) ==
LOC: M ED 02:14
DX: Z76.5 Malingerer [conscious simulation] (principal); R00.1 Bradycardia, unspecified; E11.9 Type 2 diabetes mellitus without complications; I25.119 Atherosclerotic heart disease of native coronary artery with unspecified angina pectoris; I10 Essential (primary) hypertension; E78.5 Hyperlipidemia, unspecified; F17.210 Nicotine dependence, cigarettes, uncomplicated; Z88.8 Allergy status to other drugs, medicaments and biological substances; Z79.51 Long term (current) use of inhaled steroids; Z79.01 Long term (current) use of anticoagulants; Z79.1 Long term (current) use of non-steroidal anti-inflammatories (NSAID); Z79.2 Long term (current) use of antibiotics; Z79.4 Long term (current) use of insulin; Z79.899 Other long term (current) drug therapy

== ENCOUNTER 2024-07-31 14:18 | Emergency (ER) | payer OTHER ==
[~2024-07-31] VITALS: Ht 180.3 cm; Wt 84.5 kg
[2024-07-31 14:27] VITALS: TEMP 98.4
[2024-07-31 15:06] LABS: BASO # 0.1 10^3/uL (0.0-0.2); EOS # 0.3 10^3/uL (0.0-0.5); EOS % 3.8 % (0.0-3.0); HEMATOCRIT 35.9 % (42.0-52.0); HEMOGLOBIN 12.6 g/dl (13.5-17.5); LYMPH # 1.9 10^3/uL (1.5-5.0); LYMPH % 27.6 % (24.0-44.0); MEAN CORPUSCULAR HEMOGLOBIN 29.6 pg (27.0-33.0); MEAN CORPUSCULAR HGB CONC 35.1 g/dl (32.0-36.5); MEAN CORPUSCULAR VOLUME 84.5 fl (80.0-96.0); MONO # 0.7 10^3/uL (0.0-0.8); MONO % 10.4 % (2.0-8.0); NEUTROPHILS # 3.9 10^3/uL (1.5-8.5); NEUTROPHILS % 56.9 % (36.0-66.0); PLATELET COUNT, AUTOMATED 207 10^3/uL (150-450); RED BLOOD COUNT 4.25 10^6/uL (4.30-6.10); WHITE BLOOD COUNT 6.9 10^3/uL (4.0-10.0)
[2024-07-31 15:19] LABS: PARTIAL THROMBOPLASTIN TIME 69.9 SECONDS (24.8-34.2); PROTHROMBIN TIME 13.5 SECONDS (12.5-14.5)
[2024-07-31 15:50] LABS: ETHYL ALCOHOL (ETHANOL) < 0.003 % (0.000-0.010); LIPASE 67 U/L (12-53)
[2024-07-31 15:52] LABS: ALBUMIN 3.5 G/DL (3.2-5.2); ALKALINE PHOSPHATASE 94 U/L (40-129); ALT/SGPT 19 U/L (7.0-40); AST/SGOT 9 U/L (<34); BILIRUBIN,DIRECT 0.4 MG/DL (<0.4); BILIRUBIN,TOTAL 1.1 MG/DL (0.3-1.2); BLOOD UREA NITROGEN 15 MG/DL (9-23); CALCIUM LEVEL 9.2 MG/DL (8.3-10.6); CARBON DIOXIDE LEVEL 28 MMOL/L (20-31); CHLORIDE LEVEL 105 MMOL/L (98-107); CK-MB VALUE MASS < 1.0 NG/ML (<3.6); CREATININE FOR GFR 1.23 MG/DL (0.70-1.30); GLOMERULAR FILTRATION RATE > 60.0 (>49); GLUCOSE, FASTING 135 MG/DL (74-106); POTASSIUM SERUM 3.7 MMOL/L (3.5-5.1); SODIUM LEVEL 142 MMOL/L (136-145); TOTAL PROTEIN 6.6 G/DL (5.7-8.2)
[2024-07-31 15:53] LABS: CPK CREATINE PHOSPHOKINASE 48 U/L (46-171); MB/CK RELATIVE INDEX 2.08 (< OR =4)
[2024-07-31 15:55] LABS: FREE T4 1.23 NG/DL (0.89-1.76)
[2024-07-31 16:21] LABS: MB/CK RELATIVE INDEX 1.96 (< OR =4)
[2024-07-31] MEDS: oxyCODONE 5MG TAB PO ONE (17:04)
[2024-07-31 18:03] VITALS: BP 162/71; O2SAT 99
== END 2024-07-31 18:05 | disposition home or self-care (01) ==
LOC: M ED 14:18 → EDBD 14:18 → M ED 18:05
DX: R07.9 Chest pain, unspecified (principal); M50.322 Other cervical disc degeneration at C5-C6 level; M25.78 Osteophyte, vertebrae; F10.10 Alcohol abuse, uncomplicated; M54.50 Low back pain, unspecified; E78.5 Hyperlipidemia, unspecified; I10 Essential (primary) hypertension; I25.2 Old myocardial infarction; K21.9 Gastro-esophageal reflux disease without esophagitis; E11.9 Type 2 diabetes mellitus without complications; F90.9 Attention-deficit hyperactivity disorder, unspecified type; G40.909 Epilepsy, unspecified, not intractable, without status epilepticus; Z79.01 Long term (current) use of anticoagulants; Z86.79 Personal history of other diseases of the circulatory system; Z79.52 Long term (current) use of systemic steroids; Z79.02 Long term (current) use of antithrombotics/antiplatelets; Z79.82 Long term (current) use of aspirin; Z79.899 Other long term (current) drug therapy; Z79.4 Long term (current) use of insulin; Z88.6 Allergy status to analgesic agent; Z86.718 Personal history of other venous thrombosis and embolism

== ENCOUNTER 2024-08-05 17:22 | Inpatient (IN) | payer OTHER ==
[~2024-08-05] VITALS: Ht 182.9 cm; Wt 73.8 kg
[~2024-08-05 17:22] MED LIST changes: +AMIT10TA11; -AMIT10TA7; -BUPR-597; +BUPR-766; -NYST-13 TOP; +NYST0.1C TOP; +VANC125C13 PO; -VANC125C3 PO
[2024-08-05 19:24] LABS: BASO # 0.1 10^3/uL (0.0-0.2); BASO % 0.6 % (0.0-1.0); EOS # 0.2 10^3/uL (0.0-0.5); EOS % 1.9 % (0.0-3.0); LYMPH # 1.4 10^3/uL (1.5-5.0); LYMPH % 15.9 % (24.0-44.0); MONO # 0.6 10^3/uL (0.0-0.8); MONO % 7.0 % (2.0-8.0); NEUTROPHILS # 6.7 10^3/uL (1.5-8.5); NEUTROPHILS % 74.4 % (36.0-66.0); PLATELET COUNT, AUTOMATED 120 10^3/uL (150-450)
[2024-08-05 19:28] LABS: ETHYL ALCOHOL (ETHANOL) < 0.003 % (0.000-0.010)
[2024-08-05 19:30] LABS: CALCIUM LEVEL 8.2 MG/DL (8.3-10.6); CARBON DIOXIDE LEVEL 28 MMOL/L (20-31); CHLORIDE LEVEL 108 MMOL/L (98-107); CREATININE FOR GFR 1.20 MG/DL (0.70-1.30); GLOMERULAR FILTRATION RATE > 60.0 (>49); MAGNESIUM LEVEL 1.8 MG/DL (1.8-2.4); POTASSIUM SERUM 3.6 MMOL/L (3.5-5.1); SODIUM LEVEL 142 MMOL/L (136-145)
[2024-08-05 19:32] LABS: FREE T4 1.07 NG/DL (0.89-1.76)
[2024-08-05] MEDS ORDERED: DOXY-441 PO (20:52)
[2024-08-05] MEDS: INSULIN LISPRO (NovoLOG) PER UNIT SC SCH (21:00)
[2024-08-05] MEDS: APIXABAN 5 MG TAB PO SCH (21:00)
[2024-08-05] MEDS: amLODIPine 10 MG TAB PO ONE (21:04)
[2024-08-05] MEDS ORDERED: HOME MED LIST COMPLETE! XX SCH (21:45)
[2024-08-05 23:02] VITALS: BP 205/86; TEMP 99.2; O2SAT 100
[2024-08-05] MEDS ORDERED: DEXTROSE 50% 50 ML SYRINGE IV PRN (23:05)
[2024-08-05] MEDS ORDERED: GLUCOSE 4 GM CHEW PO PRN (23:05)
[2024-08-05] MEDS ORDERED: GLUCAGON INJ 1 MG VIAL SC PRN (23:05)
[2024-08-06] MEDS: hydrALAZINE 20 MG/ML 1 ML VIAL IV PRN (02:13)
[2024-08-06] MEDS: GABAPENTIN 100 MG CAP PO SCH (02:38)
[2024-08-06 03:21] VITALS: BP 181/84; TEMP 98.8; O2SAT 100
[2024-08-06 06:07] LABS: PLATELET COUNT, AUTOMATED 142 10^3/uL (150-450)
[2024-08-06 06:32] LABS: ALT/SGPT 23 U/L (7.0-40); AST/SGOT 13 U/L (<34); CALCIUM LEVEL 9.2 MG/DL (8.3-10.6); CARBON DIOXIDE LEVEL 29 MMOL/L (20-31); CHLORIDE LEVEL 104 MMOL/L (98-107); CREATININE FOR GFR 1.27 MG/DL (0.70-1.30); GLOMERULAR FILTRATION RATE > 60.0 (>49); POTASSIUM SERUM 3.8 MMOL/L (3.5-5.1); SODIUM LEVEL 140 MMOL/L (136-145)
[2024-08-06 07:22] VITALS: BP 170/78; TEMP 99.3; O2SAT 100
[2024-08-06] MEDS: INSULIN LISPRO (NovoLOG) PER UNIT SC SCH (07:30)
[2024-08-06] MEDS: ATORVASTATIN 20 MG TAB PO SCH (10:22)
[2024-08-06] MEDS: ASPIRIN 81 MG ENTERIC TABLET PO SCH (10:23)
[2024-08-06] MEDS: DOCUSATE SODIUM 100 MG CAPSULE PO SCH (10:23)
[2024-08-06 12:00] VITALS: BP 158/80; TEMP 98.5; O2SAT 99
[2024-08-06] MEDS: amLODIPine 5 MG TAB PO SCH (12:56)
[2024-08-06] MEDS: KETOROLAC 30 MG/ML 1 ML VIAL IV SCH (13:38)
[2024-08-06] MEDS: **hydrALAZINE HCL** 25 MG TAB PO SCH (13:40)
[2024-08-06] MEDS: PANTOPRAZOLE 40MG VIAL IV SCH (13:49)
[2024-08-06 16:00] VITALS: BP 148/70; TEMP 97.6; O2SAT 98
[2024-08-06 20:00] VITALS: BP 188/98; TEMP 98.1; O2SAT 98
[2024-08-06 20:07] VITALS: BP 170/90
[2024-08-07] VITALS (7 sets, daily range): BP systolic 140–172; BP diastolic 71–90; TEMP 97.7–98.8; O2SAT 9–100
[2024-08-07 05:15] LABS: BASO # 0.1 10^3/uL (0.0-0.2); BASO % 0.6 % (0.0-1.0); EOS # 0.2 10^3/uL (0.0-0.5); EOS % 2.0 % (0.0-3.0); LYMPH # 1.5 10^3/uL (1.5-5.0); LYMPH % 14.0 % (24.0-44.0); MONO # 1.0 10^3/uL (0.0-0.8); MONO % 9.3 % (2.0-8.0); NEUTROPHILS # 8.0 10^3/uL (1.5-8.5); NEUTROPHILS % 73.7 % (36.0-66.0); PLATELET COUNT, AUTOMATED 109 10^3/uL (150-450)
[2024-08-07 05:40] LABS: CALCIUM LEVEL 8.6 MG/DL (8.3-10.6); CARBON DIOXIDE LEVEL 26.0 MMOL/L (20-31); CHLORIDE LEVEL 105.0 MMOL/L (98-107); CREATININE FOR GFR 1.88 MG/DL (0.70-1.30); GLOMERULAR FILTRATION RATE 39.2 (>49); POTASSIUM SERUM 4.1 MMOL/L (3.5-5.1); SODIUM LEVEL 140.0 MMOL/L (136-145)
[2024-08-08 03:46] VITALS: BP 144/83; TEMP 98.8; O2SAT 98
[2024-08-08 06:15] LABS: BASO # 0.1 10^3/uL (0.0-0.2); BASO % 0.6 % (0.0-1.0); EOS # 0.2 10^3/uL (0.0-0.5); EOS % 1.9 % (0.0-3.0); LYMPH # 1.4 10^3/uL (1.5-5.0); LYMPH % 13.1 % (24.0-44.0); MONO # 1.0 10^3/uL (0.0-0.8); MONO % 9.0 % (2.0-8.0); NEUTROPHILS # 8.1 10^3/uL (1.5-8.5); NEUTROPHILS % 75.0 % (36.0-66.0)
[2024-08-08 06:25] LABS: PLATELET COUNT, AUTOMATED 96 10^3/uL (150-450)
[2024-08-08 06:41] LABS: CALCIUM LEVEL 8.7 MG/DL (8.3-10.6); CARBON DIOXIDE LEVEL 25.0 MMOL/L (20-31); CHLORIDE LEVEL 104.0 MMOL/L (98-107); CREATININE FOR GFR 1.94 MG/DL (0.70-1.30); GLOMERULAR FILTRATION RATE 37.8 (>49); POTASSIUM SERUM 3.9 MMOL/L (3.5-5.1); SODIUM LEVEL 138.0 MMOL/L (136-145)
[2024-08-08 09:05] VITALS: BP 161/76; TEMP 97.8; O2SAT 97
[2024-08-08] MEDS: HALOPERIDOL LACTATE 5 MG/ML VIAL IV ONE (10:05)
[2024-08-08] MEDS: diphenhydrAMINE 50 MG/ML VIAL IV ONE (10:06)
[2024-08-08] MEDS: NS (Normal Saline) 0.9% 1,000 ML IV ONE (11:36)
[2024-08-08 11:37] VITALS: BP 145/69; TEMP 97.5; O2SAT 97
[2024-08-08 20:00] VITALS: TEMP 97; O2SAT 99
[2024-08-08] MEDS: VALPROATE SOD INJ 1,000 MG in D5W 50 ML IV ONE (21:45)
[2024-08-09 06:23] VITALS: BP 151/70; TEMP 98.4; O2SAT 98
[2024-08-09 07:05] LABS: BASO # 0.1 10^3/uL (0.0-0.2); BASO % 0.7 % (0.0-1.0); EOS # 0.2 10^3/uL (0.0-0.5); EOS % 3.3 % (0.0-3.0); LYMPH # 1.1 10^3/uL (1.5-5.0); LYMPH % 14.3 % (24.0-44.0); MONO # 0.7 10^3/uL (0.0-0.8); MONO % 9.5 % (2.0-8.0); NEUTROPHILS # 5.3 10^3/uL (1.5-8.5); NEUTROPHILS % 71.9 % (36.0-66.0)
[2024-08-09 07:07] LABS: PLATELET COUNT, AUTOMATED 85 10^3/uL (150-450)
[2024-08-09 07:58] LABS: CALCIUM LEVEL 8.3 MG/DL (8.3-10.6); CARBON DIOXIDE LEVEL 25.0 MMOL/L (20-31); CHLORIDE LEVEL 108.0 MMOL/L (98-107); CREATININE FOR GFR 1.44 MG/DL (0.70-1.30); GLOMERULAR FILTRATION RATE 53.3 (>49); POTASSIUM SERUM 3.9 MMOL/L (3.5-5.1); SODIUM LEVEL 141.0 MMOL/L (136-145)
[2024-08-09] MEDS: DIVALPROEX 500 MG TAB PO SCH (08:34)
[2024-08-09] MEDS: PANTOPRAZOLE 40MG TAB PO SCH (09:00)
[2024-08-09] MEDS: **hydrALAZINE** 50 MG TAB PO SCH (09:00)
[2024-08-09 11:40] VITALS: BP 150/69; TEMP 97.9; O2SAT 96
[2024-08-10 05:50] LABS: BASO # 0.1 10^3/uL (0.0-0.2); BASO % 0.7 % (0.0-1.0); EOS # 0.3 10^3/uL (0.0-0.5); EOS % 3.6 % (0.0-3.0); LYMPH # 1.3 10^3/uL (1.5-5.0); LYMPH % 17.5 % (24.0-44.0); MONO # 0.8 10^3/uL (0.0-0.8); MONO % 10.4 % (2.0-8.0); NEUTROPHILS # 5.1 10^3/uL (1.5-8.5); NEUTROPHILS % 67.5 % (36.0-66.0); PLATELET COUNT, AUTOMATED 116 10^3/uL (150-450)
[2024-08-10 06:13] LABS: CALCIUM LEVEL 8.5 MG/DL (8.3-10.6); CARBON DIOXIDE LEVEL 24.0 MMOL/L (20-31); CHLORIDE LEVEL 110.0 MMOL/L (98-107); CREATININE FOR GFR 1.38 MG/DL (0.70-1.30); GLOMERULAR FILTRATION RATE 56.0 (>49); POTASSIUM SERUM 4.0 MMOL/L (3.5-5.1); SODIUM LEVEL 143.0 MMOL/L (136-145)
[2024-08-10 06:30] VITALS: BP 174/79; TEMP 96.6; O2SAT 99
[2024-08-10 12:48] VITALS: BP 175/82
[2024-08-10 20:11] VITALS: BP 166/82; TEMP 97.7; O2SAT 99
[2024-08-10] MEDS: MAALOX 30 ML SUSP *UDC PO PRN (21:03)
[2024-08-10 21:25] VITALS: TEMP 98
[2024-08-10 21:26] LABS: BASO # 0.0 10^3/uL (0.0-0.2); BASO % 0.6 % (0.0-1.0); EOS # 0.3 10^3/uL (0.0-0.5); EOS % 4.2 % (0.0-3.0); LYMPH # 1.2 10^3/uL (1.5-5.0); LYMPH % 18.8 % (24.0-44.0); MONO # 0.7 10^3/uL (0.0-0.8); MONO % 11.0 % (2.0-8.0); NEUTROPHILS # 4.2 10^3/uL (1.5-8.5); NEUTROPHILS % 65.1 % (36.0-66.0); PLATELET COUNT, AUTOMATED 107 10^3/uL (150-450)
[2024-08-10 21:40] LABS: INR 1.1
[2024-08-10 23:06] LABS: CK-MB VALUE MASS 2.5 NG/ML (<3.6)
[2024-08-10 23:08] LABS: ALT/SGPT 17.0 U/L (7.0-40); AST/SGOT 13.0 U/L (<34); CALCIUM LEVEL 8.7 MG/DL (8.3-10.6); CARBON DIOXIDE LEVEL 25.0 MMOL/L (20-31); CHLORIDE LEVEL 109.0 MMOL/L (98-107); CREATININE FOR GFR 1.35 MG/DL (0.70-1.30); GLOMERULAR FILTRATION RATE 57.4 (>49); MAGNESIUM LEVEL 1.9 MG/DL (1.8-2.4); POTASSIUM SERUM 4.1 MMOL/L (3.5-5.1); SODIUM LEVEL 142.0 MMOL/L (136-145)
[2024-08-10 23:10] LABS: CPK CREATINE PHOSPHOKINASE 59.0 U/L (46-171); MB/CK RELATIVE INDEX 4.23 (< OR =4)
[2024-08-10] MEDS: MIRALAX *UNIT DOSE* 17 GM PACKET PO SCH (23:33)
[2024-08-10 23:43] LABS: KETONE, URINE AUTO RFX NEGATIVE (NEGATIVE); LEUKOCYTE ESTERASE UR AUTO RFX NEGATIVE (NEGATIVE); MUCUS, URINE RFX SMALL (NEGATIVE); NITRITE, URINE AUTO RFX NEGATIVE (NEGATIVE); RBC, URINE AUTO RFX 8 /HPF (0-3); SQUAM EPITHELIAL CELL UR AURFX 0 /HPF (0-6); WBC, URINE AUTO RFX 2 /HPF (0-3)
[2024-08-11 01:17] LABS: CK-MB VALUE MASS 1.8 NG/ML (<3.6)
[2024-08-11 01:18] LABS: CPK CREATINE PHOSPHOKINASE 56.0 U/L (46-171); MB/CK RELATIVE INDEX 3.21 (< OR =4)
[2024-08-11 04:03] VITALS: BP 165/85; TEMP 97.5; O2SAT 99
[2024-08-11 04:12] VITALS: BP 154/80
[2024-08-11] MEDS ORDERED: OLANZapine ORAL DISINTEGRATING TAB 5MG PO PRN (05:40)
[2024-08-11] MEDS ORDERED: PILL CUTTER 1 EACH XX PRN (06:05)
[2024-08-11 10:47] LABS: BASO # 0.1 10^3/uL (0.0-0.2); BASO % 0.7 % (0.0-1.0); EOS # 0.3 10^3/uL (0.0-0.5); EOS % 3.2 % (0.0-3.0); LYMPH # 1.6 10^3/uL (1.5-5.0); LYMPH % 18.6 % (24.0-44.0); MONO # 0.8 10^3/uL (0.0-0.8); MONO % 9.2 % (2.0-8.0); NEUTROPHILS # 5.9 10^3/uL (1.5-8.5); NEUTROPHILS % 68.0 % (36.0-66.0); PLATELET COUNT, AUTOMATED 130 10^3/uL (150-450)
[2024-08-11 10:50] VITALS: BP 139/72
[2024-08-11 11:34] LABS: CALCIUM LEVEL 8.7 MG/DL (8.3-10.6); CARBON DIOXIDE LEVEL 25 MMOL/L (20-31); CHLORIDE LEVEL 107 MMOL/L (98-107); CREATININE FOR GFR 1.16 MG/DL (0.70-1.30); GLOMERULAR FILTRATION RATE > 60.0 (>49); POTASSIUM SERUM 4.1 MMOL/L (3.5-5.1); SODIUM LEVEL 142 MMOL/L (136-145)
[2024-08-11 11:55] VITALS: BP 141/73; TEMP 97.9; O2SAT 99
[2024-08-11] MEDS: SENNA 8.6 MG TAB PO SCH (13:41)
[2024-08-11 20:12] VITALS: BP 151/84; TEMP 97.9; O2SAT 100
[2024-08-12 06:20] VITALS: BP 144/61; TEMP 98.4; O2SAT 98
[2024-08-12 08:27] LABS: BASO # 0.1 10^3/uL (0.0-0.2); BASO % 1.1 % (0.0-1.0); EOS # 0.3 10^3/uL (0.0-0.5); EOS % 3.8 % (0.0-3.0); LYMPH # 1.8 10^3/uL (1.5-5.0); LYMPH % 24.0 % (24.0-44.0); MONO # 0.7 10^3/uL (0.0-0.8); MONO % 9.6 % (2.0-8.0); NEUTROPHILS # 4.7 10^3/uL (1.5-8.5); NEUTROPHILS % 61.2 % (36.0-66.0); PLATELET COUNT, AUTOMATED 130 10^3/uL (150-450)
[2024-08-12 09:04] LABS: CALCIUM LEVEL 8.7 MG/DL (8.3-10.6); CARBON DIOXIDE LEVEL 28 MMOL/L (20-31); CHLORIDE LEVEL 107 MMOL/L (98-107); CREATININE FOR GFR 1.25 MG/DL (0.70-1.30); GLOMERULAR FILTRATION RATE > 60.0 (>49); POTASSIUM SERUM 4.2 MMOL/L (3.5-5.1); SODIUM LEVEL 142 MMOL/L (136-145)
[2024-08-12] MEDS: NS 500 ML IV ONE (11:47)
[2024-08-12] MEDS: KETOROLAC 30 MG/ML 1 ML VIAL IV ONE (11:47)
[2024-08-12 12:00] VITALS: BP 149/64; TEMP 98.4; O2SAT 98
[2024-08-12] MEDS: MAG SULF 1GM/100ML (MAG RUN) 1 GM in IV 1 EA IV ONE (12:41)
[2024-08-12 20:45] VITALS: BP 150/66; TEMP 97.7; O2SAT 99
[2024-08-13 06:20] VITALS: BP 149/68; TEMP 98.4; O2SAT 98
[2024-08-13 12:00] VITALS: BP 151/67; TEMP 98.8; O2SAT 93
[2024-08-13 14:22] LABS: BASO # 0.1 10^3/uL (0.0-0.2); BASO % 0.9 % (0.0-1.0); EOS # 0.3 10^3/uL (0.0-0.5); EOS % 4.2 % (0.0-3.0); LYMPH # 1.9 10^3/uL (1.5-5.0); LYMPH % 23.4 % (24.0-44.0); MONO # 0.8 10^3/uL (0.0-0.8); MONO % 9.5 % (2.0-8.0); NEUTROPHILS # 4.9 10^3/uL (1.5-8.5); NEUTROPHILS % 61.4 % (36.0-66.0); PLATELET COUNT, AUTOMATED 117 10^3/uL (150-450)
[2024-08-13 15:25] LABS: CALCIUM LEVEL 8.3 MG/DL (8.3-10.6); CARBON DIOXIDE LEVEL 26 MMOL/L (20-31); CHLORIDE LEVEL 105 MMOL/L (98-107); CREATININE FOR GFR 1.25 MG/DL (0.70-1.30); GLOMERULAR FILTRATION RATE > 60.0 (>49); POTASSIUM SERUM 4.2 MMOL/L (3.5-5.1); SODIUM LEVEL 139 MMOL/L (136-145)
[2024-08-13 18:04] LABS: C REACTIVE PROTEIN QUANTITATIV 0.59 MG/DL (<1.0)
[2024-08-13 18:12] LABS: ERYTHROCYTE SEDIMENTATION RATE 21 mm/hr (0-20)
[2024-08-13] MEDS: PROPARACAINE 0.5% OPHTH SOL 15ML OU SCH (18:28)
[2024-08-13 20:00] VITALS: BP 144/71; TEMP 98.1; O2SAT 98
[2024-08-14 04:41] VITALS: BP 142/69; TEMP 98.1; O2SAT 97
[2024-08-14] MEDS: SODIUM CHLORIDE 0.9% 500 ML IV ONE (10:55)
[2024-08-14] MEDS ORDERED: MAG SULF 1GM/100ML (MAG RUN) 1 GM in IV 1 EA IV ONE (11:00)
[2024-08-14 11:05] LABS: PLATELET COUNT, AUTOMATED 107 10^3/uL (150-450)
[2024-08-14 11:31] VITALS: BP 173/90; TEMP 97.9; O2SAT 99
[2024-08-14] MEDS: LABETALOL 200 MG TAB PO SCH (12:00)
[2024-08-14 12:46] LABS: CALCIUM LEVEL 8.8 MG/DL (8.3-10.6); CARBON DIOXIDE LEVEL 27 MMOL/L (20-31); CHLORIDE LEVEL 108 MMOL/L (98-107); CREATININE FOR GFR 1.23 MG/DL (0.70-1.30); GLOMERULAR FILTRATION RATE > 60.0 (>49); MAGNESIUM LEVEL 2.0 MG/DL (1.8-2.4); POTASSIUM SERUM 4.2 MMOL/L (3.5-5.1); SODIUM LEVEL 142 MMOL/L (136-145)
[2024-08-14] MEDS: MAG SULF 1GM/100ML (MAG RUN) 1 GM in IV 1 EA IV ONE (14:30)
[2024-08-14 14:34] VITALS: BP 114/50
[2024-08-14 20:23] VITALS: BP 122/59; TEMP 97.5; O2SAT 98
[2024-08-15 06:07] LABS: PLATELET COUNT, AUTOMATED 98 10^3/uL (150-450)
[2024-08-15 06:20] LABS: CALCIUM LEVEL 8.5 MG/DL (8.3-10.6); CARBON DIOXIDE LEVEL 30.0 MMOL/L (20-31); CHLORIDE LEVEL 103.0 MMOL/L (98-107); CREATININE FOR GFR 1.41 MG/DL (0.70-1.30); GLOMERULAR FILTRATION RATE 54.6 (>49); POTASSIUM SERUM 4.4 MMOL/L (3.5-5.1); SODIUM LEVEL 141.0 MMOL/L (136-145)
[2024-08-15 06:43] VITALS: BP 122/57; TEMP 97.7; O2SAT 99
[2024-08-15 19:38] VITALS: BP 141/66; TEMP 98.2; O2SAT 100
[2024-08-16] MEDS ORDERED: ENTER DRUG NAME HERE (PATIENT'S OWN MED) PO PRN (00:05)
[2024-08-16] MEDS: MELATONIN 10MG TABLET (PATIENT'S OWN MED) PO SCH (03:27)
[2024-08-16 05:46] VITALS: BP 139/70; TEMP 97.9; O2SAT 99
[2024-08-16 06:11] LABS: PLATELET COUNT, AUTOMATED 90 10^3/uL (150-450)
[2024-08-16 06:31] LABS: CALCIUM LEVEL 8.0 MG/DL (8.3-10.6); CARBON DIOXIDE LEVEL 28.0 MMOL/L (20-31); CHLORIDE LEVEL 106.0 MMOL/L (98-107); CREATININE FOR GFR 1.5 MG/DL (0.70-1.30); GLOMERULAR FILTRATION RATE 50.8 (>49); POTASSIUM SERUM 4.6 MMOL/L (3.5-5.1); SODIUM LEVEL 139.0 MMOL/L (136-145)
[2024-08-16] MEDS: MAG SULF 1GM/100ML (MAG RUN) 1 GM in IV 1 EA IV ONE (11:17)
[2024-08-16] MEDS: ONDANSETRON 4MG 2ML VIAL IV ONE (11:18)
[2024-08-16] MEDS: LACTATED RINGER'S 1000 ML IV ONE (11:18)
[2024-08-16 12:00] VITALS: BP 135/51; TEMP 99; O2SAT 98
[2024-08-16 21:00] VITALS: BP 161/79; TEMP 97.7; O2SAT 97
[2024-08-17 03:50] VITALS: BP 114/56; TEMP 97.7; O2SAT 97
[2024-08-17 12:00] VITALS: BP 103/42; TEMP 97.7; O2SAT 96
[2024-08-17] MEDS: LEVEMIR (INSULIN DETEMIR) 1 UNITS/0.01ML SC SCH (17:44)
[2024-08-17 17:50] LABS: VALPROIC ACID (DEPAKOTE) 56.8 UG/ML (50.0-100.0)
[2024-08-17] MEDS: CLOPIDOGREL 75 MG TAB PO SCH (17:50)
[2024-08-17 17:52] LABS: ALT/SGPT 16.0 U/L (7.0-40); AST/SGOT 8.0 U/L (<34)
[2024-08-17 20:30] VITALS: BP 144/67; TEMP 98.1; O2SAT 97
[2024-08-18 05:55] VITALS: BP 132/89; TEMP 98.6; O2SAT 98
[2024-08-18 06:30] LABS: PLATELET COUNT, AUTOMATED 135 10^3/uL (150-450)
[2024-08-18 07:04] LABS: CALCIUM LEVEL 7.8 MG/DL (8.3-10.6); CARBON DIOXIDE LEVEL 24.0 MMOL/L (20-31); CHLORIDE LEVEL 103.0 MMOL/L (98-107); CREATININE FOR GFR 1.59 MG/DL (0.70-1.30); GLOMERULAR FILTRATION RATE 47.5 (>49); POTASSIUM SERUM 4.8 MMOL/L (3.5-5.1); SODIUM LEVEL 133.0 MMOL/L (136-145)
[2024-08-18 12:00] VITALS: BP 114/44; TEMP 98.8; O2SAT 100
[2024-08-18 20:30] VITALS: BP 119/44; TEMP 97.5; O2SAT 98
[2024-08-19] MEDS ORDERED: diphenhydrAMINE 50 MG/ML VIAL IM ONE (03:25)
[2024-08-19 03:45] VITALS: BP 140/66; TEMP 97.9; O2SAT 97
[2024-08-19] MEDS: METOCLOPRAMIDE 5 MG TAB PO ONE (05:59)
[2024-08-19 06:52] LABS: PLATELET COUNT, AUTOMATED 162 10^3/uL (150-450)
[2024-08-19 07:30] LABS: CALCIUM LEVEL 7.7 MG/DL (8.3-10.6); CARBON DIOXIDE LEVEL 28.0 MMOL/L (20-31); CHLORIDE LEVEL 104.0 MMOL/L (98-107); CREATININE FOR GFR 1.51 MG/DL (0.70-1.30); GLOMERULAR FILTRATION RATE 50.4 (>49); POTASSIUM SERUM 4.3 MMOL/L (3.5-5.1); SODIUM LEVEL 140.0 MMOL/L (136-145)
[2024-08-19 12:00] VITALS: BP 114/44; TEMP 98.8; O2SAT 96
[2024-08-19 13:43] LABS: CHOLESTEROL LEVEL 116.0 MG/DL (<200); CHOLESTEROL RISK RATIO 3.02 (<5); LDL CHOLESTEROL 63.8 MG/DL (<100); NON-HDL-C 77.6 MG/DL; TRIGLYCERIDES LEVEL 69.0 MG/DL (<150)
[2024-08-19 15:56] LABS: ESTIMATED AVERAGE GLUCOSE 146.0 MG/DL (60-110)
[2024-08-19 20:13] VITALS: BP 131/57; TEMP 97; O2SAT 100
[2024-08-20 03:30] VITALS: BP 138/61; TEMP 97; O2SAT 98
[2024-08-20 06:24] LABS: PLATELET COUNT, AUTOMATED 163 10^3/uL (150-450)
[2024-08-20 06:51] LABS: CALCIUM LEVEL 7.7 MG/DL (8.3-10.6); CARBON DIOXIDE LEVEL 28.0 MMOL/L (20-31); CHLORIDE LEVEL 103.0 MMOL/L (98-107); CREATININE FOR GFR 1.43 MG/DL (0.70-1.30); GLOMERULAR FILTRATION RATE 53.7 (>49); POTASSIUM SERUM 4.3 MMOL/L (3.5-5.1); SODIUM LEVEL 138.0 MMOL/L (136-145)
[2024-08-20] MEDS: LEVEMIR (INSULIN DETEMIR) 1 UNITS/0.01ML SC SCH (07:01)
[2024-08-20 08:11] VITALS: BP 121/62; TEMP 98.2; O2SAT 90
[2024-08-20 09:56] VITALS: BP 138/61
[2024-08-20] MEDS: OLANZapine INTRAMUSCULAR 10MG VIAL IM PRN (10:46)
[2024-08-20 12:45] VITALS: BP 132/51; TEMP 98.1; O2SAT 96
[2024-08-21 04:43] VITALS: BP 165/73; TEMP 98.4; O2SAT 98
[2024-08-21 05:25] VITALS: BP 151/67
[2024-08-21 12:00] VITALS: BP 143/70; TEMP 98.6; O2SAT 97
[2024-08-21] MEDS: BREXPIPRAZOLE 0.5MG TABLET PO ONE (12:17)
[2024-08-21 13:28] LABS: BASO # 0.1 10^3/uL (0.0-0.2); BASO % 0.5 % (0.0-1.0); EOS # 0.0 10^3/uL (0.0-0.5); EOS % 0.4 % (0.0-3.0); LYMPH # 0.8 10^3/uL (1.5-5.0); LYMPH % 8.2 % (24.0-44.0); MONO # 0.3 10^3/uL (0.0-0.8); MONO % 3.1 % (2.0-8.0); NEUTROPHILS # 8.3 10^3/uL (1.5-8.5); NEUTROPHILS % 85.7 % (36.0-66.0); PLATELET COUNT, AUTOMATED 198 10^3/uL (150-450)
[2024-08-21 13:59] LABS: CALCIUM LEVEL 8.0 MG/DL (8.3-10.6); CARBON DIOXIDE LEVEL 25.0 MMOL/L (20-31); CHLORIDE LEVEL 106.0 MMOL/L (98-107); CREATININE FOR GFR 1.48 MG/DL (0.70-1.30); GLOMERULAR FILTRATION RATE 51.6 (>49); POTASSIUM SERUM 4.5 MMOL/L (3.5-5.1); SODIUM LEVEL 139.0 MMOL/L (136-145)
[2024-08-22 07:58] LABS: BASO # 0.1 10^3/uL (0.0-0.2); BASO % 0.8 % (0.0-1.0); EOS # 0.2 10^3/uL (0.0-0.5); EOS % 1.7 % (0.0-3.0); LYMPH # 2.8 10^3/uL (1.5-5.0); LYMPH % 24.3 % (24.0-44.0); MONO # 0.9 10^3/uL (0.0-0.8); MONO % 7.8 % (2.0-8.0); NEUTROPHILS # 7.4 10^3/uL (1.5-8.5); NEUTROPHILS % 63.0 % (36.0-66.0); PLATELET COUNT, AUTOMATED 207 10^3/uL (150-450)
[2024-08-22 08:23] LABS: CALCIUM LEVEL 7.9 MG/DL (8.3-10.6); CARBON DIOXIDE LEVEL 26.0 MMOL/L (20-31); CHLORIDE LEVEL 105.0 MMOL/L (98-107); CREATININE FOR GFR 1.36 MG/DL (0.70-1.30); GLOMERULAR FILTRATION RATE 56.9 (>49); POTASSIUM SERUM 4.0 MMOL/L (3.5-5.1); SODIUM LEVEL 139.0 MMOL/L (136-145)
[2024-08-22] MEDS: BREXPIPRAZOLE 0.5MG TABLET PO SCH (09:34)
[2024-08-22 12:00] VITALS: BP 134/64; TEMP 98.6; O2SAT 97
[2024-08-22 19:52] VITALS: BP 134/62; TEMP 97.7; O2SAT 99
[2024-08-23 12:00] VITALS: BP 143/54; TEMP 97.9; O2SAT 95
[2024-08-23 12:10] LABS: BASO # 0.1 10^3/uL (0.0-0.2); BASO % 0.6 % (0.0-1.0); EOS # 0.3 10^3/uL (0.0-0.5); EOS % 2.4 % (0.0-3.0); LYMPH # 1.2 10^3/uL (1.5-5.0); LYMPH % 11.9 % (24.0-44.0); MONO # 0.8 10^3/uL (0.0-0.8); MONO % 7.6 % (2.0-8.0); NEUTROPHILS # 7.9 10^3/uL (1.5-8.5); NEUTROPHILS % 75.5 % (36.0-66.0); PLATELET COUNT, AUTOMATED 200 10^3/uL (150-450)
[2024-08-23 12:51] LABS: CALCIUM LEVEL 7.9 MG/DL (8.3-10.6); CARBON DIOXIDE LEVEL 26 MMOL/L (20-31); CHLORIDE LEVEL 105 MMOL/L (98-107); CREATININE FOR GFR 1.14 MG/DL (0.70-1.30); GLOMERULAR FILTRATION RATE > 60.0 (>49); POTASSIUM SERUM 4.2 MMOL/L (3.5-5.1); SODIUM LEVEL 140 MMOL/L (136-145)
[2024-08-23] MEDS: HYDROmorphone 2 MG TAB PO ONE (16:15)
[2024-08-24 09:37] LABS: ALT/SGPT 19.0 U/L (7.0-40); AST/SGOT 10.0 U/L (<34)
[2024-08-24] MEDS: BREXPIPRAZOLE 0.5MG TABLET PO SCH (09:46)
[2024-08-25 04:02] VITALS: BP 161/83; TEMP 97.3; O2SAT 98
[2024-08-25 04:30] VITALS: BP 132/80
[2024-08-25] MEDS: KETOROLAC 30 MG/ML 1 ML VIAL IM ONE (23:14)
[2024-08-27] MEDS: ONDANSETRON 4MG ORAL DISINTEGRATING TAB PO PRN (03:49)
[2024-08-27 04:56] VITALS: BP 152/69; TEMP 97.5; O2SAT 100
[2024-08-27] MEDS: HYDROmorphone 2 MG TAB PO ONE (11:53)
[2024-08-27 20:51] VITALS: BP 138/62
[2024-08-28 07:12] VITALS: BP 105/79; TEMP 97.9; O2SAT 100
[2024-08-29 04:28] VITALS: BP 124/51; TEMP 97.3; O2SAT 98
[2024-08-29] MEDS: METOCLOPRAMIDE 10 MG TAB PO ONE (13:51)
[2024-08-29] MEDS: PROCHLORPERAZINE 5MG TAB PO ONE (13:52)
[2024-08-30 03:03] VITALS: BP 144/65; TEMP 98.1
[2024-08-30 03:11] VITALS: O2SAT 98
[2024-08-30 20:26] VITALS: BP 159/69
[2024-08-30] MEDS: KETOROLAC 30 MG/ML 1 ML VIAL IM ONE (22:35)
[2024-08-31 04:21] VITALS: BP 153/67; TEMP 97.7; O2SAT 97
[2024-08-31 09:57] LABS: ALT/SGPT 17.0 U/L (7.0-40); AST/SGOT 10.0 U/L (<34)
[2024-08-31] MEDS: ALBUTEROL 90 MCG/ACT 8 GM HFA INHALER INH PRN (21:28)
[2024-09-01 04:15] VITALS: BP 146/68; TEMP 98.2; O2SAT 96
[2024-09-01 09:27] VITALS: BP 167/73
[2024-09-01] MEDS: FUROSEMIDE 20 MG TAB PO ONE (11:00)
[2024-09-02 05:50] VITALS: BP 159/71; TEMP 97.3; O2SAT 99
[2024-09-02 09:05] VITALS: BP 147/97
[2024-09-02] MEDS: FUROSEMIDE 40 MG TAB PO SCH (17:26)
[2024-09-03 05:06] VITALS: BP 146/70; TEMP 98.1
[2024-09-04 05:30] VITALS: BP 120/52; TEMP 97.7; O2SAT 95
[2024-09-04 08:28] VITALS: BP 158/80
[2024-09-04] MEDS ORDERED: REXU1TAB2 PO (12:59)
[2024-09-04] MEDS ORDERED: AMLO1TAB24 PO (12:59)
[2024-09-04] MEDS ORDERED: LABE20TAB PO (12:59)
[2024-09-04] MEDS ORDERED: DEPA1TAB3 PO (12:59)
[2024-09-04] MEDS ORDERED: CLOP75TA2 PO (12:59)
[2024-09-04] MEDS ORDERED: METF500T13 PO (13:05)
[2024-09-04] MEDS ORDERED: INSUDET SC (13:05)
[2024-09-04] MEDS ORDERED: LANC1COM MC (13:05)
[2024-09-04] MEDS ORDERED: GLUCMIS7 XX (13:05)
[2024-09-04] MEDS ORDERED: CEFD1CAP9 PO (13:15)
[2024-09-05 06:00] VITALS: BP 138/61; TEMP 98.1; O2SAT 100
[2024-09-05] MEDS ORDERED: INSULANT SC (06:19)
[2024-09-05 21:00] VITALS: BP 140/62; TEMP 97.9; O2SAT 98
[2024-09-06 04:00] VITALS: BP 144/66; TEMP 98.1; O2SAT 100
[2024-09-06 20:30] VITALS: BP 148/65; TEMP 98.1; O2SAT 96
[2024-09-07 03:30] VITALS: BP 146/67; TEMP 97.9; O2SAT 98
[2024-09-07 10:21] LABS: ALT/SGPT 16.0 U/L (7.0-40); AST/SGOT 11.0 U/L (<34)
[2024-09-08 06:06] VITALS: BP 134/54; TEMP 97.3; O2SAT 97
[2024-09-09 16:41] VITALS: BP 155/72
[2024-09-10 03:19] VITALS: BP 157/68; TEMP 97.1; O2SAT 100
[2024-09-11 06:00] VITALS: BP 143/65; TEMP 97.1; O2SAT 98
[2024-09-12 04:09] VITALS: BP 149/68; TEMP 97.5; O2SAT 98
[2024-09-13] MEDS: OLANZapine 5 MG TAB PO ONE (02:36)
[2024-09-13 06:47] VITALS: BP 155/67; TEMP 97.5; O2SAT 97
[2024-09-14] MEDS: OLANZapine 5 MG TAB PO ONE (03:06)
[2024-09-14] MEDS: FUROSEMIDE 40 MG TAB PO ONE (08:38)
[2024-09-14 10:27] LABS: ALT/SGPT 20.0 U/L (7.0-40); AST/SGOT 15.0 U/L (<34)
[2024-09-14] MEDS: OLANZapine 5 MG TAB PO PRN (23:08)
[2024-09-15 04:56] VITALS: BP 130/46; TEMP 97.7; O2SAT 98
[2024-09-15 06:21] LABS: CALCIUM LEVEL 7.8 MG/DL (8.3-10.6); CARBON DIOXIDE LEVEL 26.0 MMOL/L (20-31); CHLORIDE LEVEL 108.0 MMOL/L (98-107); CREATININE FOR GFR 1.79 MG/DL (0.70-1.30); GLOMERULAR FILTRATION RATE 41.4 (>49); MAGNESIUM LEVEL 2.0 MG/DL (1.8-2.4); POTASSIUM SERUM 4.2 MMOL/L (3.5-5.1); SODIUM LEVEL 144.0 MMOL/L (136-145)
[2024-09-15] MEDS: FUROSEMIDE 20 MG TAB PO ONE (11:11)
[2024-09-15 12:39] LABS: BASO # 0.1 10^3/uL (0.0-0.2); BASO % 1.0 % (0.0-1.0); EOS # 0.4 10^3/uL (0.0-0.5); EOS % 8.1 % (0.0-3.0); LYMPH # 0.9 10^3/uL (1.5-5.0); LYMPH % 18.1 % (24.0-44.0); MONO # 0.7 10^3/uL (0.0-0.8); MONO % 14.2 % (2.0-8.0); NEUTROPHILS # 3.0 10^3/uL (1.5-8.5); NEUTROPHILS % 58.0 % (36.0-66.0)
[2024-09-15 13:08] LABS: PLATELET COUNT, AUTOMATED 88 10^3/uL (150-450)
[2024-09-15] MEDS: LACTULOSE 20 GM/30 ML SYRUP UDC PO SCH (14:35)
[2024-09-15 20:00] VITALS: BP 146/65; TEMP 97.8; O2SAT 98
[2024-09-16 05:48] LABS: CALCIUM LEVEL 7.8 MG/DL (8.3-10.6); CARBON DIOXIDE LEVEL 27.0 MMOL/L (20-31); CHLORIDE LEVEL 110.0 MMOL/L (98-107); CREATININE FOR GFR 1.69 MG/DL (0.70-1.30); GLOMERULAR FILTRATION RATE 44.3 (>49); MAGNESIUM LEVEL 1.9 MG/DL (1.8-2.4); POTASSIUM SERUM 3.9 MMOL/L (3.5-5.1); SODIUM LEVEL 145.0 MMOL/L (136-145)
[2024-09-16] MEDS: FUROSEMIDE 20 MG TAB PO SCH (09:09)
[2024-09-16] MEDS: LanTUS (INSULIN GLARGINE INJ) 1 UNITS/0.01 ML SC SCH (21:18)
[2024-09-17 04:00] VITALS: BP 137/59; TEMP 97.9; O2SAT 98
[2024-09-18] MEDS: OLANZapine INTRAMUSCULAR 10MG VIAL IM ONE (07:17)
[2024-09-18] MEDS: FUROSEMIDE 40 MG TAB PO SCH (11:02)
[2024-09-19 08:00] VITALS: BP 141/51; TEMP 97.9; O2SAT 97
[2024-09-20 05:52] VITALS: BP 167/70; TEMP 97.1; O2SAT 99
[2024-09-20 11:19] LABS: CALCIUM LEVEL 7.6 MG/DL (8.3-10.6); CARBON DIOXIDE LEVEL 23.0 MMOL/L (20-31); CHLORIDE LEVEL 107.0 MMOL/L (98-107); CREATININE FOR GFR 1.35 MG/DL (0.70-1.30); GLOMERULAR FILTRATION RATE 57.4 (>49); POTASSIUM SERUM 4.1 MMOL/L (3.5-5.1); SODIUM LEVEL 141.0 MMOL/L (136-145)
[2024-09-21 04:17] VITALS: BP 141/70; TEMP 97.1; O2SAT 96
[2024-09-22 06:55] VITALS: BP 170/71; TEMP 97.3; O2SAT 98
[2024-09-22 13:30] VITALS: BP 134/61
[2024-09-23 06:14] VITALS: BP 153/69; TEMP 97.7; O2SAT 98
[2024-09-24 06:28] VITALS: BP 151/67; TEMP 97.5; O2SAT 98
[2024-09-24] MEDS: LIDOCAINE 5% PATCH TD SCH (10:26)
[2024-09-24] MEDS: DICLOFENAC EPOLAMINE 1.3% PATCH TOP SCH (10:26)
[2024-09-24] MEDS: POLYVINYL ALCOHOL OPHTH SOLN 15ML (LIQUITEARS) OU PRN (11:37)
[2024-09-25 03:22] VITALS: BP 139/66; TEMP 97.7; O2SAT 97
[2024-09-25 08:48] LABS: CALCIUM LEVEL 8.5 MG/DL (8.3-10.6); CARBON DIOXIDE LEVEL 27.0 MMOL/L (20-31); CHLORIDE LEVEL 106.0 MMOL/L (98-107); CREATININE FOR GFR 1.91 MG/DL (0.70-1.30); GLOMERULAR FILTRATION RATE 38.5 (>49); POTASSIUM SERUM 4.4 MMOL/L (3.5-5.1); SODIUM LEVEL 144.0 MMOL/L (136-145)
[2024-09-26 04:48] VITALS: BP 158/77; TEMP 97.9; O2SAT 98
[2024-09-27 05:10] VITALS: BP 162/73; TEMP 97; O2SAT 100
[2024-10-01 06:00] VITALS: BP 165/71; TEMP 98.1; O2SAT 98
[2024-10-02 05:00] VITALS: BP 148/67; TEMP 98.2; O2SAT 96
[2024-10-03] MEDS: FLUTICASONE PROPIONATE 0.05% NASAL SPRAY 16 GM NARES SCH (23:08)
[2024-10-05 10:01] LABS: CALCIUM LEVEL 7.9 MG/DL (8.3-10.6); CARBON DIOXIDE LEVEL 25.0 MMOL/L (20-31); CHLORIDE LEVEL 110.0 MMOL/L (98-107); CREATININE FOR GFR 1.82 MG/DL (0.70-1.30); GLOMERULAR FILTRATION RATE 40.7 (>49); POTASSIUM SERUM 4.5 MMOL/L (3.5-5.1); SODIUM LEVEL 143.0 MMOL/L (136-145)
[2024-10-05] MEDS: FUROSEMIDE 20 MG TAB PO SCH (12:00)
[2024-10-05] MEDS: LanTUS (INSULIN GLARGINE INJ) 1 UNITS/0.01 ML SC SCH (20:48)
[2024-10-07 02:50] VITALS: BP 176/81; TEMP 97.9; O2SAT 97
[2024-10-07 19:44] LABS: PLATELET COUNT, AUTOMATED 98 10^3/uL (150-450)
[2024-10-07] MEDS: POLYSPORIN TOPICAL OINTMENT 15GM TOP SCH (20:36)
[2024-10-07] MEDS: AUGMENTIN 875 MG TAB PO SCH (20:37)
[2024-10-09 03:46] VITALS: BP 188/85; TEMP 97.9
[2024-10-09 04:12] VITALS: BP 136/64; TEMP 98.1; O2SAT 96
[2024-10-10 04:20] VITALS: BP 133/74; TEMP 97; O2SAT 99
[2024-10-10] MEDS: FUROSEMIDE 40 MG TAB PO ONE (16:04)
[2024-10-11 06:30] LABS: BASO # 0.1 10^3/uL (0.0-0.2); BASO % 1.1 % (0.0-1.0); EOS # 0.3 10^3/uL (0.0-0.5); EOS % 5.1 % (0.0-3.0); LYMPH # 1.3 10^3/uL (1.5-5.0); LYMPH % 23.6 % (24.0-44.0); MONO # 0.7 10^3/uL (0.0-0.8); MONO % 13.0 % (2.0-8.0); NEUTROPHILS # 3.0 10^3/uL (1.5-8.5); NEUTROPHILS % 56.8 % (36.0-66.0); PLATELET COUNT, AUTOMATED 125 10^3/uL (150-450)
[2024-10-11 06:52] LABS: ALT/SGPT 23.0 U/L (7.0-40); AST/SGOT 18.0 U/L (<34); CALCIUM LEVEL 8.9 MG/DL (8.3-10.6); CARBON DIOXIDE LEVEL 26.0 MMOL/L (20-31); CHLORIDE LEVEL 110.0 MMOL/L (98-107); CREATININE FOR GFR 1.76 MG/DL (0.70-1.30); GLOMERULAR FILTRATION RATE 42.3 (>49); MAGNESIUM LEVEL 2.1 MG/DL (1.8-2.4); POTASSIUM SERUM 4.2 MMOL/L (3.5-5.1); SODIUM LEVEL 147.0 MMOL/L (136-145)
[2024-10-11 12:00] VITALS: BP 153/70; TEMP 98.5; O2SAT 99
[2024-10-11 12:11] LABS: IRON (FE) 68.0 UG/DL (65-175); PERCENT SATURATION 24.6 % (19.7-50.0)
[2024-10-11] MEDS: FUROSEMIDE 40 MG/4 ML VIAL IV SCH (12:21)
[2024-10-11] MEDS: amLODIPine 5 MG TAB PO SCH (12:33)
[2024-10-11 20:00] VITALS: BP 152/72; TEMP 97.3; O2SAT 99
[2024-10-12 04:00] VITALS: BP 157/72; TEMP 98; O2SAT 96
[2024-10-12 05:34] LABS: BASO # 0.1 10^3/uL (0.0-0.2); BASO % 1.1 % (0.0-1.0); EOS # 0.2 10^3/uL (0.0-0.5); EOS % 4.2 % (0.0-3.0); LYMPH # 1.4 10^3/uL (1.5-5.0); LYMPH % 26.2 % (24.0-44.0); MONO # 0.7 10^3/uL (0.0-0.8); MONO % 12.8 % (2.0-8.0); NEUTROPHILS # 2.9 10^3/uL (1.5-8.5); NEUTROPHILS % 55.1 % (36.0-66.0); PLATELET COUNT, AUTOMATED 129 10^3/uL (150-450)
[2024-10-12 05:43] LABS: CALCIUM LEVEL 8.0 MG/DL (8.3-10.6); CARBON DIOXIDE LEVEL 27.0 MMOL/L (20-31); CHLORIDE LEVEL 105.0 MMOL/L (98-107); CREATININE FOR GFR 1.71 MG/DL (0.70-1.30); GLOMERULAR FILTRATION RATE 43.7 (>49); MAGNESIUM LEVEL 2.0 MG/DL (1.8-2.4); POTASSIUM SERUM 3.9 MMOL/L (3.5-5.1); SODIUM LEVEL 143.0 MMOL/L (136-145)
[2024-10-12 11:55] VITALS: BP 172/74; TEMP 98.4; O2SAT 94
[2024-10-12 12:21] VITALS: BP 124/65
[2024-10-12] MEDS: FERRIC CARBOXYMALTOSE INJ 750 MG, VIAL MATE ADAPTER 1 EACH in NS 100 ML IV ONE (13:39)
[2024-10-13 06:35] LABS: BASO # 0.1 10^3/uL (0.0-0.2); BASO % 1.0 % (0.0-1.0); EOS # 0.2 10^3/uL (0.0-0.5); EOS % 4.7 % (0.0-3.0); LYMPH # 1.6 10^3/uL (1.5-5.0); LYMPH % 33.8 % (24.0-44.0); MONO # 0.6 10^3/uL (0.0-0.8); MONO % 12.4 % (2.0-8.0); NEUTROPHILS # 2.3 10^3/uL (1.5-8.5); NEUTROPHILS % 47.3 % (36.0-66.0); PLATELET COUNT, AUTOMATED 149 10^3/uL (150-450)
[2024-10-13 06:57] LABS: CALCIUM LEVEL 8.0 MG/DL (8.3-10.6); CARBON DIOXIDE LEVEL 28.0 MMOL/L (20-31); CHLORIDE LEVEL 106.0 MMOL/L (98-107); CREATININE FOR GFR 1.92 MG/DL (0.70-1.30); GLOMERULAR FILTRATION RATE 38.2 (>49); MAGNESIUM LEVEL 2.0 MG/DL (1.8-2.4); POTASSIUM SERUM 4.0 MMOL/L (3.5-5.1); SODIUM LEVEL 142.0 MMOL/L (136-145)
[2024-10-13] MEDS: **hydrALAZINE** 50 MG TAB PO PRN (13:23)
[2024-10-13 13:26] VITALS: BP 189/101
[2024-10-13 14:28] VITALS: BP 130/44
[2024-10-13] MEDS: TORSEMIDE 20 MG TAB PO SCH (16:43)
[2024-10-13 20:36] VITALS: BP 177/79; TEMP 98; O2SAT 99
[2024-10-13] MEDS: LanTUS (INSULIN GLARGINE INJ) 1 UNITS/0.01 ML SC SCH (22:06)
[2024-10-14 05:00] VITALS: BP 154/97; TEMP 98.2; O2SAT 97
[2024-10-14 09:41] LABS: CALCIUM LEVEL 8.4 MG/DL (8.3-10.6); CARBON DIOXIDE LEVEL 26.0 MMOL/L (20-31); CHLORIDE LEVEL 109.0 MMOL/L (98-107); CREATININE FOR GFR 1.77 MG/DL (0.70-1.30); GLOMERULAR FILTRATION RATE 42.0 (>49); MAGNESIUM LEVEL 2.1 MG/DL (1.8-2.4); POTASSIUM SERUM 3.7 MMOL/L (3.5-5.1); SODIUM LEVEL 142.0 MMOL/L (136-145)
[2024-10-14 11:46] VITALS: BP 134/57; TEMP 98.2; O2SAT 95
[2024-10-14] MEDS: DARBEPOETIN 100 MCG/0.5 ML *NON-DIALYSIS* SYRINGE SC SCH (11:53)
[2024-10-15 03:18] VITALS: BP 153/76; TEMP 98.2; O2SAT 98
[2024-10-15] MEDS: RAMELTEON 8 MG TAB PO SCH (22:13)
[2024-10-15 22:15] VITALS: BP 147/61; TEMP 97.9; O2SAT 97
[2024-10-16 20:37] VITALS: BP 143/62; TEMP 97.7; O2SAT 99
[2024-10-16] MEDS: VANICREAM MOISTURIZING SKIN CREAM 113GM TUBE TOP SCH (20:51)
[2024-10-17 05:23] VITALS: BP 169/74; TEMP 97.8; O2SAT 98
[2024-10-18 04:33] VITALS: BP_SYST 172; BP_SYST 199; BP_DIAS 77; BP_DIAS 79; TEMP 97.7; O2SAT 100
[2024-10-18 06:25] VITALS: BP 128/47
[2024-10-18 14:14] VITALS: O2SAT 99
[2024-10-18 21:05] VITALS: BP 156/70
[2024-10-19 03:52] VITALS: BP 149/68; TEMP 98; O2SAT 99
[2024-10-20 03:15] VITALS: BP 152/66; TEMP 98.2; O2SAT 97
[2024-10-20 07:59] VITALS: BP 138/73; O2SAT 96
[2024-10-20 21:50] VITALS: BP 176/77
[2024-10-21 07:52] VITALS: BP 140/73; TEMP 97; O2SAT 98
[2024-10-22 02:10] VITALS: BP 132/59; TEMP 98.6; O2SAT 97
[2024-10-24 05:35] VITALS: BP 162/67; TEMP 97.7; O2SAT 98
[2024-10-25 03:59] VITALS: BP 154/68; TEMP 97.3; O2SAT 98
[2024-10-25] MEDS: AUGMENTIN 875 MG TAB PO SCH (11:52)
[2024-10-25] MEDS: HALOPERIDOL LACTATE 5 MG/ML VIAL IM PRN (14:34)
[2024-10-27] MEDS: IBUPROFEN 800 MG TAB PO ONE
[2024-10-27 06:30] VITALS: BP 166/67; TEMP 98.4; O2SAT 98
[2024-10-28 04:32] VITALS: BP 157/71; TEMP 97; O2SAT 98
[2024-10-29 09:33] LABS: PLATELET COUNT, AUTOMATED 113 10^3/uL (150-450)
[2024-10-29 10:19] LABS: C REACTIVE PROTEIN QUANTITATIV < 0.50 MG/DL (<1.0)
[2024-10-29] MEDS: CLINDAMYCIN 150 MG CAPSULE PO SCH (12:00)
[2024-10-29] MEDS: LACTULOSE 20 GM/30 ML SYRUP UDC PO ONE (17:55)
[2024-10-30] MEDS ORDERED: BISACODYL 10 MG SUPP PR ONE (10:00)
[2024-10-30] MEDS: metFORMIN 500 MG TAB PO SCH (16:09)
[2024-10-30] MEDS: BISACODYL 10 MG SUPP PR ONE (18:00)
[2024-10-30] MEDS: MOM 30 ML SUSPENSION UDC PO PRN (18:16)
[2024-10-31 05:18] VITALS: BP 153/74; TEMP 97.7; O2SAT 96
[2024-11-01 03:40] VITALS: BP 148/65; TEMP 98.2; O2SAT 97
[2024-11-01 18:30] VITALS: BP 157/94; TEMP 98.4; O2SAT 99
[2024-11-01 18:32] VITALS: O2SAT 99
[2024-11-02 05:32] VITALS: BP 148/71; TEMP 97.5; O2SAT 100
[2024-11-02 09:58] VITALS: O2SAT 99
[2024-11-02 10:05] VITALS: O2SAT 99
[2024-11-02 16:56] VITALS: O2SAT 100
[2024-11-03 04:00] VITALS: TEMP 97.9; O2SAT 100
[2024-11-03 08:26] VITALS: BP 140/86; TEMP 97.3; O2SAT 99
[2024-11-04 06:30] VITALS: TEMP 97.9; O2SAT 98
[2024-11-05 06:40] VITALS: BP 161/83; TEMP 97.9; O2SAT 100
[2024-11-06 06:45] VITALS: BP 138/67; TEMP 97; O2SAT 96
[2024-11-08 10:40] VITALS: BP 133/66; TEMP 97.5; O2SAT 98
[2024-11-09 06:30] VITALS: BP 167/77; TEMP 97.9; O2SAT 98
[2024-11-10 06:00] VITALS: BP 156/77; TEMP 98; O2SAT 99
[2024-11-10 15:38] LABS: PLATELET COUNT, AUTOMATED 108 10^3/uL (150-450)
[2024-11-10 16:00] LABS: C REACTIVE PROTEIN QUANTITATIV < 0.50 MG/DL (<1.0)
[2024-11-10 16:12] LABS: CALCIUM LEVEL 9.0 MG/DL (8.3-10.6); CARBON DIOXIDE LEVEL 28.0 MMOL/L (20-31); CHLORIDE LEVEL 104.0 MMOL/L (98-107); CREATININE FOR GFR 2.12 MG/DL (0.70-1.30); GLOMERULAR FILTRATION RATE 35.0 (>49); POTASSIUM SERUM 4.1 MMOL/L (3.5-5.1); SODIUM LEVEL 143.0 MMOL/L (136-145)
[2024-11-10] MEDS: DICLOFENAC EPOLAMINE 1.3% PATCH TOP SCH (20:15)
[2024-11-11 03:56] VITALS: BP 147/65; TEMP 97.1; O2SAT 97
[2024-11-11 10:00] VITALS: BP 154/69; TEMP 97.9; O2SAT 99
[2024-11-11] MEDS: NITROGLYCERIN 0.4 MG SUBL TABLET SL PRN (10:34)
[2024-11-11 10:51] VITALS: BP 129/64
[2024-11-11 11:13] VITALS: BP 146/70
[2024-11-11] MEDS: MAALOX 30 ML SUSP *UDC PO ONE (11:16)
[2024-11-11] MEDS: OLANZapine 5 MG TAB PO SCH (21:32)
[2024-11-12] VITALS (16 sets, daily range): BP systolic 122–177; BP diastolic 58–77; TEMP 96.8–98.1; O2SAT 97–100
[2024-11-12] MEDS: DAPAGLIFLOZIN PROPANEDIOL 10 MG TABLET PO SCH (08:06)
[2024-11-12] MEDS: TORSEMIDE 20 MG TAB PO SCH (08:09)
[2024-11-12] MEDS: HYDROmorphone 2 MG TAB PO ONE (11:21)
[2024-11-12] MEDS: FACTOR XA,INACTIVATED-ZHZO 400 MG in APPROPRIATE DILUENT 40 ML IV ONE (14:05)
[2024-11-12] MEDS: FACTOR XA,INACTIVATED-ZHZO 480 MG in APPROPRIATE DILUENT 48 ML IV ONE (14:05)
[2024-11-12] MEDS: hydrALAZINE 20 MG/ML 1 ML VIAL IV STA ×2 (14:16→14:35)
[2024-11-12] MEDS ORDERED: hydrALAZINE 20 MG/ML 1 ML VIAL As Ordered ONE (14:17)
[2024-11-12] MEDS ORDERED: niCARdipine IV 40 MG in IV 1 EA IV SCH ×2 (14:35→14:54)
[2024-11-12] MEDS ORDERED: niCARdipine 40 MG IN 200 ML NACL IV BAG As Ordered ONE (14:35)
[2024-11-12] MEDS: DESMOPRESSIN ACETATE IV ONE (14:51)
[2024-11-12] MEDS: NS IV ONE (14:51)
[2024-11-12] MEDS: levETIRAcetam INJection 1,000 MG in IV 1 EA IV ONE (14:53)
[2024-11-12] MEDS: niCARdipine IV 40 MG in IV 1 EA IV SCH (15:00)
[2024-11-12 16:39] LABS: BASO # 0.1 10^3/uL (0.0-0.2); BASO % 1.4 % (0.0-1.0); EOS # 0.3 10^3/uL (0.0-0.5); EOS % 5.8 % (0.0-3.0); LYMPH # 1.3 10^3/uL (1.5-5.0); LYMPH % 24.2 % (24.0-44.0); MONO # 0.8 10^3/uL (0.0-0.8); MONO % 14.3 % (2.0-8.0); NEUTROPHILS # 3.0 10^3/uL (1.5-8.5); NEUTROPHILS % 53.6 % (36.0-66.0); PLATELET COUNT, AUTOMATED 106 10^3/uL (150-450)
[2024-11-12 17:14] LABS: ALT/SGPT 26.0 U/L (7.0-40); AST/SGOT 23.0 U/L (<34); CALCIUM LEVEL 8.3 MG/DL (8.3-10.6); CARBON DIOXIDE LEVEL 26.0 MMOL/L (20-31); CHLORIDE LEVEL 106.0 MMOL/L (98-107); CREATININE FOR GFR 1.87 MG/DL (0.70-1.30); GLOMERULAR FILTRATION RATE 40.7 (>49); MAGNESIUM LEVEL 2.0 MG/DL (1.8-2.4); PHOSPHORUS LEVEL 5.2 MG/DL (2.4-5.1); POTASSIUM SERUM 3.9 MMOL/L (3.5-5.1); SODIUM LEVEL 142.0 MMOL/L (136-145)
[2024-11-13] VITALS (11 sets, daily range): BP systolic 116–172; BP diastolic 58–77; TEMP 97.6–98.6; O2SAT 95–100
[2024-11-13 05:38] LABS: CALCIUM LEVEL 8.2 MG/DL (8.3-10.6); CARBON DIOXIDE LEVEL 27.0 MMOL/L (20-31); CHLORIDE LEVEL 108.0 MMOL/L (98-107); CREATININE FOR GFR 1.86 MG/DL (0.70-1.30); GLOMERULAR FILTRATION RATE 40.9 (>49); PHOSPHORUS LEVEL 4.8 MG/DL (2.4-5.1); POTASSIUM SERUM 4.0 MMOL/L (3.5-5.1); SODIUM LEVEL 143.0 MMOL/L (136-145)
[2024-11-13] MEDS: TORSEMIDE 20 MG TAB PO SCH (08:56)
[2024-11-13] MEDS: MORPHINE 2 MG/ML 1 ML VIAL IV ONE (21:00)
[2024-11-14] VITALS (9 sets, daily range): BP systolic 148–173; BP diastolic 67–82; TEMP 97.6–98.9; O2SAT 95–100
[2024-11-14 10:59] LABS: PLATELET COUNT, AUTOMATED 101 10^3/uL (150-450)
[2024-11-14 11:21] LABS: CALCIUM LEVEL 8.4 MG/DL (8.3-10.6); CARBON DIOXIDE LEVEL 29.0 MMOL/L (20-31); CHLORIDE LEVEL 102.0 MMOL/L (98-107); CREATININE FOR GFR 1.84 MG/DL (0.70-1.30); GLOMERULAR FILTRATION RATE 41.5 (>49); PHOSPHORUS LEVEL 4.4 MG/DL (2.4-5.1); POTASSIUM SERUM 3.8 MMOL/L (3.5-5.1); SODIUM LEVEL 141.0 MMOL/L (136-145)
[2024-11-15 07:53] VITALS: BP 156/70; TEMP 98.3; O2SAT 100
[2024-11-15 10:18] VITALS: BP 182/86
[2024-11-15 11:43] VITALS: BP 152/70; TEMP 97; O2SAT 98
[2024-11-15 16:01] VITALS: BP 154/73; TEMP 97.6; O2SAT 98
[2024-11-15] MEDS: TORSEMIDE 10 MG TABLET PO SCH (16:55)
[2024-11-15] MEDS: SPIRONOLACTONE 12.5MG PER 1/2 TABLET PO SCH (16:55)
[2024-11-15 18:16] LABS: INR 1.09
[2024-11-15 18:24] LABS: C REACTIVE PROTEIN QUANTITATIV < 0.50 MG/DL (<1.0); CALCIUM LEVEL 8.6 MG/DL (8.3-10.6); CARBON DIOXIDE LEVEL 26 MMOL/L (20-31); CHLORIDE LEVEL 102 MMOL/L (98-107); CREATININE FOR GFR 2.01 MG/DL (0.70-1.30); GLOMERULAR FILTRATION RATE 37.3 (>49); POTASSIUM SERUM 4.2 MMOL/L (3.5-5.1); SODIUM LEVEL 141 MMOL/L (136-145)
[2024-11-15 20:46] VITALS: BP 155/77; TEMP 98.7; O2SAT 98
[2024-11-16 07:25] LABS: BASO # 0.1 10^3/uL (0.0-0.2); BASO % 1.4 % (0.0-1.0); EOS # 0.3 10^3/uL (0.0-0.5); EOS % 6.1 % (0.0-3.0); LYMPH # 1.6 10^3/uL (1.5-5.0); LYMPH % 29.1 % (24.0-44.0); MONO # 0.7 10^3/uL (0.0-0.8); MONO % 12.0 % (2.0-8.0); NEUTROPHILS # 2.8 10^3/uL (1.5-8.5); NEUTROPHILS % 50.9 % (36.0-66.0)
[2024-11-16 07:35] LABS: PLATELET COUNT, AUTOMATED 99 10^3/uL (150-450)
[2024-11-16 07:48] LABS: CALCIUM LEVEL 8.4 MG/DL (8.3-10.6); CARBON DIOXIDE LEVEL 31.0 MMOL/L (20-31); CHLORIDE LEVEL 102.0 MMOL/L (98-107); CREATININE FOR GFR 2.16 MG/DL (0.70-1.30); GLOMERULAR FILTRATION RATE 34.2 (>49); MAGNESIUM LEVEL 2.0 MG/DL (1.8-2.4); POTASSIUM SERUM 3.6 MMOL/L (3.5-5.1); SODIUM LEVEL 141.0 MMOL/L (136-145)
[2024-11-16] MEDS: SENNOSIDES/DOCUSATE SODIUM 8.6 MG/50MG TAB PO SCH (08:51)
[2024-11-16] MEDS: ENOXAPARIN 40 MG/0.4 ML SYRINGE (J1650 PER 10MG) SC SCH (09:00)
[2024-11-16 09:01] VITALS: BP 134/71; O2SAT 99
[2024-11-16] MEDS: POTASSIUM CHLORIDE 10MEQ SR TABLET PO SCH (10:00)
[2024-11-16 19:47] VITALS: BP 134/66; TEMP 97.7; O2SAT 94
[2024-11-16 23:56] VITALS: BP 132/50; TEMP 97.7; O2SAT 96
[2024-11-17 04:02] VITALS: BP 123/61; TEMP 97.3; O2SAT 96
[2024-11-17 08:00] VITALS: BP 132/65; TEMP 97.7; O2SAT 95
[2024-11-17 09:46] LABS: BASO # 0.1 10^3/uL (0.0-0.2); BASO % 1.2 % (0.0-1.0); EOS # 0.4 10^3/uL (0.0-0.5); EOS % 6.6 % (0.0-3.0); LYMPH # 1.8 10^3/uL (1.5-5.0); LYMPH % 30.0 % (24.0-44.0); MONO # 0.7 10^3/uL (0.0-0.8); MONO % 12.0 % (2.0-8.0); NEUTROPHILS # 2.9 10^3/uL (1.5-8.5); NEUTROPHILS % 49.5 % (36.0-66.0)
[2024-11-17 09:48] LABS: PLATELET COUNT, AUTOMATED 96 10^3/uL (150-450)
[2024-11-17 10:13] LABS: CALCIUM LEVEL 8.7 MG/DL (8.3-10.6); CARBON DIOXIDE LEVEL 30.0 MMOL/L (20-31); CHLORIDE LEVEL 100.0 MMOL/L (98-107); CREATININE FOR GFR 2.32 MG/DL (0.70-1.30); GLOMERULAR FILTRATION RATE 31.4 (>49); MAGNESIUM LEVEL 2.2 MG/DL (1.8-2.4); POTASSIUM SERUM 4.0 MMOL/L (3.5-5.1); SODIUM LEVEL 140.0 MMOL/L (136-145)
[2024-11-17 12:00] VITALS: BP 148/68; TEMP 97.5; O2SAT 98
[2024-11-17 12:58] LABS: SSA SJOGRENS A <1.0 NEG AI (<1.0 NEG); SSB SJOGRENS B <1.0 NEG AI (<1.0 NEG)
[2024-11-17] MEDS ORDERED: OLANZapine INTRAMUSCULAR 10MG VIAL IM ONE (13:45)
[2024-11-17 15:32] LABS: HOMOCYST(E)INE SERUM 19.2 umol/L (<11.4)
[2024-11-17 20:00] VITALS: BP 129/69; TEMP 97.5; O2SAT 97
[2024-11-18 00:17] LABS: CARDIOLIPIN IGA ANTIBODY 3.3 APL-U/mL (<20.0); CARDIOLIPIN IGG ANTIBODY > 112.0 GPL-U/mL (<20.0); CARDIOLIPIN IGM ANTIBODY 4.8 MPL-U/mL (<20.0)
[2024-11-18 04:29] VITALS: BP 90/65; TEMP 97.5; O2SAT 100
[2024-11-18 12:00] VITALS: BP 154/73; TEMP 97.7; O2SAT 98
[2024-11-18 14:51] VITALS: BP 151/68; TEMP 98.2; O2SAT 100
[2024-11-18] MEDS: TORSEMIDE 10 MG TABLET PO SCH (16:34)
[2024-11-18] MEDS: SPIRONOLACTONE 12.5MG PER 1/2 TABLET PO SCH (16:34)
[2024-11-18 19:43] LABS: PLATELET COUNT, AUTOMATED 96 10^3/uL (150-450)
[2024-11-18 22:03] VITALS: BP 145/73; TEMP 97.5; O2SAT 99
[2024-11-19 05:30] VITALS: BP 142/74; TEMP 97.3; O2SAT 98
[2024-11-19 09:43] VITALS: BP 140/75
[2024-11-19 10:53] VITALS: O2SAT 100
[2024-11-19] MEDS: IPRATROPIUM 0.5 MG/ALBUTEROL 2.5 MG INH SOL UD 3 ML NEB SCH (11:30)
[2024-11-19 12:00] VITALS: BP 140/74; TEMP 97.7; O2SAT 99
[2024-11-19 14:43] LABS: PROTEIN S ANTIGEN FREE 68 % normal (57-171); PROTEIN S ANTIGEN TOTAL 76 % normal (70-140)
[2024-11-19 16:45] VITALS: BP 149/74
[2024-11-19 20:30] VITALS: BP 145/80; TEMP 97.7; O2SAT 99
[2024-11-20 06:00] VITALS: BP 144/79; TEMP 97.7; O2SAT 99
[2024-11-20 12:00] VITALS: BP 141/79; TEMP 97.7; O2SAT 99
[2024-11-20 19:26] VITALS: BP 162/83; TEMP 97.5; O2SAT 98
[2024-11-20 20:04] VITALS: BP 122/84
[2024-11-21 05:00] VITALS: BP 142/75; TEMP 97.1; O2SAT 98
[2024-11-21 05:08] LABS: ANTI THROMBIN 3 ANTIGEN IMMUNO 106 % normal (80-120); ANTI THROMBIN 3 FUNCT ACTIVITY 94 % normal (80-135)
[2024-11-21 06:31] LABS: PLATELET COUNT, AUTOMATED 92 10^3/uL (150-450)
[2024-11-21 07:02] LABS: CALCIUM LEVEL 9.2 MG/DL (8.3-10.6); CARBON DIOXIDE LEVEL 32.0 MMOL/L (20-31); CHLORIDE LEVEL 100.0 MMOL/L (98-107); CREATININE FOR GFR 2.46 MG/DL (0.70-1.30); GLOMERULAR FILTRATION RATE 29.3 (>49); POTASSIUM SERUM 4.1 MMOL/L (3.5-5.1); SODIUM LEVEL 141.0 MMOL/L (136-145)
[2024-11-21 07:04] LABS: CALCIUM LEVEL 9.3 MG/DL (8.3-10.6); CARBON DIOXIDE LEVEL 32.0 MMOL/L (20-31); CHLORIDE LEVEL 101.0 MMOL/L (98-107); CREATININE FOR GFR 2.46 MG/DL (0.70-1.30); GLOMERULAR FILTRATION RATE 29.3 (>49); MAGNESIUM LEVEL 2.6 MG/DL (1.8-2.4); PHOSPHORUS LEVEL 5.1 MG/DL (2.4-5.1); POTASSIUM SERUM 4.0 MMOL/L (3.5-5.1); SODIUM LEVEL 141.0 MMOL/L (136-145)
[2024-11-21] MEDS ORDERED: GLUCAGON INJ 1 MG VIAL SC PRN (07:35)
[2024-11-21] MEDS ORDERED: DEXTROSE 50% 50 ML SYRINGE IV PRN (07:35)
[2024-11-21] MEDS ORDERED: GLUCOSE 4 GM CHEW PO PRN (07:35)
[2024-11-21] MEDS ORDERED: ACETAMINOPHEN 500 MG TAB PO ONE (07:40)
[2024-11-21] MEDS: MORPHINE 2 MG/ML 1 ML VIAL IV ONE (08:39)
[2024-11-21] MEDS: INSULIN LISPRO (NovoLOG) PER UNIT SC SCH ×2 (08:46→21:00)
[2024-11-21] MEDS: INSULIN LISPRO (NovoLOG) PER UNIT SC STA (08:47)
[2024-11-21 09:33] LABS: DRVV SCREEN 97.5 SECONDS
[2024-11-21 09:45] LABS: PTT LUPUS TYPE ANTICOAG SCREEN 2.59 (0-1.20)
[2024-11-21 09:52] LABS: DRVV CONFIRM 40.7 SECONDS; LUPUS CONFIRM RATIO 1.09
[2024-11-21 10:01] LABS: NORMALIZED RATIO 2.37 (0.00-1.20)
[2024-11-21 11:41] VITALS: BP 113/60; TEMP 97.5; O2SAT 95
[2024-11-21] MEDS: DEXTROSE 50% 50 ML SYRINGE IV STA ×2 (12:46→16:57)
[2024-11-21] MEDS ORDERED: D5W 1,000 ML IV SCH (13:00)
[2024-11-21] MEDS: D5W 1,000 ML IV ONE (16:59)
[2024-11-22 06:42] VITALS: BP 146/79; TEMP 97.5; O2SAT 97
[2024-11-22] MEDS: MORPHINE SULFATE TAB IMM. REL. 15 MG PO PRN (09:43)
[2024-11-22] MEDS: HYDROMORPHONE HCL 0.5 MG/0.5 ML SYRINGE IV ONE (10:00)
[2024-11-22 12:00] VITALS: BP 127/70; TEMP 98.6; O2SAT 98
[2024-11-22 14:48] LABS: PROTEIN C ANTIGEN 71 % normal (70-140)
[2024-11-22 19:25] VITALS: BP 155/81; TEMP 97.5; O2SAT 97
[2024-11-22 21:42] LABS: VENOUS BASE EXCESS 0.7 (-2.0-2.0); VENOUS HCO3 28.2 MMOL/L (23.0-27.0); VENOUS O2 SATURATION 73.3 % (60.0-80.0); VENOUS PARTIAL PRESSURE CO2 57.9 mmHg (38.0-50.0); VENOUS PARTIAL PRESSURE O2 42.9 mmHg (30.0-50.0); VENOUS PH 7.306 UNITS (7.330-7.430); VENOUS STANDARD HCO3 24.6 MMOL/L; VENOUS TOTAL CO2 30.0 MMOL/L (24.0-28.0)
[2024-11-22 21:48] LABS: BASO # 0.1 10^3/uL (0.0-0.2); BASO % 1.0 % (0.0-1.0); EOS # 0.4 10^3/uL (0.0-0.5); EOS % 4.4 % (0.0-3.0); LYMPH # 1.8 10^3/uL (1.5-5.0); LYMPH % 21.1 % (24.0-44.0); MONO # 1.2 10^3/uL (0.0-0.8); MONO % 14.3 % (2.0-8.0); NEUTROPHILS # 5.1 10^3/uL (1.5-8.5); NEUTROPHILS % 58.7 % (36.0-66.0)
[2024-11-22 21:51] LABS: PLATELET COUNT, AUTOMATED 87 10^3/uL (150-450)
[2024-11-22 22:08] LABS: ESTIMATED AVERAGE GLUCOSE 146.0 MG/DL (60-110)
[2024-11-22 22:11] VITALS: BP 159/74; TEMP 97.8; O2SAT 96
[2024-11-22 22:26] LABS: CALCIUM LEVEL 8.5 MG/DL (8.3-10.6); CARBON DIOXIDE LEVEL 30.0 MMOL/L (20-31); CHLORIDE LEVEL 103.0 MMOL/L (98-107); CREATININE FOR GFR 2.24 MG/DL (0.70-1.30); GLOMERULAR FILTRATION RATE 32.7 (>49); POTASSIUM SERUM 3.9 MMOL/L (3.5-5.1); SODIUM LEVEL 141.0 MMOL/L (136-145)
[2024-11-23] VITALS (7 sets, daily range): BP systolic 126–158; BP diastolic 62–72; TEMP 97.3–98.2; O2SAT 90–99
[2024-11-23 06:43] LABS: CALCIUM LEVEL 8.4 MG/DL (8.3-10.6); CARBON DIOXIDE LEVEL 28.0 MMOL/L (20-31); CHLORIDE LEVEL 105.0 MMOL/L (98-107); CREATININE FOR GFR 1.96 MG/DL (0.70-1.30); GLOMERULAR FILTRATION RATE 38.4 (>49); POTASSIUM SERUM 3.7 MMOL/L (3.5-5.1); SODIUM LEVEL 142.0 MMOL/L (136-145)
[2024-11-24 06:26] VITALS: BP 149/78; TEMP 97.9; O2SAT 96
[2024-11-24] MEDS: **hydrALAZINE HCL** 25 MG TAB PO ONE (08:29)
[2024-11-24 12:00] VITALS: BP 147/77; TEMP 97.3; O2SAT 95
[2024-11-24] MEDS: ISOSORBIDE DINITRATE 10 MG TAB PO ONE (15:21)
[2024-11-24 18:18] LABS: FACTOR V LEIDEN FOR MEDINET NEGATIVE
[2024-11-24] MEDS: ISOSORBIDE DINITRATE 10 MG TAB PO SCH (20:40)
[2024-11-24 21:00] VITALS: BP 151/76; TEMP 97.5; O2SAT 96
[2024-11-24 21:02] VITALS: O2SAT 99
[2024-11-24 21:03] VITALS: O2SAT 99
[2024-11-25 08:56] VITALS: BP 159/67; TEMP 98.2; O2SAT 96
[2024-11-25 12:00] VITALS: BP 139/66; TEMP 97.9; O2SAT 97
[2024-11-25 20:30] VITALS: BP 155/65; TEMP 97.9; O2SAT 98
[2024-11-26 06:21] VITALS: BP 138/73; TEMP 98.5; O2SAT 96
[2024-11-26 09:32] LABS: HEXAGONAL PHASE PHOSPHOLIPID Positive (Negative)
[2024-11-26 10:51] LABS: BASO # 0.1 10^3/uL (0.0-0.2); BASO % 1.2 % (0.0-1.0); EOS # 0.4 10^3/uL (0.0-0.5); EOS % 4.9 % (0.0-3.0); LYMPH # 1.9 10^3/uL (1.5-5.0); LYMPH % 26.8 % (24.0-44.0); MONO # 0.9 10^3/uL (0.0-0.8); MONO % 12.5 % (2.0-8.0); NEUTROPHILS # 3.9 10^3/uL (1.5-8.5); NEUTROPHILS % 54.0 % (36.0-66.0); PLATELET COUNT, AUTOMATED 117 10^3/uL (150-450)
[2024-11-26 11:26] LABS: CALCIUM LEVEL 8.8 MG/DL (8.3-10.6); CARBON DIOXIDE LEVEL 28.0 MMOL/L (20-31); CHLORIDE LEVEL 105.0 MMOL/L (98-107); CREATININE FOR GFR 1.84 MG/DL (0.70-1.30); GLOMERULAR FILTRATION RATE 41.5 (>49); POTASSIUM SERUM 4.4 MMOL/L (3.5-5.1); SODIUM LEVEL 143.0 MMOL/L (136-145)
[2024-11-26 12:00] VITALS: BP 144/64; TEMP 98.5; O2SAT 95
[2024-11-26 21:13] LABS: FACTOR II PROTHROMBIN GENE AN NEGATIVE
[2024-11-26] MEDS: METHOCARBAMOL 1,000 MG/10 ML VIAL IV ONE (22:27)
[2024-11-27 08:30] VITALS: BP 144/80; TEMP 97; O2SAT 98
[2024-11-27] MEDS: amLODIPine 5 MG TAB PO SCH (09:31)
[2024-11-27 12:00] VITALS: BP 160/70; TEMP 97.7; O2SAT 97
[2024-11-27 20:03] VITALS: BP 146/71; TEMP 98; O2SAT 99
[2024-11-28] MEDS: FUROSEMIDE 20 MG TAB PO SCH (09:08)
[2024-11-28] MEDS: ENOXAPARIN 40 MG/0.4 ML SYRINGE (J1650 PER 10MG) SC SCH (10:23)
[2024-11-29 04:01] VITALS: BP 155/82; TEMP 98.1; O2SAT 91
[2024-11-29 16:13] LABS: PLATELET COUNT, AUTOMATED 108 10^3/uL (150-450)
[2024-11-29 16:36] LABS: CALCIUM LEVEL 8.9 MG/DL (8.3-10.6); CARBON DIOXIDE LEVEL 23.0 MMOL/L (20-31); CHLORIDE LEVEL 106.0 MMOL/L (98-107); CREATININE FOR GFR 1.84 MG/DL (0.70-1.30); GLOMERULAR FILTRATION RATE 41.5 (>49); POTASSIUM SERUM 4.3 MMOL/L (3.5-5.1); SODIUM LEVEL 141.0 MMOL/L (136-145)
[2024-11-30 05:37] VITALS: BP 133/80; TEMP 97.9; O2SAT 97
[2024-11-30 09:40] VITALS: BP 119/55
[2024-11-30 20:50] VITALS: BP 150/66; TEMP 97.9; O2SAT 97
[2024-11-30] MEDS ORDERED: RAMELTEON 8 MG TAB PO PRN (21:00)
[2024-12-01] MEDS: MORPHINE SULFATE TAB IMM. REL. 15 MG PO PRN (18:13)
[2024-12-02 11:17] VITALS: BP 169/80; TEMP 97.9; O2SAT 97
[2024-12-02] MEDS: NITROGLYCERIN 2% OINT 1 GM *U/D* PKT TOP ONE (11:50)
[2024-12-02 12:57] VITALS: BP 169/79
[2024-12-02] MEDS: cloNIDine HCL 0.3 MG/24 HR PATCH TOP SCH (13:07)
[2024-12-02] MEDS: ANALGESIC BALM CRM 3 OZ TOP SCH (13:08)
[2024-12-03 04:16] VITALS: BP 155/80; TEMP 98.1; O2SAT 97
[2024-12-04] MEDS: APIXABAN 2.5 MG TAB PO SCH (09:00)
[2024-12-04 20:00] VITALS: BP 113/72; TEMP 98.7; O2SAT 95
[2024-12-05 04:25] VITALS: BP 152/67; TEMP 97.7
[2024-12-06 05:43] VITALS: BP 178/71; TEMP 98.2; O2SAT 98
[2024-12-07 06:25] VITALS: BP 149/68; TEMP 98.1; O2SAT 98
[2024-12-07] MEDS: LORazepam 0.5 MG TAB PO STA (09:30)
[2024-12-08 09:48] LABS: PLATELET COUNT, AUTOMATED 101 10^3/uL (150-450)
[2024-12-08 10:21] LABS: CALCIUM LEVEL 9.1 MG/DL (8.3-10.6); CARBON DIOXIDE LEVEL 27.0 MMOL/L (20-31); CHLORIDE LEVEL 105.0 MMOL/L (98-107); CREATININE FOR GFR 1.48 MG/DL (0.70-1.30); GLOMERULAR FILTRATION RATE 53.8 (>49); POTASSIUM SERUM 4.0 MMOL/L (3.5-5.1); SODIUM LEVEL 144.0 MMOL/L (136-145)
[2024-12-09 00:20] VITALS: BP 114/68
[2024-12-09 20:00] VITALS: BP 117/75; TEMP 98.1; O2SAT 98
[2024-12-10 03:40] VITALS: BP 126/75; TEMP 98.6; O2SAT 99
[2024-12-10 20:12] VITALS: BP 139/69; TEMP 97.5; O2SAT 100
[2024-12-12 04:32] VITALS: BP 143/70; TEMP 97.7; O2SAT 95
[2024-12-12 21:06] VITALS: BP 138/66; TEMP 97.7; O2SAT 98
[2024-12-13 20:00] VITALS: BP 149/70; TEMP 98.8; O2SAT 100
[2024-12-14 05:31] VITALS: BP 147/68; TEMP 97.9; O2SAT 99
[2024-12-14] MEDS: metFORMIN 500 MG TAB PO SCH (17:26)
[2024-12-15 09:54] LABS: PLATELET COUNT, AUTOMATED 101 10^3/uL (150-450)
[2024-12-15 10:33] LABS: CALCIUM LEVEL 8.5 MG/DL (8.3-10.6); CARBON DIOXIDE LEVEL 22.0 MMOL/L (20-31); CHLORIDE LEVEL 105.0 MMOL/L (98-107); CREATININE FOR GFR 1.37 MG/DL (0.70-1.30); GLOMERULAR FILTRATION RATE 59.1 (>49); POTASSIUM SERUM 3.6 MMOL/L (3.5-5.1); SODIUM LEVEL 140.0 MMOL/L (136-145)
[2024-12-18 04:13] VITALS: BP 159/72; TEMP 98.1
[2024-12-18 04:22] VITALS: BP 129/72; TEMP 97.7; O2SAT 100
[2024-12-18 09:51] LABS: CALCIUM LEVEL 8.1 MG/DL (8.3-10.6); CARBON DIOXIDE LEVEL 30.0 MMOL/L (20-31); CHLORIDE LEVEL 103.0 MMOL/L (98-107); CREATININE FOR GFR 1.48 MG/DL (0.70-1.30); GLOMERULAR FILTRATION RATE 53.8 (>49); POTASSIUM SERUM 3.6 MMOL/L (3.5-5.1); SODIUM LEVEL 135.0 MMOL/L (136-145)
[2024-12-18] MEDS: FUROSEMIDE 40 MG TAB PO ONE (15:05)
[2024-12-19 06:41] VITALS: BP 143/67; TEMP 97.9; O2SAT 99
[2024-12-19] MEDS: FUROSEMIDE 20 MG TAB PO SCH (08:29)
[2024-12-22 04:40] VITALS: BP 120/58; TEMP 97.7; O2SAT 95
[2024-12-22 09:25] LABS: PLATELET COUNT, AUTOMATED 101 10^3/uL (150-450)
[2024-12-22 10:23] LABS: CALCIUM LEVEL 8.5 MG/DL (8.3-10.6); CARBON DIOXIDE LEVEL 29.0 MMOL/L (20-31); CHLORIDE LEVEL 102.0 MMOL/L (98-107); CREATININE FOR GFR 1.75 MG/DL (0.70-1.30); GLOMERULAR FILTRATION RATE 44.0 (>49); POTASSIUM SERUM 3.5 MMOL/L (3.5-5.1); SODIUM LEVEL 142.0 MMOL/L (136-145)
[2024-12-23 04:16] VITALS: BP 132/67; TEMP 97.5; O2SAT 99
[2024-12-24 03:06] VITALS: BP 114/56; TEMP 97.7; O2SAT 97
[2024-12-25 05:42] VITALS: BP 151/73; TEMP 97.9; O2SAT 99
[2024-12-25 16:52] LABS: CALCIUM LEVEL 9.0 MG/DL (8.3-10.6); CARBON DIOXIDE LEVEL 30.0 MMOL/L (20-31); CHLORIDE LEVEL 101.0 MMOL/L (98-107); CREATININE FOR GFR 1.53 MG/DL (0.70-1.30); GLOMERULAR FILTRATION RATE 51.7 (>49); POTASSIUM SERUM 3.7 MMOL/L (3.5-5.1); SODIUM LEVEL 144.0 MMOL/L (136-145)
[2024-12-25 19:40] VITALS: BP 125/66
[2024-12-26 06:18] VITALS: BP 144/78; TEMP 97.9
[2024-12-27 04:38] VITALS: BP 143/74; TEMP 97.9; O2SAT 97
[2024-12-27 22:50] VITALS: BP 138/62; TEMP 98.1; O2SAT 97
[2024-12-27] MEDS: CALCIUM CARBONATE 500 MG CHEW U/D PO PRN (23:21)
[2024-12-28 00:10] LABS: BASO # 0.1 10^3/uL (0.0-0.2); BASO % 0.6 % (0.0-1.0); EOS # 0.3 10^3/uL (0.0-0.5); EOS % 2.7 % (0.0-3.0); LYMPH # 1.8 10^3/uL (1.5-5.0); LYMPH % 17.8 % (24.0-44.0); MONO # 1.3 10^3/uL (0.0-0.8); MONO % 12.5 % (2.0-8.0); NEUTROPHILS # 6.6 10^3/uL (1.5-8.5); NEUTROPHILS % 65.1 % (36.0-66.0); PLATELET COUNT, AUTOMATED 132 10^3/uL (150-450)
[2024-12-28 00:19] LABS: INR 1.2
[2024-12-28 01:07] LABS: CK-MB VALUE MASS 2.1 NG/ML (<3.6)
[2024-12-28 01:08] LABS: ALT/SGPT 16.0 U/L (7.0-40); AST/SGOT 18.0 U/L (<34); CALCIUM LEVEL 8.5 MG/DL (8.3-10.6); CARBON DIOXIDE LEVEL 28.0 MMOL/L (20-31); CHLORIDE LEVEL 100.0 MMOL/L (98-107); CREATININE FOR GFR 1.87 MG/DL (0.70-1.30); GLOMERULAR FILTRATION RATE 40.7 (>49); MAGNESIUM LEVEL 1.8 MG/DL (1.8-2.4); POTASSIUM SERUM 3.4 MMOL/L (3.5-5.1); SODIUM LEVEL 142.0 MMOL/L (136-145)
[2024-12-28 01:09] LABS: CPK CREATINE PHOSPHOKINASE 125.0 U/L (46-171); MB/CK RELATIVE INDEX 1.68 (< OR =4)
[2024-12-28] MEDS: POTASSIUM CHLORIDE 10MEQ SR TABLET PO SCH (09:50)
[2024-12-29 06:26] VITALS: BP 128/58; TEMP 97; O2SAT 96
[2024-12-29 09:52] LABS: PLATELET COUNT, AUTOMATED 125 10^3/uL (150-450)
[2024-12-29 10:20] LABS: CALCIUM LEVEL 8.7 MG/DL (8.3-10.6); CARBON DIOXIDE LEVEL 29.0 MMOL/L (20-31); CHLORIDE LEVEL 100.0 MMOL/L (98-107); CREATININE FOR GFR 1.99 MG/DL (0.70-1.30); GLOMERULAR FILTRATION RATE 37.7 (>49); POTASSIUM SERUM 3.3 MMOL/L (3.5-5.1); SODIUM LEVEL 141.0 MMOL/L (136-145)
[2024-12-30 03:40] VITALS: BP 133/59; TEMP 97.9; O2SAT 99
[2024-12-30 08:42] VITALS: BP 123/54
[2024-12-31 04:09] VITALS: BP 141/76; TEMP 98.1; O2SAT 96
[2024-12-31 20:13] VITALS: BP 126/67; TEMP 97.5; O2SAT 97
[2025-01-01 04:11] VITALS: BP 126/70; TEMP 97.9; O2SAT 99
[2025-01-01 09:25] LABS: CALCIUM LEVEL 9.0 MG/DL (8.3-10.6); CARBON DIOXIDE LEVEL 29.0 MMOL/L (20-31); CHLORIDE LEVEL 101.0 MMOL/L (98-107); CREATININE FOR GFR 1.71 MG/DL (0.70-1.30); GLOMERULAR FILTRATION RATE 45.3 (>49); POTASSIUM SERUM 3.6 MMOL/L (3.5-5.1); SODIUM LEVEL 142.0 MMOL/L (136-145)
[2025-01-02 04:30] VITALS: BP 110/51; TEMP 97.5; O2SAT 96
[2025-01-05 04:19] VITALS: BP 152/80; TEMP 97.7; O2SAT 95
[2025-01-05 09:02] VITALS: BP 119/59
[2025-01-06 05:23] VITALS: BP 143/74; TEMP 98.6; O2SAT 94
[2025-01-06 20:08] VITALS: BP 139/76
[2025-01-07 03:43] VITALS: BP 137/76; TEMP 97.9; O2SAT 96
[2025-01-07] MEDS ORDERED: MIDAZOLAM INJ 2 MG/2 ML VIAL As Ordered ONE (09:20)
[2025-01-09 03:37] VITALS: BP 124/68; TEMP 97.3; O2SAT 98
[2025-01-10 04:03] VITALS: BP 137/69; TEMP 97.2; O2SAT 97
[2025-01-10] MEDS: [UNRECOGNIZED DRUG - REMARK] XX SCH (09:00)
[2025-01-11 04:00] VITALS: BP 136/80; TEMP 98.2; O2SAT 98
[2025-01-12 05:30] VITALS: BP 141/68; TEMP 97; O2SAT 95
[2025-01-12 22:34] LABS: CALCIUM LEVEL 9.1 MG/DL (8.3-10.6); CARBON DIOXIDE LEVEL 30.0 MMOL/L (20-31); CHLORIDE LEVEL 101.0 MMOL/L (98-107); CREATININE FOR GFR 1.65 MG/DL (0.70-1.30); GLOMERULAR FILTRATION RATE 47.2 (>49); POTASSIUM SERUM 3.9 MMOL/L (3.5-5.1); SODIUM LEVEL 142.0 MMOL/L (136-145)
[2025-01-12 22:42] LABS: PLATELET COUNT, AUTOMATED 99 10^3/uL (150-450)
[2025-01-13 06:00] VITALS: BP 121/61; TEMP 97.8; O2SAT 100
[2025-01-13] MEDS: FUROSEMIDE 20 MG TAB PO SCH (17:07)
[2025-01-14 05:47] VITALS: BP 125/65; TEMP 97.7; O2SAT 100
[2025-01-14 07:56] VITALS: BP 126/65; TEMP 97.3
[2025-01-14] MEDS: diazePAM 2 MG TAB PO PRN (11:30)
[2025-01-15 06:29] VITALS: BP 131/75; TEMP 98.2; O2SAT 93
[2025-01-16 01:52] VITALS: O2SAT 96
[2025-01-16 01:53] VITALS: O2SAT 99
[2025-01-16 02:14] VITALS: O2SAT 99
[2025-01-16 02:50] VITALS: BP 117/65; TEMP 98.4; O2SAT 98
[2025-01-17 02:57] VITALS: BP 119/64; TEMP 98.1; O2SAT 95
[2025-01-17] MEDS: cloNIDine HCL 0.3 MG/24 HR PATCH TOP SCH (09:21)
[2025-01-18 06:08] VITALS: BP 128/62; TEMP 98.8; O2SAT 92
[2025-01-18] MEDS: cloNIDine HCL 0.3 MG/24 HR PATCH TOP SCH (09:00)
[2025-01-18 23:22] VITALS: BP 140/69; TEMP 98.8
[2025-01-19 06:52] VITALS: BP 140/69; TEMP 97.9; O2SAT 95
[2025-01-19 09:00] VITALS: BP 140/69; TEMP 98.8
[2025-01-19 11:36] LABS: CALCIUM LEVEL 9.1 MG/DL (8.3-10.6); CARBON DIOXIDE LEVEL 32.0 MMOL/L (20-31); CHLORIDE LEVEL 101.0 MMOL/L (98-107); CREATININE FOR GFR 1.61 MG/DL (0.70-1.30); GLOMERULAR FILTRATION RATE 48.7 (>49); POTASSIUM SERUM 3.8 MMOL/L (3.5-5.1); SODIUM LEVEL 144.0 MMOL/L (136-145)
[2025-01-20 03:47] VITALS: BP 144/73; TEMP 97.9; O2SAT 94
[2025-01-20 22:02] VITALS: BP 143/75; TEMP 97.3; O2SAT 99
[2025-01-21 05:41] VITALS: BP 134/72; TEMP 97; O2SAT 97
[2025-01-21 22:09] VITALS: BP 156/74; TEMP 97.3; O2SAT 98
[2025-01-22 04:36] VITALS: BP 138/67; TEMP 97; O2SAT 98
[2025-01-23 04:00] VITALS: BP 117/57; TEMP 97.2; O2SAT 95
[2025-01-23 20:00] VITALS: BP 135/65; TEMP 97
[2025-01-24 04:00] VITALS: BP 131/63; TEMP 97.3; O2SAT 97
[2025-01-25 05:11] VITALS: BP 137/64; TEMP 97.9; O2SAT 97
[2025-01-25] MEDS: diazePAM 2 MG TAB PO PRN (23:48)
[2025-01-26 05:13] VITALS: BP 135/84; TEMP 97.3; O2SAT 96
[2025-01-26 14:28] LABS: BASO # 0.0 10^3/uL (0.0-0.2); BASO % 0.9 % (0.0-1.0); EOS # 0.2 10^3/uL (0.0-0.5); EOS % 5.1 % (0.0-3.0); LYMPH # 1.8 10^3/uL (1.5-5.0); LYMPH % 39.2 % (24.0-44.0); MONO # 0.7 10^3/uL (0.0-0.8); MONO % 14.5 % (2.0-8.0); NEUTROPHILS # 1.9 10^3/uL (1.5-8.5); NEUTROPHILS % 39.7 % (36.0-66.0)
[2025-01-26 14:43] LABS: PLATELET COUNT, AUTOMATED 90 10^3/uL (150-450)
[2025-01-26 14:54] LABS: CALCIUM LEVEL 8.9 MG/DL (8.3-10.6); CARBON DIOXIDE LEVEL 32.0 MMOL/L (20-31); CHLORIDE LEVEL 103.0 MMOL/L (98-107); CREATININE FOR GFR 1.67 MG/DL (0.70-1.30); GLOMERULAR FILTRATION RATE 46.6 (>49); MAGNESIUM LEVEL 1.9 MG/DL (1.8-2.4); POTASSIUM SERUM 3.5 MMOL/L (3.5-5.1); SODIUM LEVEL 147.0 MMOL/L (136-145)
[2025-01-27 03:10] VITALS: BP 133/77; TEMP 97.7; O2SAT 97
[2025-01-27 21:10] VITALS: BP 133/74
[2025-01-28 06:57] VITALS: TEMP 97.3; O2SAT 97
[2025-01-28 21:00] VITALS: BP 138/76; TEMP 97.3; O2SAT 97
[2025-01-30 04:42] VITALS: BP 150/60; TEMP 97.3; O2SAT 96
[2025-01-30 09:00] VITALS: BP 141/65
[2025-01-31 08:31] VITALS: BP 138/78; TEMP 97.6
[2025-02-01 05:25] VITALS: BP 158/79; TEMP 97.7; O2SAT 95
[2025-02-02 05:30] VITALS: BP 139/75; TEMP 97.5; O2SAT 99
[2025-02-03 06:35] VITALS: BP 140/64; TEMP 96.9; O2SAT 99
[2025-02-04 04:47] VITALS: BP 136/63; TEMP 97.5; O2SAT 95
[2025-02-04 17:05] LABS: BASO # 0.1 10^3/uL (0.0-0.2); BASO % 1.0 % (0.0-1.0); EOS # 0.3 10^3/uL (0.0-0.5); EOS % 4.5 % (0.0-3.0); LYMPH # 2.1 10^3/uL (1.5-5.0); LYMPH % 36.8 % (24.0-44.0); MONO # 0.8 10^3/uL (0.0-0.8); MONO % 13.4 % (2.0-8.0); NEUTROPHILS # 2.5 10^3/uL (1.5-8.5); NEUTROPHILS % 43.4 % (36.0-66.0)
[2025-02-04 17:10] LABS: PLATELET COUNT, AUTOMATED 84 10^3/uL (150-450)
[2025-02-04 17:56] LABS: CALCIUM LEVEL 8.5 MG/DL (8.3-10.6); CARBON DIOXIDE LEVEL 33.0 MMOL/L (20-31); CHLORIDE LEVEL 101.0 MMOL/L (98-107); CREATININE FOR GFR 1.54 MG/DL (0.70-1.30); GLOMERULAR FILTRATION RATE 51.3 (>49); MAGNESIUM LEVEL 1.9 MG/DL (1.8-2.4); POTASSIUM SERUM 3.5 MMOL/L (3.5-5.1); SODIUM LEVEL 144.0 MMOL/L (136-145)
[2025-02-04 20:00] VITALS: BP 129/67; TEMP 97.9; O2SAT 94
[2025-02-05 04:00] VITALS: BP 129/64; TEMP 97.9; O2SAT 97
[2025-02-05 08:52] VITALS: BP 134/76; TEMP 98
[2025-02-06 04:26] VITALS: BP 129/65; TEMP 97.9
[2025-02-07 05:11] VITALS: BP 102/65; TEMP 97.3; O2SAT 99
[2025-02-08 06:06] VITALS: BP 134/65; TEMP 98.1; O2SAT 99
[2025-02-08 21:43] VITALS: BP 132/66; TEMP 97.3; O2SAT 96
[2025-02-09 03:20] VITALS: BP 161/76; TEMP 97.7
[2025-02-10 05:16] VITALS: BP 152/71; TEMP 97.2; O2SAT 96
[2025-02-11 05:50] VITALS: BP 165/89; TEMP 97.2; O2SAT 98
[2025-02-12 04:49] VITALS: BP 132/70; TEMP 97.5; O2SAT 100
[2025-02-13 05:42] VITALS: BP 130/60; TEMP 97; O2SAT 95
[2025-02-14 05:45] VITALS: BP 143/69; TEMP 97.7; O2SAT 99
[2025-02-15 20:30] VITALS: BP 133/63
[2025-02-16 06:38] VITALS: BP 127/72; TEMP 97.9; O2SAT 97
[2025-02-17 03:33] VITALS: BP 156/75; TEMP 98.4; O2SAT 94
[2025-02-17 20:40] VITALS: BP 157/71; TEMP 97; O2SAT 95
[2025-02-18 15:37] VITALS: BP 126/59; TEMP 97.5; O2SAT 100
[2025-02-19 08:21] VITALS: BP 121/64; TEMP 98.1; O2SAT 98
[2025-02-19 09:30] VITALS: BP 145/70; O2SAT 98
[2025-02-21 06:32] VITALS: BP 143/72; TEMP 98.2; O2SAT 99
[2025-02-21 09:00] VITALS: BP 138/60; TEMP 97; O2SAT 98
[2025-02-21 20:57] VITALS: BP 158/70; TEMP 97.8; O2SAT 97
[2025-02-22 04:57] VITALS: BP 167/84; TEMP 96.8; O2SAT 98
[2025-02-23 05:00] VITALS: BP 146/80; TEMP 97.5; O2SAT 95
[2025-02-24 05:46] VITALS: BP 132/53; TEMP 97.5; O2SAT 98
[2025-02-25 05:53] VITALS: BP 144/72; TEMP 97.9; O2SAT 95
[2025-02-25 08:33] VITALS: BP 132/70
[2025-02-27 05:39] VITALS: BP 148/66; TEMP 97.9; O2SAT 99
[2025-02-28 20:23] VITALS: BP 143/72
[2025-03-01 06:45] VITALS: BP 141/71; TEMP 97.3; O2SAT 100
[2025-03-01] MEDS: ANALGESIC BALM CRM 3 OZ TOP SCH (09:02)
[2025-03-01] MEDS: MIRALAX *UNIT DOSE* 17 GM PACKET PO SCH (09:03)
[2025-03-01 20:42] VITALS: BP 144/64; TEMP 97.7
[2025-03-02 04:50] VITALS: BP 154/79; TEMP 97.5
[2025-03-03 06:12] VITALS: BP 134/65; TEMP 98.2; O2SAT 92
[2025-03-04 06:00] VITALS: BP 134/61; TEMP 97.1; O2SAT 96
[2025-03-05 06:18] VITALS: BP 149/76; TEMP 98.1; O2SAT 97
[2025-03-06 05:30] VITALS: BP 110/58; TEMP 97.6; O2SAT 100
[2025-03-07 04:03] VITALS: BP 139/73; TEMP 97.2; O2SAT 95
[2025-03-08 06:36] VITALS: BP 130/76; TEMP 97.3; O2SAT 97
[2025-03-08 20:55] VITALS: BP 128/62; TEMP 97.4; O2SAT 97
[2025-03-09 06:30] VITALS: BP 156/73; TEMP 97.8; O2SAT 100
[2025-03-10 06:00] VITALS: BP 137/67; TEMP 98.6; O2SAT 98
[2025-03-10 06:43] LABS: PLATELET COUNT, AUTOMATED 147 10^3/uL (150-450)
[2025-03-10 07:05] LABS: ALT/SGPT 11.0 U/L (7.0-40); AST/SGOT 16.0 U/L (<34); CALCIUM LEVEL 9.1 MG/DL (8.3-10.6); CARBON DIOXIDE LEVEL 31.0 MMOL/L (20-31); CHLORIDE LEVEL 102.0 MMOL/L (98-107); CREATININE FOR GFR 1.48 MG/DL (0.70-1.30); GLOMERULAR FILTRATION RATE 53.8 (>49); POTASSIUM SERUM 3.7 MMOL/L (3.5-5.1); SODIUM LEVEL 145.0 MMOL/L (136-145)
[2025-03-11 06:37] VITALS: BP 140/80; TEMP 97.9; O2SAT 96
[2025-03-11] MEDS: LIDOCAINE 5% PATCH TD PRN (23:19)
[2025-03-14 06:13] VITALS: BP 157/69; TEMP 97.9; O2SAT 100
[2025-03-14 23:16] VITALS: BP 108/49; TEMP 98.2; O2SAT 96
[2025-03-15] MEDS: TORSEMIDE 20 MG TAB PO SCH (09:00)
[2025-03-15 09:30] VITALS: BP 131/71; TEMP 97.9; O2SAT 96
[2025-03-16 18:54] VITALS: TEMP 97.5; O2SAT 97
[2025-03-17 13:02] VITALS: BP 130/60; TEMP 98.1; O2SAT 98
[2025-03-18 04:00] VITALS: BP 128/63; TEMP 97; O2SAT 100
[2025-03-19] MEDS ORDERED: OLANZapine 5 MG TAB As Ordered ONE (01:39)
[2025-03-19 05:42] VITALS: BP 171/70; TEMP 98; O2SAT 98
[2025-03-20 09:02] VITALS: BP 137/62
[2025-03-20] MEDS: TORSEMIDE 20 MG TAB PO SCH (09:10)
[2025-03-22 07:17] LABS: BASO # 0.1 10^3/uL (0.0-0.2); BASO % 0.7 % (0.0-1.0); EOS # 0.3 10^3/uL (0.0-0.5); EOS % 4.0 % (0.0-3.0); LYMPH # 1.5 10^3/uL (1.5-5.0); LYMPH % 19.5 % (24.0-44.0); MONO # 1.1 10^3/uL (0.0-0.8); MONO % 14.5 % (2.0-8.0); NEUTROPHILS # 4.5 10^3/uL (1.5-8.5); NEUTROPHILS % 60.4 % (36.0-66.0); PLATELET COUNT, AUTOMATED 123 10^3/uL (150-450)
[2025-03-22 07:39] LABS: CALCIUM LEVEL 8.8 MG/DL (8.3-10.6); CARBON DIOXIDE LEVEL 34.0 MMOL/L (20-31); CHLORIDE LEVEL 100.0 MMOL/L (98-107); CREATININE FOR GFR 1.55 MG/DL (0.70-1.30); GLOMERULAR FILTRATION RATE 50.9 (>49); POTASSIUM SERUM 3.3 MMOL/L (3.5-5.1); SODIUM LEVEL 144.0 MMOL/L (136-145)
[2025-03-22 12:06] VITALS: O2SAT 95
[2025-03-23 04:52] VITALS: BP 135/62; TEMP 98.8; O2SAT 95
[2025-03-23 18:32] VITALS: BP 137/63; TEMP 98.8; O2SAT 95
[2025-03-23] MEDS: POTASSIUM CHLORIDE 10MEQ SR TABLET PO SCH (21:44)
[2025-03-24 04:01] VITALS: BP 134/63; TEMP 98.2; O2SAT 93
[2025-03-25 10:56] LABS: BASO # 0.1 10^3/uL (0.0-0.2); BASO % 0.8 % (0.0-1.0); EOS # 0.3 10^3/uL (0.0-0.5); EOS % 3.9 % (0.0-3.0); LYMPH # 1.7 10^3/uL (1.5-5.0); LYMPH % 19.7 % (24.0-44.0); MONO # 1.0 10^3/uL (0.0-0.8); MONO % 12.1 % (2.0-8.0); NEUTROPHILS # 5.4 10^3/uL (1.5-8.5); NEUTROPHILS % 63.1 % (36.0-66.0); PLATELET COUNT, AUTOMATED 161 10^3/uL (150-450)
[2025-03-25 11:51] LABS: CALCIUM LEVEL 9.5 MG/DL (8.3-10.6); CARBON DIOXIDE LEVEL 35.0 MMOL/L (20-31); CHLORIDE LEVEL 96.0 MMOL/L (98-107); CREATININE FOR GFR 1.83 MG/DL (0.70-1.30); GLOMERULAR FILTRATION RATE 41.7 (>49); POTASSIUM SERUM 3.7 MMOL/L (3.5-5.1); SODIUM LEVEL 146.0 MMOL/L (136-145)
[2025-03-25 20:20] VITALS: BP 130/97; TEMP 98.4; O2SAT 96
[2025-03-26 03:58] VITALS: BP 136/66; TEMP 97.9; O2SAT 94
[2025-03-26 04:18] LABS: APPEARANCE, URINE HAZY (CLEAR); BACTERIA, URINE AUTO 1+ (NEGATIVE); BILIRUBIN, URINE AUTO NEGATIVE (NEGATIVE); BLOOD, URINE BLOOD 1+ (NEGATIVE); GLUCOSE, URINE (UA) AUTO NEGATIVE (NEGATIVE); KETONE, URINE AUTO NEGATIVE (NEGATIVE); LEUKOCYTE ESTERASE, URINE AUTO 3+ (NEGATIVE); NITRITE, URINE AUTO NEGATIVE (NEGATIVE); PROTEIN, URINE AUTO 2+ mg/dL (NEGATIVE); RBC, URINE AUTO 29 /HPF (0-3); SPECIFIC GRAVITY URINE AUTO 1.011 (1.002-1.035); SQUAMOUS EPITHELIAL CELL UR AU 0 /HPF (0-6); UROBILINOGEN, URINE AUTO 2.0 mg/dL (0.0-2.0); WBC, URINE AUTO 69 /HPF (0-3)
[2025-03-26 06:46] LABS: PLATELET COUNT, AUTOMATED 149 10^3/uL (150-450)
[2025-03-26 07:57] LABS: CALCIUM LEVEL 8.7 MG/DL (8.3-10.6); CARBON DIOXIDE LEVEL 35.0 MMOL/L (20-31); CHLORIDE LEVEL 97.0 MMOL/L (98-107); CREATININE FOR GFR 1.66 MG/DL (0.70-1.30); GLOMERULAR FILTRATION RATE 46.9 (>49); POTASSIUM SERUM 3.1 MMOL/L (3.5-5.1); SODIUM LEVEL 144.0 MMOL/L (136-145)
[2025-03-26] MEDS: POTASSIUM CHLORIDE 10MEQ SR TABLET PO SCH (09:00)
[2025-03-26 10:19] VITALS: TEMP 100.1
[2025-03-26 21:52] VITALS: BP 134/75
[2025-03-26 22:00] VITALS: BP 134/75; TEMP 98; O2SAT 94
[2025-03-27 08:22] VITALS: BP 142/74; TEMP 97.9; O2SAT 95
[2025-03-28 04:00] VITALS: BP 139/75; TEMP 99; O2SAT 99
[2025-03-28 07:52] VITALS: BP 124/59; TEMP 98.2; O2SAT 92
[2025-03-28 10:41] LABS: PLATELET COUNT, AUTOMATED 220 10^3/uL (150-450)
[2025-03-28 11:35] LABS: ALT/SGPT 14.0 U/L (7.0-40); AST/SGOT 22.0 U/L (<34); CALCIUM LEVEL 9.3 MG/DL (8.3-10.6); CARBON DIOXIDE LEVEL 32.0 MMOL/L (20-31); CHLORIDE LEVEL 96.0 MMOL/L (98-107); CREATININE FOR GFR 1.72 MG/DL (0.70-1.30); GLOMERULAR FILTRATION RATE 45.0 (>49); MAGNESIUM LEVEL 2.4 MG/DL (1.8-2.4); POTASSIUM SERUM 3.5 MMOL/L (3.5-5.1); SODIUM LEVEL 144.0 MMOL/L (136-145)
[2025-03-28 20:39] VITALS: BP 105/54; TEMP 98.1; O2SAT 92
[2025-03-29 03:46] VITALS: BP 113/62; TEMP 98.6; O2SAT 93
[2025-03-30 06:28] VITALS: BP 123/57; TEMP 98.4; O2SAT 96
[2025-03-31 06:49] VITALS: BP 141/74; TEMP 97.5; O2SAT 94
[2025-04-01 04:00] VITALS: BP 132/62; TEMP 98.2; O2SAT 94
[2025-04-01 21:07] VITALS: BP 97/58; TEMP 97.9; O2SAT 96
[2025-04-03 03:15] VITALS: BP 131/85; TEMP 97.7; O2SAT 96
[2025-04-04 06:00] VITALS: BP 126/65; TEMP 97.9; O2SAT 95
[2025-04-04 09:40] VITALS: BP 126/66; TEMP 97.6
[2025-04-04 11:56] LABS: BASO # 0.1 10^3/uL (0.0-0.2); BASO % 0.7 % (0.0-1.0); EOS # 0.5 10^3/uL (0.0-0.5); EOS % 3.5 % (0.0-3.0); LYMPH # 2.8 10^3/uL (1.5-5.0); LYMPH % 19.6 % (24.0-44.0); MONO # 1.4 10^3/uL (0.0-0.8); MONO % 9.5 % (2.0-8.0); NEUTROPHILS # 9.2 10^3/uL (1.5-8.5); NEUTROPHILS % 63.9 % (36.0-66.0); PLATELET COUNT, AUTOMATED 237 10^3/uL (150-450)
[2025-04-04 12:29] LABS: CALCIUM LEVEL 9.6 MG/DL (8.3-10.6); CARBON DIOXIDE LEVEL 35.0 MMOL/L (20-31); CHLORIDE LEVEL 96.0 MMOL/L (98-107); CREATININE FOR GFR 2.34 MG/DL (0.70-1.30); GLOMERULAR FILTRATION RATE 31.1 (>49); MAGNESIUM LEVEL 2.9 MG/DL (1.8-2.4); POTASSIUM SERUM 3.2 MMOL/L (3.5-5.1); SODIUM LEVEL 140.0 MMOL/L (136-145)
[2025-04-05 08:31] LABS: BASO # 0.1 10^3/uL (0.0-0.2); BASO % 0.6 % (0.0-1.0); EOS # 0.5 10^3/uL (0.0-0.5); EOS % 3.7 % (0.0-3.0); LYMPH # 2.1 10^3/uL (1.5-5.0); LYMPH % 16.0 % (24.0-44.0); MONO # 1.1 10^3/uL (0.0-0.8); MONO % 8.3 % (2.0-8.0); NEUTROPHILS # 8.8 10^3/uL (1.5-8.5); NEUTROPHILS % 68.8 % (36.0-66.0); PLATELET COUNT, AUTOMATED 228 10^3/uL (150-450)
[2025-04-05 09:13] LABS: CALCIUM LEVEL 9.3 MG/DL (8.3-10.6); CARBON DIOXIDE LEVEL 31.0 MMOL/L (20-31); CHLORIDE LEVEL 96.0 MMOL/L (98-107); CREATININE FOR GFR 1.91 MG/DL (0.70-1.30); GLOMERULAR FILTRATION RATE 39.6 (>49); POTASSIUM SERUM 3.3 MMOL/L (3.5-5.1); SODIUM LEVEL 143.0 MMOL/L (136-145)
[2025-04-05 21:45] VITALS: BP 148/78; TEMP 97.7; O2SAT 95
[2025-04-06 03:14] VITALS: BP 149/79; TEMP 97.9; O2SAT 95
[2025-04-06] MEDS: OMEPRAZOLE/SODIUM BICARB 20-840MG 10ML ORAL SYRINGE PO SCH (11:00)
[2025-04-06 12:00] VITALS: BP 126/72; TEMP 97.9; O2SAT 97
[2025-04-06 13:04] LABS: PLATELET COUNT, AUTOMATED 219 10^3/uL (150-450)
[2025-04-06] MEDS: VALPROIC ACID 250MG/5ML SOL ORAL SYRINGE PO SCH (13:16)
[2025-04-06 14:04] LABS: CALCIUM LEVEL 9.0 MG/DL (8.3-10.6); CARBON DIOXIDE LEVEL 32.0 MMOL/L (20-31); CHLORIDE LEVEL 95.0 MMOL/L (98-107); CREATININE FOR GFR 1.76 MG/DL (0.70-1.30); GLOMERULAR FILTRATION RATE 43.7 (>49); POTASSIUM SERUM 2.9 MMOL/L (3.5-5.1); SODIUM LEVEL 140.0 MMOL/L (136-145)
[2025-04-06] MEDS: POTASSIUM CHLORIDE 10MEQ SR TABLET PO ONE ×2 (15:50→17:20)
[2025-04-06 21:49] VITALS: BP 120/69; TEMP 98.2; O2SAT 97
[2025-04-07 20:58] VITALS: BP 108/52
[2025-04-07 21:03] VITALS: BP 108/62; TEMP 101.6; O2SAT 93
[2025-04-07] MEDS ORDERED: VANCOMYCIN HCL 1,000 MG, VIAL MATE ADAPTER 1 EACH in NS 250 ML IV SCH (21:15)
[2025-04-07] MEDS ORDERED: ACETAMINOPHEN *IV* 1,000 MG in IV 1 EA IV ONE (21:30)
[2025-04-07 21:42] LABS: KETONE, URINE AUTO RFX NEGATIVE (NEGATIVE); LEUKOCYTE ESTERASE UR AUTO RFX 2+ (NEGATIVE); MUCUS, URINE RFX SMALL (NEGATIVE); NITRITE, URINE AUTO RFX NEGATIVE (NEGATIVE); RBC, URINE AUTO RFX 11 /HPF (0-3); SQUAM EPITHELIAL CELL UR AURFX 0 /HPF (0-6); WBC, URINE AUTO RFX TNTC /HPF (0-3)
[2025-04-07] MEDS: PIPERACILLIN/TAZOBACTAM SOD 4.5 GM in DEXTROSE 5% (D5W) ADV/MINI-BAG 50 ML IV SCH (21:52)
[2025-04-07] MEDS: LR 1,000 ML IV SCH (21:52)
[2025-04-07 22:00] LABS: BASO # 0.1 10^3/uL (0.0-0.2); BASO % 0.7 % (0.0-1.0); EOS # 0.0 10^3/uL (0.0-0.5); EOS % 0.2 % (0.0-3.0); LYMPH # 0.9 10^3/uL (1.5-5.0); LYMPH % 6.4 % (24.0-44.0); MONO # 0.7 10^3/uL (0.0-0.8); MONO % 4.8 % (2.0-8.0); NEUTROPHILS # 11.7 10^3/uL (1.5-8.5); NEUTROPHILS % 86.7 % (36.0-66.0); PLATELET COUNT, AUTOMATED 191 10^3/uL (150-450)
[2025-04-07 22:38] LABS: ALT/SGPT 18.0 U/L (7.0-40); AST/SGOT 39.0 U/L (<34); CALCIUM LEVEL 9.3 MG/DL (8.3-10.6); CARBON DIOXIDE LEVEL 32.0 MMOL/L (20-31); CHLORIDE LEVEL 95.0 MMOL/L (98-107); CREATININE FOR GFR 2.34 MG/DL (0.70-1.30); GLOMERULAR FILTRATION RATE 31.1 (>49); POTASSIUM SERUM 4.0 MMOL/L (3.5-5.1); SODIUM LEVEL 138.0 MMOL/L (136-145)
[2025-04-07 22:40] VITALS: O2SAT 87
[2025-04-07 23:04] VITALS: BP 121/72; TEMP 100.8; O2SAT 91
[2025-04-07] MEDS: VANCOMYCIN HCL 1,750 MG, VIAL MATE ADAPTER 1 EACH in NS 500 ML IV ONE (23:04)
[2025-04-08] VITALS (24 sets, daily range): BP systolic 121–171; BP diastolic 65–80; TEMP 98.1–101.5; O2SAT 84–98
[2025-04-08] MEDS ORDERED: KCL 10MEQ/100ML SWI (KRUN) 10 MEQ in IV 1 EA IV SCH
[2025-04-08 07:17] LABS: PLATELET COUNT, AUTOMATED 164 10^3/uL (150-450)
[2025-04-08] MEDS ORDERED: VANCOMYCIN HCL 1,250 MG, VIAL MATE ADAPTER 1 EACH in NS 250 ML IV SCH (08:00)
[2025-04-08 08:12] LABS: VANCOMYCIN RANDOM 25.0 UG/ML
[2025-04-08 08:13] LABS: ALT/SGPT 17.0 U/L (7.0-40); AST/SGOT 27.0 U/L (<34); CALCIUM LEVEL 9.3 MG/DL (8.3-10.6); CARBON DIOXIDE LEVEL 31.0 MMOL/L (20-31); CHLORIDE LEVEL 100.0 MMOL/L (98-107); CREATININE FOR GFR 2.21 MG/DL (0.70-1.30); GLOMERULAR FILTRATION RATE 33.3 (>49); POTASSIUM SERUM 3.2 MMOL/L (3.5-5.1); SODIUM LEVEL 143.0 MMOL/L (136-145)
[2025-04-08] MEDS: VANCOMYCIN HCL 750 MG, VIAL MATE ADAPTER 1 EACH in NS 250 ML IV SCH (13:15)
[2025-04-08] MEDS ORDERED: ONDANSETRON 4MG 2ML VIAL IV PRN (14:15)
[2025-04-08] MEDS ORDERED: OLANZapine INTRAMUSCULAR 10MG VIAL IM PRN (14:15)
[2025-04-08] MEDS ORDERED: BISACODYL 10 MG SUPP PR PRN (14:25)
[2025-04-08] MEDS: VALPROATE SOD INJ 250 MG in D5W 50 ML IV SCH (15:20)
[2025-04-08] MEDS: ASPIRIN 300 MG SUPP PR PRN (15:24)
[2025-04-08] MEDS: PANTOPRAZOLE 40MG VIAL IV SCH (15:27)
[2025-04-08] MEDS: ALBUTEROL SULFATE 2.5 MG/0.5 ML INH CONCENTRATE NEB SOLN NEB SCH (15:49)
[2025-04-08] MEDS: SODIUM CHLORIDE HYPERTONIC 3% 4ML NEB SOL INH SCH (15:49)
[2025-04-08] MEDS: OLANZapine INTRAMUSCULAR 10MG VIAL IM SCH (20:19)
[2025-04-08] MEDS: HEPARIN SOD 5000 UNITS/ML 1 ML VIAL/SYRINGE SQ SCH (21:22)
[2025-04-09 04:08] VITALS: BP 109/64; TEMP 98.9; O2SAT 98
[2025-04-09 10:00] VITALS: TEMP 100.1
[2025-04-09] MEDS: D5W/0.9% SODIUM CHLORIDE 1,000 ML IV SCH (10:52)
[2025-04-09 12:00] VITALS: BP 118/84; TEMP 99.9; O2SAT 100
[2025-04-09 14:14] LABS: PLATELET COUNT, AUTOMATED 143 10^3/uL (150-450)
[2025-04-09 14:55] LABS: ALT/SGPT 17.0 U/L (7.0-40); AST/SGOT 25.0 U/L (<34); CALCIUM LEVEL 8.6 MG/DL (8.3-10.6); CARBON DIOXIDE LEVEL 30.0 MMOL/L (20-31); CHLORIDE LEVEL 109.0 MMOL/L (98-107); CREATININE FOR GFR 1.99 MG/DL (0.70-1.30); GLOMERULAR FILTRATION RATE 37.7 (>49); POTASSIUM SERUM 2.9 MMOL/L (3.5-5.1); SODIUM LEVEL 149.0 MMOL/L (136-145); VANCOMYCIN LEVEL TROUGH 20.7 UG/ML (10.0-20.0)
[2025-04-09] MEDS: KCL 10MEQ/100ML SWI (KRUN) 10 MEQ in IV 1 EA IV SCH (16:07)
[2025-04-09] MEDS: POTASSIUM CHLORIDE INJ 40 MEQ in NS 0.45% 1,000 ML IV SCH (17:22)
[2025-04-09] MEDS: CEFEPIME HCL 1 GM in DEXTROSE 5% (D5W) ADV/MINI-BAG 50 ML IV SCH (21:02)
[2025-04-09 21:38] VITALS: BP 138/77; TEMP 98.1; O2SAT 100
[2025-04-10 03:38] VITALS: BP 140/77; TEMP 98; O2SAT 100
[2025-04-10 08:20] VITALS: O2SAT 99
[2025-04-10 08:31] VITALS: O2SAT 95
[2025-04-10 12:00] VITALS: BP 148/76; TEMP 98.7; O2SAT 97
[2025-04-10 12:11] LABS: PLATELET COUNT, AUTOMATED 145 10^3/uL (150-450)
[2025-04-10 12:36] LABS: ALT/SGPT 14.0 U/L (7.0-40); AST/SGOT 20.0 U/L (<34); CALCIUM LEVEL 8.8 MG/DL (8.3-10.6); CARBON DIOXIDE LEVEL 31.0 MMOL/L (20-31); CHLORIDE LEVEL 112.0 MMOL/L (98-107); CREATININE FOR GFR 1.66 MG/DL (0.70-1.30); GLOMERULAR FILTRATION RATE 46.9 (>49); POTASSIUM SERUM 3.4 MMOL/L (3.5-5.1); SODIUM LEVEL 152.0 MMOL/L (136-145)
[2025-04-10] MEDS: POTASSIUM CHLORIDE INJ 40 MEQ in D5W 1,000 ML IV SCH (18:26)
[2025-04-10 20:00] VITALS: BP 148/75; TEMP 98.4; O2SAT 98
[2025-04-11 04:30] VITALS: BP 149/76; TEMP 98.8; O2SAT 100
[2025-04-11 06:40] LABS: PLATELET COUNT, AUTOMATED 182 10^3/uL (150-450)
[2025-04-11 07:13] LABS: ALT/SGPT 12.0 U/L (7.0-40); AST/SGOT 18.0 U/L (<34); CALCIUM LEVEL 8.6 MG/DL (8.3-10.6); CARBON DIOXIDE LEVEL 27.0 MMOL/L (20-31); CHLORIDE LEVEL 112.0 MMOL/L (98-107); CREATININE FOR GFR 1.36 MG/DL (0.70-1.30); GLOMERULAR FILTRATION RATE 59.6 (>49); POTASSIUM SERUM 3.5 MMOL/L (3.5-5.1); SODIUM LEVEL 149.0 MMOL/L (136-145)
[2025-04-11 12:00] VITALS: BP 145/77; TEMP 97.7; O2SAT 100
[2025-04-11] MEDS ORDERED: KCL 10MEQ IN D5/0.45NS 1000ML 1,000 ML IV SCH (16:10)
[2025-04-11 20:58] VITALS: BP 131/74; TEMP 99.7; O2SAT 100
[2025-04-12 03:52] VITALS: BP 121/74; TEMP 99; O2SAT 100
[2025-04-12 06:19] LABS: PLATELET COUNT, AUTOMATED 167 10^3/uL (150-450)
[2025-04-12 07:08] LABS: ALT/SGPT < 9 U/L (7.0-40); AST/SGOT 18 U/L (<34); CALCIUM LEVEL 8.2 MG/DL (8.3-10.6); CARBON DIOXIDE LEVEL 25 MMOL/L (20-31); CHLORIDE LEVEL 112 MMOL/L (98-107); CREATININE FOR GFR 1.26 MG/DL (0.70-1.30); GLOMERULAR FILTRATION RATE 65.3 (>49); POTASSIUM SERUM 3.3 MMOL/L (3.5-5.1); SODIUM LEVEL 145 MMOL/L (136-145)
[2025-04-12 12:00] VITALS: BP 122/69; TEMP 99.1; O2SAT 98
[2025-04-12] MEDS: CEFEPIME HCL 2 GM in DEXTROSE 5% (D5W) ADV/MINI-BAG 50 ML IV SCH (20:58)
[2025-04-12 21:06] VITALS: BP 133/73; TEMP 97.9; O2SAT 96
[2025-04-13] MEDS: PANTOPRAZOLE 40MG VIAL IV SCH (00:55)
[2025-04-13 01:30] LABS: BASO # 0.1 10^3/uL (0.0-0.2); BASO % 0.6 % (0.0-1.0); EOS # 0.4 10^3/uL (0.0-0.5); EOS % 3.4 % (0.0-3.0); LYMPH # 2.3 10^3/uL (1.5-5.0); LYMPH % 18.6 % (24.0-44.0); MONO # 1.0 10^3/uL (0.0-0.8); MONO % 7.8 % (2.0-8.0); NEUTROPHILS # 8.4 10^3/uL (1.5-8.5); NEUTROPHILS % 67.7 % (36.0-66.0); PLATELET COUNT, AUTOMATED 182 10^3/uL (150-450)
[2025-04-13 02:19] LABS: ALT/SGPT 12.0 U/L (7.0-40); AST/SGOT 21.0 U/L (<34); CALCIUM LEVEL 8.5 MG/DL (8.3-10.6); CARBON DIOXIDE LEVEL 22.0 MMOL/L (20-31); CHLORIDE LEVEL 110.0 MMOL/L (98-107); CREATININE FOR GFR 1.23 MG/DL (0.70-1.30); GLOMERULAR FILTRATION RATE 67.2 (>49); POTASSIUM SERUM 4.4 MMOL/L (3.5-5.1); SODIUM LEVEL 144.0 MMOL/L (136-145)
[2025-04-13 06:10] VITALS: BP 138/66; TEMP 98.1; O2SAT 99
[2025-04-13 07:15] VITALS: BP 140/76; TEMP 97.7; O2SAT 97
[2025-04-13 09:21] LABS: PLATELET COUNT, AUTOMATED 190 10^3/uL (150-450)
[2025-04-13 09:58] LABS: ALT/SGPT 14.0 U/L (7.0-40); AST/SGOT 22.0 U/L (<34); CALCIUM LEVEL 8.2 MG/DL (8.3-10.6); CARBON DIOXIDE LEVEL 22.0 MMOL/L (20-31); CHLORIDE LEVEL 110.0 MMOL/L (98-107); CREATININE FOR GFR 1.26 MG/DL (0.70-1.30); GLOMERULAR FILTRATION RATE 65.3 (>49); POTASSIUM SERUM 3.9 MMOL/L (3.5-5.1); SODIUM LEVEL 141.0 MMOL/L (136-145)
[2025-04-13 12:08] VITALS: BP 134/73; TEMP 97; O2SAT 96
[2025-04-13 21:11] VITALS: BP 134/73; TEMP 97.7; O2SAT 95
[2025-04-14 05:33] VITALS: BP 135/74; TEMP 97.5; O2SAT 97
[2025-04-14 12:00] VITALS: BP 136/76; TEMP 97.7; O2SAT 96
[2025-04-14 13:19] LABS: PLATELET COUNT, AUTOMATED 195 10^3/uL (150-450)
[2025-04-14 13:55] LABS: ALT/SGPT 18.0 U/L (7.0-40); AST/SGOT 29.0 U/L (<34); CALCIUM LEVEL 8.6 MG/DL (8.3-10.6); CARBON DIOXIDE LEVEL 23.0 MMOL/L (20-31); CHLORIDE LEVEL 109.0 MMOL/L (98-107); CREATININE FOR GFR 1.25 MG/DL (0.70-1.30); GLOMERULAR FILTRATION RATE 65.9 (>49); POTASSIUM SERUM 4.6 MMOL/L (3.5-5.1); SODIUM LEVEL 140.0 MMOL/L (136-145)
[2025-04-14 20:14] VITALS: BP 128/74; TEMP 98; O2SAT 93
[2025-04-15] VITALS (9 sets, daily range): BP systolic 122–144; BP diastolic 62–92; TEMP 97.7–101.6; O2SAT 96–100
[2025-04-15 06:46] LABS: PLATELET COUNT, AUTOMATED 184 10^3/uL (150-450)
[2025-04-15 07:12] LABS: CALCIUM LEVEL 8.6 MG/DL (8.3-10.6); CARBON DIOXIDE LEVEL 23.0 MMOL/L (20-31); CHLORIDE LEVEL 109.0 MMOL/L (98-107); CREATININE FOR GFR 1.35 MG/DL (0.70-1.30); GLOMERULAR FILTRATION RATE 60.1 (>49); MAGNESIUM LEVEL 2.0 MG/DL (1.8-2.4); PHOSPHORUS LEVEL 2.3 MG/DL (2.4-5.1); POTASSIUM SERUM 5.5 MMOL/L (3.5-5.1); SODIUM LEVEL 139.0 MMOL/L (136-145)
[2025-04-15] MEDS: ALBUTEROL SULFATE 2.5 MG/0.5 ML INH CONCENTRATE NEB SOLN NEB SCH (09:40)
[2025-04-15] MEDS: HumuLIN R (REGULAR) INSULIN (NovoLIN R) **100 U/ML** PER UNIT IV STA (10:17)
[2025-04-15] MEDS: DEXTROSE 50% 50 ML SYRINGE IV STA (10:17)
[2025-04-15] MEDS: CALCIUM GLUCONATE 1,000 MG in DEXTROSE 5% (D5W) MINI-BAG PLU 100 ML IV ONE (10:18)
[2025-04-15] MEDS: D5W/0.45% SODIUM CHLORIDE 1,000 ML IV SCH (10:18)
[2025-04-15 13:57] LABS: CALCIUM LEVEL 8.7 MG/DL (8.3-10.6); CARBON DIOXIDE LEVEL 22.0 MMOL/L (20-31); CHLORIDE LEVEL 106.0 MMOL/L (98-107); CREATININE FOR GFR 1.32 MG/DL (0.70-1.30); GLOMERULAR FILTRATION RATE 61.8 (>49); POTASSIUM SERUM 4.5 MMOL/L (3.5-5.1); SODIUM LEVEL 137.0 MMOL/L (136-145)
[2025-04-15] MEDS ORDERED: MEROPENEM 1 GM in IV 1 EA IV SCH (18:20)
[2025-04-15 18:32] LABS: PLATELET COUNT, AUTOMATED 139 10^3/uL (150-450)
[2025-04-15] MEDS: KETOROLAC 30 MG/ML 1 ML VIAL IV ONE (18:47)
[2025-04-15 18:59] LABS: KETONE, URINE AUTO RFX NEGATIVE (NEGATIVE); MUCUS, URINE RFX SMALL (NEGATIVE); NITRITE, URINE AUTO RFX NEGATIVE (NEGATIVE); RBC, URINE AUTO RFX 8 /HPF (0-3); SQUAM EPITHELIAL CELL UR AURFX 0 /HPF (0-6)
[2025-04-15 19:10] LABS: ALT/SGPT 16.0 U/L (7.0-40); AST/SGOT 24.0 U/L (<34); CALCIUM LEVEL 6.9 MG/DL (8.3-10.6); CARBON DIOXIDE LEVEL 19.0 MMOL/L (20-31); CHLORIDE LEVEL 92.0 MMOL/L (98-107); CREATININE FOR GFR 1.14 MG/DL (0.70-1.30); GLOMERULAR FILTRATION RATE 73.6 (>49); POTASSIUM SERUM 4.2 MMOL/L (3.5-5.1); SODIUM LEVEL 119.0 MMOL/L (136-145)
[2025-04-15] MEDS ORDERED: HumuLIN R (REGULAR) INSULIN (NovoLIN R) **100 U/ML** PER UNIT SC STA (19:15)
[2025-04-15 19:22] LABS: LEUKOCYTE ESTERASE UR AUTO RFX TRACE (NEGATIVE); WBC, URINE AUTO RFX 16 /HPF (0-3)
[2025-04-15] MEDS ORDERED: ACETAMINOPHEN 650 MG SUPP PR ONE (20:00)
[2025-04-15 20:15] LABS: ABG BASE EXCESS -2.1 (-2.0-2.0); ABG HCO3 20.5 MMOL/L (22.0-26.0); ABG O2 SATURATION 98.0 % (95.0-99.0); ABG PARTIAL PRESSURE CO2 27.4 mmHg (35.0-45.0); ABG PARTIAL PRESSURE O2 112.0 mmHg (75.0-100.0); ABG STANDARD HCO3 22.7 MMOL/L. (22.0-26.0); ABG TOTAL CO2 21.3 MMOL/L (23.0-31.0); ABG pH (ARTERIAL) 7.491 UNITS (7.350-7.450)
[2025-04-15 21:13] LABS: ALT/SGPT 22.0 U/L (7.0-40); AST/SGOT 34.0 U/L (<34); CALCIUM LEVEL 8.3 MG/DL (8.3-10.6); CALCIUM LEVEL 8.5 MG/DL (8.3-10.6); CARBON DIOXIDE LEVEL 21.0 MMOL/L (20-31); CHLORIDE LEVEL 106.0 MMOL/L (98-107); CHLORIDE LEVEL 107.0 MMOL/L (98-107); CREATININE FOR GFR 1.32 MG/DL (0.70-1.30); CREATININE FOR GFR 1.34 MG/DL (0.70-1.30); GLOMERULAR FILTRATION RATE 60.7 (>49); GLOMERULAR FILTRATION RATE 61.8 (>49); POTASSIUM SERUM 4.5 MMOL/L (3.5-5.1); SODIUM LEVEL 134.0 MMOL/L (136-145); SODIUM LEVEL 135.0 MMOL/L (136-145)
[2025-04-15] MEDS: MEROPENEM 2 GM in SODIUM CHLORIDE 0.9% INJ 100 ML IV SCH (21:46)
[2025-04-15] MEDS: VANCOMYCIN HCL 1,250 MG, VIAL MATE ADAPTER 1 EACH in NS 250 ML IV ONE (23:50)
[2025-04-16] VITALS (11 sets, daily range): BP systolic 100–150; BP diastolic 49–66; TEMP 98.6–102.1; O2SAT 94–100
[2025-04-16] MEDS: NS (Normal Saline) 0.9% 1,000 ML IV SCH (00:32)
[2025-04-16] MEDS: KETOROLAC 30 MG/ML 1 ML VIAL IV ONE (00:32)
[2025-04-16] MEDS ORDERED: MEROPENEM IV SCH (02:20)
[2025-04-16 05:53] LABS: BASO # 0.1 10^3/uL (0.0-0.2); BASO % 0.3 % (0.0-1.0); EOS # 0.0 10^3/uL (0.0-0.5); EOS % 0.1 % (0.0-3.0); LYMPH # 1.3 10^3/uL (1.5-5.0); LYMPH % 6.6 % (24.0-44.0); MONO # 1.4 10^3/uL (0.0-0.8); MONO % 7.3 % (2.0-8.0); NEUTROPHILS # 16.4 10^3/uL (1.5-8.5); NEUTROPHILS % 83.8 % (36.0-66.0); PLATELET COUNT, AUTOMATED 138 10^3/uL (150-450)
[2025-04-16 06:35] LABS: CALCIUM LEVEL 8.4 MG/DL (8.3-10.6); CARBON DIOXIDE LEVEL 18.0 MMOL/L (20-31); CHLORIDE LEVEL 110.0 MMOL/L (98-107); CREATININE FOR GFR 1.4 MG/DL (0.70-1.30); GLOMERULAR FILTRATION RATE 57.5 (>49); MAGNESIUM LEVEL 1.9 MG/DL (1.8-2.4); PHOSPHORUS LEVEL 2.9 MG/DL (2.4-5.1); POTASSIUM SERUM 4.9 MMOL/L (3.5-5.1); SODIUM LEVEL 138.0 MMOL/L (136-145)
[2025-04-16] MEDS ORDERED: SODIUM BICARBONATE 150 MEQ in D5W 1,000 ML IV SCH (07:40)
[2025-04-16 08:10] LABS: VANCOMYCIN RANDOM 15.2 UG/ML
[2025-04-16] MEDS ORDERED: VANCOMYCIN HCL 1,000 MG, VIAL MATE ADAPTER 1 EACH in NS 250 ML IV SCH (09:00)
[2025-04-16] MEDS: VANCOMYCIN HCL 750 MG, VIAL MATE ADAPTER 1 EACH in NS 250 ML IV SCH (09:23)
[2025-04-16] MEDS: SODIUM BICARBONATE 150 MEQ in D5W 1,000 ML IV SCH (09:33)
[2025-04-16 12:49] LABS: CALCIUM LEVEL 8.0 MG/DL (8.3-10.6); CARBON DIOXIDE LEVEL 21.0 MMOL/L (20-31); CHLORIDE LEVEL 108.0 MMOL/L (98-107); CREATININE FOR GFR 1.41 MG/DL (0.70-1.30); GLOMERULAR FILTRATION RATE 57.1 (>49); POTASSIUM SERUM 4.0 MMOL/L (3.5-5.1); SODIUM LEVEL 138.0 MMOL/L (136-145)
[2025-04-16 12:52] LABS: ALT/SGPT 14.0 U/L (7.0-40); AST/SGOT 23.0 U/L (<34)
[2025-04-16] MEDS: metroNIDAZOLE 500 MG in IV 1 EA IV SCH (13:44)
[2025-04-16] MEDS ORDERED: FIDAXOMICIN 200 MG TAB NG SCH (16:48)
[2025-04-16] MEDS: VANCOMYCIN 500MG/10ML VIAL PR SCH (17:35)
[2025-04-16] MEDS: FIDAXOMICIN 200 MG TAB NG SCH (21:35)
[2025-04-17 03:16] VITALS: BP 106/57; TEMP 97.9; O2SAT 95
[2025-04-17 05:47] LABS: PLATELET COUNT, AUTOMATED 160 10^3/uL (150-450)
[2025-04-17 06:14] LABS: ALT/SGPT 12.0 U/L (7.0-40); AST/SGOT 20.0 U/L (<34); CALCIUM LEVEL 7.8 MG/DL (8.3-10.6); CARBON DIOXIDE LEVEL 23.0 MMOL/L (20-31); CHLORIDE LEVEL 109.0 MMOL/L (98-107); CREATININE FOR GFR 1.43 MG/DL (0.70-1.30); GLOMERULAR FILTRATION RATE 55.8 (>49); MAGNESIUM LEVEL 1.8 MG/DL (1.8-2.4); PHOSPHORUS LEVEL 2.4 MG/DL (2.4-5.1); POTASSIUM SERUM 3.3 MMOL/L (3.5-5.1); SODIUM LEVEL 138.0 MMOL/L (136-145)
[2025-04-17 07:38] VITALS: BP 131/60; TEMP 97.6; O2SAT 95
[2025-04-17] MEDS: KCL 10MEQ/100ML SWI (KRUN) 10 MEQ in IV 1 EA IV SCH (08:19)
[2025-04-17 11:04] LABS: CPK CREATINE PHOSPHOKINASE 86.0 U/L (46-171)
[2025-04-17 11:58] VITALS: BP 111/63; TEMP 99.2; O2SAT 95
[2025-04-17 16:16] VITALS: BP 124/58; TEMP 101; O2SAT 92
[2025-04-17] MEDS ORDERED: ONDANSETRON 4MG ORAL DISINTEGRATING TAB PO PRN (16:45)
[2025-04-17] MEDS ORDERED: POLYVINYL ALCOHOL OPHTH SOLN 15ML (LIQUITEARS) OU PRN (16:45)
[2025-04-17] MEDS ORDERED: ACETAMINOPHEN 325 MG TAB PO PRN (16:45)
[2025-04-17] MEDS ORDERED: HYOSCYAMINE SULFATE 0.125 MG SUBL TABLET SL PRN (16:45)
[2025-04-17] MEDS ORDERED: SALIVA SUBSTITUTE BTL MT PRN (16:45)
[2025-04-17] MEDS ORDERED: MORPHINE 10 MG/0.5 ML ORAL CONCENTRATE SOLUTION U/D SL PRN (16:45)
[2025-04-17] MEDS: MORPHINE 10 MG/0.5 ML ORAL CONCENTRATE SOLUTION U/D SL SCH (18:36)
[2025-04-17] MEDS: FIDAXOMICIN 200 MG TAB PO SCH (20:41)
[2025-04-17] MEDS: OLANZapine ORAL DISINTEGRATING TAB 5MG PO SCH (21:19)
[2025-04-19] MEDS: ATROPINE SULFATE 1% OPHTH SOLN 2 ML BTL SL PRN (17:43)
[2025-04-20] MEDS ORDERED: ALBUTEROL SULFATE 2.5 MG/0.5 ML INH CONCENTRATE NEB SOLN NEB PRN (12:05)
== END 2025-04-20 12:23 | disposition expired | DRG 199 ==
LOC: M ED 17:22 → EDBD 17:22 → M ED INP 21:27 → M PCU 22:58 → M MSPAV 08-08 11:22 → M ICU 11-12 13:29 → M PCU 11-14 10:10 → M MS5PR 11-16 14:54 → M MSPAV 11-18 14:45 → M PCU 11-22 22:07 → M MSPAV 11-23 14:41 → M PCU 04-15 19:00 → M MSPAV 04-17 18:14
PROVIDERS: ADMIT Family Medicine; ATTEND Student in an Organized Health Care Education/Training Program
DX: I16.0 Hypertensive urgency (principal); A41.01 Sepsis due to Methicillin susceptible Staphylococcus aureus; I63.9 Cerebral infarction, unspecified; J96.01 Acute respiratory failure with hypoxia; R65.21 Severe sepsis with septic shock; I62.01 Nontraumatic acute subdural hemorrhage; G93.41 Metabolic encephalopathy; L89.152 Pressure ulcer of sacral region, stage 2; J69.0 Pneumonitis due to inhalation of food and vomit; I50.33 Acute on chronic diastolic (congestive) heart failure; I62.03 Nontraumatic chronic subdural hemorrhage; E87.4 Mixed disorder of acid-base balance; N17.9 Acute kidney failure, unspecified; D68.59 Other primary thrombophilia; D69.6 Thrombocytopenia, unspecified; E11.22 Type 2 diabetes mellitus with diabetic chronic kidney disease; E11.43 Type 2 diabetes mellitus with diabetic autonomic (poly)neuropathy; E11.51 Type 2 diabetes mellitus with diabetic peripheral angiopathy without gangrene; E11.622 Type 2 diabetes mellitus with other skin ulcer; E87.0 Hyperosmolality and hypernatremia; T83.511A Infection and inflammatory reaction due to indwelling urethral catheter, initial encounter; E83.42 Hypomagnesemia; E87.5 Hyperkalemia; E87.70 Fluid overload, unspecified; F11.20 Opioid dependence, uncomplicated; I69.351 Hemiplegia and hemiparesis following cerebral infarction affecting right dominant side; K92.2 Gastrointestinal hemorrhage, unspecified; L02.215 Cutaneous abscess of perineum; L89.890 Pressure ulcer of other site, unstageable; E88.09 Other disorders of plasma-protein metabolism, not elsewhere classified; F01.50 Vascular dementia, unspecified severity, without behavioral disturbance, psychotic disturbance, mood disturbance, and anxiety; N18.30 Chronic kidney disease, stage 3 unspecified; A09 Infectious gastroenteritis and colitis, unspecified; D63.1 Anemia in chronic kidney disease; E78.5 Hyperlipidemia, unspecified; E87.6 Hypokalemia; F32.A Depression, unspecified; F90.9 Attention-deficit hyperactivity disorder, unspecified type; G43.909 Migraine, unspecified, not intractable, without status migrainosus; G89.29 Other chronic pain; H54.8 Legal blindness, as defined in USA; I25.10 Atherosclerotic heart disease of native coronary artery without angina pectoris; I25.2 Old myocardial infarction; I77.9 Disorder of arteries and arterioles, unspecified; I89.0 Lymphedema, not elsewhere classified; K59.00 Constipation, unspecified; L72.0 Epidermal cyst; M47.9 Spondylosis, unspecified; M54.9 Dorsalgia, unspecified; R00.1 Bradycardia, unspecified; R29.6 Repeated falls; R33.9 Retention of urine, unspecified; R45.1 Restlessness and agitation; Z59.00 Homelessness unspecified; Z79.01 Long term (current) use of anticoagulants; Z95.5 Presence of coronary angioplasty implant and graft; Z86.711 Personal history of pulmonary embolism; Z86.718 Personal history of other venous thrombosis and embolism; Z88.6 Allergy status to analgesic agent; Z79.899 Other long term (current) drug therapy; Z79.82 Long term (current) use of aspirin; Z51.5 Encounter for palliative care; I13.0 Hypertensive heart and chronic kidney disease with heart failure and stage 1 through stage 4 chronic kidney disease, or unspecified chronic kidney disease